=== PATIENT | male | born 1975 | race Two or more races ===

== ENCOUNTER 2016-11-21 15:38 | Emergency (ER) | payer MEDICAID ==
[2016-11-21 18:33] VITALS: BP 142/88
[2016-11-21] MEDS ORDERED: Pregabalin CAP(*) 50 MG PO ONE (20:30)
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
== END 2016-11-21 21:23 | disposition home or self-care (01) ==
LOC: ED 15:38
DX: G62.9 Polyneuropathy, unspecified (principal); Z76.0 Encounter for issue of repeat prescription; Z87.891 Personal history of nicotine dependence
CPT/HCPCS: 99282; A9270-GY

== ENCOUNTER 2016-11-28 09:21 | Emergency (ER) | payer MEDICAID ==
[2016-11-28 09:50] VITALS: BP 149/81
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
== END 2016-11-28 11:04 | disposition home or self-care (01) ==
LOC: UCEAST 09:21
DX: G62.9 Polyneuropathy, unspecified (principal); M54.10 Radiculopathy, site unspecified; Z88.6 Allergy status to analgesic agent
CPT/HCPCS: 99212; G0463

== ENCOUNTER 2016-12-12 10:23 | Emergency (ER) | payer MEDICAID, OTHER ==
[2016-12-12 10:54] VITALS: BP 142/92
--- NOTE | 2016-12-12 11:42 | UC ---
Lower Extremity/Ankle HPI - HPI Summary HPI Summary: Intermittent "variable" foot pain for years. Pt is unable to describe where or how often or character of pain. Also says he has disc problems in L1-L2 so gets pain from this as well. Has been uninsured for a long time, now has insurance and trying to get on track with a PCP and specialists appointment. [place] much better on combination of tramadol and lyrica but needs tramadol rx to "tide him over" before he sees his PCP. Denies bowel or bladder incontinence or saddle anesthesia. - History of Current Complaint Chief Complaint: UCLowerExtremity Stated Complaint: FOOT PAIN-NEUROPATHY Time Seen by Provider: 12/12/16 11:06 Hx Obtained From: Patient Onset/Duration: Gradual Onset Severity Initially: Moderate Severity Currently: Moderate Aggravating Factor(s): Nothing Alleviating Factor(s): Nothing Able to Bear Weight: Yes - Allergies/Home Medications Allergies/Adverse Reactions: Allergies Allergy/AdvReac Type Severity Reaction Status Date / Time Naproxen Allergy Swelling Verified 12/12/16 10:54 Acetaminophen [From Tylenol] AdvReac Intermediate See Comment Verified 12/12/16 10:54 PMH/Surg Hx/FS Hx/Imm Hx - Additional Past Medical History Additional PMH: neuropathy for years, "high inflammation" Endocrine History Of: Denies: Diabetes, Thyroid Disease Cardiovascular History Of: Denies: Cardiac Disorders, Hypertension Respiratory History Of: Denies: COPD, Asthma GI/ History Of: Denies: Ulcer - Surgical History Surgical History: Yes Surgery Procedure, Year, and Place: hernia repair with mesh 3 sites - Family History Known Family History: Positive: None - Social History Occupation: Unemployed Alcohol Use: None Substance Use Type: None Substance Use Comment - Amount & Last Used: OXYCONTIN THIS AM 08/16/14 Smoking Status (MU): Former Smoker Type: Cigarettes Have You Smoked in the Last Year: Yes - Immunization History Most Recent Influenza Vaccination: Never Most Recent Tetanus Shot: 2002 Most Recent Pneumonia Vaccination: Never Review of Systems Constitutional: Negative Skin: Negative Eyes: Negative ENT: Negative Respiratory: Negative Cardiovascular: Negative Gastrointestinal: Negative Genitourinary: Negative Motor: Negative Neurovascular: Decreased Sensation, Other - intermittent pain Musculoskeletal: Negative Neurological: Negative Psychological: Negative All Other Systems Reviewed And Are Negative: Yes Physical Exam Triage Information Reviewed: Yes Appearance: Well-Appearing, No Pain Distress, Obese Vital Signs: Initial Vital Signs Temp 98.3 F 12/12/16 10:48 Pulse 84 12/12/16 10:48 Resp 20 12/12/16 10:48 BP 142/92 12/12/16 10:48 Pulse Ox 97 12/12/16 10:48 Vital Signs Reviewed: Yes Eye Exam: Normal Eyes: Positive: Conjunctiva Clear ENT Exam: Normal ENT: Positive: Normal ENT inspection, Hearing grossly normal, Pharynx normal, TMs normal Dental Exam: Normal Neck exam: Normal Neck: Positive: Supple, Nontender, No Lymphadenopathy Respiratory Exam: Normal Respiratory: Positive: Chest non-tender, Lungs clear, Normal breath sounds, No respiratory distress, No accessory muscle use Cardiovascular Exam: Normal Cardiovascular: Positive: RRR, No Murmur Musculoskeletal: Positive: Strength Intact, ROM Intact Neurological Exam: Other - DTRs 2+ patella Neurological: Positive: Muscle Tone Normal Psychological Exam: Other - pressured speech, unable to move on from describing symptoms to a treatment plan, continually interrupting when I tried to ask questions or propose therapy Skin Exam: Normal Lower Extremity Course/Dx - Differential Dx/Diagnosis Provider Diagnoses: chronic pain. peripheral neuropathy. medication refill Discharge - Discharge Plan Condition: Stable Disposition: HOME Prescriptions: traMADol TAB* [Ultram*] 50 mg PO Q6HR PRN #15 tab MDD 4 PRN Reason: Pain Patient Education Materials: Peripheral Neuropathy (ED), Chronic Pain (ED) Referrals: Feliberto Esquivel MD [Primary Care Provider] - Additional Instructions: Now that you have an upcoming appointment with a primary care provider, you will not be able to come here for any of your regular medications (especially narcotics). Please use the tramadol only for nighttime pain. It is ok to take 1 or 2 tablets by mouth at bedtime. Do not use during the day or you will run out before your primary care appointment.
== END 2016-12-12 11:39 | disposition home or self-care (01) ==
LOC: UCEAST 10:23
DX: M79.673 Pain in unspecified foot (principal); G62.9 Polyneuropathy, unspecified; Z76.0 Encounter for issue of repeat prescription; R03.0 Elevated blood-pressure reading, without diagnosis of hypertension; Z88.6 Allergy status to analgesic agent; Z87.891 Personal history of nicotine dependence
CPT/HCPCS: 99212; G0463

== ENCOUNTER 2017-06-09 14:33 | Emergency (ER) | payer OTHER ==
[2017-06-09] MEDS ORDERED: NS 0.9% 1000 ML* 1,000 ML IV ONE (15:46)
[2017-06-09 16:06] LABS: Hematocrit 38 % (42-52); Hemoglobin 13.2 g/dl (14.0-18.0); Mean Corpuscular HGB Conc 34 g/dl (31-36); Mean Corpuscular Hemoglobin 30 pg (27-31); Mean Corpuscular Volume 87 fL (80-94); Mean Platelet Volume 8 um3 (7.4-10.4); Red Blood Count 4.42 10^6/ul (4.0-5.4); Red Cell Distribution Width 13 % (10.5-15); White Blood Count 5.8 10^3/ul (3.5-10.8)
[2017-06-09 16:20] LABS: ALT 13 U/L (7-52); AST 13 U/L (13-39); Albumin 3.9 g/dL (3.2-5.2); Alkaline Phosphatase 53 U/L (34-104); Anion Gap 6 mmol/L (2-11); Blood Urea Nitrogen 13 mg/dL (6-24); C Reactive Protein 3.25 mg/L (< 5.00); CO2 Carbon Dioxide 24 mmol/L (22-32); Calcium 8.8 mg/dL (8.6-10.3); Chloride 107 mmol/L (101-111); Creatine Kinase 95 U/L (10-223); EGFR African American 195.7 (>60); EGFR Non-African American 152.1 (>60); Globulin 2.9 g/dL (2-4); Glucose 110 mg/dL (70-100); Lipase 14 U/L (11.0-82.0); Magnesium 1.9 mg/dL (1.9-2.7); Potassium 3.8 mmol/L (3.5-5.0); Sodium 137 mmol/L (133-145); Total Protein 6.8 g/dL (6.4-8.9)
--- NOTE | 2017-06-09 16:22 | RAD ---
Indication: Chest pain. Single frontal view of the chest performed at 1600 hours was reviewed. Comparison is made with previous exam dated July 26, 2008. No mediastinal shift is noted. Heart is of normal size and configuration. Lung blake appear clear. IMPRESSION: NO ACTIVE CARDIOPULMONARY DISEASE IS NOTED.
[2017-06-09 16:51] LABS: Acetaminophen < 15 mcg/mL; Alcohol < 10 mg/dL (<10); Salicylate < 2.50 mg/dL (<30)
[2017-06-09 16:53] LABS: TSH (Thyroid Stimulating Horm) 0.52 mcIU/mL (0.34-5.60)
[2017-06-09 17:14] LABS: Benzodiazepine Urine Screen None Detected (None Detect)
[2017-06-09 17:17] LABS: Urine Bilirubin Negative (Negative); Urine Glucose Negative (Negative); Urine Nitrite Negative (Negative)
--- NOTE | 2017-06-09 18:41 | ED ---
Aleah Parks Thomas, scribed for Stan Deshpande MD on 06/09/17 at 1558 . Complex/Multi-Sys Presentation - HPI Summary HPI Summary: The pt is a 41 y/o M who comes in to the ED with multiple complaints of CP, SOB , abd pain, weakness, dizziness, restlessness, PARISI, arm pain, tiredness, confusion, agitation, sleepiness, depression, and anxiety, which he feels are secondary to his chronic polyneuropathy and also the medications that are being used to treat his polyneuropathy, including Nortriptyline and Gabapentin. He stopped the Nortriptyline on his own and he is still on Gabapentin. He was hoping to get a different medication from his PCP and he called his PCP to schedule an appointment. When the patient described his symptoms, he was instructed over the phone to go to the ED for evaluation of his symptoms. The patient denies suicidal ideation. The patient also takes tramadol, which is not working any more. He continues to have chronic peripheral neuropathy and chronic thoracic and lumbar pain. These have been evaluated previously with extensive bloodwork and imaging with appointments at neurology and pain clinics. - History Of Current Complaint Chief Complaint: EDChestPainROMI Time Seen by Provider: 06/09/17 14:54 Hx Obtained From: Patient Onset/Duration: Still Present Timing: Constant Severity Currently: Severe Aggravating Factor(s): None Alleviating Factor(s): None Associated Signs And Symptoms: Positive: Confusion, Agitation, Dizziness, Weakness, Headache, SOB, Chest Pain, Abdominal Pain, Other - POS: restlessness, arm pain, tiredness, sleepiness, depression, anxiety; NEG: SI. Negative: Fever Related History: Other - Hx of chronic peripheral neuropathy, thoracic and lumbar pain - Allergies/Home Medications Allergies/Adverse Reactions: Allergies Allergy/AdvReac Type Severity Reaction Status Date / Time Naproxen Allergy Swelling Verified 03/20/17 08:29 Acetaminophen [From Tylenol] AdvReac Intermediate See Comment Verified 03/20/17 08:29 Home Medications: Home Medications Gabapentin CAP(*) [Neurontin 300 CAP(*)] 300 mg PO TID 06/09/17 [History Confirmed 06/09/17] Nortriptyline CAP* [Pamelor CAP*] 10 - 20 mg PO BEDTIME 06/09/17 [History Confirmed 06/09/17] Venlafaxine EXT RELEASE CAP* [Effexor Xr CAP*] 37.5 mg PO DAILY 06/09/17 [ History Confirmed 06/09/17] traMADol TAB* [Ultram*] 100 mg PO TID PRN 06/09/17 [History Confirmed 06/09/17] PMH/Surg Hx/FS Hx/Imm Hx Previously Healthy: No Endocrine/Hematology History: Denies: Hx Diabetes, Hx Thyroid Disease Cardiovascular History: Denies: Hx Hypertension, Hx Pacemaker/ICD Respiratory History: Denies: Hx Asthma, Hx Chronic Obstructive Pulmonary Disease (COPD) GI History: Reports: Other GI Disorders - INCARCERATED VENTRAL HERNIA Denies: Hx Ulcer Musculoskeletal History: Reports: Other Musculoskeletal History - Hx lumbar pain , thoracic pain Sensory History: Denies: Hx Hearing Aid Neurological History: Reports: Hx Peripheral Neuropathy Psychiatric History: Denies: Hx Eating Disorder, Hx Panic Disorder, Hx of Violent Episodes Against Others - Surgical History Surgery Procedure, Year, and Place: hernia repair with mesh 3 sites, - Immunization History Date of Tetanus Vaccine: w Infectious Disease History: No Infectious Disease History: Reports: Hx of Known/Suspected MRSA - HX Right knee infection Denies: Hx Hepatitis, Hx Human Immunodeficiency Virus (HIV), Traveled Outside the [place] in Last 30 Days - Family History Known Family History: Negative: Blood Disorder - Social History Alcohol Use: None Substance Use Type: Reports: Prescribed Smoking Status (MU): Former Smoker Type: Cigarettes Have You Smoked in the Last Year: Yes Review of Systems Negative: Fever Positive: Chest Pain Positive: Shortness Of Breath Positive: Abdominal Pain Positive: Other - POS: arm pain Neurological: Other - POS: dizziness, tiredness, sleepiness Positive: Headache, Weakness Positive: Anxious, Depressed, Other - POS: restlessness, agitation; NEG: NV All Other Systems Reviewed And Are Negative: Yes Physical Exam Triage Information Reviewed: Yes Vital Signs On Initial Exam: Initial Vitals Temp Pulse Resp BP Pulse Ox 98.4 F 75 20 140/90 99 06/09/17 14:36 06/09/17 14:36 06/09/17 14:36 06/09/17 14:36 06/09/17 14:36 Vital Signs Reviewed: Yes Appearance: Positive: Well-Appearing, Well-Nourished, Pain Distress Skin: Positive: Warm, Skin Color Reflects Adequate Perfusion, Dry Head/Face: Positive: Normal Head/Face Inspection Eyes: Positive: EOMI, ALLY ENT: Positive: Normal ENT inspection Neck: Positive: Supple, Nontender Respiratory/Lung Sounds: Positive: Clear to Auscultation, Breath Sounds Present Cardiovascular: Positive: RRR Abdomen Description: Positive: Nontender, Soft Musculoskeletal: Positive: Normal, Strength/ROM Intact Neurological: Positive: Normal, Sensory/Motor Intact, Alert, Oriented to Person Place, Time Psychiatric: Positive: Affect/Mood Appropriate - [place] Coma Scale Coma Scale Total: 15 Diagnostics - Vital Signs Vital Signs Temp Pulse Resp BP Pulse Ox 06/09/17 15:03 99.2 F 74 14 136/73 96 06/09/17 15:00 72 18 136/73 97 06/09/17 14:56 73 98 06/09/17 14:55 134/90 06/09/17 14:36 98.4 F 75 20 140/90 99 - Laboratory Lab Results: Lab Results 06/09/17 06/09/17 06/09/17 Range/Units 16:00 16:00 16:00 WBC (3.5-10.8) 10^3/ul RBC (4.0-5.4) 10^6/ul Hgb (14.0-18.0) g/dl Hct (42-52) % MCV (80-94) fL MCH (27-31) pg MCHC (31-36) g/dl RDW (10.5-15) % Plt Count (150-450) 10^3/ul MPV (7.4-10.4) um3 Neut % (Auto) (38-83) % Lymph % (Auto) (25-47) % Evans % (Auto) (1-9) % Eos % (Auto) (0-6) % Baso % (Auto) (0-2) % Absolute Neuts (auto) (1.5-7.7) 10^3/ul Absolute Lymphs (auto) (1.0-4.8) 10^3/ul Absolute Monos (auto) (0-0.8) 10^3/ul Absolute Eos (auto) (0-0.6) 10^3/ul Absolute Basos (auto) (0-0.2) 10^3/ul Absolute Nucleated RBC 10^3/ul Nucleated RBC % INR (Anticoag Therapy) 0.81 L (0.89-1.11) APTT 31.4 (26.0-36.3) seconds D-Dimer, Quantitative < 200 (Less Than 230) ng/mL Sodium 137 (133-145) mmol/L Potassium 3.8 (3.5-5.0) mmol/L Chloride 107 (101-111) mmol/L Carbon Dioxide 24 (22-32) mmol/L Anion Gap 6 (2-11) mmol/L BUN 13 (6-24) mg/dL Creatinine 0.59 L (0.67-1.17) mg/dL Est GFR ( Amer) 195.7 (>60) Est GFR (Non-Af Amer) 152.1 (>60) BUN/Creatinine Ratio 22.0 H (8-20) Glucose 110 H (70-100) mg/dL Lactic Acid (0.5-2.0) mmol/L Calcium 8.8 (8.6-10.3) mg/dL Magnesium 1.9 (1.9-2.7) mg/dL Total Bilirubin 0.30 (0.2-1.0) mg/dL AST 13 (13-39) U/L ALT 13 (7-52) U/L Alkaline Phosphatase 53 (34-104) U/L Total Creatine Kinase 95 (10-223) U/L CK-MB (CK-2) 1.7 (0.6-6.3) ng/mL Troponin I 0.00 (<0.04) ng/mL C-Reactive Protein 3.25 (< 5.00) mg/L B-Natriuretic Peptide 48 ( - 100) pg/mL Total Protein 6.8 (6.4-8.9) g/dL Albumin 3.9 (3.2-5.2) g/dL Globulin 2.9 (2-4) g/dL Albumin/Globulin Ratio 1.3 (1-3) Lipase 14 (11.0-82.0) U/L TSH 0.52 (0.34-5.60) mcIU/mL Urine Color Urine Appearance Urine pH (5-9) Ur Specific Brady (1.010-1.030) Urine Protein (Negative) Urine Ketones (Negative) Urine Blood (Negative) Urine Nitrate (Negative) Urine Bilirubin (Negative) Urine Urobilinogen (Negative) Ur Leukocyte Esterase (Negative) Urine Glucose (Negative) Urine Ascorbic Acid (Negative) Salicylates < 2.50 (<30) mg/dL Urine Opiates Screen (None Detect) Acetaminophen < 15 mcg/mL Ur Barbiturates Screen (None Detect) Ur Phencyclidine Scrn (None Detect) Ur Amphetamines Screen (None Detect) U Benzodiazepines Scrn (None Detect) Urine Cocaine Screen (None Detect) U Cannabinoids Screen (None Detect) Serum Alcohol < 10 (<10) mg/dL 06/09/17 06/09/17 06/09/17 Range/Units 16:00 16:00 16:45 WBC 5.8 (3.5-10.8) 10^3/ul RBC 4.42 (4.0-5.4) 10^6/ul Hgb 13.2 L (14.0-18.0) g/dl Hct 38 L (42-52) % MCV 87 (80-94) fL MCH 30 (27-31) pg MCHC 34 (31-36) g/dl RDW 13 (10.5-15) % Plt Count 181 (150-450) 10^3/ul MPV 8 (7.4-10.4) um3 Neut % (Auto) 60.6 (38-83) % Lymph % (Auto) 26.2 (25-47) % Evans % (Auto) 8.6 (1-9) % Eos % (Auto) 3.6 (0-6) % Baso % (Auto) 1.0 (0-2) % Absolute Neuts (auto) 3.5 (1.5-7.7) 10^3/ul Absolute Lymphs (auto) 1.5 (1.0-4.8) 10^3/ul Absolute Monos (auto) 0.5 (0-0.8) 10^3/ul Absolute Eos (auto) 0.2 (0-0.6) 10^3/ul Absolute Basos (auto) 0.1 (0-0.2) 10^3/ul Absolute Nucleated RBC 0 10^3/ul Nucleated RBC % 0 INR (Anticoag Therapy) (0.89-1.11) APTT (26.0-36.3) seconds D-Dimer, Quantitative (Less Than 230) ng/mL Sodium (133-145) mmol/L Potassium (3.5-5.0) mmol/L Chloride (101-111) mmol/L Carbon Dioxide (22-32) mmol/L Anion Gap (2-11) mmol/L BUN (6-24) mg/dL Creatinine (0.67-1.17) mg/dL Est GFR ( Amer) (>60) Est GFR (Non-Af Amer) (>60) BUN/Creatinine Ratio (8-20) Glucose (70-100) mg/dL Lactic Acid 1.2 (0.5-2.0) mmol/L Calcium (8.6-10.3) mg/dL Magnesium (1.9-2.7) mg/dL Total Bilirubin (0.2-1.0) mg/dL AST (13-39) U/L ALT (7-52) U/L Alkaline Phosphatase (34-104) U/L Total Creatine Kinase (10-223) U/L CK-MB (CK-2) (0.6-6.3) ng/mL Troponin I (<0.04) ng/mL C-Reactive Protein (< 5.00) mg/L B-Natriuretic Peptide ( - 100) pg/mL Total Protein (6.4-8.9) g/dL Albumin (3.2-5.2) g/dL Globulin (2-4) g/dL Albumin/Globulin Ratio (1-3) Lipase (11.0-82.0) U/L TSH (0.34-5.60) mcIU/mL Urine Color Urine Appearance Urine pH (5-9) Ur Specific Brady (1.010-1.030) Urine Protein (Negative) Urine Ketones (Negative) Urine Blood (Negative) Urine Nitrate (Negative) Urine Bilirubin (Negative) Urine Urobilinogen (Negative) Ur Leukocyte Esterase (Negative) Urine Glucose (Negative) Urine Ascorbic Acid (Negative) Salicylates (<30) mg/dL Urine Opiates Screen Presumptive positive H (None Detect) Acetaminophen mcg/mL Ur Barbiturates Screen None detected (None Detect) Ur Phencyclidine Scrn None detected (None Detect) Ur Amphetamines Screen None detected (None Detect) U Benzodiazepines Scrn None detected (None Detect) Urine Cocaine Screen None detected (None Detect) U Cannabinoids Screen None detected (None Detect) Serum Alcohol (<10) mg/dL 06/09/17 Range/Units 16:55 WBC (3.5-10.8) 10^3/ul RBC (4.0-5.4) 10^6/ul Hgb (14.0-18.0) g/dl Hct (42-52) % MCV (80-94) fL MCH (27-31) pg MCHC (31-36) g/dl RDW (10.5-15) % Plt Count (150-450) 10^3/ul MPV (7.4-10.4) um3 Neut % (Auto) (38-83) % Lymph % (Auto) (25-47) % Evans % (Auto) (1-9) % Eos % (Auto) (0-6) % Baso % (Auto) (0-2) % Absolute Neuts (auto) (1.5-7.7) 10^3/ul Absolute Lymphs (auto) (1.0-4.8) 10^3/ul Absolute Monos (auto) (0-0.8) 10^3/ul Absolute Eos (auto) (0-0.6) 10^3/ul Absolute Basos (auto) (0-0.2) 10^3/ul Absolute Nucleated RBC 10^3/ul Nucleated RBC % INR (Anticoag Therapy) (0.89-1.11) APTT (26.0-36.3) seconds D-Dimer, Quantitative (Less Than 230) ng/mL Sodium (133-145) mmol/L Potassium (3.5-5.0) mmol/L Chloride (101-111) mmol/L Carbon Dioxide (22-32) mmol/L Anion Gap (2-11) mmol/L BUN (6-24) mg/dL Creatinine (0.67-1.17) mg/dL Est GFR ( Amer) (>60) Est GFR (Non-Af Amer) (>60) BUN/Creatinine Ratio (8-20) Glucose (70-100) mg/dL Lactic Acid (0.5-2.0) mmol/L Calcium (8.6-10.3) mg/dL Magnesium (1.9-2.7) mg/dL Total Bilirubin (0.2-1.0) mg/dL AST (13-39) U/L ALT (7-52) U/L Alkaline Phosphatase (34-104) U/L Total Creatine Kinase (10-223) U/L CK-MB (CK-2) (0.6-6.3) ng/mL Troponin I (<0.04) ng/mL C-Reactive Protein (< 5.00) mg/L B-Natriuretic Peptide ( - 100) pg/mL Total Protein (6.4-8.9) g/dL Albumin (3.2-5.2) g/dL Globulin (2-4) g/dL Albumin/Globulin Ratio (1-3) Lipase (11.0-82.0) U/L TSH (0.34-5.60) mcIU/mL Urine Color Anisha Urine Appearance Cloudy Urine pH 5.0 (5-9) Ur Specific Brady 1.024 (1.010-1.030) Urine Protein Negative (Negative) Urine Ketones Negative (Negative) Urine Blood Negative (Negative) Urine Nitrate Negative (Negative) Urine Bilirubin Negative (Negative) Urine Urobilinogen Negative (Negative) Ur Leukocyte Esterase Negative (Negative) Urine Glucose Negative (Negative) Urine Ascorbic Acid * H (Negative) Salicylates (<30) mg/dL Urine Opiates Screen (None Detect) Acetaminophen mcg/mL Ur Barbiturates Screen (None Detect) Ur Phencyclidine Scrn (None Detect) Ur Amphetamines Screen (None Detect) U Benzodiazepines Scrn (None Detect) Urine Cocaine Screen (None Detect) U Cannabinoids Screen (None Detect) Serum Alcohol (<10) mg/dL Result Diagrams: 06/09/17 16:00 06/09/17 16:00 Lab Statement: Any lab studies that have been ordered have been reviewed, and results considered in the medical decision making process. - Radiology CXR Xray Interpretation: No Acute Changes - no active cardiopulmonary disease is noted Radiology Interpretation Completed By: Radiologist Complex Multi-Symp Course/Dx Assessment/Plan: The pt is a 41 y/o M who comes in to the ED with multiple complaints of CP, SOB, abd pain, weakness, dizziness, restlessness, PARISI, arm pain , tiredness, confusion, agitation, sleepiness, depression, and anxiety, which he feels are secondary to his chronic polyneuropathy and also the medications that are being used to treat his polyneuropathy, including Nortriptyline and Gabapentin. He stopped the Nortriptyline on his own and he is still on Gabapentin. He was hoping to get a different medication from his PCP and he called his PCP to schedule an appointment. When the patient described his symptoms, he was instructed over the phone to go to the ED for evaluation of his symptoms. The patient denies suicidal ideation. The patient also takes tramadol, which is not working any more. He continues to have chronic peripheral neuropathy and chronic thoracic and lumbar pain. These have been evaluated previously with extensive bloodwork and imaging with appointments at neurology and pain clinics. In the ED course the patient was given IV fluids. Bloodwork shows Hgb 13.2, Hct 38, creatinine 0.57, glucose 110. UA negative. Urine Tox positive for opioids (note prior opioid Rx). CXR reveals no active cardiopulmonary disease is noted. ED physician has reviewed this radiology report and agrees. NO CRITICAL CARE TIME. DISCUSSED RESULTS WITH PATIENT. PATIENT DENIES SI. RX NORCO 5/325MG #30. F/U PMD THIS WEEK. - Diagnoses Provider Diagnoses: Chest pain, Dyspnea, Neuropathy, peripheral, Chronic back pain Discharge - Discharge Plan Condition: Stable Disposition: HOME Patient Education Materials: Chest Pain (ED), Dyspnea (ED), Peripheral Neuropathy (ED), Chronic Back Pain (ED) Forms: *Work Release Referrals: Feliberto Esquivel MD [Primary Care Provider] - Additional Instructions: FOLLOW UP WITH YOUR DOCTOR. CALL TOMORROW FOR FOLLOW UP. RETURN TO THE EMERGENCY DEPARTMENT FOR ANY WORSENING OF YOUR CONDITION OR QUESTIONS OR CONCERNS. The documentation as recorded by the Aleah griffin Thomas accurately reflects the service I personally performed and the decisions made by me, Stan Deshpande MD.
[2017-06-09 18:42] VITALS: BP 125/81
[2017-06-09] MEDS ORDERED: oxyCODONE TAB* 5 MG TAB PO ONE (18:44)
== END 2017-06-09 19:05 | disposition home or self-care (01) ==
LOC: ED 14:33
DX: R07.9 Chest pain, unspecified (principal); R06.00 Dyspnea, unspecified; R06.02 Shortness of breath; M54.9 Dorsalgia, unspecified; G62.9 Polyneuropathy, unspecified
CPT/HCPCS: 36415; 71010; 80053; 80307; 80320; 80329; 81003; 82550; 82553; 83605; 83690; 83735; 83880; 84443; 84484; 85025; 85379; 85610; 85730; 86140; 93005; 96360; 99282; A9270-GY; G0480

== ENCOUNTER → 2017-06-14 18:47 | Emergency (ER) | payer OTHER ==
[~2017-06-14 18:47] MED LIST: Cyclobenzaprine TAB* 10 MG ONE; Cyclobenzaprine TAB* 10 MG PO ONE; Ketorolac INJ* 60 MG/2 ML VIAL IM ONE; Ketorolac INJ* 60 MG/2 ML VIAL ONE; oxyCODONE TAB* 5 MG TAB ONE; oxyCODONE TAB* 5 MG TAB PO ONE
[2017-06-14 19:13] VITALS: BP 129/74
[2017-06-14 20:01] LABS: Hematocrit 40 % (42-52); Hemoglobin 13.6 g/dl (14.0-18.0); Mean Corpuscular HGB Conc 34 g/dl (31-36); Mean Corpuscular Hemoglobin 30 pg (27-31); Mean Corpuscular Volume 87 fL (80-94); Mean Platelet Volume 8 um3 (7.4-10.4); Red Blood Count 4.55 10^6/ul (4.0-5.4); Red Cell Distribution Width 13 % (10.5-15); White Blood Count 7.9 10^3/ul (3.5-10.8)
[2017-06-14 20:14] LABS: BUN/Creatinine Ratio 28.8 (8-20); Total Bilirubin 0.4 mg/dL (0.2-1.0)
[2017-06-14 20:23] LABS: TSH (Thyroid Stimulating Horm) 0.99 mcIU/mL (0.34-5.60)
[2017-06-14 20:33] LABS: Potassium 4.2 mmol/L (3.5-5.0)
--- NOTE | 2017-06-14 20:33 | ED ---
Martínez Parks Rebecca, scribed for Fish Martinez MD on 06/14/17 at 1919 . Complex/Multi-Sys Presentation - HPI Summary HPI Summary: Pt is a 41 y/o M who presents to ED c/o diffuse "extreme, severe pain." Pt reports pain is in the bilateral UE, LE, feet and hands that has been ongoing for "a long time." Pain is currently ranked 9/10 and described as so severe, it is affecting his sleep. Sx aggravated and alleviated by nothing. PMHx peripheral neuropathy. Pt was evaluated [place] [facility] [place] for symptoms caused as a side effect of his previous medications (Tramadol, Effexor and Gabapenitn) . On 06/11, his medication was changed, but his insurance did not cover the new medication and he states he cannot get in to see his PCP until Friday (2 days). Allergies to Tylenol and Naproxen. - History Of Current Complaint Chief Complaint: EDGeneral Time Seen by Provider: 06/14/17 19:18 Hx Obtained From: Patient Onset/Duration: Lasting Weeks - "a while", Still Present Severity Currently: Severe - 9/10 Location: Pain At: - Bilateral UE, LE, hands, feet Aggravating Factor(s): Nothing Alleviating Factor(s): Nothing - Allergies/Home Medications Allergies/Adverse Reactions: Allergies Allergy/AdvReac Type Severity Reaction Status Date / Time Naproxen Allergy Swelling Verified 06/14/17 19:13 Acetaminophen [From Tylenol] AdvReac Intermediate See Comment Verified 06/14/17 19:13 PMH/Surg Hx/FS Hx/Imm Hx Endocrine/Hematology History: Denies: Hx Diabetes, Hx Thyroid Disease Cardiovascular History: Reports: Other Cardiovascular Problems/Disorders Denies: Hx Hypertension, Hx Pacemaker/ICD Respiratory History: Denies: Hx Asthma, Hx Chronic Obstructive Pulmonary Disease (COPD) GI History: Reports: Other GI Disorders - INCARCERATED VENTRAL HERNIA Denies: Hx Ulcer Musculoskeletal History: Reports: Other Musculoskeletal History - Hx lumbar pain , thoracic pain Sensory History: Denies: Hx Hearing Aid Neurological History: Reports: Hx Peripheral Neuropathy Psychiatric History: Denies: Hx Eating Disorder, Hx Panic Disorder, Hx of Violent Episodes Against Others - Surgical History Surgery Procedure, Year, and Place: hernia repair with mesh 3 sites, - Immunization History Date of Tetanus Vaccine: ukwn Infectious Disease History: Reports: Hx of Known/Suspected MRSA - HX Right knee infection Denies: Hx Hepatitis, Hx Human Immunodeficiency Virus (HIV), Traveled Outside the [place] in Last 30 Days - Family History Known Family History: Negative: Blood Disorder - Social History Alcohol Use: None Substance Use Type: Reports: Prescribed Substance Use Comment - Amount & Last Used: OXYCONTIN THIS AM 08/16/14 Hx Tobacco Use: Yes Smoking Status (MU): Former Smoker Type: Cigarettes Have You Smoked in the Last Year: Yes Review of Systems Negative: Fever Positive: Other - Bilateral UE, LE, hand and foot pain for "a long time" All Other Systems Reviewed And Are Negative: Yes Physical Exam Triage Information Reviewed: Yes Vital Signs On Initial Exam: Initial Vitals Temp Pulse Resp BP Pulse Ox 98.6 F 106 16 129/74 97 06/14/17 19:05 06/14/17 19:05 06/14/17 19:05 06/14/17 19:05 06/14/17 19:05 Vital Signs Reviewed: Yes Appearance: Positive: Pain Distress - mild discomfort, Obese Skin: Positive: Warm Head/Face: Positive: Normal Head/Face Inspection Eyes: Positive: ALLY ENT: Positive: Hearing grossly normal Neck: Positive: Supple, Nontender Respiratory/Lung Sounds: Positive: Clear to Auscultation, Breath Sounds Present Cardiovascular: Positive: RRR Abdomen Description: Positive: Nontender, Soft Bowel Sounds: Positive: Present Musculoskeletal: Positive: Strength/ROM Intact Neurological: Positive: Alert, Oriented to Person Place, Time, Normal Gait Psychiatric: Positive: Anxious Diagnostics - Vital Signs Vital Signs Temp Pulse Resp BP Pulse Ox 06/14/17 19:05 98.6 F 106 16 129/74 97 - Laboratory Result Diagrams: 06/14/17 19:47 06/14/17 19:47 Lab Statement: Any lab studies that have been ordered have been reviewed, and results considered in the medical decision making process. Re-Evaluation - Re-Evaluation First Eval Comment: old records and istop reviewed, pt has tramadol at home but states doesn't work, received 20 oxycodone oin ed 4 days ago, has meds recently adjusted, offered pt trial of muscle relaxer, reluctant to further rx narcotics , will give pt oxycodone x 2 to go home but advisewd pt to take flexeril with tramadol and contact pcp Complex Multi-Symp Course/Dx Assessment/Plan: Pt is a 41 y/o M who presents to ED c/o diffuse "extreme, severe pain." Pt reports pain is in the bilateral UE, LE, feet and hands that has been ongoing for "a long time." Pain is currently ranked 9/10 and described as so severe, it is affecting his sleep. Sx aggravated and alleviated by nothing. PMHx peripheral neuropathy. Pt was evaluated [place] [facility] [place]09 for symptoms caused as a side effect of his previous medications (Tramadol, Effexor and Gabapenitn). On 06/11, his medication was changed, but his insurance did not cover the new medication and he states he cannot get in to see his PCP until Friday (2 days). Allergies to Tylenol and Naproxen. Blood work was done. In the ED course, pt was administered Toradol IM and Roxycodone and Flexeril PO. Pt will be D/C to home with Dx of chronic pain and nerve pain and Rx for Flexeril and a follow up with his PCP. He understands and agrees. Elevated BP noted and advised to f/u with PCP. - Diagnoses Provider Diagnoses: Chronic pain, Nerve pain Discharge - Discharge Plan Condition: Stable Disposition: HOME Prescriptions: Cyclobenzaprine TAB* [Flexeril 10 MG TAB*] 10 mg PO TID #14 tab Patient Education Materials: Chronic Pain (ED) Referrals: Feliberto Esquivel MD [Primary Care Provider] - 3 Days The documentation as recorded by the Martínez griffin Rebecca accurately reflects the service I personally performed and the decisions made by , Fish Martinez MD.
== END | disposition home or self-care (01) ==
LOC: ED 18:47
DX: G89.29 Other chronic pain (principal); M79.2 Neuralgia and neuritis, unspecified; Z87.891 Personal history of nicotine dependence
CPT/HCPCS: 36415; 80053; 82550; 83605; 83735; 84443; 85025; 96372; 96374; 99283; A9270-GY; J1885

== ENCOUNTER 2017-07-07 10:02 | Emergency (ER) | payer OTHER ==
--- NOTE | 2017-07-07 11:30 | UC ---
Skin Complaint HPI - HPI Summary HPI Summary: Patient presents with a history of MRSA, he compains of 2 week onset pain from the right nare, and now has redness and swelling of the tip of his nose. He states he feel unwell, like in a fog, runny a low grade fever. He states he now has a sore on the inside of his nose. He also reports that he fell a few days ago and is complaining of left hand pain, and would like to have this checked out as well today. He complains of hand swelling and pain. - History of Current Complaint Chief Complaint: UCSkin Time Seen by Provider: 07/07/17 11:10 Stated Complaint: RED AREA ON NOSE Hx Obtained From: Patient Onset/Duration: Gradual Onset, Lasting Weeks Skin Exposure Onset/Duration: Weeks Ago Timing: Constant Onset Severity: Moderate Current Severity: Severe Location: Nose, Other - left hand Aggravating Factor(s): Touch Alleviating Factor(s): Nothing Associated Signs & Symptoms: Positive: Fever Related History: Other: - MRSA Similar Episode/Dx as: MRSA - Allergy/Home Medications Allergies/Adverse Reactions: Allergies Allergy/AdvReac Type Severity Reaction Status Date / Time Naproxen Allergy Swelling Verified 07/07/17 10:10 Acetaminophen [From Tylenol] AdvReac Intermediate See Comment Verified 07/07/17 10:10 Review of Systems Constitutional: Fever Skin: Other - red, swollen painful nose with open wund in right nare. ENT: Other - red, swollen painful nose with sore inside the right nare. Musculoskeletal: Edema - left dorsum hand, Myalgia All Other Systems Reviewed And Are Negative: Yes PMH/Surg Hx/FS Hx/Imm Hx Previously Healthy: Yes - Surgical History Surgical History: Yes Surgery Procedure, Year, and Place: hernia repair with mesh 3 sites, - Family History Known Family History: Positive: None Negative: Blood Disorder - Social History Occupation: Employed Full-time Lives: Alone Alcohol Use: None Substance Use Type: None Substance Use Comment - Amount & Last Used: OXYCONTIN THIS AM 08/16/14 Smoking Status (MU): Former Smoker Type: Cigarettes Have You Smoked in the Last Year: Yes - Immunization History Most Recent Influenza Vaccination: Never Most Recent Tetanus Shot: 2002 Most Recent Pneumonia Vaccination: Never Physical Exam Triage Information Reviewed: Yes Appearance: Well-Appearing Vital Signs: Initial Vital Signs Temp 98 F 07/07/17 10:11 Pulse 73 07/07/17 10:11 Resp 18 07/07/17 10:11 Pulse Ox 100 07/07/17 10:11 Vital Signs Reviewed: Yes Eye Exam: Normal ENT: Positive: Other: - ulcer noted in right distal nare on septal wall, tip of nose red, warm and tender on palpation. Skin Exam: Normal Course/Dx - Course Course Of Treatment: Patient was referred to ER. Told to go directly there. Called report to nurse. Patient will drive self to ER. Discharged in stable condition. - Differential Diagnoses - Skin Complaint Differential Diagnoses: Cellulitis, Other - MRSA - Diagnoses Provider Diagnoses: cellulitis. MRSA Discharge - Discharge Plan Condition: Stable Disposition: HOME Patient Education Materials: Cellulitis (ED) Referrals: Feliberto Esquivel MD [Primary Care Provider] - Additional Instructions: Patient was instructed to go to the ER.
== END 2017-07-07 11:44 | disposition home or self-care (01) ==
LOC: UCEAST 10:02
DX: L03.114 Cellulitis of left upper limb (principal); Z88.6 Allergy status to analgesic agent; Z87.891 Personal history of nicotine dependence
CPT/HCPCS: 99211; G0463

== ENCOUNTER 2017-07-07 12:03 | Emergency (ER) | payer OTHER ==
[2017-07-07] MEDS ORDERED: NS 0.9% 1000 ML* 1,000 ML IV ONE (13:41)
--- NOTE | 2017-07-07 14:19 | RAD ---
INDICATION: 3 2 days ago. Left hand pain COMPARISON: None TECHNIQUE: AP, lateral, and oblique views were obtained. FINDINGS: The bony structures, joint spaces, and soft tissues of the hand are normal for age. The distal radius is obscured by the patient's watch. IMPRESSION: NO ACUTE FRACTURE ABOUT THE HAND
[2017-07-07 14:37] LABS: Hematocrit 39 % (42-52); Hemoglobin 13.3 g/dl (14.0-18.0); Mean Corpuscular HGB Conc 34 g/dl (31-36); Mean Corpuscular Hemoglobin 30 pg (27-31); Mean Corpuscular Volume 87 fL (80-94); Mean Platelet Volume 8 um3 (7.4-10.4); Red Blood Count 4.43 10^6/ul (4.0-5.4); Red Cell Distribution Width 13 % (10.5-15); White Blood Count 5.9 10^3/ul (3.5-10.8)
[2017-07-07 14:51] LABS: BUN/Creatinine Ratio 18.2 (8-20); C Reactive Protein 15.85 mg/L (< 5.00); Calcium 8.6 mg/dL (8.6-10.3); EGFR African American 171.1 (>60); Potassium 4.2 mmol/L (3.5-5.0); Total Bilirubin 0.4 mg/dL (0.2-1.0)
[2017-07-07] MEDS ORDERED: Sulfamethox/Trimethoprim DS 800/160* TAB PO ONE (15:10)
--- NOTE | 2017-07-07 15:17 | ED ---
Complex/Multi-Sys Presentation - HPI Summary HPI Summary: Pt here w/ nasal redness, swelling and pain w/ sores inside Rt nares. Progressively worsening - pain/swelling spreading into upper lip on Rt. H/o MRSA - waited 2 weeks to be treated last time and required hospitalization. He has waited 2 weeks again this time as well. Report sweating this morning and facial pain - no wesley PARISI, visual change, neck stiffness or pain, N/V/D, chest pain, or SOB. He has been trying to keep the area clean by washing and applying triple antibiotic ointment - getting too painful to apply ointment. Has not tried anything for pain. Also reports he had an episode of leg weakness last week - fell and hit Lt hand in the process. 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 Admits swelling has reduced and not as painful but while he's here he's like to get this checked. Denies numbness, tingling, weakness in Lt hand. PMH: *CTS *Major Depressive D/o *POLYNEUROAPTHY *THROACIC AND LUMBOASCRAL NEURITIS MEDS: GABAPENTIN FLUOXETNIN ADVIL PRN - History Of Current Complaint Chief Complaint: EDGeneral Time Seen by Provider: 07/07/17 12:35 Hx Obtained From: Patient - Allergies/Home Medications Allergies/Adverse Reactions: Allergies Allergy/AdvReac Type Severity Reaction Status Date / Time Naproxen Allergy Swelling Verified 07/07/17 10:10 Acetaminophen [From Tylenol] AdvReac Intermediate See Comment Verified 07/07/17 10:10 PMH/Surg Hx/FS Hx/Imm Hx Previously Healthy: Yes Endocrine/Hematology History: Denies: Hx Anticoagulant Therapy, Hx Blood Disorders, Hx Diabetes, Hx Thyroid Disease, Autoimmune Disease Cardiovascular History: Reports: Other Cardiovascular Problems/Disorders Denies: Hx Hypertension, Hx Pacemaker/ICD Respiratory History: Denies: Hx Asthma, Hx Chronic Obstructive Pulmonary Disease (COPD) GI History: Reports: Hx Gastroesophageal Reflux Disease, Hx Hiatal Hernia, Hx Ulcer, Other GI Disorders - INCARCERATED VENTRAL HERNIA Musculoskeletal History: Reports: Hx Back Problems, Other Musculoskeletal History - Hx lumbar pain, thoracic pain Sensory History: Denies: Hx Hearing Aid Neurological History: Reports: Hx Headaches, Hx Peripheral Neuropathy - takes gabapentin Psychiatric History: Reports: Hx Anxiety, Hx Depression Denies: Hx Eating Disorder, Hx Panic Disorder, Hx of Violent Episodes Against Others - Surgical History Surgery Procedure, Year, and Place: hernia repair with mesh 3 sites, - Immunization History Date of Tetanus Vaccine: [email or web address] Infectious Disease History: Yes Infectious Disease History: Reports: Hx of Known/Suspected MRSA Denies: Hx Clostridium Difficile, Hx Hepatitis, Hx Human Immunodeficiency Virus (HIV), Hx Shingles, Hx Tuberculosis, Hx Known/Suspected VRE, Hx Known/ Suspected VRSA, History Other Infectious Disease, Traveled Outside the [place] in Last 30 Days - Family History Known Family History: Positive: None Negative: Blood Disorder - Social History Occupation: Employed Full-time Lives: With Family Alcohol Use: None Hx Substance Use: No Substance Use Type: Reports: None, Prescribed Substance Use Comment - Amount & Last Used: OXYCONTIN THIS AM 08/16/14 Hx Tobacco Use: Yes Smoking Status (MU): Former Smoker Type: Cigarettes Have You Smoked in the Last Year: Yes Review of Systems Constitutional: Other - see HPI Eyes: Negative Negative: Photophobia, Blurred Vision, Diplopia, Drainage, Erythema ENT: Negative Negative: Dental Pain, Sore Throat, Ear Ache, Nasal Discharge Cardiovascular: Negative Negative: Chest Pain Respiratory: Negative Negative: Shortness Of Breath Gastrointestinal: Negative Positive: no symptoms reported Musculoskeletal: Other - see HPI Skin: Other - see HPI Neurological: Negative Psychological: Normal All Other Systems Reviewed And Are Negative: Yes Physical Exam Triage Information Reviewed: Yes Vital Signs On Initial Exam: Initial Vitals Temp Pulse Resp BP Pulse Ox 97.3 F 76 17 144/95 97 07/07/17 12:16 07/07/17 12:16 07/07/17 12:16 07/07/17 12:16 07/07/17 12:16 Vital Signs Reviewed: Yes Appearance: Positive: Well-Nourished, Pain Distress - appears to have discomfort from nasal redness, swelling Skin: Positive: Warm, Dry - no drainage from lesion along Rt nares Head/Face: Positive: Normal Head/Face Inspection Eyes: Positive: Normal, EOMI, ALLY, Conjunctiva Clear. Negative: Conjunctiva Inflammed, Discharge ENT: Positive: Nasal congestion, TMs normal. Negative: Nasal drainage, Tonsillar swelling, Tonsillar exudate Dental: Negative: Abscess @ Neck: Positive: Supple, Nontender, No Lymphadenopathy Respiratory/Lung Sounds: Positive: Clear to Auscultation, Breath Sounds Present. Negative: Rales, Rhonchi, Stridor, Wheezes Cardiovascular: Positive: Normal, RRR, S1, S2. Negative: Murmur, Rub Abdomen Description: Positive: Nontender, Soft Bowel Sounds: Positive: Present Musculoskeletal: Positive: Strength/ROM Intact, Pain @ - mild TTP over Lt MT bones - no wesley edema but appears to have healing ecchymosis - no gross deformity - FROM w/o restriction; carpals NTTP Neurological: Positive: Normal, Sensory/Motor Intact, Alert, Oriented to Person Place, Time, CN Intact II-III Psychiatric: Positive: Normal - concerned but calm - Steen Coma Scale Coma Scale Total: 15 Diagnostics - Vital Signs Vital Signs Temp Pulse Resp BP Pulse Ox 07/07/17 12:47 98.4 F 07/07/17 12:16 97.3 F 76 17 144/95 97 - Laboratory Lab Results: Lab Results 07/07/17 07/07/17 07/07/17 Range/Units 14:06 14:06 14:06 WBC 5.9 (3.5-10.8) 10^3/ul RBC 4.43 (4.0-5.4) 10^6/ul Hgb 13.3 L (14.0-18.0) g/dl Hct 39 L (42-52) % MCV 87 (80-94) fL MCH 30 (27-31) pg MCHC 34 (31-36) g/dl RDW 13 (10.5-15) % Plt Count 206 (150-450) 10^3/ul MPV 8 (7.4-10.4) um3 Neut % (Auto) 57.9 (38-83) % Lymph % (Auto) 29.3 (25-47) % [place] % (Auto) 7.4 (1-9) % Eos % (Auto) 4.6 (0-6) % Baso % (Auto) 0.8 (0-2) % Absolute Neuts (auto) 3.4 (1.5-7.7) 10^3/ul Absolute Lymphs (auto) 1.7 (1.0-4.8) 10^3/ul Absolute Monos (auto) 0.4 (0-0.8) 10^3/ul Absolute Eos (auto) 0.3 (0-0.6) 10^3/ul Absolute Basos (auto) 0 (0-0.2) 10^3/ul Absolute Nucleated RBC 0 10^3/ul Nucleated RBC % 0 INR (Anticoag Therapy) 0.81 L (0.89-1.11) APTT 32.7 (26.0-36.3) seconds Sodium 135 (133-145) mmol/L Potassium 4.2 (3.5-5.0) mmol/L Chloride 103 (101-111) mmol/L Carbon Dioxide 27 (22-32) mmol/L Anion Gap 5 (2-11) mmol/L BUN 12 (6-24) mg/dL Creatinine 0.66 L (0.67-1.17) mg/dL Est GFR ( Amer) 171.1 (>60) Est GFR (Non-Af Amer) 133.0 (>60) BUN/Creatinine Ratio 18.2 (8-20) Glucose 92 (70-100) mg/dL Lactic Acid (0.5-2.0) mmol/L Calcium 8.6 (8.6-10.3) mg/dL Total Bilirubin 0.40 (0.2-1.0) mg/dL AST 15 (13-39) U/L ALT 14 (7-52) U/L Alkaline Phosphatase 58 (34-104) U/L C-Reactive Protein 15.85 H (< 5.00) mg/L Total Protein 7.0 (6.4-8.9) g/dL Albumin 4.0 (3.2-5.2) g/dL Globulin 3.0 (2-4) g/dL Albumin/Globulin Ratio 1.3 (1-3) 07/07/17 Range/Units 14:06 WBC (3.5-10.8) 10^3/ul RBC (4.0-5.4) 10^6/ul Hgb (14.0-18.0) g/dl Hct (42-52) % MCV (80-94) fL MCH (27-31) pg MCHC (31-36) g/dl RDW (10.5-15) % Plt Count (150-450) 10^3/ul MPV (7.4-10.4) um3 Neut % (Auto) (38-83) % Lymph % (Auto) (25-47) % [place] % (Auto) (1-9) % Eos % (Auto) (0-6) % Baso % (Auto) (0-2) % Absolute Neuts (auto) (1.5-7.7) 10^3/ul Absolute Lymphs (auto) (1.0-4.8) 10^3/ul Absolute Monos (auto) (0-0.8) 10^3/ul Absolute Eos (auto) (0-0.6) 10^3/ul Absolute Basos (auto) (0-0.2) 10^3/ul Absolute Nucleated RBC 10^3/ul Nucleated RBC % INR (Anticoag Therapy) (0.89-1.11) APTT (26.0-36.3) seconds Sodium (133-145) mmol/L Potassium (3.5-5.0) mmol/L Chloride (101-111) mmol/L Carbon Dioxide (22-32) mmol/L Anion Gap (2-11) mmol/L BUN (6-24) mg/dL Creatinine (0.67-1.17) mg/dL Est GFR ( Amer) (>60) Est GFR (Non-Af Amer) (>60) BUN/Creatinine Ratio (8-20) Glucose (70-100) mg/dL Lactic Acid 0.7 (0.5-2.0) mmol/L Calcium (8.6-10.3) mg/dL Total Bilirubin (0.2-1.0) mg/dL AST (13-39) U/L ALT (7-52) U/L Alkaline Phosphatase (34-104) U/L C-Reactive Protein (< 5.00) mg/L Total Protein (6.4-8.9) g/dL Albumin (3.2-5.2) g/dL Globulin (2-4) g/dL Albumin/Globulin Ratio (1-3) Result Diagrams: 07/07/17 14:06 07/07/17 14:06 Lab Statement: Any lab studies that have been ordered have been reviewed, and results considered in the medical decision making process. Complex Multi-Symp Course/Dx - Diagnoses Provider Diagnoses: Cellulitis, Nasal lesion, Sprain of hand, left Discharge - Discharge Plan Condition: Stable Disposition: HOME Prescriptions: Ibuprofen TAB* [Motrin TAB* 800 MG] 800 mg PO Q8HR PRN #20 tab PRN Reason: Pain Mupirocin 2% OINT* [Bactroban 2 % Oint*] 1 applic TOPICAL BID #1 tube Sulfamethox/Trimethoprim DS* [Bactrim DS 800/160 TAB*] 1 tab PO BID #19 tab Patient Education Materials: Cellulitis (ED), Hand Sprain (ED) Forms: *Work Release Referrals: Feliberto Esquivel MD [Primary Care Provider] - Additional Instructions: You appear to have an infection of your nose. You may gently wash and apply mupirocin ointment as directed - wash hands well before and after use as this infection is contagious Complete oral antibiotics (bactrim) You may apply warm epsom salt compress to nose for relief of pain Follow-up with your PCP this week for recheck of symptoms *If you develop fever, chills, pain with eye movements, airway swelling, vomiting, neck stiffness, return to ED
[2017-07-07] MEDS ORDERED: Mupirocin 2% OINT* TUBE TOPICAL SCH (16:00)
[2017-07-07] MEDS ORDERED: Ketorolac INJ* 30 MG/ML 1 ML VIAL IV PUSH ONE (16:29)
[2017-07-07 17:23] VITALS: BP 133/92
== END 2017-07-07 17:23 | disposition home or self-care (01) ==
LOC: ED 12:03
DX: S63.92XA Sprain of unspecified part of left wrist and hand, initial encounter (principal); L03.90 Cellulitis, unspecified; Y92.9 Unspecified place or not applicable; Y93.9 Activity, unspecified; W19.XXXA Unspecified fall, initial encounter
CPT/HCPCS: 36415; 80053; 83605; 85025; 85610; 85730; 86140; 87040; 87070; 90471; 96360; 99282; A9270-GY; J1885

== ENCOUNTER 2017-07-15 19:02 | Emergency (ER) | payer OTHER ==
--- NOTE | 2017-07-15 20:04 | RAD ---
INDICATION: Wrist dislocation COMPARISON: None. TECHNIQUE: 3 views left wrist. REPORT: There is a minimally displaced and partially comminuted fracture involving the lateral distal tip of the left radius. Remaining visualized bones are intact and appropriately aligned. IMPRESSION: Slightly displaced and partially comminuted fracture involving the lateral distal tip of the left radius.
[2017-07-15] MEDS ORDERED: oxyCODONE TAB* 5 MG TAB PO ONE ×2 (20:16→21:45)
--- NOTE | 2017-07-15 20:59 | RAD ---
indication: Head trauma after falling off ladder. Patient reports +LOC. COMPARISON: None A CT scan of the brain and c-spine was performed without intravenous contrast enhancement. Contiguous axial sections were obtained from the lung apices through the vertex. BRAIN: The ventricles, cisterns and sulci are within normal limits. No significant focal abnormality or mass effect is seen. The mcgowan-white differentiation is adequately maintained. There is no evidence for intracranial hemorrhage. No significant bony abnormality is present. The mastoid air cells are appropriately aerated. The visualized paranasal sinuses are clear. C-SPINE: Degenerative change of the cervical spine includes loss of intervertebral disc height and marginal osteophyte formation. This is most severe at C4-C6. On the sagittal view image there is straightening of the upper cervical spine. The vertebral bodies and facet joints are otherwise appropriately aligned. The dens is intact. There is no widening of the atlantodental interval. There is no hyperdense material in the cervical canal to indicate hemorrhage. The visualized musculature and soft tissues are normal. There is no gross lymphadenopathy visualized. The visualized portion of the lung apices are clear. IMPRESSION: 1. No calvarial fracture or acute intracranial hemorrhage. 2. There is straightening of the upper cervical spine normal lordosis which could be degenerative or the consequence of posttraumatic muscle spasm. No acute fracture or dislocation is identified.
--- NOTE | 2017-07-15 21:43 | ED ---
Upper Extremity Pain - HPI Summary HPI Summary: 42M presents with left arm injury. He fell off a 5 foot ladder and landed on left arm and head. He admits to LOC. He denies any nausea or vomiting. He denies any previous fracture to area. he states he relocated his wrist fracture prior to arrival. has infection on right arm currently taking antibiotics. he is intense pain states. he denies any numbness or tingling. is in narcotic program. is right handed. works on [employer]. - History of Current Complaint Chief Complaint: EDExtremityUpper Stated Complaint: LT WRIST INJURY Time Seen by Provider: 07/15/17 20:06 - Allergies/Home Medications Allergies/Adverse Reactions: Allergies Allergy/AdvReac Type Severity Reaction Status Date / Time Naproxen Allergy Swelling Verified 07/15/17 19:05 Acetaminophen [From Tylenol] AdvReac Intermediate See Comment Verified 07/15/17 19:05 PMH/Surg Hx/FS Hx/Imm Hx Endocrine/Hematology History: Denies: Hx Anticoagulant Therapy, Hx Blood Disorders, Hx Diabetes, Hx Thyroid Disease Cardiovascular History: Reports: Other Cardiovascular Problems/Disorders Denies: Hx Hypertension, Hx Pacemaker/ICD Respiratory History: Denies: Hx Asthma, Hx Chronic Obstructive Pulmonary Disease (COPD) GI History: Reports: Hx Gastroesophageal Reflux Disease, Hx Hiatal Hernia, Hx Ulcer, Other GI Disorders - INCARCERATED VENTRAL HERNIA Musculoskeletal History: Reports: Hx Back Problems, Other Musculoskeletal History - Hx lumbar pain, thoracic pain Sensory History: Denies: Hx Hearing Aid Neurological History: Reports: Hx Headaches, Hx Peripheral Neuropathy - takes gabapentin Psychiatric History: Reports: Hx Anxiety, Hx Depression Denies: Hx Eating Disorder, Hx Panic Disorder, Hx of Violent Episodes Against Others - Surgical History Surgery Procedure, Year, and Place: hernia repair with mesh 3 sites, - Immunization History Date of Tetanus Vaccine: w Infectious Disease History: No Infectious Disease History: Reports: Hx of Known/Suspected MRSA Denies: Hx Clostridium Difficile, Hx Hepatitis, Hx Human Immunodeficiency Virus (HIV), Hx Shingles, Hx Tuberculosis, Hx Known/Suspected VRE, Hx Known/ Suspected VRSA, History Other Infectious Disease, Traveled Outside the [place] in Last 30 Days - Family History Known Family History: Positive: None Negative: Blood Disorder - Social History Alcohol Use: None Hx Substance Use: No Substance Use Type: Reports: None, Prescribed Substance Use Comment - Amount & Last Used: tramadol at home Hx Tobacco Use: Yes Smoking Status (MU): Former Smoker Type: Cigarettes Have You Smoked in the Last Year: Yes Review of Systems Negative: Fever Negative: Chest Pain Negative: Shortness Of Breath Positive: Myalgia - left wrist pain Positive: Headache All Other Systems Reviewed And Are Negative: Yes Physical Exam Triage Information Reviewed: Yes Vital Signs On Initial Exam: Initial Vitals Temp Pulse Resp BP Pulse Ox 99.1 F 104 20 135/89 96 07/15/17 19:05 07/15/17 19:05 07/15/17 19:05 07/15/17 19:05 07/15/17 19:05 Vital Signs Reviewed: Yes Appearance: Positive: Well-Appearing Skin: Positive: Warm, Dry, Other - lesion on right wrist Head/Face: Positive: Normal Head/Face Inspection Eyes: Positive: Normal, EOMI, ALLY, Conjunctiva Clear ENT: Positive: Normal ENT inspection, Pharynx normal, TMs normal Respiratory/Lung Sounds: Positive: Clear to Auscultation, Breath Sounds Present Cardiovascular: Positive: Normal, RRR Abdomen Description: Positive: Nontender, Soft Bowel Sounds: Positive: Present Musculoskeletal: Positive: Limited @ - left wrist, Edema Left - wrist, Other - good pulses, capillary refill<2 secs, sensation grossly intact Neurological: Positive: Sensory/Motor Intact, Alert, Oriented to Person Place, Time, CN Intact II-III Psychiatric: Positive: Normal - Nadeem Coma Scale Best Eye Response: 4 - Spontaneous Best Motor Response: 6 - Obeys Commands Best Verbal Response: 5 - Oriented Coma Scale Total: 15 Procedures - Splinting Location: wrist Hand-Made Type: orthoglass Splint: sugar-tong Pre-Proc Neuro Vasc Exam: normal Post-Proc Neuro Vasc Exam: normal Diagnostics - Vital Signs Vital Signs Temp Pulse Resp BP Pulse Ox 07/15/17 19:05 99.1 F 104 20 135/89 96 - Laboratory Lab Statement: Any lab studies that have been ordered have been reviewed, and results considered in the medical decision making process. - Radiology wrist Xray Interpretation: Positive (See Comments) - IMPRESSION: Slightly displaced and partially comminuted fracture involving the lateral distal tip of the left radius. Radiology Interpretation Completed By: Radiologist - CT brain and neck CT Interpretation: No Acute Changes CT Interpretation Completed By: Radiologist Course/Dx - Course Course Of Treatment: 42M presents with left arm injury. He fell off a 5 foot ladder and landed on left arm and head. He admits to LOC. He denies any nausea or vomiting. He denies any previous fracture to area. he states he relocated his wrist fracture prior to arrival. has infection on right arm currently taking antibiotics. he is intense pain states. he denies any numbness or tingling. on exam swelling to left wrist. normal neuro exam. xrays shows distal radius fracture. CT brain normal. placed in splint and will have follow up with ortho. patient understands and agrees with plan. - Diagnoses Differential Diagnosis/HQI/PQRI: Positive: Fracture (Closed), Strain, Sprain Provider Diagnoses: Left wrist fracture, Head injury Discharge - Discharge Plan Condition: Good Disposition: HOME Prescriptions: oxyCODONE TAB* [Roxycodone TAB 5 mg*] 5 mg PO Q6H PRN #20 tab MDD 4 PRN Reason: Pain Patient Education Materials: Wrist Fracture in Adults (ED), Head Injury (ED) Forms: *Work Release Referrals: Feliberto Esquivel MD [Primary Care Provider] - Juan Barnett MD [Medical Doctor] - Additional Instructions: Keep elbow in sling Keep splint on area and keep dry Call ortho office tomorrow to set up appointment for follow up use narcotic every 6-8 hours for pain Ice, elevate Return to ED if develop any new or worsening symptoms
[2017-07-15 22:02] VITALS: BP 127/78
== END 2017-07-15 22:02 | disposition home or self-care (01) ==
LOC: ED 19:02
DX: S62.102A Fracture of unspecified carpal bone, left wrist, initial encounter for closed fracture (principal); S09.90XA Unspecified injury of head, initial encounter; W11.XXXA Fall on and from ladder, initial encounter; Y93.9 Activity, unspecified; Y92.9 Unspecified place or not applicable; Y99.9 Unspecified external cause status
CPT/HCPCS: 70450; 72125; 99282; A9270-GY

== ENCOUNTER 2017-11-30 17:26 | Emergency (ER) | payer OTHER ==
--- OUTSIDE RECORDS SUMMARY | 2017-11-30 17:32 | XMS REPORT ---
:1975 External Reference #:[id number] Author Organization [facility] [email or web address] Address [address] [address] Phone [phone] Care Team Providers Name Role Phone Tali Eason MD Care Team Information Receiving Manager Unavailable Feliberto Esquivel MD Primary Care Physician Unavailable Payers Type Date Identification Numbers Payment Provider Subscriber Commercial Policy Number: [id number] Bari Wellingtonhan Ashley E[employer] Name: [id number] [address] PayID: [id number] [place] [address] Problems Date Description Provider Status Onset: 12/20/2016 Thoracic and lumbosacral neuritis Feliberto Esquivel M.D. Active Onset: 12/20/2016 Polyneuropathy Feliberto Esquivel M.D. Active Onset: 12/20/2016 Mild recurrent major depression Feliberto Esquivel M.D. Active Onset: 12/20/2016 Morbid obesity Feliberto Esquivel M.D. Active Onset: 06/17/2017 Disorder of skin AND/OR Feliberto Esquivel M.D. Active subcutaneous tissue Onset: 07/01/2017 Carpal tunnel syndrome Feliberto Esquivel M.D. Active Onset: 07/31/2017 Hemorrhoids without complication Feliberto Esquivel M.D. Active Onset: 08/12/2017 Anemia Feliberto Esquivel M.D. Active Onset: 08/12/2017 Insomnia Feliberto Esquivel M.D. Active Onset: 08/12/2017 Hemorrhage of rectum and anus Feliberto Esquivel M.D. Active Onset: 10/07/2017 Gastroesophageal reflux disease Feliberto Esquivel M.D. Active Onset: 12/20/2016 Abdominal pain Feliberto Esquivel M.D. Inactive Inactive: 09/17/2017 Family History Date Family Member(s) Problem(s) Comments Father due to Diabetes () Father Diabetes Type II Father due to Heart Disease () Mother Alive And Well Siblings 2 First Brother Bipolar Disorder Social History Type Date Description Comments Marital Status Significant Other Lives With Female Partner Occupation Currently Working Occupation [employer] Cigarette Use Former Cigarette Smoker ETOH Use 10/24/2017 Occasionally consumes alcohol Smoking Patient is a former smoker Recreational Drug Use Denies Drug Use Exercise Type/Frequency Exercises sporadically General Hx Text 1 son Allergies, Adverse Reactions, Alerts Date Description Reaction Status Severity Comments 12/20/2016 Naproxen active Moderate edema Medications Medication Date Status Form Strength Qnty SIG Indications Ordering Provider Guaifenesin-Cod 11/24 Active Solution 100-10mg/ 180ml 5-10 R05 Tala eine 5ML milliliters Aburto, q4-6hrs as [employer] needed for cough Amoxicillin/Cla 11/24 Active Tablets 875-125mg 14tab one tab J20.9 Tala vulanate s twice/day Aburto, Potassium [employer] Duloxetine HCL 10/[address] Fan 30mg 60cap 2 to 3 caps Tali Bah s by mouth Stackman, every day M.D. Duloxetine HCL 10/[address] Fan 40mg 1 po qam Ha Sheila Francis M.D.,FACP Duloxetine HCL 10/[address] Fan 20mg 1-3 by G62.9 Ha mouth every Sheila Francis, evening as M.D.,FACP directed Buprenorphine 09/17 Active Tablets Sub 8mg 90tab Take 1 Tab M51.16 Andres Rashid HCL s Sublinguall Sheila Francis, y 3 Times A M.D.,FACP Day as Needed Bupropion HCL 08/12 Active Tablets ER 150mg 30tab take 1 F33.0 Feliberto ER (XL) 24HR s tablet by Sierra mouth every , M.D. morning with food Pantoprazole 08/[address] 20mg 30tab take 1 K29.31 [place] Sodium /2017 s tablet by Sierra mouth every , M.D. morning before breakfast Betamethasone 06/17 Active Cream 0.05% 50gm apply twice L98.9 [place] Dipropionate a day Jasmyn Esquivel Gabapentin 06/17 Active Capsules 300mg 90cap Take 1 M51.16 s Capsule By Pachika Mouth 3 , M.D. Times A Day Vitamin B Active Tablets 1 by mouth Unknown Complex / every day Potassium Active Tablets 99mg otc once a Unknown /0000 day Vitamin D3 Active Tablets once daily Unknown Complete Osteo Bi-Flex Active Tablets 250-200mg daily Unknown Regular / Strength Fish Oil Active Capsules 1000mg 1 by mouth Unknown every day Multi Vitamin Active Tablets 1 by mouth Unknown every day Coconut Oil Active Capsules 1000mg As directed Unknown Duloxetine HCL 10/[address] Fan 30mg 90cap take 1 to 3 G62.9 Tali Bah s capsules in [facility], - evening as M.D. 10/24 Lyrica 10/15 Hx Capsules 50mg 120ca 2-4 Tali Mazin ps tabs/day as Yumi - directed M.D. 10/24 ( taking) Fluoxetine HCL 09/18 Hx Capsules 10mg 30cap take one F33.0 Ha s capsule by Sheila Francis, - mouth once M.D.,FACP 10/24 daily in the morning Duloxetine HCL 09/[address] Fan 20mg 60cap 1-2 tabs by G62.9 Tali Bah s mouth every Yumi, - day as M.D. 10/21 Hydrocortisone 08/01 Hx Cream 2.5% 20gm apply after first bowel Sierra - movement Jasmyn 10/24 Anucort-HC 07/31 Hx Suppository 25mg 12uni apply daily K64.9 ts after first Pachdharmesh - Jasmyn mejia 08/01 Oxycodone HCL 07/24 Hx Tablets 5mg 30tab 1 by mouth S52.591A s every 6 Pachikara - hours as , M.D. 07/30 needed Ibuprofen 07/07 Hx Tablets 800mg 20tab by mouth s three times Ordering - a day as Provider 07/14 Bactroban Nasal 07/07 Hx Ointment 2% 10gm apply to right Ordering - nostril Provider 07/17 twice a day x 10 days Bactrim DS 07/07 Hx Tablets 800-160mg 20tab 1 by mouth s twice a day Ordering - x 10 days Provider 07/17 Oxycodone HCL 06/17 Hx Tablets 5mg 60tab 1 by mouth M51.16 s every 6 Pachikara - hours as , M.D. 07/24 Fluoxetine HCL 06/17 Hx Capsules 20mg 30cap Take One F33.0 s Capsule By Pachikara - Mouth Every , M.D. Lyrica 06/11 Hx Capsules 50mg 60cap twice daily G62.9 s Pachdharmesh - M.DMazin 06/17 Buprenorphine 06/11 Hx Patches 7.5mcg/HR 4unit 1 patch M51.16 Weekly s weekly Sierra - Jasmyn 06/17 Fluoxetine HCL 06/11 Hx Capsules 10mg 30cap 1 cap once F33.0 Feliberto (PMDD) s daily Pachika - M.DMazin 06/17 Nortriptyline 05/20 Hx Capsules 10mg 60cap 1-2 caps by G62.9 Tali Bah HCL s mouth every Stackman, - night as M.D. 06/01 directed Gabapentin 05/15 Hx Capsules 300mg 120ca 1 by mouth ps twice times Pachikara - a day and 2 , M.D. 06/11 cap Acetaminophen-C 05/15 Hx Tablets 300-30mg 15tab 1 tab by Feliberto odeine #3 /2016 s mouth 3 Pachikara - times /day , M.D. 06/10 as needed Doxycycline 05/07 Hx Capsules 100mg 20cap 1 cab twice L03.113 [place] Hyclate s a day Sierra Stevenson M.D. 06/10 Hydrocodone-Shayan 05/07 Hx Tablets 7.5-325mg 45tab 1 tab po up L03.113 [place] taminophen s to tid as Nisa, - needed Jasmyn 06/10 Gabapentin 01/24 Hx Capsules 300mg 90cap Take One G63 s Capsule By Sierra - Mouth 3 , M.DMazin 05/15 Times A Day Venlafaxine HCL 01/15 Hx Caps ER 24HR 37.5mg 30cap once daily Feliberto ER s Sierra Stevenson M.D. 06/11 Tramadol HCL 01/10 Hx Tablets 50mg 90tab 2 tab three M51.16 s times a day Sierra - as needed Jasmyn 09/17 Gabapentin 01/10 Hx Capsules 100mg 90cap 2 cap three G63 s times a day Sierra Stevenson M.D. 01/24 Duloxetine HCL 01/[address] Part 30mg 14cap once a day F33.0 s in full Sierra - stomach , MRobb 01/15 Butrans 12/30 Hx Patches 10mcg/HR 4unit topical Ha Weekly s q7days Elva Pradhan M.D.,FACP 01/24 Tramadol HCL 12/20 Hx Tablets 50mg 14tab three times M51.16 s a day as Sierra - Jasmyn lopez 01/10 Gabapentin 12/20 Hx Capsules 100mg 90cap three times G63 s a day Sierra Stevenson M.D. 01/10 Advil Hx Capsules 200mg as needed Unknown /0000 - 08/12 Oxycodone HCL 00 Hx Capsules 5mg 1-2 tabs by Unknown /0000 mouth every - 4-6 hours 06/11 as needed pain Tramadol HCL Hx Tablets 50mg Take 1 Unknown /0000 Tablet By - Mouth Every 10/24 4 To Hours as Needed For Pain Vital Signs Date Vital Result Comment 11/24/2017 Weight 310.00 lb Heart Rate 78 /min BP Systolic 130 mmHg BP Diastolic 63 mmHg Body Temperature 97.3 F O2 % BldC Oximetry 98 % 10/24/2017 Weight 311.00 lb Heart Rate 87 /min BP Systolic Sitting 120 mmHg BP Diastolic Sitting 70 mmHg Body Temperature 96.9 F O2 % BldC Oximetry 95 % 10/21/2017 Height 69 inches 5'9" Weight 314.00 lb Heart Rate 84 /min BP Systolic 130 mmHg BP Diastolic 88 mmHg Respiratory Rate 16 /min BMI (Body Mass Index) 46.4 kg/m2 10/07/2017 Weight 306.00 lb Heart Rate 112 /min BP Systolic Sitting 126 mmHg BP Diastolic Sitting 80 mmHg Body Temperature 96.6 F O2 % BldC Oximetry 94 % 09/17/2017 Weight 303.00 lb w/clothes/boots Heart Rate 82 /min BP Systolic Sitting 140 mmHg BP Diastolic Sitting 82 mmHg Body Temperature 96.7 F O2 % BldC Oximetry 96 % 09/08/2017 Height 69 inches 5'9" Weight 300.00 lb BP Systolic 134 mmHg BP Diastolic 88 mmHg Body Temperature 96.3 F Pain Level 3 BMI (Body Mass Index) 44.3 kg/m2 09/02/2017 Height 69 inches 5'9" Weight 300.00 lb Heart Rate 80 /min BP Systolic 140 mmHg BP Diastolic 96 mmHg Respiratory Rate 14 /min BMI (Body Mass Index) 44.3 kg/m2 08/26/2017 Weight 298.00 lb Heart Rate 66 /min BP Systolic Sitting 125 mmHg BP Diastolic Sitting 90 mmHg Body Temperature 96.8 F Pain Level 8 back and feet O2 % BldC Oximetry 94 % 08/13/2017 Height 70 inches 5'10" Weight 300.00 lb Heart Rate 91 /min BP Systolic 140 mmHg BP Diastolic 93 mmHg Body Temperature 97.1 F BMI (Body Mass Index) 43.0 kg/m2 08/12/2017 Height 70 inches 5'10" Weight 300.12 lb Heart Rate 73 /min BP Systolic 128 mmHg BP Diastolic 72 mmHg Body Temperature 97.8 F O2 % BldC Oximetry 97 % BMI (Body Mass Index) 43.1 kg/m2 07/31/2017 Height 70 inches 5'10" Weight 297.00 lb Respiratory Rate 20 /min Pain Level 0 BMI (Body Mass Index) 42.6 kg/m2 07/31/2017 Height 70 inches 5'10" Weight 300.38 lb Heart Rate 79 /min BP Systolic 136 mmHg BP Diastolic 84 mmHg Body Temperature 98.1 F O2 % BldC Oximetry 96 % BMI (Body Mass Index) 43.1 kg/m2 07/24/2017 Height 70 inches 5'10" Weight 297.31 lb Heart Rate 85 /min BP Systolic 130 mmHg BP Diastolic 72 mmHg Body Temperature 98.7 F O2 % BldC Oximetry 99 % BMI (Body Mass Index) 42.7 kg/m2 07/17/2017 Height 70 inches 5'10" Weight 295.00 lb BP Systolic 130 mmHg BP Diastolic 82 mmHg Respiratory Rate 20 /min Body Temperature 97.3 F Pain Level 8 BMI (Body Mass Index) 42.3 kg/m2 07/01/2017 Height 70 inches 5'10" Weight 295.38 lb Heart Rate 87 /min BP Systolic 138 mmHg BP Diastolic 76 mmHg Body Temperature 97.1 F O2 % BldC Oximetry 95 % BMI (Body Mass Index) 42.4 kg/m2 06/17/2017 Height 70 inches 5'10" Weight 300.00 lb Heart Rate 102 /min BP Systolic 118 mmHg BP Diastolic 66 mmHg Body Temperature 97.9 F O2 % BldC Oximetry 92 % BMI (Body Mass Index) 43.0 kg/m2 Glucose Meter 5 06/11/2017 Height 70 inches 5'10" Weight 281.50 lb Heart Rate 68 /min BP Systolic 130 mmHg BP Diastolic 70 mmHg Body Temperature 96.8 F O2 % BldC Oximetry 98 % BMI (Body Mass Index) 40.4 kg/m2 05/20/2017 Weight 265.00 lb Heart Rate 88 /min BP Systolic Sitting 140 mmHg BP Diastolic Sitting 90 mmHg Respiratory Rate 14 /min 05/15/2017 Weight 285.38 lb Heart Rate 68 /min BP Systolic Sitting 124 mmHg BP Diastolic Sitting 72 mmHg Body Temperature 96.5 F O2 % BldC Oximetry 97 % 05/09/2017 Height 69 inches 5'9" Weight 286.00 lb Heart Rate 86 /min BP Systolic 122 mmHg BP Diastolic 70 mmHg Body Temperature 96.7 F O2 % BldC Oximetry 95 % BMI (Body Mass Index) 42.2 kg/m2 05/07/2017 Heart Rate 87 /min BP Systolic 126 mmHg BP Diastolic 74 mmHg Body Temperature 97.4 F O2 % BldC Oximetry 97 % 04/25/2017 Height 70 inches 5'10" Weight 286.00 lb Heart Rate 77 /min BP Systolic Sitting 130 mmHg BP Diastolic Sitting 70 mmHg Body Temperature 97.2 F O2 % BldC Oximetry 97 % BMI (Body Mass Index) 41.0 kg/m2 04/01/2017 Height 70 inches 5'10" Weight 295.00 lb Heart Rate 68 /min BP Systolic Sitting 128 mmHg BP Diastolic Sitting 84 mmHg Respiratory Rate 14 /min BMI (Body Mass Index) 42.3 kg/m2 03/13/2017 Weight 295.12 lb Heart Rate 78 /min BP Systolic 120 mmHg BP Diastolic 72 mmHg Body Temperature 96.9 F O2 % BldC Oximetry 97 % 01/24/2017 Weight 291.00 lb Heart Rate 76 /min BP Systolic Sitting 144 mmHg BP Diastolic Sitting 86 mmHg Body Temperature 97.5 F O2 % BldC Oximetry 97 % 01/10/2017 Weight 296.00 lb Heart Rate 82 /min BP Systolic Sitting 146 mmHg BP Diastolic Sitting 82 mmHg Body Temperature 97.4 F O2 % BldC Oximetry 96 % 12/30/2016 Height 71 inches 5'11" Weight 299.00 lb Heart Rate 62 /min BP Systolic Sitting 133 mmHg BP Diastolic Sitting 74 mmHg Body Temperature 97.2 F O2 % BldC Oximetry 97 % BMI (Body Mass Index) 41.7 kg/m2 12/20/2016 Height 71 inches 5'11" Weight 292.38 lb Heart Rate 86 /min BP Systolic Sitting 142 mmHg BP Diastolic Sitting 82 mmHg Body Temperature 97.6 F O2 % BldC Oximetry 98 % BMI (Body Mass Index) 40.8 kg/m2 Results Test Date Test Result H/L Range Note Drug Abuse 20 Urine 09/17/2017 Urine Amphetamine Negative ng/mL 1 Urine Barbiturates Negative ng/mL 2 Urine Benzodiazepines Negative ng/mL 3 Urine Cocaine Negative ng/mL 4 Urine Phencyclidine Negative ng/mL Cutoff: 25 Urine Tetrahydrocannabinol Negative ng/mL Cutoff: 50 5 Creatinine, Urine 82.8 mg/dL Specific Todd 1.013 pH 5.9 Oxidants Negative 6 Adulterants Comment Normal Codeine, Ur Not Detected ng/mL Cutoff: 25 7 Erulmik-4-rbfk-glucuronide, Ur Not Detected ng/mL 8 Morphine, Ur Not Detected ng/mL Cutoff: 25 9 Pkmlwfub-7-ezhe-glucuronide, U Not Detected ng/mL 10 6-monoacetylmorphine, Ur Not Detected ng/mL Cutoff: 25 11 Hydrocodone, Ur Not Detected ng/mL Cutoff: 25 12 Norhydrocodone, Ur Not Detected ng/mL Cutoff: 25 13 Dihydrocodeine, Ur Not Detected ng/mL Cutoff: 25 14 Hydromorphone, Ur Not Detected ng/mL Cutoff: 25 15 Rhvcggkhphkgu2oouhbishiiuxljy Not Detected ng/mL 16 Oxycodone, Ur Not Detected ng/mL Cutoff: 25 17 Noroxycodone, Ur Not Detected ng/mL Cutoff: 25 18 Oxymorphone, Ur Not Detected ng/mL Cutoff: 25 19 Cuyfhaerahf-2-hamh-glucuronide Not Detected ng/mL 20 Noroxymorphone, Ur Not Detected ng/mL Cutoff: 25 21 Fentanyl, Ur Not Detected ng/mL Cutoff: 2 22 Norfentanyl, Ur Not Detected ng/mL Cutoff: 2 23 Meperidine, Ur Not Detected ng/mL Cutoff: 25 24 Normeperidine, Ur Not Detected ng/mL Cutoff: 25 25 Naloxone, Ur Not Detected ng/mL Cutoff: 25 26 Ezwdzkuc-1-unyl-glucuronide, U Not Detected ng/mL 27 Methadone, Ur Not Detected ng/mL Cutoff: 25 28 Eddp, Ur Not Detected ng/mL Cutoff: 25 29 Propoxyphene, Ur Not Detected ng/mL Cutoff: 25 30 Norpropoxyphene, Ur Not Detected ng/mL Cutoff: 25 31 Tramadol, Ur Present ng/mL Cutoff: 25 32 O-desmethyltramadol, Ur Present ng/mL Cutoff: 25 33 Tapentadol, Ur Not Detected ng/mL Cutoff: 25 34 N-desmethyltapentadol, Ur Not Detected ng/mL Cutoff: 50 35 Vnwjzockzk-vykh-qmsbfxdkxju, U Not Detected ng/mL 36 Buprenorphine, Ur Not Detected ng/mL Cutoff: 5 37 Norbuprenorphine, Ur Not Detected ng/mL Cutoff: 5 38 Norbuprenorphine glucuronide Not Detected ng/mL Cutoff: 20 39 Opioid Interpretation See Comment 40 Iron & Iron Binding Capacity 08/11/2017 Iron 165 g/dL 50-212 Unsaturated Iron Binding 279 g/dL Total Iron Binding Capacity 444 g/dL 250-450 % Iron Saturation 37 % 15-55 Vitamin B12 And Folate Serum 08/11/2017 Vitamin B12 382 pg/mL 180-914 41 Folic Acid (Folate) > 20.00 ng/mL >3.99 CBC No Diff 07/29/2017 White Blood Count 5.3 10^3/uL 3.5-10.8 Red Blood Count 4.19 10^6/uL 4.0-5.4 Hemoglobin 12.5 g/dL Low 14.0-18.0 Hematocrit 36 % Low 42-52 Mean Corpuscular Volume 86 fL 80-94 Mean Corpuscular Hemoglobin 30 pg 27-31 Mean Corpuscular HGB Conc 35 g/dL 31-36 Red Cell Distribution Width 13 % 10.5-15 Platelet Count 200 10^3/uL 150-450 Mean Platelet Volume 7 um3 Low 7.4-10.4 CBC Auto Diff 07/29/2017 White Blood Count 5.4 10^3/uL 3.5-10.8 Red Blood Count 4.47 10^6/uL 4.0-5.4 Hemoglobin 13.3 g/dL Low 14.0-18.0 Hematocrit 39 % Low 42-52 Mean Corpuscular Volume 87 fL 80-94 Mean Corpuscular Hemoglobin 30 pg 27-31 Mean Corpuscular HGB Conc 34 g/dL 31-36 Red Cell Distribution Width 13 % 10.5-15 Platelet Count 221 10^3/uL 150-450 Mean Platelet Volume 8 um3 7.4-10.4 Abs Neutrophils 3.1 10^3/uL 1.5-7.7 Abs Lymphocytes 1.6 10^3/uL 1.0-4.8 Abs Monocytes 0.4 10^3/uL 0-0.8 Abs Eosinophils 0.2 10^3/uL 0-0.6 Abs Basophils 0 10^3/uL 0-0.2 Abs Nucleated RBC 0 10^3/uL Granulocyte % 57.9 % 38-83 Lymphocyte % 29.6 % 25-47 Monocyte % 7.7 % 1-9 Eosinophil % 4.0 % 0-6 Basophil % 0.8 % 0-2 Nucleated Red Blood Cells % 0.1 Laboratory test finding 07/29/2017 Lactic Acid 1.8 mmol/L 0.5-2.0 42 Inr/Protime 07/29/2017 Inr 0.86 Low 0.89-1.11 Laboratory test finding 07/29/2017 Partial Thrombo Time 33.4 seconds 26.0 -36.3 PTT Comp Metabolic Panel 07/29/2017 Sodium 138 mmol/L 133-145 Potassium 4.0 mmol/L 3.5-5.0 Chloride 104 mmol/L 101-111 Co2 Carbon Dioxide 25 mmol/L 22-32 Anion Gap 9 mmol/L 2-11 Glucose 118 mg/dL High 70-100 Blood Urea Nitrogen 19 mg/dL 6-24 Creatinine 0.76 mg/dL 0.67-1.17 BUN/Creatinine Ratio 25.0 High 8-20 Calcium 9.1 mg/dL 8.6-10.3 Total Protein 7.2 g/dL 6.4-8.9 Albumin 4.2 g/dL 3.2-5.2 Globulin 3.0 g/dL 2-4 Albumin/Globulin Ratio 1.4 1-3 Total Bilirubin 0.50 mg/dL 0.2-1.0 Alkaline Phosphatase 64 U/L 34-104 Alt 21 U/L 7-52 Ast 17 U/L 13-39 Egfr Non- 113.0 >60 Egfr 145.4 >60 43 Laboratory test finding 07/29/2017 Lipase 11 U/L 11.0-82.0 C Reactive Protein 9.22 mg/L High < 5.00 44 Troponin-I (TnI) 0.00 ng/mL <0.04 Laboratory test 07/07/2017 Blood Culture SEE RESULT BELOW 45 finding Wound Culture/Sensi 07/07/2017 Wound/Misc SEE RESULT BELOW 46 Culture-Gram Stain Laboratory test 07/07/2017 C Reactive Protein 15.85 mg/L High < 5.00 47 finding Lactic Acid 0.7 mmol/L 0.5-2.0 48 Comp Metabolic Panel 07/07/2017 Sodium 135 mmol/L 133-145 Potassium 4.2 mmol/L 3.5-5.0 Chloride 103 mmol/L 101-111 Co2 Carbon Dioxide 27 mmol/L 22-32 Anion Gap 5 mmol/L 2-11 Glucose 92 mg/dL 70-100 Blood Urea Nitrogen 12 mg/dL 6-24 Creatinine 0.66 mg/dL Low 0.67-1.17 BUN/Creatinine Ratio 18.2 8-20 Calcium 8.6 mg/dL 8.6-10.3 Total Protein 7.0 g/dL 6.4-8.9 Albumin 4.0 g/dL 3.2-5.2 Globulin 3.0 g/dL 2-4 Albumin/Globulin Ratio 1.3 1-3 Total Bilirubin 0.40 mg/dL 0.2-1.0 Alkaline Phosphatase 58 U/L 34-104 Alt 14 U/L 7-52 Ast 15 U/L 13-39 Egfr Non- 133.0 >60 Egfr 171.1 >60 49 Laboratory test finding 07/07/2017 Partial Thrombo Time 32.7 seconds 26.0 -36.3 PTT Inr/Protime 07/07/2017 Inr 0.81 Low 0.89-1.11 CBC Auto Diff 07/07/2017 White Blood Count 5.9 10^3/uL 3.5-10.8 Red Blood Count 4.43 10^6/uL 4.0-5.4 Hemoglobin 13.3 g/dL Low 14.0-18.0 Hematocrit 39 % Low 42-52 Mean Corpuscular Volume 87 fL 80-94 Mean Corpuscular Hemoglobin 30 pg 27-31 Mean Corpuscular HGB Conc 34 g/dL 31-36 Red Cell Distribution Width 13 % 10.5-15 Platelet Count 206 10^3/uL 150-450 Mean Platelet Volume 8 um3 7.4-10.4 Abs Neutrophils 3.4 10^3/uL 1.5-7.7 Abs Lymphocytes 1.7 10^3/uL 1.0-4.8 Abs Monocytes 0.4 10^3/uL 0-0.8 Abs Eosinophils 0.3 10^3/uL 0-0.6 Abs Basophils 0 10^3/uL 0-0.2 Abs Nucleated RBC 0 10^3/uL Granulocyte % 57.9 % 38-83 Lymphocyte % 29.3 % 25-47 Monocyte % 7.4 % 1-9 Eosinophil % 4.6 % 0-6 Basophil % 0.8 % 0-2 Nucleated Red Blood Cells % 0 Laboratory test finding 07/07/2017 Blood Culture SEE RESULT BELOW 50 CBC Auto Diff 06/14/2017 White Blood Count 7.9 10^3/uL 3.5-10.8 Red Blood Count 4.55 10^6/uL 4.0-5.4 Hemoglobin 13.6 g/dL Low 14.0-18.0 Hematocrit 40 % Low 42-52 Mean Corpuscular Volume 87 fL 80-94 Mean Corpuscular Hemoglobin 30 pg 27-31 Mean Corpuscular HGB Conc 34 g/dL 31-36 Red Cell Distribution Width 13 % 10.5-15 Platelet Count 214 10^3/uL 150-450 Mean Platelet Volume 8 um3 7.4-10.4 Abs Neutrophils 4.8 10^3/uL 1.5-7.7 Abs Lymphocytes 2.1 10^3/uL 1.0-4.8 Abs Monocytes 0.6 10^3/uL 0-0.8 Abs Eosinophils 0.3 10^3/uL 0-0.6 Abs Basophils 0.1 10^3/uL 0-0.2 Abs Nucleated RBC 0.01 10^3/uL Granulocyte % 61.5 % 38-83 Lymphocyte % 26.7 % 25-47 Monocyte % 7.4 % 1-9 Eosinophil % 3.4 % 0-6 Basophil % 1.0 % 0-2 Nucleated Red Blood Cells % 0.1 Laboratory test finding 06/14/2017 Lactic Acid 1.6 mmol/L 0.5-2.0 51 Comp Metabolic Panel 06/14/2017 Sodium 138 mmol/L 133-145 Chloride 108 mmol/L 101-111 Co2 Carbon Dioxide 23 mmol/L 22-32 Glucose 105 mg/dL High 70-100 Blood Urea Nitrogen 21 mg/dL 6-24 Creatinine 0.73 mg/dL 0.67-1.17 BUN/Creatinine Ratio 28.8 High 8-20 Calcium 9.0 mg/dL 8.6-10.3 Total Protein 7.0 g/dL 6.4-8.9 Albumin 4.0 g/dL 3.2-5.2 Globulin 3.0 g/dL 2-4 Albumin/Globulin Ratio 1.3 1-3 Total Bilirubin 0.40 mg/dL 0.2-1.0 Alkaline Phosphatase 51 U/L 34-104 Alt 18 U/L 7-52 Egfr Non- 119.0 >60 Egfr 153.0 >60 52 Potassium 4.2 mmol/L 3.5-5.0 Anion Gap 7 mmol/L 2-11 Ast 14 U/L 13-39 Laboratory test finding 06/14/2017 Magnesium 2.0 mg/dL 1.9-2.7 Creatine Kinase(CK) 62 U/L 10-223 TSH (Thyroid Stim Horm) 0.99 mcIU/mL 0.34-5.60 Laboratory test finding 06/09/2017 Acetaminophen < 15 g/mL 53 Alcohol < 10 mg/dL <10 Salicylate < 2.50 mg/dL <30 TSH (Thyroid Stim Horm) 0.52 mcIU/mL 0.34-5.60 CKMB 06/09/2017 CKMB ng/mL 1.7 ng/mL 0.6-6.3 Laboratory test finding 06/09/2017 Magnesium 1.9 mg/dL 1.9-2.7 Lipase 14 U/L 11.0-82.0 Creatine Kinase(CK) 95 U/L 10-223 C Reactive Protein 3.25 mg/L < 5.00 54 Troponin-I (TnI) 0.00 ng/mL <0.04 Comp Metabolic Panel 06/09/2017 Sodium 137 mmol/L 133-145 Potassium 3.8 mmol/L 3.5-5.0 Chloride 107 mmol/L 101-111 Co2 Carbon Dioxide 24 mmol/L 22-32 Anion Gap 6 mmol/L 2-11 Glucose 110 mg/dL High 70-100 Blood Urea Nitrogen 13 mg/dL 6-24 Creatinine 0.59 mg/dL Low 0.67-1.17 BUN/Creatinine Ratio 22.0 High 8-20 Calcium 8.8 mg/dL 8.6-10.3 Total Protein 6.8 g/dL 6.4-8.9 Albumin 3.9 g/dL 3.2-5.2 Globulin 2.9 g/dL 2-4 Albumin/Globulin Ratio 1.3 1-3 Total Bilirubin 0.30 mg/dL 0.2-1.0 Alkaline Phosphatase 53 U/L 34-104 Alt 13 U/L 7-52 Ast 13 U/L 13-39 Egfr Non- 152.1 >60 Egfr 195.7 >60 55 Laboratory test finding 06/09/2017 Partial Thrombo Time 31.4 seconds 26.0 -36.3 PTT D Dimer Quantitative < 200 ng/mL Less Than 230 56 B-Type Natriuretic Peptide BNP 48 pg/mL 57 Lactic Acid 1.2 mmol/L 0.5-2.0 58 Inr/Protime 06/09/2017 Inr 0.81 Low 0.89-1.11 Urinalysis Profile 06/09/2017 Urine Color Anisha Urine Appearance Cloudy Urine Specific Todd 1.024 1.010-1.030 Urine pH 5.0 5-9 Urine Urobilinogen Negative Negative Urine Ketones Negative Negative Urine Protein Negative Negative Urine Leukocytes Negative Negative Urine Blood Negative Negative * * Negative 59 Urine Nitrite Negative Negative Urine Bilirubin Negative Negative Urine Glucose Negative Negative Urine Drug SCR ED 06/09/2017 Amphetamine Ur Screen None Detected None Detect & [facility] Barbiturates Urine Screen None Detected None Detect Benzodiazepine Urine Screen None Detected None Detect Urine Cannabinoids Screen None Detected None Detect Urine Cocaine Screen None Detected None Detect Urine Opiates Screen Presumptive Posi <SEE NOTE> None Detect 60 Urine Phencyclidine Screen None Detected None Detect 61 CBC Auto Diff 06/09/2017 White Blood Count 5.8 10^3/uL 3.5-10.8 Red Blood Count 4.42 10^6/uL 4.0-5.4 Hemoglobin 13.2 g/dL Low 14.0-18.0 Hematocrit 38 % Low 42-52 Mean Corpuscular Volume 87 fL 80-94 Mean Corpuscular Hemoglobin 30 pg 27-31 Mean Corpuscular HGB Conc 34 g/dL 31-36 Red Cell Distribution Width 13 % 10.5-15 Platelet Count 181 10^3/uL 150-450 Mean Platelet Volume 8 um3 7.4-10.4 Abs Neutrophils 3.5 10^3/uL 1.5-7.7 Abs Lymphocytes 1.5 10^3/uL 1.0-4.8 Abs Monocytes 0.5 10^3/uL 0-0.8 Abs Eosinophils 0.2 10^3/uL 0-0.6 Abs Basophils 0.1 10^3/uL 0-0.2 Abs Nucleated RBC 0 10^3/uL Granulocyte % 60.6 % 38-83 Lymphocyte % 26.2 % 25-47 Monocyte % 8.6 % 1-9 Eosinophil % 3.6 % 0-6 Basophil % 1.0 % 0-2 Nucleated Red Blood Cells % 0 Wound Culture/Sensi 05/07/2017 Wound/Misc Culture-Gram SEE RESULT BELOW 62 Stain Connective Tissue Panel 04/02/2017 Anti-Nuclear Antibody 0.1 U 63 Cyclic Citrullinated Peptide <15.6 U 64 Interpretation See Comment 65 Laboratory test finding 04/02/2017 C Reactive Protein 5.47 mg/L High < 5.00 66 Lyme Disease Serology Negative Negative 67 Protein Electrophoresis 04/02/2017 Total Protein(Pep) 7.3 g/dL 6.3 - 7.9 Albumin 3.7 g/dL 3.4-4.7 Alpha-1 Globulin 0.3 g/dL 0.1-0.3 Alpha-2 Globulin 1.0 g/dL 0.6-1.0 Beta Globulin 1.4 g/dL 0.7-1.2 Gamma Globulin 0.9 g/dL 0.6-1.6 Albumin/Globulin Ratio 1.03 Impression See Comment 68 Laboratory test finding 04/02/2017 TSH (Thyroid Stim Horm) 1.44 mcIU/mL 0.34-5.60 Free T4 (Free Thyroxine) 1.03 ng/dL 0.61-1.12 Vitamin B12 359 pg/mL 180-914 69 Folic Acid (Folate) > 20.00 ng/mL >3.99 Comp Metabolic Panel 04/02/2017 Sodium 136 mmol/L 133-145 Potassium 4.8 mmol/L 3.5-5.0 Chloride 103 mmol/L 101-111 Co2 Carbon Dioxide 27 mmol/L 22-32 Anion Gap 6 mmol/L 2-11 Glucose 102 mg/dL High 70-100 Blood Urea Nitrogen 15 mg/dL 6-24 Creatinine 0.70 mg/dL 0.67-1.17 BUN/Creatinine Ratio 21.4 High 8-20 Total Protein 6.9 g/dL 6.4-8.9 Albumin 4.3 g/dL 3.2-5.2 Globulin 2.6 g/dL 2-4 Albumin/Globulin Ratio 1.7 1-3 Total Bilirubin 0.50 mg/dL 0.2-1.0 Alkaline Phosphatase 58 U/L 34-104 Alt 19 U/L 7-52 Ast 22 U/L 13-39 Egfr Non- 124.9 >60 Egfr 160.6 >60 70 Calcium 9.1 mg/dL 8.6-10.3 CBC Auto Diff 04/02/2017 White Blood Count 4.8 10^3/uL 3.5-10.8 Red Blood Count 4.64 10^6/uL 4.0-5.4 Hemoglobin 13.3 g/dL Low 14.0-18.0 Hematocrit 40 % Low 42-52 Mean Corpuscular Volume 87 fL 80-94 Mean Corpuscular Hemoglobin 29 pg 27-31 Mean Corpuscular HGB Conc 33 g/dL 31-36 Red Cell Distribution Width 13 % 10.5-15 Platelet Count 205 10^3/uL 150-450 Mean Platelet Volume 9 um3 7.4-10.4 Abs Neutrophils 2.5 10^3/uL 1.5-7.7 Abs Lymphocytes 1.7 10^3/uL 1.0-4.8 Abs Monocytes 0.4 10^3/uL 0-0.8 Abs Eosinophils 0.2 10^3/uL 0-0.6 Abs Basophils 0.1 10^3/uL 0-0.2 Abs Nucleated RBC 0 10^3/uL Granulocyte % 50.8 % 38-83 Lymphocyte % 35.4 % 25-47 Monocyte % 8.0 % 1-9 Eosinophil % 4.7 % 0-6 Basophil % 1.1 % 0-2 Nucleated Red Blood Cells % 0.1 Laboratory test finding 01/03/2017 Vitamin B12 324 pg/mL 180-914 71 1 REFERENCE VALUE Cutoff: 500 2 REFERENCE VALUE Cutoff: 200 3 REFERENCE VALUE Cutoff: 100 4 REFERENCE VALUE Cutoff: 150 5 ADDITIONAL INFORMATION This report is intended for use in clinical monitoring or management of patients. It is not intended for use in employment-related testing. 6 REFERENCE VALUE Cutoff: 200 mg/L 7 Tylenol 3 8 Metabolite of codeine REFERENCE VALUE Cutoff: 100 9 Aisha Alanis, MS Contin; Also a minor metabolite (10%) of codeine and can be seen in low concentrations (<2,000 ng/mL) with poppy seed ingestion. 10 Metabolite of morphine REFERENCE VALUE Cutoff: 100 11 Metabolite of heroin 12 Lortab, [place], Vicodin; Also a very minor metabolite of codeine and impurity (<1%) of oxycodone. 13 Metabolite of hydrocodone 14 Metabolite of hydrocodone 15 Dilaudid, Exalgo; Also a metabolite of hydrocodone and a minor (<5%) metabolite of morphine. 16 Metabolite of hydromorphone REFERENCE VALUE Cutoff: 100 17 Endocet, Percocet, Oxycontin 18 Metabolite of oxycodone 19 Numorphan, Opana; Also a metabolite of oxycodone. 20 Metabolite of oxymorphone REFERENCE VALUE Cutoff: 100 21 Metabolite of oxymorphone 22 Actiq, Duragesic, Fentora 23 Metabolite of fentanyl 24 Demerol 25 Metabolite of meperidine 26 Narcan 27 Metabolite of naloxone REFERENCE VALUE Cutoff: 100 28 Dolophine 29 Metabolite of methadone 30 Darvon, Darvocet 31 Metabolite of propoxyphene 32 Tradol, Ultram, Ultracet 33 Metabolite of tramadol 34 Nucynta 35 Metabolite of tapentadol 36 Metabolite of tapentadol REFERENCE VALUE Cutoff: 100 37 Buprenex, Suboxone 38 Metabolite of buprenorphine 39 Metabolite of buprenorphine 40 Test detected the presence of tramadol and its metabolite (O-desmethyltramadol). Suspect use of tramadol within the past three days. ADDITIONAL INFORMATION This test was developed and its performance characteristics determined by [facility] in a manner consistent with CLIA requirements. This test has not been cleared or approved by the U.S. Food and Drug Administration. Test Performed by: [facility] [address] [place] [address] 41 Normal Range 180 to 914 Indeterminate Range 145 to 180 Deficient Range <[address] [facility] Severe Sepsis and Septic Shock Management Bundle Measure requires all lactic acids initially measuring >2.0 mmol/L be repeated. 43 Because ethnic data is not always readily available, this report includes an eGFR for both -Americans and non- Americans. The National Kidney Disease Education Program (NKDEP) does not endorse the use of the MDRD equation for patients that are not between the ages of 18 and 70, are , have extremes of body size, muscle mass, or nutritional status, or are non- or non-. According to the National Kidney Foundation, irrespective of diagnosis, the stage of the disease is based on the level of kidney function: Stage Description GFR(mL/min/1.73 m(2)) 1 Kidney damage with normal or decreased GFR 90 2 Kidney damage with mild decrease in GFR 60-89 3 Moderate decrease in GFR 30-59 4 Severe decrease in GFR 15-29 5 Kidney failure <15 (or dialysis) 44 Acute inflammation: >10.00 45 SEE RESULT BELOW Name: TYSHAWN DANIELSON : [address]: Chad Wilkinson MD Acct: [id number] Unit: [id number] AGE: 42 Location: ED Re07/07/17 SEX: M Status: DEP ER SPEC: [id number] SANA: 07/07/17-[address] [facility] [address]: Graciela CONTRERAS REQ: [id number] RECD: 07/07/17 STATUS: RES LUIS DR: Feliberto Wilkinson MD _ SOURCE: BLOOD,VENO SPDESC: ORDERED: Blood Cult Procedure Result Reported Site Aerobic Culture Bottle Preliminary 07/08/17- 1424 ML No Growth Day 1 Anaerobic Culture Bottle Preliminary 07/08/17- 1424 ML No Growth Day 1 * ML - [facility] ([facility]) . END OF REPORT * ML=Testing performed at Main Lab DEPARTMENT OF PATHOLOGY, [address] [place] [address] Rocco Alonzo M.D. Director [facility] # [id number] 46 SEE RESULT BELOW Name: TYSHAWN DANIELSON : [address]: Chad Wilkinson MD Acct: [id number] Unit: [id number] AGE: 42 Location: ED Re07/07/17 SEX: M Status: DEP ER SPEC: [id number] SANA: 07/07/17-[address] [facility] [address]: Graciela CONTRERAS REQ: [id number] RECD: 07/07/17 STATUS: SERGEI SMITH DR: Feliberto Wilkinson MD _ SOURCE: RIGHT [facility]: ORDERED: Culture Stain Procedure Result Reported Site Wound/Misc Gram Stain Final 07/07/17- 1503 ML Test not performed Wound/Misc Culture Final 07/09/17- 1118 ML No Growth Day 2 * ML - MAIN LAB ([facility]) . END OF REPORT * ML=Testing performed at Main Lab DEPARTMENT OF PATHOLOGY, [address] [place] [address] Rocco Alonzo M.D. Director [facility] # [id number] 47 Acute inflammation: >10.[address] [facility] Severe Sepsis and Septic Shock Management Bundle Measure requires all lactic acids initially measuring >2.0 mmol/L be repeated. 49 Because ethnic data is not always readily available, this report includes an eGFR for both -Americans and non- Americans. The National Kidney Disease Education Program (NKDEP) does not endorse the use of the MDRD equation for patients that are not between the ages of 18 and 70, are , have extremes of body size, muscle mass, or nutritional status, or are non- or non-. According to the National Kidney Foundation, irrespective of diagnosis, the stage of the disease is based on the level of kidney function: Stage Description GFR(mL/min/1.73 m(2)) 1 Kidney damage with normal or decreased GFR 90 2 Kidney damage with mild decrease in GFR 60-89 3 Moderate decrease in GFR 30-59 4 Severe decrease in GFR 15-29 5 Kidney failure <15 (or dialysis) 50 SEE RESULT BELOW Name: TYSHAWN DANIELSON : [address]: Chad Wilkinson MD Acct: [id number] Unit: [id number] AGE: 42 Location: ED Re07/07/17 SEX: M Status: DEP ER SPEC: [id number] SANA: 07/07/17-[address] [facility] [address]: Graciela CONTRERAS REQ: [id number] RECD: 07/07/17-5734 STATUS: SERGEI [facility] DR: Feliberto Wilkinson MD _ SOURCE: BLOOD,VENO [facility]: ORDERED: Blood Cult Procedure Result Reported Site Aerobic Culture Bottle Final 07/12/17- 1501 ML No Growth Day 5 Anaerobic Culture Bottle Final 07/12/17- 1501 ML No Growth Day 5 * ML - MAIN LAB ([facility]) . END OF REPORT * ML=Testing performed at Main Lab DEPARTMENT OF PATHOLOGY, [address] [place] [address] Rocco Alonzo M.D. Director [facility] # [id number] [address] [facility] Severe Sepsis and Septic Shock Management Bundle Measure requires all lactic acids initially measuring >2.0 mmol/L be repeated. 52 Because ethnic data is not always readily available, this report includes an eGFR for both -Americans and non- Americans. The National Kidney Disease Education Program (NKDEP) does not endorse the use of the MDRD equation for patients that are not between the ages of 18 and 70, are , have extremes of body size, muscle mass, or nutritional status, or are non- or non-. According to the National Kidney Foundation, irrespective of diagnosis, the stage of the disease is based on the level of kidney function: Stage Description GFR(mL/min/1.73 m(2)) 1 Kidney damage with normal or decreased GFR 90 2 Kidney damage with mild decrease in GFR 60-89 3 Moderate decrease in GFR 30-59 4 Severe decrease in GFR 15-29 5 Kidney failure <15 (or dialysis) 53 Therapeutic concentration: <50 ug/mL Toxic concentration: >120 ug/mL 54 Acute inflammation: >10.00 55 Because ethnic data is not always readily available, this report includes an eGFR for both -Americans and non- Americans. The National Kidney Disease Education Program (NKDEP) does not endorse the use of the MDRD equation for patients that are not between the ages of 18 and 70, are , have extremes of body size, muscle mass, or nutritional status, or are non- or non-. According to the National Kidney Foundation, irrespective of diagnosis, the stage of the disease is based on the level of kidney function: Stage Description GFR(mL/min/1.73 m(2)) 1 Kidney damage with normal or decreased GFR 90 2 Kidney damage with mild decrease in GFR 60-89 3 Moderate decrease in GFR 30-59 4 Severe decrease in GFR 15-29 5 Kidney failure <15 (or dialysis) 56 Please note: The following may produce a false positive D Dimer test: - Rheumatoid factor greater than 60 IU/ml - Plasma hemoglobin greater than 0.05 gm/dl - Bilirubin greater than 50 mg/dl - Lipids greater than 1000 mg/dl - FDP greater than 20 ug/ml 57 >100 to <200 pg/mL: likely compensated congestive heart failure (CHF) 200 to 400 pg/mL: likely moderate CHF >400 pg/mL: likely moderate to severe CHF 58 [facility] Severe Sepsis and Septic Shock Management Bundle Measure requires all lactic acids initially measuring >2.0 mmol/L be repeated. 59 *Ascorbic acid is present which may interfere with detection of blood. 60 Presumptive Positive Presumptive positive results are unconfirmed. 61 The urine specimen was tested at the listed cutoffs: Drug class test level (ng/mL) Amphetamines 500 Barbiturates 200 Benzodiazepine metabolites 200 Cocaine metabolites 150 Cannabinoids 50 Opiates 300 Pcp 25 Specimen was received without chain of custody. Results should be used for medical purposes only. 62 SEE RESULT BELOW Name: TYSHAWN DANIELSON : [address]: Feliberto Esquivel MD Acct: [id number] Unit: [id number] AGE: 41 Location: [facility] Re05/07/17 SEX: M Status: REG REF SPEC: [id number] SANA: 05/07/17679 [facility] DR: Feliberto Esquivel MD REQ: [id number] RECD: 05/07/17 STATUS: RES _ SOURCE: ARM RIGHT SPDESC: ORDERED: Culture Stain COMMENTS: [id number] Specimen Description INDURATED INFECTION R FOREARM Procedure Result Reported Site Wound/Misc Gram Stain Final 05/08/17- 0737 ML 1+ Nucleated Cells No Neutrophils Observed 2+ Gram Positive Cocci Wound/Misc Culture Preliminary 05/08/17- 1316 ML Organism 1 STAPHYLOCOCCUS AUREUS Quantity 2+ * ML - [facility] ([facility]) . END OF REPORT * ML=Testing performed at [facility] DEPARTMENT OF PATHOLOGY, [address] [place] [address] Rocco Alonzo M.D. Director [facility] # [id number] 63 REFERENCE VALUE <=1.0 (Negative) 64 REFERENCE VALUE <20.0 (Negative) 65 Tests for antibodies to dsDNA and FAHEEM antigens are not performed automatically unless the LO result is > or= 3.0 U. Studies performed at [facility] indicate that positive LO results <3.0 U are rarely accompanied by positive second order tests. Test Performed by: [facility] - [address] [address] 66 Acute inflammation: >10.00 67 Serologic response to B. burgdorferi infection is not detected, but cannot rule out early infection during which low or undetectable antibody levels to B. burgdorferi may be present. If clinically indicated, a new serum specimen should be submitted in 7-14 days. Test Performed by: [facility] - [facility] [address] [place] [address] 68 RESULT: No apparent monoclonal protein on serum electrophoresis. Test Performed by: [facility] - [facility] [address] [place] [address] 69 Normal Range 180 to 914 Indeterminate Range 145 to 180 Deficient Range <145 70 Because ethnic data is not always readily available, this report includes an eGFR for both -Americans and non- Americans. The National Kidney Disease Education Program (NKDEP) does not endorse the use of the MDRD equation for patients that are not between the ages of 18 and 70, are , have extremes of body size, muscle mass, or nutritional status, or are non- or non-. According to the National Kidney Foundation, irrespective of diagnosis, the stage of the disease is based on the level of kidney function: Stage Description GFR(mL/min/1.73 m(2)) 1 Kidney damage with normal or decreased GFR 90 2 Kidney damage with mild decrease in GFR 60-89 3 Moderate decrease in GFR 30-59 4 Severe decrease in GFR 15-29 5 Kidney failure <15 (or dialysis) 71 Normal Range 180 to 914 Indeterminate Range 145 to 180 Deficient Range <145 Procedures Date CPT Code Description Status 07/31/2017 84791 Short Arm Cast Application Completed 07/17/2017 06241 CLST TRMT Distal Radial FX Completed 05/20/2017 64007 Nerve Conduction 13+ Studies Completed 01/12/2008 70517 Color Flow Doppler/Interp & Reprt Completed 01/12/2008 02529 Color Flow Doppler/Interp & Reprt Completed 01/12/2008 83619 Pulse Wave/Continuous-Interp.RPT Completed 01/12/2008 83652 Echocardiogram Completed 01/12/2008 53334 Echocardiogram Completed Encounters Type Date Location Provider CPT E/M Dx Office Visit 10/24/2017 [facility] Medicine Ha Francis, 36181 M51.16 8:30a - [place],FACP Office Visit 10/21/2017 [facility] Tali Eason, 73117 G62.9 10:45a [facility] [place] G56.03 Office Visit 10/07/2017 4:00p [facility] Internal Feliberto Esquivel M.D. 92719 F33.0 Medicine - [address] K21.9 Office Visit 09/17/2017 2:20p [facility] Medicine Ha Francis, 15391 G89.4 - [address] Jasmyn,FACP M51.16 Office Visit 09/02/2017 8:45a [facility] Tali Eason, 84277 G62.9 Services Of [place] i[facility]nes G56.03 Office Visit 08/26/2017 8:40a [facility] Internal Feliberto Esquivel M.D. 64944 F33.0 Medicine - [address] K62.5 Office Visit 08/12/2017 8:20a [facility] Domi Esquivel M.D. 32265 D64.9 Medicine - [address] F33.0 G47.00 K62.5 K29.31 Office Visit 07/31/2017 9:00a [facility] Internal Feliberto Esquivel, 67659 K57.30 Medicine - [address] M.Sheila M51.16 K64.9 D64.9 G62.9 Office Visit 07/24/2017 2:40p [facility] Feliberto Esquivel, 66031 S52.591A Medicine - [address] M.D. Office Visit 07/01/2017 8:00a [facility] Feliberto Esquivel, 21361 M51.16 Medicine - [address] M.D. Office Visit 06/17/2017 9:00a [facility] Internal Feliberto Esquivel, 49130 M51.16 Medicine - [address] MRobb L98.9 F33.0 Office Visit 06/11/2017 8:40a [facility] Medicine Feliberto Esquivel, 68666 G62.9 - [place] Jasmyn M51.16 F33.0 Office Visit 05/15/2017 9:00a [facility] Feliberto Esquivel, 04616 L03.113 Medicine - [address] M.D. Office Visit 05/09/2017 1:30p [facility] Internal Feliberto Esquivel, 06656 L03.113 Medicine - [address] M.Sheila Office Visit 05/07/2017 4:40p [facility] Internal Feliberto Esquivel, 81281 L03.113 Medicine - [place] MMazinDMazin Office Visit 04/25/2017 10:20a [facility] Internal Feliberto Esquivel, 11457 M51.16 Medicine - [address] M.Sheila Office Visit 04/01/2017 11:00a [facility] Tali Eason, 79581 R20.9 Services Of [facility] Jasmyn G62.9 Office Visit 03/13/2017 10:00a [facility] Medicine Feliberto Esquivel M.D. 17317 G63 - [address] F33.0 M51.16 Office Visit 01/24/2017 11:20a [facility] Medicine Feliberto Esquivel M.D. 88456 G63 - [address] F33.0 M51.16 Office Visit 01/10/2017 11:00a [facility] Internal Feliberto Esquivel, 44984 M51.16 Medicine - [address] MRobb G63 F33.0 Office Visit 12/30/2016 10:30a [facility] Internal Ha Francis, 86408 G63 Medicine - [address] Jasmyn,[facility] Office Visit 12/20/2016 1:40p [facility] Feliberto Esquivel, 44674 M51.16 Medicine - [address] Jasmyn G63 R10.9 F33.0 E66.01 Z00.00 Office Visit 03/30/2016 12:53p [facility], Cristiana Dubose, 85150 L02.91 Hospitalists Jasmyn Z22.322 Office Visit 03/29/2016 12:52p [facility],javi Balderas, N.Daniel 19200 L02.91 Hospitalists Z22.322 Plan of Care Future Appointment(s):02/26/2018 3:00 pm - Tali Eason M.D. at [facility]12/23/2017 4:00 pm - Feliberto Esquivel M.D. at [facility] Internal Medicine - [address]12/12/2017 8:30 am - Ha Francis M.D.,FACP at [facility] Medicine - [address]12/03/2017 1:00 pm - Kavya Angela DNP, RN, [employer] at [facility]11/24/2017 - Tala Aburto , NPR05 CoughNew Medication:Guaifenesin-Codeine 100-10 mg/5MLComments:I have ordered cough syrup with Codeine to use mostly at night, it will cause [id number] Acute bronchitis, unspecifiedNew Medication:Amoxicillin/ Clavulanate Potassium 875-125 mgComments:I have sent a prescription to the pharmacy for Augmentin twice a day for 7 days
--- NOTE | 2017-11-30 19:01 | RAD ---
INDICATION: Cough, green sputum. COMPARISON: Comparison is made with a prior chest x-ray study from January 14, 2008 and a study from June 09, 2017. TECHNIQUE: Dual-energy PA and lateral views of the chest were obtained. FINDINGS: The heart is within normal limits in size. Mediastinal and hilar contours appear within normal limits. The lungs are clear. There is flattening of the diaphragms suggestive of chronic obstructive pulmonary disease. No pleural effusion is seen. There is exaggerated dorsal kyphosis the lower dorsal spine which is unchanged. There appear to be old healed fractures of several left lateral mid ribs. IMPRESSION: FINDINGS SUGGESTIVE OF COPD, NO EVIDENCE FOR ACUTE FINDING.
[2017-11-30] MEDS ORDERED: Albuterol HFA INHALER* 8 gm MDI INH PRN (19:13)
[2017-11-30] MEDS ORDERED: Albuterol HFA INHALER* 8 gm MDI INH ONE (19:23)
[2017-11-30 19:48] VITALS: BP 126/80
--- NOTE | 2017-11-30 20:44 | UC ---
Ibrahima Parks Stephanie, scribed for Stan Deshpande MD on 11/30/17 at 1840 . Respiratory Complaint HPI - HPI Summary HPI Summary: The pt is a 42 y/o M presenting to with c/o productive cough (with green phlegm) that began 2 weeks ago. The pt states he was prescribed abx and cough medication for this current illness however, his PCP advised him to come to to get a CXR. The pt states he was sick prior to his colonoscopy on 11/28 and had symptoms of fever, chills, sinus discomfort, diaphoresis and cough. The pt denies rhinorrhea. - History of Current Complaint Chief Complaint: UCRespiratory Stated Complaint: CHEST CONGESTION Time Seen by Provider: 11/30/17 18:20 Hx Obtained From: Patient Onset/Duration: Gradual Onset, Lasting Weeks - 2, Still Present Timing: Constant Severity Currently: Moderate Pain Intensity: 6 Pain Scale Used: 0-10 Numeric Character: Cough: Productive - green phlegm Associated Signs And Symptoms: Positive: Fever, Chills, Nasal Congestion, Sinus Discomfort - Allergies/Home Medications Allergies/Adverse Reactions: Allergies Allergy/AdvReac Type Severity Reaction Status Date / Time acetaminophen [From Tylenol] Allergy Unknown Verified 11/30/17 17:45 Reaction Details naproxen Allergy Swelling Verified 11/30/17 17:45 PMH/Surg Hx/FS Hx/Imm Hx Previously Healthy: Yes - The pt denies and past medical hx. Other History Of: Negative For: Anticoagulant Therapy - Surgical History Surgical History: Yes Surgery Procedure, Year, and Place: hernia repair with mesh 3 sites, - Family History Known Family History: Positive: Unknown - The pt denies fhx Negative: Blood Disorder - Social History Occupation: Works From/At Home Lives: Dormitory/Roommates Alcohol Use: None Substance Use Type: None Substance Use Comment - Amount & Last Used: tramadol at home Smoking Status (MU): Former Smoker Type: Smokeless Tobacco Have You Smoked in the Last Year: Yes - Immunization History Most Recent Influenza Vaccination: Never Most Recent Tetanus Shot: 2002 Most Recent Pneumonia Vaccination: Never Review of Systems Constitutional: Chills Skin: Other - diaphoresis Eyes: Negative ENT: Nasal Discharge, Sinus Congestion, Sinus Pain/Tenderness Respiratory: Cough Cardiovascular: Negative Gastrointestinal: Negative Genitourinary: Negative Motor: Negative Neurovascular: Negative Musculoskeletal: Negative Neurological: Negative Psychological: Negative All Other Systems Reviewed And Are Negative: Yes Physical Exam Triage Information Reviewed: Yes Vital Signs: Initial Vital Signs Temp 98.8 F 11/30/17 17:40 Pulse 102 11/30/17 17:40 Resp 18 11/30/17 17:40 BP 122/79 11/30/17 17:40 Pulse Ox 97 11/30/17 17:40 Vital Signs Reviewed: Yes - Additional Comments General: well-appearing, no pain distress Skin: warm, color reflects adequate perfusion, dry Head: normal Eyes: EOMI, ALLY ENT: posterior pharynx erythematous Neck: supple, nontender Respiratory: scattered rhonchi on left side, breath sounds present Cardiovascular: RRR Abdomen: soft, nontender Bowel: present Musculoskeletal: normal, strength/ROM intact Neurological: normal, sensory/motor intact, A&O x3 Psychological: affect/mood appropriate UC Diagnostic Evaluation - Laboratory O2 Sat by Pulse Oximetry: 97 - Radiology Xray Interpretation: No Acute Changes Radiology Interpretation Completed By: Radiologist - FINDINGS SUGGESTIVE OF COPD. NO EVIDENCE FOR ACUTE DISEASE. Respiratory Course/Dx - Course Course Of Treatment: Medications reviewed. BP noted and advised to follow up with PCP. DISCUSSED CXR RESULTS WITH PATIENT. HE HAS F/U SCHEDULED WITH PMD TOMORROW, 12/01/17 - Differential Dx/Diagnosis Provider Diagnoses: BRONCHITIS WITH BRONCHOSPASM. elevated BP without dx of HTN Discharge - Discharge Plan Condition: Stable Disposition: HOME Patient Education Materials: Acute Bronchitis (ED), Bronchospasm (ED) Referrals: Feliberto Esquivel MD [Primary Care Provider] - Additional Instructions: FOLLOW UP WITH YOUR DOCTOR. GET RECHECKED FOR ANY WORSENING OF YOUR CONDITION OR QUESTIONS OR CONCERNS. YOUR BLOOD PRESSURE WAS ELEVATED DURING TODAY'S VISIT; FOLLOW UP WITH YOUR PCP WITHIN ONE WEEK FOR FURTHER EVALUATION. The documentation as recorded by the Ibrahima griffin Stephanie accurately reflects the service I personally performed and the decisions made by me, Stan Deshpande MD.
== END 2017-11-30 19:45 | disposition home or self-care (01) ==
LOC: UCEAST 17:26
DX: J20.9 Acute bronchitis, unspecified (principal); R03.0 Elevated blood-pressure reading, without diagnosis of hypertension; Z87.891 Personal history of nicotine dependence
CPT/HCPCS: 71046; 99212; A9270-GY; G0463

== ENCOUNTER 2018-02-05 18:41 | Observation (INO) | payer OTHER ==
--- OUTSIDE RECORDS SUMMARY | 2018-02-05 20:09 | XMS REPORT ---
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 Active Onset: 12/20/2016 Polyneuropathy Feliberto Esquivel M.D. Active Onset: 12/20/2016 Mild recurrent major depression Feliberto Esquivel M.D. Active Onset: 12/20/2016 Morbid obesity Feliberto Esquivel M.D. Active Onset: 07/01/2017 Carpal tunnel syndrome Feliberto Esquivel M.D. Active Onset: 07/31/2017 Hemorrhoids without complication Feliberto Esquivel M.D. Active Onset: 08/12/2017 Anemia Feliberto Esquivel M.D. Active Onset: 08/12/2017 Insomnia Feliberto Esquivel M.D. Active Onset: 10/07/2017 Gastroesophageal reflux disease Feliberto Esquivel M.D. 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 Active Onset: 01/20/2018 Benign prostatic hypertrophy with Feliberto Esquivel M.D. Active outflow obstruction Onset: 01/20/2018 Chronic nonalcoholic liver Feliberto Esquivel M.D. Active disease Onset: 01/20/2018 Adult health examination Feliberto Esquivel M.D. Active Onset: 01/28/2018 Chronic obstructive lung disease Feliberto Esquivel M.D. Active Onset: 01/28/2018 Lymphedema Feliberto Esquivel M.D. Active Onset: 01/28/2018 Abnormal weight gain Feliberto Esquivel M.D. Active Onset: 01/28/2018 Cramp and spasm Feliberto Esquivel M.D. Active Onset: 12/20/2016 Abdominal pain Feliberto Esquivel M.D. Inactive Inactive: 09/17/2017 Onset: 08/12/2017 Hemorrhage of rectum and anus Feliberto Esquivel M.D. Inactive Inactive: 12/12/2017 Onset: 06/17/2017 Disorder of skin AND/OR Feliberto Esquivel M.D. Inactive subcutaneous tissue Inactive: 12/12/2017 Family History Date Family Member(s) Problem(s) Comments Father due to Diabetes () Father Diabetes Type II Father due to Heart Disease () Mother Alive And Well Siblings 2 First Brother Bipolar Disorder Social History Type Date Description Comments Marital Status Significant Other Lives With Female Partner Occupation Currently Working Occupation [employer] Cigarette Use Former Cigarette Smoker ETOH Use 12/12/2017 Rarely consumes alcohol Smoking Patient is a former smoker Recreational Drug Use Denies Drug Use Daily Caffeine Consumes on average 3 cups of regular 3-4 coffee per day Daily Caffeine Rare soda Exercise Type/Frequency Exercises sporadically Exercise Type/Frequency Active job 6x per week General Hx Text 1 son Allergies, Adverse Reactions, Alerts Date Description Reaction Status Severity Comments 12/20/2016 Naproxen active Moderate edema Medications Medication Date Status Form Strength Qnty SIG Indications Ordering Provider Metolazone 04/25 Active Tablets 5mg 14tab take 1 tab by I89.0 s mouth every Pachikara other day , M.D. Doxycycline 02/04 Active Capsules 100mg 20cap 1 cab twice a L03.115 Feliberto Hyclate s day PachJasmyn barroso Baclofen 01/29 Active Tablets 10mg 30tab take 1 s tablets by Pachikara mouth twice a , M.D. day Nebulizer 01/28 Active Kit 1unit 1 unit J44.9 Knox Kit/Tubing/Mout s nebulization Pachikara hpiece every 4- 6 , M.D. hours as needed J44.9 Icd code Albuterol 01/28 Active Nebulizer (2.5mg/3M 180ml 1 vial via J44.9 Knox L) 0.083% nebulizer 4 Pachikara times daily , M.D. as needed Lasix 01/28 Active Tablets 40mg 30tab 1 by mouth Feliberto s every day Jasmyn Esquivel Prednisone 01/20 Active Tablets 20mg 10tab 2 tab by M79.671 s mouth 5 days PachikaOlvin gabrielDMazin Tamsulosin HCL 01/20 Active Capsules 0.4mg 30cap 1 by mouth N40.1 s every day Jasmyn Esquivel Buprenorphine 01/13 Active Tablets 8mg 90tab take 1 tab Feliberto HCL Sub s subligually 3 Pachikara times a day , M.D. as needed for pain Duloxetine HCL 12/[address] 60mg 30cap take 1 G62.9 Ha Part s capsule by Sheila Francis, mouth every M.D.,FACP morning G89.4 Duloxetine HCL 10/28/[address] Part 30mg 30caps 1 cap by Ha mouth every Sheila Francis, day (with 60 M.D.,FACP mg cap) Pantoprazole 08/12/[address] 20mg 30tabs take 1 K Andres- Ciro Sodium tablet by 2 Sheila Francis, mouth every 9 M.D.,FACP morning . before 3 breakfast 1 Betamethasone 06/17/2017 Active Cream 0.05% 50gm apply twice L Knox Dipropionate a day 9 Pachika, 8 M.D. . 9 Vitamin B Active Tablets 1 by mouth Unknown Complex every day Potassium Active Tablets 99mg otc once a Unknown day Vitamin D3 Active Tablets once daily Unknown Complete Osteo Bi-Flex Active Tablets 250-20 daily Unknown Regular Strength 0mg Fish Oil Active Capsules 1000mg 1 by mouth Unknown every day Multi Vitamin Active Tablets 1 by mouth Unknown every day Coconut Oil Active Capsules 1000mg As directed Unknown Organic Aspirin Adult Active Tablets DR 81mg 1 by mouth Unknown Low Dose every day Prednisone 01/12/2018 - Hx Tablets 20mg 10tabs 2 tab by Knox 01/23/2018 mouth 5 days Jasmyn Esquivel Lasix 01/02/2018 - Hx Tablets 20mg 10tabs take one Mark 01/28/2018 daily as Sally, needed for M.D. edema Guaifenesin-Code 11/24/2017 - Hx Solution 100-10 180ml 5-10 R Ha ine 12/12/2017 mg/5ML milliliters 0 D. 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 9 Duloxetine HCL 10/24/2017 - Hx Caps DR Fan 40mg 1 po qam Ha 11/25/2017 Sheila Francis M.D.,FACP Duloxetine HCL 10/24/2017 - Hx Caps DR Meng 20mg 1-3 by mouth G Shavonne Tanner 11/25/2017 every 6 D. Penny, evening as 2 M.D.,FACP directed . 9 Duloxetine HCL 10/21/2017 - Hx Caps DR Meng 30mg 90caps take 1 to 3 G Tali Mazin 10/24/2017 capsules in 6 Stackman, evening as 2 M.D. directed . 9 Lyrica 10/15/2017 - Hx Capsules 50mg 120caps 2-4 tabs/day Tali M. 10/24/2017 as directed Stackman, (not taking) Jasmyn Fluoxetine HCL 09/18/2017 - Hx Capsules 10mg 30caps take one Dutch Shavonne Tanner 10/24/2017 capsule by 3 Sheila Francis, mouth once 3 M.D.,FACP daily in the . morning 0 Duloxetine HCL 09/02/2017 - Hx Caps DR Meng 20mg 60caps 1-2 tabs by Issa Bah 10/21/2017 mouth every 6 Stackman, day as 2 M.D. directed . 9 Bupropion HCL ER 08/12/2017 - Hx Tablets ER 150mg 30tabs take 1 F Shavonne Tanner (XL) 01/20/2018 24HR tablet by 3 Sheila Francis, mouth every 3 M.D.,FACP morning with . food 0 Hydrocortisone 08/01/2017 - Hx Cream 2.5% 20gm apply after Knox 10/24/2017 first bowel Pachikara, movement M.D. Anucort-HC 07/31/2017 - Hx Suppository 25mg 12units apply daily K Feliberto 08/01/2017 after first 6 Pachikara, bm 4 M.D. . 9 Oxycodone HCL 07/24/2017 - Hx Tablets 5mg 30tabs 1 by mouth S Feliberto 07/30/2017 every 6 5 Pachikara, hours as 2 M.D. needed . 5 9 1 A Ibuprofen 07/07/2017 - Hx Tablets 800mg 20tabs by mouth Other 07/14/2017 three times Ordering a day as Provider needed Bactroban Nasal 07/07/2017 - Hx Ointment 2% 10gm apply to Other 07/17/2017 right Ordering nostril Provider twice a day x 10 days Bactrim DS 07/07/2017 - Hx Tablets 800-16 20tabs 1 by mouth Other 07/17/2017 0mg twice a day Ordering x 10 days Provider Oxycodone HCL 06/17/2017 - Hx Tablets 5mg 60tabs 1 by mouth Mallorie Dao 07/24/2017 every 6 5 Pachikara, hours as 1 M.D. needed . 1 6 Gabapentin 06/17/2017 - Hx Capsules 300mg 90caps take 1 Mallorie Ha 01/02/2018 capsule by 5 Sheila Francis, mouth 3 1 M.D.,FACP times a day . 1 6 Fluoxetine HCL 06/17/2017 - Hx Capsules 20mg 30caps Take One F Knox 09/18/2017 Capsule By 3 Pachikara, Mouth Every 3 M.D. Day . 0 Lyrica 06/11/2017 - Hx Capsules 50mg 60caps twice daily G Feliberto 06/17/2017 6 Pachikara, 2 M.D. . 9 Buprenorphine 06/11/2017 - Hx Patches 7.5mcg 4units 1 patch M Feliberto 06/17/2017 Weekly /HR weekly 5 Pachikara, 1 M.D. . 1 6 Fluoxetine HCL 06/11/2017 - Hx Capsules 10mg 30caps 1 cap once F Feliberto (PMDD) 06/17/2017 daily 3 Pachikara, 3 M.D. . 0 Nortriptyline 05/20/2017 - Hx Capsules 10mg 60caps 1-2 caps by Issa Bah HCL 06/01/2017 mouth every 6 Stackman, night as 2 M.D. directed . 9 Gabapentin 05/15/2017 - Hx Capsules 300mg 120caps 1 by mouth Feliberto 06/11/2017 twice times Pachikara, a day and 2 M.D. cap hs Acetaminophen-Co 05/15/2017 - Hx Tablets 300-30 15tabs 1 tab by Feliberto milana #3 06/10/2017 mg mouth 3 Pachikara, times /day M.D. as needed Doxycycline 05/07/2017 - Hx Capsules 100mg 20caps 1 cab twice L Feliberto Hyclate 06/10/2017 a day 0 Pachikara, 3 M.D. . 1 1 3 Hydrocodone-Acet 05/07/2017 - Hx Tablets 7.5-32 45tabs 1 tab po up L Chad Nation aminophen 06/10/2017 5mg to tid as 0 Nisa, needed 3 M.D. . 1 1 3 Gabapentin 01/24/2017 - Hx Capsules 300mg 90caps Take One G Knox 05/15/2017 Capsule By 6 Pachikara, Mouth 3 3 M.D. Times A Day Venlafaxine HCL 01/15/2017 - Hx Caps ER 24HR 37.5mg 30caps once daily Knox ER 06/11/2017 Sierra, M.D. Tramadol HCL 01/10/2017 - Hx Tablets 50mg 90tabs 2 tab three M Knox 09/17/2017 times a day 5 Pachikara, as needed 1 M.D. . 1 6 Gabapentin 01/10/2017 - Hx Capsules 100mg 90caps 2 cap three G Knox 01/24/2017 times a day 6 Pachikara, 3 M.D. Duloxetine HCL 01/10/2017 - Hx Caps DR Part 30mg 14caps once a day F Knox 01/15/2017 in full 3 Pachikara, stomach 3 M.D. . 0 Butrans 12/30/2016 - Hx Patches 10mcg/ 4units topical Ha 01/24/2017 Weekly HR q7days Sheila Francis M.D.,FACP Tramadol HCL 12/20/2016 - Hx Tablets 50mg 14tabs three times M Knox 01/10/2017 a day as 5 Pachikara, needed 1 M.D. . 1 6 Gabapentin 12/20/2016 - Hx Capsules 100mg 90caps three times G Knox 01/10/2017 a day 6 Pachikara, 3 M.D. Advil - Hx Capsules 200mg as needed Unknown 08/12/2017 Oxycodone HCL - Hx Capsules 5mg 1-2 tabs by Unknown 06/11/2017 mouth every 4-6 hours as needed pain Tramadol HCL - Hx Tablets 50mg Take 1 Unknown 10/24/2017 Tablet By Mouth Every 4 To 6 Hours as Needed For Pain Vital Signs Date Vital Result Comment 02/04/2018 Height 70 inches 5'10" Weight 365.00 lb Heart Rate 99 /min BP Systolic 135 mmHg BP Diastolic 80 mmHg Body Temperature 97.8 F O2 % BldC Oximetry 95 % BMI (Body Mass Index) 52.4 kg/m2 01/28/2018 Weight 359.00 lb Heart Rate 98 /min BP Systolic 130 mmHg BP Diastolic 80 mmHg O2 % BldC Oximetry 95 % 01/20/2018 Height 70 inches 5'10" Weight 345.00 lb Heart Rate 101 /min BP Systolic 125 mmHg BP Diastolic 70 mmHg Body Temperature 97.0 F O2 % BldC Oximetry 95 % BMI (Body Mass Index) 49.5 kg/m2 01/12/2018 Height 70 inches 5'10" Weight 324.12 lb boots and tools Heart Rate 103 /min BP Systolic 140 mmHg BP Diastolic 90 mmHg Body Temperature 101.1 F O2 % BldC Oximetry 93 % BMI (Body Mass Index) 46.5 kg/m2 01/02/2018 Height 70 inches 5'10" Weight 332.00 lb Heart Rate 85 /min BP Systolic Sitting 120 mmHg BP Diastolic Sitting 80 mmHg Body Temperature 96.7 F O2 % BldC Oximetry 95 % BMI (Body Mass Index) 47.6 kg/m2 12/23/2017 Weight 326.00 lb Heart Rate 95 /min BP Systolic 118 mmHg BP Diastolic 61 mmHg Body Temperature 97.0 F O2 % BldC Oximetry 95 % 12/12/2017 Heart Rate 84 /min BP Systolic Sitting 140 mmHg BP Diastolic Sitting 80 mmHg Body Temperature 96.0 F O2 % BldC Oximetry 94 % 12/03/2017 Height 70 inches 5'10" Weight 300.00 lb per pt Heart Rate 82 /min BP Systolic Sitting 118 mmHg Rue large cuff BP Diastolic Sitting 80 mmHg Rue large cuff Respiratory Rate 16 /min O2 % BldC Oximetry 94 % On Ra BMI (Body Mass Index) 43.0 kg/m2 Neck Circumference in inches 19 11/24/2017 Weight 310.00 lb Heart Rate 78 [...] Test Date Test Result H/L Range Note Laboratory test finding 01/29/2018 B-Type Natriuretic 8 pg/mL 1 Peptide BNP Comp Metabolic Panel 01/28/2018 Sodium 137 mmol/L Low 139-145 Potassium 4.3 mmol/L 3.5-5.0 Chloride 100 mmol/L Low 101-111 Co2 Carbon Dioxide 29 mmol/L 22-32 Anion Gap 8 mmol/L 2-11 Glucose 104 mg/dL High 70-100 Blood Urea Nitrogen 22 mg/dL 6-24 Creatinine 0.72 mg/dL 0.67-1.17 BUN/Creatinine Ratio 30.6 High 8-20 Calcium 9.2 mg/dL 8.6-10.3 Total Protein 6.7 g/dL 6.4-8.9 Albumin 4.0 g/dL 3.2-5.2 Globulin 2.7 g/dL 2-4 Albumin/Globulin Ratio 1.5 1-3 Total Bilirubin 0.60 mg/dL 0.2-1.0 Alkaline Phosphatase 70 U/L 34-104 Alt 24 U/L 7-52 Ast 17 U/L 13-39 Egfr Non- 120.3 >60 Egfr 154.7 >60 2 Laboratory test finding 01/28/2018 Magnesium 1.9 mg/dL 1.9-2.7 Laboratory test finding 01/12/2018 Erythrocyte Sed Rate 24 mm/Hr High 0- 14 Uric Acid 6.0 mg/dL 4.4-7.6 Lipid Profile (Trig/Chol/HDL) 01/02/2018 Triglycerides 124 mg/dL 3 Cholesterol 147 mg/dL 4 HDL Cholesterol 53.8 mg/dL 5 LDL Cholesterol 68 mg/dL 6 HIV 1/2 AB Evaluation 01/02/2018 HIV 1 2 Antibody Nonreactive Nonreactive 7 Comp Metabolic Panel 01/02/2018 Sodium 138 mmol/L 133-145 Potassium 4.3 mmol/L 3.5-5.0 Chloride 104 mmol/L 101-111 Co2 Carbon Dioxide 28 mmol/L 22-32 Anion Gap 6 mmol/L 2-11 Glucose 99 mg/dL 70-100 Blood Urea Nitrogen 14 mg/dL 6-24 Creatinine 0.66 mg/dL Low 0.67-1.17 BUN/Creatinine Ratio 21.2 High 8-20 Calcium 9.0 mg/dL 8.6-10.3 Total Protein 6.4 g/dL 6.4-8.9 Albumin 4.0 g/dL 3.2-5.2 Globulin 2.4 g/dL 2-4 Albumin/Globulin Ratio 1.7 1-3 Total Bilirubin 0.40 mg/dL 0.2-1.0 Alkaline Phosphatase 55 U/L 34-104 Alt 26 U/L 7-52 Ast 20 U/L 13-39 Egfr Non- 133.0 >60 Egfr 171.1 >60 8 CBC Auto Diff 01/02/2018 White Blood Count 4.1 10^3/uL 3.5-10.8 Red Blood Count 3.99 10^6/uL Low 4.0-5.4 Hemoglobin 11.8 g/dL Low 14.0-18.0 Hematocrit 35 % Low 42-52 Mean Corpuscular Volume 87 fL 80-94 Mean Corpuscular Hemoglobin 30 pg 27-31 Mean Corpuscular HGB Conc 34 g/dL 31-36 Red Cell Distribution Width 14 % 10.5-15 Platelet Count 206 10^3/uL 150-450 Mean Platelet Volume 8.2 um3 7.4-10.4 Abs Neutrophils 2.0 10^3/uL 1.5-7.7 Abs Lymphocytes 1.4 10^3/uL 1.0-4.8 Abs Monocytes 0.4 10^3/uL 0-0.8 Abs Eosinophils 0.2 10^3/uL 0-0.6 Abs Basophils 0 10^3/uL 0-0.2 Abs Nucleated RBC 0 10^3/uL Granulocyte % 48.9 % 38-83 Lymphocyte % 34.2 % 25-47 Monocyte % 10.3 % High 0-7 Eosinophil % 6.0 % 0-6 Basophil % 0.6 % 0-2 Nucleated Red Blood Cells % 0 Laboratory test finding 01/02/2018 TSH (Thyroid Stim Horm) 1.51 mcIU/mL 0.34-5.60 Cortisol 4.52 g/dL 9 Drug Abuse 20 Urine 09/17/2017 Urine Amphetamine Negative ng/mL 10 Urine Barbiturates Negative ng/mL 11 Urine Benzodiazepines Negative ng/mL 12 Urine Cocaine Negative ng/mL 13 Urine Phencyclidine Negative ng/mL Cutoff: 25 Urine Tetrahydrocannabinol Negative ng/mL Cutoff: 50 14 Creatinine, Urine 82.8 mg/dL Specific [place] 1.013 pH 5.9 Oxidants Negative 15 Adulterants Comment Normal Codeine, Ur Not Detected ng/mL Cutoff: 25 16 Goxlohp-6-slrf-glucuronide, Ur Not Detected ng/mL 17 Morphine, Ur Not Detected ng/mL Cutoff: 25 18 Amwnochf-4-exbp-glucuronide, U Not Detected ng/mL 19 6-monoacetylmorphine, Ur Not Detected ng/mL Cutoff: 25 20 Hydrocodone, Ur Not Detected ng/mL Cutoff: 25 21 Norhydrocodone, Ur Not Detected ng/mL Cutoff: 25 22 Dihydrocodeine, Ur Not Detected ng/mL Cutoff: 25 23 Hydromorphone, Ur Not Detected ng/mL Cutoff: 25 24 Zsonpkscxumcl2zlqozgoqvzkuwot Not Detected ng/mL 25 Oxycodone, Ur Not Detected ng/mL Cutoff: 25 26 Noroxycodone, Ur Not Detected ng/mL Cutoff: 25 27 Oxymorphone, Ur Not Detected ng/mL Cutoff: 25 28 Wpevrxrndrs-5-edrh-glucuronide Not Detected ng/mL 29 Noroxymorphone, Ur Not Detected ng/mL Cutoff: 25 30 Fentanyl, Ur Not Detected ng/mL Cutoff: 2 31 Norfentanyl, Ur Not Detected ng/mL Cutoff: 2 32 Meperidine, Ur Not Detected ng/mL Cutoff: 25 33 Normeperidine, Ur Not Detected ng/mL Cutoff: 25 34 Naloxone, Ur Not Detected ng/mL Cutoff: 25 35 Pzkbdiaw-8-ujey-glucuronide, U Not Detected ng/mL 36 Methadone, Ur Not Detected ng/mL Cutoff: 25 37 Eddp, Ur Not Detected ng/mL Cutoff: 25 38 Propoxyphene, Ur Not Detected ng/mL Cutoff: 25 39 Norpropoxyphene, Ur Not Detected ng/mL Cutoff: 25 40 Tramadol, Ur Present ng/mL Cutoff: 25 41 O-desmethyltramadol, Ur Present ng/mL Cutoff: 25 42 Tapentadol, Ur Not Detected ng/mL Cutoff: 25 43 N-desmethyltapentadol, Ur Not Detected ng/mL Cutoff: 50 44 Axfffoiets-wnwc-zckmfyimffg, U Not Detected ng/mL 45 Buprenorphine, Ur Not Detected ng/mL Cutoff: 5 46 Norbuprenorphine, Ur Not Detected ng/mL Cutoff: 5 47 Norbuprenorphine glucuronide Not Detected ng/mL Cutoff: 20 48 Opioid Interpretation See Comment 49 Iron & Iron Binding Capacity 08/11/2017 Iron 165 g/dL 50-212 Unsaturated Iron Binding 279 g/dL Total Iron Binding Capacity 444 g/dL 250-450 % Iron Saturation 37 % 15-55 Vitamin B12 And Folate Serum 08/11/2017 Vitamin B12 382 pg/mL 180-914 50 Folic Acid (Folate) > 20.00 ng/mL >3.99 [...] finding 07/29/2017 Lactic Acid 1.8 mmol/L 0.5-2.0 51 Inr/Protime 07/29/2017 Inr 0.86 Low 0.89-1.11 Laboratory [...] Egfr Non- 113.0 >60 Egfr 145.4 >60 52 Laboratory test finding 07/29/2017 Lipase 11 U/L 11.0-82.0 C Reactive Protein 9.22 mg/L High < 5.00 53 Troponin-I (TnI) 0.00 ng/mL <0.04 Laboratory test finding 07/07/2017 Blood Culture SEE RESULT BELOW 54 CBC Auto Diff 07/07/2017 White Blood Count [...] 0-2 Nucleated Red Blood Cells % 0 Inr/Protime 07/07/2017 Inr 0.81 Low 0.89-1.11 Laboratory test finding 07/07/2017 Partial Thrombo Time 32.7 seconds 26.0 -36.3 PTT Comp Metabolic Panel 07/07/2017 Sodium 135 mmol/L [...] Egfr Non- 133.0 >60 Egfr 171.1 >60 55 Laboratory test finding 07/07/2017 C Reactive Protein 15.85 mg/L High &lt ; 5.00 56 Lactic Acid 0.7 mmol/L 0.5-2.0 57 Wound Culture/Sensi 07/07/2017 Wound/Misc SEE RESULT 58 Culture-Gram Stain BELOW Laboratory test finding 07/07/2017 Blood Culture SEE RESULT 59 BELOW CBC Auto Diff 06/14/2017 White Blood Count [...] finding 06/14/2017 Lactic Acid 1.6 mmol/L 0.5-2.0 60 Comp Metabolic Panel 06/14/2017 Sodium 138 mmol/L [...] Egfr Non- 119.0 >60 Egfr 153.0 >60 61 Potassium 4.2 mmol/L 3.5-5.0 Anion Gap 7 mmol/L 2-11 Ast 14 U/L 13-39 Laboratory test finding 06/14/2017 Magnesium 2.0 mg/dL 1.9-2.7 Creatine Kinase(CK) 62 U/L 10-223 TSH (Thyroid Stim Horm) 0.99 mcIU/mL 0.34-5.60 Urinalysis Profile 06/09/2017 Urine Color Anisha Urine Appearance Cloudy Urine Specific [place] 1.024 1.010-1.030 Urine pH 5.0 5-9 Urine Urobilinogen Negative Negative Urine Ketones Negative Negative Urine Protein Negative Negative Urine Leukocytes Negative Negative Urine Blood Negative Negative * * Negative 62 Urine Nitrite Negative Negative Urine Bilirubin Negative [...] Screen Presumptive Posi <SEE NOTE> None Detect 63 Urine Phencyclidine Screen None Detected None Detect 64 CBC Auto Diff 06/09/2017 White Blood Count [...] 0-2 Nucleated Red Blood Cells % 0 Inr/Protime 06/09/2017 Inr 0.81 Low 0.89-1.11 Laboratory test finding 06/09/2017 Partial Thrombo Time 31.4 seconds 26.0 -36.3 PTT D Dimer Quantitative < 200 ng/mL Less Than 230 65 B-Type Natriuretic Peptide BNP 48 pg/mL 66 Lactic Acid 1.2 mmol/L 0.5-2.0 67 Comp Metabolic Panel 06/09/2017 Sodium 137 mmol/L [...] Egfr Non- 152.1 >60 Egfr 195.7 >60 68 Laboratory test finding 06/09/2017 Magnesium 1.9 mg/dL 1.9-2.7 Lipase 14 U/L 11.0-82.0 Creatine Kinase(CK) 95 U/L 10-223 C Reactive Protein 3.25 mg/L < 5.00 69 Troponin-I (TnI) 0.00 ng/mL <0.04 CKMB 06/09/2017 CKMB ng/mL 1.7 ng/mL 0.6-6.3 Laboratory test finding 06/09/2017 Acetaminophen < 15 g/mL 70 Alcohol < 10 mg/dL <10 Salicylate < 2.50 mg/dL <30 TSH (Thyroid Stim Horm) 0.52 mcIU/mL 0.34-5.60 Wound Culture/Sensi 05/07/2017 Wound/Misc Culture-Gram SEE RESULT BELOW 71 Stain CBC Auto Diff 04/02/2017 White Blood Count [...] 0-2 Nucleated Red Blood Cells % 0.1 Protein Electrophoresis 04/02/2017 Total Protein(Pep) 7.3 g/dL 6.3 - 7.9 Albumin 3.7 g/dL 3.4-4.7 Alpha-1 Globulin 0.3 g/dL 0.1-0.3 Alpha-2 Globulin 1.0 g/dL 0.6-1.0 Beta Globulin 1.4 g/dL 0.7-1.2 Gamma Globulin 0.9 g/dL 0.6-1.6 Albumin/Globulin Ratio 1.03 Impression See Comment 72 Laboratory test finding 04/02/2017 C Reactive Protein 5.47 mg/L High < 5.00 73 Lyme Disease Serology Negative Negative 74 Connective Tissue Panel 04/02/2017 Anti-Nuclear Antibody 0.1 U 75 Cyclic Citrullinated Peptide <15.6 U 76 Interpretation See Comment 77 Laboratory test finding 04/02/2017 TSH (Thyroid Stim Horm) 1.44 mcIU/mL 0.34-5.60 Free T4 (Free Thyroxine) 1.03 ng/dL 0.61-1.12 Vitamin B12 359 pg/mL 180-914 78 Folic Acid (Folate) > 20.00 ng/mL >3.99 [...] Egfr Non- 124.9 >60 Egfr 160.6 >60 79 Calcium 9.1 mg/dL 8.6-10.3 Laboratory test finding 01/03/2017 Vitamin B12 324 pg/mL 180-914 80 1 >100 to <200 pg/mL: likely compensated congestive heart failure (CHF) 200 to 400 pg/mL: likely moderate CHF >400 pg/mL: likely moderate to severe CHF 2 Because ethnic data is not always readily [...] 15-29 5 Kidney failure <15 (or dialysis) 3 Desirable: <150 Borderline High: 150-199 High: 200-499 Very High: >500 4 Desirable: <200 Borderline High: 200-239 High: >239 5 Low: <40 Desirable: 40-60 High: >60 6 Desirable: <100 Near Optimal: 100-129 Borderline High: 130-159 High: 160-189 Very High: >189 7 It is recognized that currently available assays for the detection of antibodies to HIV-1 and/or HIV-2 may not detect all infected individuals. HIV antibodies may be undetectable in some stages of the infection and in some clinical conditions. The performance of this assay has not been established for populations of infants or children. Assayed by Chemiluminescence Microparticle Immunoassay on the Siemens Advia Centaur CP. Values obtained with different methods or kits cannot be used interchangeably.The diagnostic specificity of the ADVIA Centaur 1/O/2 Enhanced assay in the low risk population was 99.90% (6052/6058) with a 95% confidence interval of 99.78 to 99.96%. 8 Because ethnic data is not always readily [...] 15-29 5 Kidney failure <15 (or dialysis) 9 AM 8.7-22.4 PM <10 10 REFERENCE VALUE Cutoff: 500 11 REFERENCE VALUE Cutoff: 200 12 REFERENCE VALUE Cutoff: 100 13 REFERENCE VALUE Cutoff: 150 14 ADDITIONAL INFORMATION This report is intended for use in clinical monitoring or management of patients. It is not intended for use in employment-related testing. 15 REFERENCE VALUE Cutoff: 200 mg/L 16 Tylenol 3 17 Metabolite of codeine REFERENCE VALUE Cutoff: 100 18 Aisha Alanis, MS Contin; Also a minor metabolite (10%) of codeine and can be seen in low concentrations (<2,000 ng/mL) with poppy seed ingestion. 19 Metabolite of morphine REFERENCE VALUE Cutoff: 100 20 Metabolite of heroin 21 Lortab, Ford, Vicodin; Also a very minor metabolite of codeine and impurity (<1%) of oxycodone. 22 Metabolite of hydrocodone 23 Metabolite of hydrocodone 24 Dilaudid, Exalgo; Also a metabolite of hydrocodone and a minor (<5%) metabolite of morphine. 25 Metabolite of hydromorphone REFERENCE VALUE Cutoff: 100 26 Endocet, Percocet, Oxycontin 27 Metabolite of oxycodone 28 Numorphan, Opana; Also a metabolite of oxycodone. 29 Metabolite of oxymorphone REFERENCE VALUE Cutoff: 100 30 Metabolite of oxymorphone 31 Actiq, Duragesic, Fent[place] 32 Metabolite of fentanyl 33 Demerol 34 Metabolite of meperidine 35 Narcan 36 Metabolite of naloxone REFERENCE VALUE Cutoff: 100 37 Dolophine 38 Metabolite of methadone 39 Darvon, Darvocet 40 Metabolite of propoxyphene 41 Tradol, Ultram, Ultracet 42 Metabolite of tramadol 43 Nucynta 44 Metabolite of tapentadol 45 Metabolite of tapentadol REFERENCE VALUE Cutoff: 100 46 Buprenex, Suboxone 47 Metabolite of buprenorphine 48 Metabolite of buprenorphine 49 Test detected the presence of tramadol and its metabolite (O-desmethyltramadol). Suspect use of tramadol within the past three days. ADDITIONAL INFORMATION This test was developed and its performance characteristics determined by [facility] in a manner consistent with CLIA requirements. This test has not been cleared or approved by the U.S. Food and Drug Administration. Test Performed by: [facility] [address] [place] [address] 50 Normal Range 180 to 914 Indeterminate Range 145 to 180 Deficient Range <[address] [facility] Severe Sepsis and Septic Shock Management Bundle [...] 5 Kidney failure <15 (or dialysis) 53 Acute inflammation: >10.00 54 SEE RESULT BELOW Name: TYSHAWN DANIELSON : [address]: Chad Wilkinson MD Acct: [id number] Unit: [id number] AGE: 42 Location: ED Re07/07/17 SEX: M Status: DEP ER SPEC: [id number] SANA: 07/07/[address]: Graciela CONTRERAS REQ: [id number] RECD: 07/07/17 STATUS: SERGEI SMITH DR: Feliberto Wilkinson MD _ SOURCE: BLOOD,VENO SPDES: ORDERED: Blood Cult Procedure Result Reported Site Aerobic Culture Bottle Final 07/12/17- 1501 ML No Growth Day 5 Anaerobic Culture Bottle Final 07/12/17- 1501 ML No Growth Day 5 * ML - MAIN LAB ([facility]) . END OF REPORT * ML=Testing performed at Main Lab DEPARTMENT OF PATHOLOGY, [address] [place] [address] Rocco Alonzo M.D. Director [facility] # [id number] 55 Because ethnic data is not always [...] 5 Kidney failure <15 (or dialysis) 56 Acute inflammation: >10.[address] [facility] Severe Sepsis and Septic Shock Management Bundle Measure requires all lactic acids initially measuring >2.0 mmol/L be repeated. 58 SEE RESULT BELOW Name: TYSHAWN DANIELSON : [address]: Chad Wilkinson MD Acct: [id number] Unit: [id number] AGE: 42 Location: ED Re07/07/17 SEX: M Status: DEP ER SPEC: [id number] SANA: 07/07/17-1406 [facility] DR: Graciela CONTRERAS REQ: [id number] RECD: 07/07/17 STATUS: SERGEI SMITH DR: Feliberto Wilkinson MD _ SOURCE: RIGHT [facility]: ORDERED: Culture Stain Procedure Result Reported Site Wound/Misc Gram Stain Final 07/07/17- 1503 ML Test not performed Wound/Misc Culture Final 07/09/17- 1118 ML No Growth Day 2 * ML - MAIN LAB ([facility]) . END OF REPORT * ML=Testing performed at Main Lab DEPARTMENT OF PATHOLOGY, [address] [place] [address] Rocco Alonzo M.D. Director [facility] # [id number] 59 SEE RESULT BELOW Name: ERUMTYSHAWN : [address]: Chad Wilkinson MD Acct: [id number] Unit: [id number] AGE: 42 Location: ED Re07/07/17 SEX: M Status: DEP ER SPEC: [id number] SANA: 07/07/17-1406 [facility] DR: Graciela CONTRERAS REQ: [id number] RECD: 07/07/17 STATUS: RES LUIS DR: Feliberto Wilkinson MD _ SOURCE: BLOOD,VENO SPDESC: ORDERED: Blood Cult Procedure Result Reported Site Aerobic Culture Bottle Preliminary 07/08/17- 1424 ML No Growth Day 1 Anaerobic Culture Bottle Preliminary 07/08/17- 1424 ML No Growth Day 1 * ML - MAIN LAB ([facility]) . END OF REPORT * ML=Testing performed at Main Lab DEPARTMENT OF PATHOLOGY, [address] [place] [address] Rocco Alonzo M.D. Director [facility] # [id number] [facility] Severe Sepsis and Septic Shock Management Bundle Measure requires all lactic acids initially measuring >2.0 mmol/L be repeated. 61 Because ethnic data is not always readily [...] 15-29 5 Kidney failure <15 (or dialysis) 62 *Ascorbic acid is present which may interfere with detection of blood. 63 Presumptive Positive Presumptive positive results are unconfirmed. 64 The urine specimen was tested at the listed cutoffs: Drug class test level (ng/mL) Amphetamines 500 Barbiturates 200 Benzodiazepine metabolites 200 Cocaine metabolites 150 Cannabinoids 50 Opiates 300 Pcp 25 Specimen was received without chain of custody. Results should be used for medical purposes only. 65 Please note: The following may produce a false positive D Dimer test: - Rheumatoid factor greater than 60 IU/ml - Plasma hemoglobin greater than 0.05 gm/dl - Bilirubin greater than 50 mg/dl - Lipids greater than 1000 mg/dl - FDP greater than 20 ug/ml 66 >100 to <200 pg/mL: likely compensated congestive heart failure (CHF) 200 to 400 pg/mL: likely moderate CHF >400 pg/mL: likely moderate to severe CHF 67 [facility] Severe Sepsis and Septic Shock Management Bundle Measure requires all lactic acids initially measuring >2.0 mmol/L be repeated. 68 Because ethnic data is not always readily [...] 15-29 5 Kidney failure <15 (or dialysis) 69 Acute inflammation: >10.00 70 Therapeutic concentration: <50 ug/mL Toxic concentration: >120 ug/mL 71 SEE RESULT BELOW Name: TYSHAWN DANIELSON : [address]: Feliberto Esquivel MD Acct: [id number] Unit: [id number] AGE: 41 Location: [facility] Re05/07/17 SEX: M Status: REG REF SPEC: [id number] SANA: 05/07/[address]: Feliberto Esquivel MD REQ: [id number] RECD: 05/07/17 STATUS: RES _ SOURCE: ARM RIGHT SPDESC: ORDERED: Culture Stain COMMENTS: [id number] Specimen Description INDURATED INFECTION R FOREARM Procedure Result Reported Site Wound/Misc Gram Stain Final 05/08/17- 736 ML 1+ Nucleated Cells No Neutrophils Observed 2+ Gram Positive Cocci Wound/Misc Culture Preliminary 05/08/17- 1316 ML Organism 1 STAPHYLOCOCCUS AUREUS Quantity 2+ * ML - [facility] ([facility]) . END OF REPORT * ML=Testing performed at [facility] Lab DEPARTMENT OF PATHOLOGY, [address] [place] [address] Rocco Alonzo M.D. Director [facility] # [id number] 72 RESULT: No apparent monoclonal protein on serum electrophoresis. Test Performed by: [facility] [place] [address] 73 Acute inflammation: >10.00 74 Serologic response to B. burgdorferi infection is not detected, but cannot rule out early infection during which low or undetectable antibody levels to B. burgdorferi may be present. If clinically indicated, a new serum specimen should be submitted in 7-14 days. Test Performed by: [facility] [place] [id number] 75 REFERENCE VALUE <=1.0 (Negative) 76 REFERENCE VALUE <20.0 (Negative) 77 Tests for antibodies to dsDNA and FAHEEM antigens are not performed automatically unless the LO result is > or= 3.0 U. Studies performed at [facility] indicate that positive LO results <3.0 U are rarely accompanied by positive second order tests. Test Performed by: [address] [address] 78 Normal Range 180 to 914 Indeterminate Range 145 to 180 Deficient Range <145 79 Because ethnic data is not always readily [...] 15-29 5 Kidney failure <15 (or dialysis) 80 Normal Range 180 to 914 Indeterminate Range 145 to 180 Deficient Range <145 Procedures Date CPT Code Description Status 11/21/2017 Colonoscopy Completed 07/31/2017 42363 Short Arm Cast Application Completed 07/17/2017 55133 CLST TRMT Distal Radial FX Completed 05/20/2017 07592 Nerve Conduction 13+ Studies Completed 01/12/2008 64803 Color Flow Doppler/Interp & Reprt Completed 01/12/2008 05603 Color Flow Doppler/Interp & Reprt Completed 01/12/2008 92300 Pulse Wave/Continuous-Interp.RPT Completed 01/12/2008 13598 Echocardiogram Completed 01/12/2008 72123 Echocardiogram Completed Encounters Type Date Location Provider CPT E/M Dx Office Visit 01/28/2018 11:20a [facility] Feliberto Esquivel, 64470 J44.9 Elva Camacho M.D. I89.0 R63.5 R25.2 Office Visit 01/12/2018 8:40a [facility] Feliberto Esquivel, 59359 M79.671 Medicine - [place] Aden Nobles.Sheila Office Visit 01/02/2018 8:20a [facility] Feliberto Esquivel, 62311 M79.604 Medicine - [place] Aden Vines Office Visit 12/23/2017 4:00p [facility] Feliberto Esquivel, 49561 R10.11 Medicine - [place] Aden Vines M79.673 E66.01 G47.30 K21.9 Office Visit 12/12/2017 8:30a [facility] Ha Francis, 69052 G62.9 - [place] Vines,FACP F33.0 G47.30 Office Visit 12/03/2017 1:00p [facility] Kavya Angela, 03513 G47.30 Services [facility] LEÓN RN, ROAD ENGINEER- E66.01 Z68.41 Office Visit 11/24/2017 2:40p [facility] - Tala Criselda, LINKING MACHINE OPERATOR [address] [place] [address] J20.9 Office Visit 10/24/2017 8:30a [facility] Ha Francis, 99693 M51.16 - [place] [address] Jasmyn,FACP Office Visit 10/21/2017 10:45a [facility] Tali Eason, 56680 G62.9 Services Of [place] G56.03 Office Visit 10/07/2017 4:00p [facility] Domi Esquivel M.D. 57492 F33.0 Medicine - [place] [address] K21.9 Office Visit 09/17/2017 2:20p [facility] Ha Francis, 69679 G89.4 - [place] Aden Vines,FACP M51.16 Office Visit 09/02/2017 8:45a [facility] Tali Eason, 28488 G62.9 Services Of [place] G56.03 Office Visit 08/26/2017 8:40a [facility] Domi Esquivel M.D. 76289 F33.0 Medicine - [place] [address] K62.5 Office Visit 08/12/2017 8:20a [facility] Domi Esquivel M.D. 07528 D64.9 Medicine - [place] [address] F33.0 G47.00 K62.5 K29.31 Office Visit 07/31/2017 9:00a [facility] Feliberto Esquivel 73870 K57.30 Medicine - [place] [address] Jasmyn M51.16 K64.9 D64.9 G62.9 Office Visit 07/24/2017 2:40p [facility] Domi Esquivel 98588 S52.591A Medicine - [place] [address] Jasmyn Office Visit 07/01/2017 8:00a [facility] Domi Esquivel 13297 M51.16 Medicine - [place] [address] M.D. Office Visit 06/17/2017 9:00a [facility] Feliberto Esquivel, 26934 M51.16 Medicine - [place] [address] M.DMazin L98.9 F33.0 Office Visit 06/11/2017 8:40a [facility] Feliberto Esquivel, 21813 G62.9 - [place] Jasmyn M51.16 F33.0 Office Visit 05/15/2017 9:00a [facility] Feliberto Esquivel, 66106 L03.113 Medicine - [place] [address] M.D. Office Visit 05/09/2017 1:30p [facility] Feliberto Esquivel, 40193 L03.113 Medicine - [place] [address] M.D. Office Visit 05/07/2017 4:40p [facility] Feliberto Esquivel, 83094 L03.113 Medicine - [place] MRobb Office Visit 04/25/2017 10:20a [facility] Feliberto Esquivel, 67927 M51.16 Medicine - [place] [address] M.Sheila Office Visit 04/01/2017 11:00a [facility] Tali Eason, 60804 R20.9 Services Of [place] G62.9 Office Visit 03/13/2017 10:00a [facility] Feliberto Esquivel M.D. 55200 G63 - [place] [address] F33.0 M51.16 Office Visit 01/24/2017 11:20a [facility] Connor Esquivel M.D. 38971 G63 - [place] [address] F33.0 M51.16 Office Visit 01/10/2017 11:00a [facility] Feliberto Esquivel, 68423 M51.16 Medicine - [place] [address] MRobb G63 F33.0 Office Visit 12/30/2016 10:30a [facility] Ha Francis, 99206 G63 Medicine - [place] [address] MRobb,[facility] Office Visit 12/20/2016 1:40p [facility] Feliberto Esquivel, 42448 M51.16 Medicine - [place] [address] MRobb G63 R10.9 F33.0 E66.01 Z00.00 Office Visit 03/30/2016 12:53p [facility],javi Dubose 91412 L02.91 Hospitalafua [facility] Z22.322 Office Visit 03/29/2016 12:52p [facility],javi Balderas N.P. 84137 L02.91 Hospitalists Z22.322 Plan of Care Future Appointment(s):02/12/2018 9:40 am - Feliberto Esquivel M.D. at [facility] - [place] 05/06/2018 10:00 am - Marquise Zhou M.D. at [facility]02/04/2018 - Feliberto Esquivel M.D.M79.661 Pain in right lower legFollow up:teujhmJ48.0 Lymphedema, not elsewhere classifiedNew Medication:Metolazone 5 mgL03.115 Cellulitis of right lower limbNew Medication:Doxycycline Hyclate 100 mg
--- OUTSIDE RECORDS SUMMARY | 2018-02-05 20:10 | XMS REPORT ---
:1975 External Reference #:[id number] Author Organization [facility] [employer] Address [address] [address] Phone [phone] Care Team Providers Name Role Phone Tali Eason MD Care Team Information Chief Security And Safety Officer Unavailable Feliberto Esquivel MD Primary Care Physician Unavailable Payers Type Date Identification Numbers Payment Provider Subscriber Commercial Policy Number: [id number] Bari Tyshawn P E[employer] Number: [id number] [address] PayID: [id number] [place] [address] Problems Date Description Provider Status Onset: 12/20/2016 [...] Sleep apnea Kavya Angela DNP, RN, Active DIRECTOR OF PRODUCT DESIGN-BC Onset: 12/03/2017 Body mass index 40+ - severely Kavya Angela DNP, RN, Active obese DIRECTOR OF PRODUCT DESIGN-BC Onset: 01/12/2018 Pain in limb Feliberto Esquivel [...] Onset: 06/17/2017 Disorder of skin AND/OR Feliberto Esuqivel M.D. Inactive subcutaneous tissue Inactive: 12/12/2017 Family History Date Family Member(s) Problem(s) Comments Father due to Diabetes () Father Diabetes Type II Father due to Heart Disease () Mother Alive And Well Siblings 2 First Brother Bipolar Disorder Social History Type Date Description Comments Marital Status Significant Other Lives With Female Partner Occupation Currently Working Occupation [employer] Occupation [employer] Cigarette Use Former Cigarette Smoker ETOH Use [...] Form Strength Qnty SIG Indications Ordering Provider Nebulizer 01/28 Active Kit 1unit 1 unit J44.9 [place] Kit/Tubing/Mout s nebulization Pachikara hpiece every 4- 6 , M.D. hours as needed Albuterol 01/28 Active Nebulizer (2.5mg/3M 180ml 1 vial via J44.9 Feliberto Sulfate /2017 L) 0.083% nebulizer 4 Pachikara times daily , M.D. as needed Lasix 01/28 Active Tablets 40mg 30tab 1 by mouth s every day Pachikara , M.D. Prednisone 01/20 Active Tablets 20mg 10tab 2 tab by M79.671 s mouth 5 days Pachikara , M.D. Tamsulosin HCL 01/20 Active Capsules 0.4mg 30cap 1 by mouth N40.1 s every day Pachikara M.D. Buprenorphine 01/13 Active Tablets 8mg 90tab take 1 tab Feliberto HCL Sub s subligually 3 Pachikara times a day , M.D. as needed for pain Duloxetine HCL 12/[address] 60mg 30cap take 1 G62.9 Ha Part s capsule by Sheila Francis, mouth every M.D.,FACP morning G89.4 Duloxetine HCL 10/28/[address] Part 30mg 30caps 1 cap by Ha mouth every Harry. Penny, day (with 60 M.D.,FACP mg cap) Pantoprazole 08/12/[address] 20mg 30tabs take 1 K Shavonne Tanner Sodium tablet by 2 Sheila Francis, mouth every 9 M.D.,FACP morning . before 3 breakfast 1 Betamethasone 06/17/2017 Active Cream 0.05% 50gm apply twice L [place] Dipropionate a day 9 Pachikara, 8 M.D. . 9 Vitamin B Active [...] Hx Tablets 20mg 10tabs 2 tab by Feliberto 01/23/2018 mouth 5 days Jasmyn Esquivel Lasix 01/02/2018 - Hx Tablets 20mg 10tabs take one Mark 01/28/2018 daily as Sally, needed for M.D. edema Guaifenesin-Code 11/24/2017 - Hx Solution 100-10 180ml 5-10 R Ha ine 12/12/2017 mg/5ML milliliters 0 Sheila Francis, q4-6hrs as 5 M.D.,FACP needed for cough Amoxicillin/Clav 11/24/2017 - Hx Tablets 875-12 14tabs one tab J Tala ulanate 12/01/2017 5mg twice/day 2 Aburto, Potassium 0 [employer] . 9 Duloxetine HCL 10/24/2017 - Hx Caps DR Fan 40mg 1 po qam Ha 11/25/2017 Sheila Francis M.D.,FACP Duloxetine HCL 10/24/2017 - Hx Caps DR Fan 20mg 1-3 by mouth Issa Tanner 11/25/2017 every 6 D. Penny, evening as 2 M.D.,FACP directed . 9 Duloxetine HCL 10/21/2017 - Hx Caps DR Fan 30mg 90caps take 1 to 3 G Tali Bah 10/24/2017 capsules in 6 [place], evening as 2 M.D. directed . 9 Lyrica 10/15/2017 - Hx Capsules 50mg 120caps 2-4 tabs/day Tali Bah 10/24/2017 as directed [place], (not taking) M.D. Fluoxetine HCL 09/18/2017 - Hx Capsules 10mg 30caps take one F Shavonne Tanner 10/24/2017 capsule by 3 Sheila Francis, mouth once 3 M.D.,FACP daily in the . morning 0 Duloxetine HCL 09/02/2017 - Hx Caps DR Fan 20mg 60caps 1-2 tabs by Issa Bah 10/21/2017 mouth every 6 Stack[place], day as 2 M.D. directed . 9 Bupropion HCL ER 08/12/2017 - Hx Tablets ER 150mg 30tabs take 1 F AndresElva Ciro (XL) 01/20/2018 24HR tablet by 3 Sheila Francis, mouth every 3 M.D.,FACP morning with . food 0 Hydrocortisone 08/01/2017 - Hx Cream 2.5% 20gm apply after [place] 10/24/2017 first bowel Pachikara, movement M.D. Anucort-HC 07/31/2017 - Hx Suppository 25mg 12units apply daily K [place] 08/01/2017 after first 6 Pachikara, bm 4 M.D. . 9 Oxycodone HCL 07/24/2017 - Hx Tablets 5mg 30tabs 1 by mouth S [place] 07/30/2017 every 6 5 Pachikara, hours as [...] Hx Tablets 5mg 60tabs 1 by mouth M [place] 07/24/2017 every 6 5 Pachikara, hours as 1 M.D. needed . 1 6 Gabapentin 06/17/2017 - Hx Capsules 300mg 90caps take 1 M Ha 01/02/2018 capsule by 5 Sheila Francis, mouth 3 1 M.D.,FACP times a day . 1 6 Fluoxetine HCL 06/17/2017 - Hx Capsules 20mg 30caps Take One F [place] 09/18/2017 Capsule By 3 Pachikara, Mouth Every 3 M.D. Day . 0 Lyrica 06/11/2017 - Hx Capsules 50mg 60caps twice daily G [place] 06/17/2017 6 Pachikara, 2 M.D. . 9 Buprenorphine 06/11/2017 - Hx Patches 7.5mcg 4units 1 patch M [place] 06/17/2017 Weekly /HR weekly 5 Pachikara, 1 [...] Hx Tablets 300-30 15tabs 1 tab by [place] cortés #3 06/10/2017 mg mouth 3 Pachikara, times /day M.D. as needed Doxycycline 05/07/2017 - Hx Capsules 100mg 20caps 1 cab twice L [place] Hyclate 06/10/2017 a day 0 Pachikara, 3 M.D. . 1 1 3 Hydrocodone-Acet 05/07/2017 - Hx Tablets 7.5-32 45tabs 1 tab po up L Chad yN. aminophen 06/10/2017 5mg to tid as 0 Nisa, needed 3 M.D. . 1 1 3 Gabapentin 01/24/2017 - Hx Capsules 300mg 90caps Take One G [place] 05/15/2017 Capsule By 6 Pachikara, Mouth 3 3 M.D. Times A Day Venlafaxine HCL 01/15/2017 - Hx Caps ER 24HR 37.5mg 30caps once daily [place] ER 06/11/2017 Pachikara, M.D. Tramadol HCL 01/10/2017 - Hx Tablets 50mg 90tabs 2 tab three M Feliberto 09/17/2017 times a day 5 Pachikara, as needed 1 M.D. . 1 6 Gabapentin 01/10/2017 - Hx Capsules 100mg 90caps 2 cap three G [place] 01/24/2017 times a day 6 Pachikara, 3 M.D. Duloxetine HCL 01/10/2017 - Hx Caps DR Part 30mg 14caps once a day F [place] 01/15/2017 in full 3 Pachikara, stomach 3 M.D. . 0 Butrans 12/30/2016 - Hx Patches 10mcg/ 4units topical Ha 01/24/2017 Weekly HR q7days Sheila Francis M.D.,FACP Tramadol HCL 12/20/2016 - Hx Tablets 50mg 14tabs three times M [place] 01/10/2017 a day as 5 Pachikara, needed 1 M.D. . 1 6 Gabapentin 12/20/2016 - Hx Capsules 100mg 90caps three times G [place] 01/10/2017 a day 6 Pachikara, 3 M.D. Advil - Hx Capsules 200mg as needed Unknown 08/12/2017 Oxycodone HCL - Hx Capsules 5mg 1-2 tabs by Unknown 06/11/2017 mouth every 4-6 hours as needed pain Tramadol HCL - Hx Tablets 50mg Take 1 Unknown 10/24/2017 Tablet By Mouth Every 4 To 6 Hours as Needed For Pain Vital Signs Date Vital Result Comment 01/28/2018 Weight 359.00 lb Heart Rate 98 [...] Result H/L Range Note Laboratory test finding 01/12/2018 Erythrocyte Sed Rate 24 mm/Hr High 0- 14 Uric Acid 6.0 mg/dL 4.4-7.6 Lipid Profile (Trig/Chol/HDL) 01/02/2018 Triglycerides 124 mg/dL 1 Cholesterol 147 mg/dL 2 HDL Cholesterol 53.8 mg/dL 3 LDL Cholesterol 68 mg/dL 4 HIV 1/2 AB Evaluation 01/02/2018 HIV 1 2 Antibody Nonreactive Nonreactive 5 Comp Metabolic Panel 01/02/2018 Sodium 138 mmol/L [...] Egfr Non- 133.0 >60 Egfr 171.1 >60 6 CBC Auto Diff 01/02/2018 White Blood Count [...] Horm) 1.51 mcIU/mL 0.34-5.60 Cortisol 4.52 g/dL 7 Drug Abuse 20 Urine 09/17/2017 Urine Amphetamine Negative ng/mL 8 Urine Barbiturates Negative ng/mL 9 Urine Benzodiazepines Negative ng/mL 10 Urine Cocaine Negative ng/mL 11 Urine Phencyclidine Negative ng/mL Cutoff: 25 Urine Tetrahydrocannabinol Negative ng/mL Cutoff: 50 12 Creatinine, Urine 82.8 mg/dL Specific Sandwich 1.013 pH 5.9 Oxidants Negative 13 Adulterants Comment Normal Codeine, Ur Not Detected ng/mL Cutoff: 25 14 Xltexjp-3-szom-glucuronide, Ur Not Detected ng/mL 15 Morphine, Ur Not Detected ng/mL Cutoff: 25 16 Gixapdvz-3-alqy-glucuronide, U Not Detected ng/mL 17 6-monoacetylmorphine, Ur Not Detected ng/mL Cutoff: 25 18 Hydrocodone, Ur Not Detected ng/mL Cutoff: 25 19 Norhydrocodone, Ur Not Detected ng/mL Cutoff: 25 20 Dihydrocodeine, Ur Not Detected ng/mL Cutoff: 25 21 Hydromorphone, Ur Not Detected ng/mL Cutoff: 25 22 Amczvcxlvixaz0rwvnghuiazankmw Not Detected ng/mL 23 Oxycodone, Ur Not Detected ng/mL Cutoff: 25 24 Noroxycodone, Ur Not Detected ng/mL Cutoff: 25 25 Oxymorphone, Ur Not Detected ng/mL Cutoff: 25 26 Kwsvhunctmg-4-ewro-glucuronide Not Detected ng/mL 27 Noroxymorphone, Ur Not Detected ng/mL Cutoff: 25 28 Fentanyl, Ur Not Detected ng/mL Cutoff: 2 29 Norfentanyl, Ur Not Detected ng/mL Cutoff: 2 30 Meperidine, Ur Not Detected ng/mL Cutoff: 25 31 Normeperidine, Ur Not Detected ng/mL Cutoff: 25 32 Naloxone, Ur Not Detected ng/mL Cutoff: 25 33 Ttcyydvb-2-wulz-glucuronide, U Not Detected ng/mL 34 Methadone, Ur Not Detected ng/mL Cutoff: 25 35 Eddp, Ur Not Detected ng/mL Cutoff: 25 36 Propoxyphene, Ur Not Detected ng/mL Cutoff: 25 37 Norpropoxyphene, Ur Not Detected ng/mL Cutoff: 25 38 Tramadol, Ur Present ng/mL Cutoff: 25 39 O-desmethyltramadol, Ur Present ng/mL Cutoff: 25 40 Tapentadol, Ur Not Detected ng/mL Cutoff: 25 41 N-desmethyltapentadol, Ur Not Detected ng/mL Cutoff: 50 42 Ewaqaicorr-rntk-rnnzyrcyega, U Not Detected ng/mL 43 Buprenorphine, Ur Not Detected ng/mL Cutoff: 5 44 Norbuprenorphine, Ur Not Detected ng/mL Cutoff: 5 45 Norbuprenorphine glucuronide Not Detected ng/mL Cutoff: 20 46 Opioid Interpretation See Comment 47 Iron & Iron Binding Capacity 08/11/2017 Iron 165 g/dL 50-212 Unsaturated Iron Binding 279 g/dL Total Iron Binding Capacity 444 g/dL 250-450 % Iron Saturation 37 % 15-55 Vitamin B12 And Folate Serum 08/11/2017 Vitamin B12 382 pg/mL 180-914 48 Folic Acid (Folate) > 20.00 ng/mL >3.99 [...] finding 07/29/2017 Lactic Acid 1.8 mmol/L 0.5-2.0 49 Inr/Protime 07/29/2017 Inr 0.86 Low 0.89-1.11 Laboratory [...] Egfr Non- 113.0 >60 Egfr 145.4 >60 50 Laboratory test finding 07/29/2017 Lipase 11 U/L 11.0-82.0 C Reactive Protein 9.22 mg/L High < 5.00 51 Troponin-I (TnI) 0.00 ng/mL <0.04 Laboratory test finding 07/07/2017 Blood Culture SEE RESULT BELOW 52 CBC Auto Diff 07/07/2017 White Blood Count [...] Egfr Non- 133.0 >60 Egfr 171.1 >60 53 Laboratory test finding 07/07/2017 C Reactive Protein 15.85 mg/L High &lt ; 5.00 54 Lactic Acid 0.7 mmol/L 0.5-2.0 55 Wound Culture/Sensi 07/07/2017 Wound/Misc SEE RESULT 56 Culture-Gram Stain BELOW Laboratory test finding 07/07/2017 Blood Culture SEE RESULT 57 BELOW CBC Auto Diff 06/14/2017 White Blood [...] finding 06/14/2017 Lactic Acid 1.6 mmol/L 0.5-2.0 58 Comp Metabolic Panel 06/14/2017 Sodium 138 mmol/L [...] Egfr Non- 119.0 >60 Egfr 153.0 >60 59 Potassium 4.2 mmol/L 3.5-5.0 Anion Gap 7 mmol/L 2-11 Ast 14 U/L 13-39 Laboratory test finding 06/14/2017 Magnesium 2.0 mg/dL 1.9-2.7 Creatine Kinase(CK) 62 U/L 10-223 TSH (Thyroid Stim Horm) 0.99 mcIU/mL 0.34-5.60 Urinalysis Profile 06/09/2017 Urine Color Anisha Urine Appearance Cloudy Urine Specific Sandwich 1.024 1.010-1.030 Urine pH 5.0 5-9 Urine Urobilinogen Negative Negative Urine Ketones Negative Negative Urine Protein Negative Negative Urine Leukocytes Negative Negative Urine Blood Negative Negative * * Negative 60 Urine Nitrite Negative Negative Urine Bilirubin Negative [...] Screen Presumptive Posi <SEE NOTE> None Detect 61 Urine Phencyclidine Screen None Detected None Detect 62 CBC Auto Diff 06/09/2017 White Blood Count [...] Quantitative < 200 ng/mL Less Than 230 63 B-Type Natriuretic Peptide BNP 48 pg/mL 64 Lactic Acid 1.2 mmol/L 0.5-2.0 65 Comp Metabolic Panel 06/09/2017 Sodium 137 mmol/L [...] Egfr Non- 152.1 >60 Egfr 195.7 >60 66 Laboratory test finding 06/09/2017 Magnesium 1.9 mg/dL 1.9-2.7 Lipase 14 U/L 11.0-82.0 Creatine Kinase(CK) 95 U/L 10-223 C Reactive Protein 3.25 mg/L < 5.00 67 Troponin-I (TnI) 0.00 ng/mL <0.04 CKMB 06/09/2017 CKMB ng/mL 1.7 ng/mL 0.6-6.3 Laboratory test finding 06/09/2017 Acetaminophen < 15 g/mL 68 Alcohol < 10 mg/dL <10 Salicylate < 2.50 mg/dL <30 TSH (Thyroid Stim Horm) 0.52 mcIU/mL 0.34-5.60 Wound Culture/Sensi 05/07/2017 Wound/Misc Culture-Gram SEE RESULT BELOW 69 Stain CBC Auto Diff 04/02/2017 White Blood [...] 0-2 Nucleated Red Blood Cells % 0.1 Comp Metabolic Panel 04/02/2017 Sodium 136 mmol/L [...] 160.6 >60 70 Calcium 9.1 mg/dL 8.6-10.3 Laboratory test finding 04/02/2017 TSH (Thyroid Stim Horm) 1.44 mcIU/mL 0.34-5.60 Free T4 (Free Thyroxine) 1.03 ng/dL 0.61-1.12 Vitamin B12 359 pg/mL 180-514 71 Folic Acid (Folate) > 20.00 ng/mL >3.99 Connective Tissue Panel 04/02/2017 Anti-Nuclear Antibody 0.1 U 72 Cyclic Citrullinated Peptide <15.6 U 73 Interpretation See Comment 74 Laboratory test finding 04/02/2017 C Reactive Protein 5.47 mg/L High < 5.00 75 Lyme Disease Serology Negative Negative 76 Protein Electrophoresis 04/02/2017 Total Protein(Pep) 7.3 g/dL 6.3 - 7.9 Albumin 3.7 g/dL 3.4-4.7 Alpha-1 Globulin 0.3 g/dL 0.1-0.3 Alpha-2 Globulin 1.0 g/dL 0.6-1.0 Beta Globulin 1.4 g/dL 0.7-1.2 Gamma Globulin 0.9 g/dL 0.6-1.6 Albumin/Globulin Ratio 1.03 Impression See Comment 77 Laboratory test finding 01/03/2017 Vitamin B12 324 pg/mL 180-674 78 1 Desirable: <150 Borderline High: 150-199 High: 200-499 Very High: >500 2 Desirable: <200 Borderline High: 200-239 High: >239 3 Low: <40 Desirable: 40-60 High: >60 4 Desirable: <100 Near Optimal: 100-129 Borderline High: 130-159 High: 160-189 Very High: >189 5 It is recognized that currently available assays [...] 95% confidence interval of 99.78 to 99.96%. 6 Because ethnic data is not always readily [...] 15-29 5 Kidney failure <15 (or dialysis) 7 AM 8.7-22.4 PM <10 8 REFERENCE VALUE Cutoff: 500 9 REFERENCE VALUE Cutoff: 200 10 REFERENCE VALUE Cutoff: 100 11 REFERENCE VALUE Cutoff: 150 12 ADDITIONAL INFORMATION This report is intended for use in clinical monitoring or management of patients. It is not intended for use in employment-related testing. 13 REFERENCE VALUE Cutoff: 200 mg/L 14 Tylenol 3 15 Metabolite of codeine REFERENCE VALUE Cutoff: 100 16 Aisha Alanis, MS Contin; Also a minor metabolite (10%) of codeine and can be seen in low concentrations (<2,000 ng/mL) with poppy seed ingestion. 17 Metabolite of morphine REFERENCE VALUE Cutoff: 100 18 Metabolite of heroin 19 Lortab, [place], Vicodin; Also a very minor metabolite of codeine and impurity (<1%) of oxycodone. 20 Metabolite of hydrocodone 21 Metabolite of hydrocodone 22 Dilaudid, Exalgo; Also a metabolite of hydrocodone and a minor (<5%) metabolite of morphine. 23 Metabolite of hydromorphone REFERENCE VALUE Cutoff: 100 24 Endocet, Percocet, Oxycontin 25 Metabolite of oxycodone 26 Numorphan, Opana; Also a metabolite of oxycodone. 27 Metabolite of oxymorphone REFERENCE VALUE Cutoff: 100 28 Metabolite of oxymorphone 29 Actiq, Duragesic, Fentora 30 Metabolite of fentanyl 31 Demerol 32 Metabolite of meperidine 33 Narcan 34 Metabolite of naloxone REFERENCE VALUE Cutoff: 100 35 Dolophine 36 Metabolite of methadone 37 Darvon, Darvocet 38 Metabolite of propoxyphene 39 Tradol, Ultram, Ultracet 40 Metabolite of tramadol 41 Nucynta 42 Metabolite of tapentadol 43 Metabolite of tapentadol REFERENCE VALUE Cutoff: 100 44 Buprenex, Suboxone 45 Metabolite of buprenorphine 46 Metabolite of buprenorphine 47 Test detected the presence of tramadol and its metabolite (O-desmethyltramadol). Suspect use of tramadol within the past three days. ADDITIONAL INFORMATION This test was developed and its performance characteristics determined by [facility] in a manner consistent with CLIA requirements. This test has not been cleared or approved by the U.S. Food and Drug Administration. Test Performed by: [facility] [address] [place] [address] 48 Normal Range 180 to 914 Indeterminate Range 145 to 180 Deficient Range <145 49 [facility] Severe Sepsis and Septic Shock Management Bundle Measure requires all lactic acids initially measuring >2.0 mmol/L be repeated. 50 Because ethnic data is not always readily [...] 15-29 5 Kidney failure <15 (or dialysis) 51 Acute inflammation: >10.00 52 SEE RESULT BELOW Name: ERUMSUMMERTYSHAWN : [address]: Chad Wilkinson MD Acct: [id number] Unit: [id number] AGE: 42 Location: ED Re07/07/17 SEX: M Status: DEP ER SPEC: [id number] SANA: 07/07/17-2914 [facility] DR: Graciela CONTRERAS REQ: [id number] RECD: 07/07/17-1501 STATUS: COMP [facility] DR: Feliberto Wilkinson MD _ SOURCE: BLOOD,VENO SPDESC: ORDERED: Blood Cult Procedure Result Reported Site Aerobic Culture Bottle Final 07/12/17- 1501 ML No Growth Day 5 Anaerobic Culture Bottle Final 07/12/17- 1501 ML No Growth Day 5 * ML - MAIN LAB ([facility]) . END OF REPORT * ML=Testing performed at Main Lab DEPARTMENT OF PATHOLOGY, [address] [place] [address] Rocco Alonzo M.D. Director [facility] # [id number] 53 Because ethnic data is not always readily [...] 15-29 5 Kidney failure <15 (or dialysis) 54 Acute inflammation: >10.00 55 [facility] Severe Sepsis and Septic Shock Management Bundle Measure requires all lactic acids initially measuring >2.0 mmol/L be repeated. 56 SEE RESULT BELOW Name: TYSHAWN DANIELSON : [address]: Chad Wilkinson MD Acct: [id number] Unit: [id number] AGE: 42 Location: ED Re07/07/17 SEX: M Status: DEP ER SPEC: [id number] SANA: 07/07/171406 [facility] DR: Graciela CONTRERAS REQ: [id number] RECD: 07/07/174681 STATUS: SERGEI SMITH DR: Feliberto Wilkinson MD _ SOURCE: RIGHT [facility]: ORDERED: Culture Stain Procedure Result Reported Site Wound/Misc Gram Stain Final 07/07/17- 1503 ML Test not performed Wound/Misc Culture Final 07/09/17- 1118 ML No Growth Day 2 * ML - MAIN LAB ([facility]) . END OF REPORT * ML=Testing performed at Main Lab DEPARTMENT OF PATHOLOGY, [address] [place] [address] Rocco Alonzo M.D. Director [facility] # [id number] 57 SEE RESULT BELOW Name: TYSHAWN DANIELSON : [address]: Chad Wilkinson MD Acct: [id number] Unit: [id number] AGE: 42 Location: ED Re07/07/17 SEX: M Status: DEP ER SPEC: [id number] SANA: 07/07/17 [facility] [address]: Graciela CONTRERAS REQ: [id number] RECD: 07/07/17 STATUS: RES [facility] DR: Feliberto Wilkinson MD _ SOURCE: BLOOD,VENO SPDES: ORDERED: Blood Cult Procedure Result Reported Site Aerobic Culture Bottle Preliminary 07/08/171423 ML No Growth Day 1 Anaerobic Culture Bottle Preliminary 07/08/171423 ML No Growth Day 1 * ML - MAIN LAB ([facility]) . END OF REPORT * ML=Testing performed at Main Lab DEPARTMENT OF PATHOLOGY, [address] [place] [address] Rocco Alonzo M.D. Director [facility] # [id number] 58 [facility] Severe Sepsis and Septic Shock Management Bundle Measure requires all lactic acids initially measuring >2.0 mmol/L be repeated. 59 Because ethnic data is not always readily [...] 15-29 5 Kidney failure <15 (or dialysis) 60 *Ascorbic acid is present which may interfere with detection of blood. 61 Presumptive Positive Presumptive positive results are unconfirmed. 62 The urine specimen was tested at the listed cutoffs: Drug class test level (ng/mL) Amphetamines 500 Barbiturates 200 Benzodiazepine metabolites 200 Cocaine metabolites 150 Cannabinoids 50 Opiates 300 Pcp 25 Specimen was received without chain of custody. Results should be used for medical purposes only. 63 Please note: The following may produce a false positive D Dimer test: - Rheumatoid factor greater than 60 IU/ml - Plasma hemoglobin greater than 0.05 gm/dl - Bilirubin greater than 50 mg/dl - Lipids greater than 1000 mg/dl - FDP greater than 20 ug/ml 64 >100 to <200 pg/mL: likely compensated congestive heart failure (CHF) 200 to 400 pg/mL: likely moderate CHF >400 pg/mL: likely moderate to severe CHF 65 [facility] Severe Sepsis and Septic Shock Management Bundle Measure requires all lactic acids initially measuring >2.0 mmol/L be repeated. 66 Because ethnic data is not always readily [...] 15-29 5 Kidney failure <15 (or dialysis) 67 Acute inflammation: >10.00 68 Therapeutic concentration: <50 ug/mL Toxic concentration: >120 ug/mL 69 SEE RESULT BELOW Name: TYSHAWN DANIELSON : [address]: Feliberto Esquivel MD Acct: [id number] Unit: [id number] AGE: 41 Location: [facility] Re05/07/17 SEX: M Status: REG REF SPEC: [id number] SANA: 05/07/17-[address]: Feliberto Esquivel MD REQ: [id number] RECD: 05/07/17 STATUS: RES _ SOURCE: ARM [facility]: ORDERED: Culture Stain COMMENTS: [id number] Specimen Description INDURATED INFECTION R FOREARM Procedure Result Reported Site Wound/Misc Gram Stain Final 05/08/17- 0737 ML 1+ Nucleated Cells No Neutrophils Observed 2+ Gram Positive Cocci Wound/Misc Culture Preliminary 05/08/17- 1316 ML Organism 1 STAPHYLOCOCCUS AUREUS Quantity 2+ * ML - MAIN LAB ([facility]) . END OF REPORT * ML=Testing performed at Main Lab DEPARTMENT OF PATHOLOGY, [address] [place] [address] Rocco Alonzo M.D. Director [facility] # [id number] 70 Because ethnic data is not always [...] Range 145 to 180 Deficient Range <145 72 REFERENCE VALUE <=1.0 (Negative) 73 REFERENCE VALUE <20.0 (Negative) 74 Tests for antibodies to dsDNA and FAHEEM antigens are not performed automatically unless the LO result is > or= 3.0 U. Studies performed at [facility] indicate that positive LO results <3.0 U are rarely accompanied by positive second order tests. Test Performed by: [address] [id number] 75 Acute inflammation: >10.00 76 Serologic response to B. burgdorferi infection is not detected, but cannot rule out early infection during which low or undetectable antibody levels to B. burgdorferi may be present. If clinically indicated, a new serum specimen should be submitted in 7-14 days. Test Performed by: [address] [id number] 77 RESULT: No apparent monoclonal protein on serum electrophoresis. Test Performed by: [address] [address] 78 Normal Range 180 to 914 Indeterminate Range 145 to 180 Deficient Range <145 Procedures Date CPT Code Description Status 11/21/2017 Colonoscopy Completed 07/31/2017 66713 Short Arm Cast Application Completed 07/17/2017 47157 CLST TRMT Distal Radial FX Completed 05/20/2017 48855 Nerve Conduction 13+ Studies Completed 01/12/2008 91968 Color Flow Doppler/Interp & Reprt Completed 01/12/2008 68116 Color Flow Doppler/Interp & Reprt Completed 01/12/2008 96403 Pulse Wave/Continuous-Interp.RPT Completed 01/12/2008 55925 Echocardiogram Completed 01/12/2008 25074 Echocardiogram Completed Encounters Type Date Location Provider CPT E/M Dx Office Visit 01/12/2018 [facility] Internal Feliberto Esquivel, 63493 M79.671 8:40a Medicine - [place] Office Visit 01/02/2018 [facility] Internal Feliberto Esquivel, 14052 M79.604 8:20a Medicine [address], M.D. Office Visit 12/23/2017 [facility] Internal Feliberto Esquivel, 37431 R10.11 4:00p Medicine - Paul Samaniego M.D. M79.673 E66.01 G47.30 K21.9 Office Visit 12/12/2017 8:30a [facility] Internal Medicine Ha Francis, 93145 G62.9 - [place],FACP F33.0 G47.30 Office Visit 12/03/2017 1:00p Pulmonology And Sleep Kavya Angela, 04411 G47.30 Services Of [facility] LEÓN RN, DIRECTOR OF PRODUCT DESIGN- E66.01 Z68.41 Office Visit 11/24/2017 2:40p [facility] Internal Medicine - Tala Aburto, [place] [address] J20.9 Office Visit 10/24/2017 8:30a [facility] Internal Medicine Ha Francis, 75250 M51.16 - [place],FACP Office Visit 10/21/2017 10:45a [facility] Tali Eason, [address]3371 G62.9 Services Of [place] G56.03 Office Visit 10/07/2017 4:00p [facility] Domi Esquivel M.D. 02197 F33.0 Medicine - [place] K21.9 Office Visit 09/17/2017 2:20p [facility] Internal Medicine Ha Francis, [address] M.D.,FACP M51.16 Office Visit 09/02/2017 8:45a [facility] Taliandrade Eason, 12550 G62.9 Services Of [place] G56.03 Office Visit 08/26/2017 8:40a [facility] Internal Feliberto Esquivel M.D. 74962 F33.0 Medicine - [address] K62.5 Office Visit 08/12/2017 8:20a [facility] Internal Feliberto Esquivel M.D. 88320 D64.9 Medicine - [address] F33.0 G47.00 K62.5 K29.31 Office Visit 07/31/2017 9:00a [facility] Internal Feliberto Esquivel, 55955 K57.30 Medicine - [address] M.D. M51.16 K64.9 D64.9 G62.9 Office Visit 07/24/2017 2:40p [facility] Internal Feliberto Esquivel, 94638 S52.591A Medicine - [address] M.D. Office Visit 07/01/2017 8:00a [facility] Internal Feliberto Esquivel, 14244 M51.16 Medicine - [address] M.D. Office Visit 06/17/2017 9:00a [facility] Internal Feliberto Esquivel, 95093 M51.16 Medicine - [address] M.D. L98.9 F33.0 Office Visit 06/11/2017 8:40a [facility] Internal Medicine Feliberto Esquivel, 70169 G62.9 - [place] M51.16 F33.0 Office Visit 05/15/2017 9:00a [facility] Internal Feliberto Esquivel, 14350 L03.113 Medicine - [address] M.D. Office Visit 05/09/2017 1:30p [facility] Internal Feliberto Esquivel 17785 L03.113 Medicine - [address] M.D. Office Visit 05/07/2017 4:40p [facility] Internal Feliberto Esquivel, 63885 L03.113 Medicine - [place] Jasmyn Office Visit 04/25/2017 10:20a [facility] Internal Feliberto Esquivel, 44354 M51.16 Medicine - [place] Office Visit 04/01/2017 11:00a [facility] Tali Eason, 61114 R20.9 Services Of [facility] Jasmyn G62.9 Office Visit 03/13/2017 10:00a [facility] Internal Medicine Feliberto Esquivel M.D. 82813 G63 - [address] F33.0 M51.16 Office Visit 01/24/2017 11:20a [facility] Internal Medicine Feliberto Esquivel M.D. 00228 G63 - [address] F33.0 M51.16 Office Visit 01/10/2017 11:00a [facility] Internal Feliberto Esquivel, 33524 M51.16 Medicine - [place] G63 F33.0 Office Visit 12/30/2016 10:30a [facility] Internal Ha Francis, 45738 G63 Medicine - [place],FACP Office Visit 12/20/2016 1:40p [facility] Internal Feliberto Esquivel, 04744 M51.16 Medicine - [place] G63 R10.9 F33.0 E66.01 Z00.00 Office Visit 03/30/2016 12:53p [facility], Cristiana Dubose, 16519 L02.91 Hospitalists Jasmyn Z22.322 Office Visit 03/29/2016 12:52p [facility] Neelima Balderas N.P. 93908 L02.91 Hospitalists Z22.322 Plan of Care Future Appointment(s):02/04/2018 1:40 pm - Feliberto Esquivel M.D. at [facility] Internal Medicine - Wqmzcfgch90/04/2018 1:40 pm - Festus Burr M.D. at [place] Jeaeythffh91/03/2018 9:40 am - Feliberto Esquivel M.D. at [facility] Internal Medicine - [address]05/06/2018 10:00 am - Marquise Zhou M.D. at [facility]01/28/2018 - Feliberto Esquivel M.D.J44.9 Chronic obstructive pulmonary disease, unspecifiedNew Medication:Nebulizer Kit/ Tubing/MouthpieceAlbuterol Sulfate (2.5 mg/3ML) 0.083%Follow up:1 week / Schedule patient before 10 amI89.0 Lymphedema, not elsewhere classifiedNew Labs: Comp Metabolic HwgixIgymkahgmV27.5 Abnormal weight gainR25.2 Cramp and spasm
--- OUTSIDE RECORDS SUMMARY | 2018-02-05 20:11 | XMS REPORT ---
:1975 External Reference #:[id number] Author Organization [facility] [employer] Address [address] [address] Phone [phone] Care Team Providers Name Role Phone Tali Eason MD Care Team Information Scalper Operator Unavailable Feliberto Esquivel MD Primary Care Physician Unavailable Payers Type Date Identification Numbers Payment Provider Subscriber Commercial Policy Number: [id number] Bari Tyshawn Ashley Danielson Group Number: [id number] [address] PayID: [id number] [place] [address] Problems Date Description Provider Status Onset: 12/20/2016 [...] Sleep apnea Kavya Angela DNP, RN, Active 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 edema Duloxetine Active Caps DR 60mg 30caps take 1 G62.9 Ha HCL 018 Part capsule by Shelia Francis mouth M.D.,FACP every morning G89.4 Duloxetine HCL 10/28/[address] Part 30mg 30caps 1 cap by Ha dash every Sheila Francis, day (with 60 M.D.,FACP mg cap) Buprenorphine 09/17/2017 Active Tablets Sub 8mg 90tabs take 1 tab M [place] HCL sublingually 5 Pachikara, 3 times a day 1 M.D. as needed . 1 6 Bupropion HCL ER 08/12/2017 Active Tablets ER 150mg 30tabs take 1 tablet F Ha (XL) 24HR by mouth 3 D. Penny, every morning 3 M.D.,FACP with food . 0 Pantoprazole 08/12/[address] 20mg 30tabs take 1 tablet K Ha Sodium by mouth 2 D. Penny, every morning 9 M.D.,FACP before . breakfast 3 1 Betamethasone 06/17/2017 Active Cream 0.05% 50gm apply twice a L [place] Dipropionate day 9 Pachikara, 8 M.D. . 9 [...] by mouth Unknown Low Dose every day Guaifenesin-Code 11/24/2017 - Hx Solution 100-10 180ml 5-10 R Ha ine 12/12/2017 mg/5ML milliliters 0 D. Penny, q4-6hrs as 5 M.D.,FACP needed for cough Amoxicillin/Clav 11/24/2017 - Hx Tablets 875-12 14tabs one tab J Tala ulanate 12/01/2017 5mg twice/day 2 Aburto, Potassium 0 VACUUM REPAIRER . 9 Duloxetine HCL 10/24/2017 - Hx Caps DR Part 40mg 1 po qam Ha 11/25/2017 Sheila Francis M.D.,FACP Duloxetine HCL 10/24/2017 - Hx Caps DR Part 20mg 1-3 by mouth G Shavonne Tanner 11/25/2017 every evening 6 D. Penny, as directed 2 M.D.,FACP . 9 Duloxetine HCL 10/21/2017 - Hx Caps DR Part 30mg 90caps take 1 to 3 G [...] Duloxetine HCL 09/02/2017 - Hx Caps DR Part 20mg 60caps 1-2 tabs by Issa Bah 10/21/2017 mouth every 6 Stackman, day as 2 M.D. directed . 9 Hydrocortisone 08/01/2017 - Hx Cream 2.5% 20gm apply after Feliberto 10/24/2017 first bowel Pachikara, movement M.D. Anucort-HC 07/31/2017 - Hx Suppository 25mg 12units apply daily K [place] 08/01/2017 after first 6 Pachikara, bm 4 M.D. . 9 Oxycodone HCL 07/24/2017 - Hx Tablets 5mg 30tabs 1 by mouth S [place] 07/30/2017 every 6 hours 5 Pachikara, as needed 2 M.D. . 5 9 1 A Ibuprofen 07/07/2017 - Hx Tablets 800mg 20tabs by mouth Other 07/14/2017 three times a Ordering day as needed Provider Bactroban Nasal 07/07/2017 - Hx Ointment 2% 10gm apply to Other 07/17/2017 right nostril Ordering twice a day x Provider 10 days Bactrim DS 07/07/2017 - Hx Tablets 800-16 20tabs 1 by mouth Other 07/17/2017 0mg twice a day x Ordering 10 days Provider Oxycodone HCL 06/17/2017 - [facility] 6 hours 5 Pachikara, as needed 1 M.D. . 1 6 Gabapentin 06/17/2017 - Hx Capsules 300mg 90caps take 1 M Ha 01/02/2018 capsule by 5 Sheila Francis, mouth 3 times 1 M.D.,FACP a day . 1 6 Fluoxetine HCL 06/17/2017 - Hx Capsules 20mg 30caps Take One F Feliberto 09/18/2017 Capsule By 3 Pachikara, Mouth Every 3 M.D. Day . 0 Lyrica 06/11/2017 - Hx Capsules 50mg 60caps twice daily G [place] 06/17/2017 6 Pachikara, 2 M.D. . 9 [...] 1 by mouth Feliberto 06/11/2017 twice times a [place]ikara, day and 2 cap M.D. hs Acetaminophen-Co 05/15/2017 - Hx Tablets 300-30 15tabs 1 tab by Feliberto cortés #3 06/10/2017 mg mouth 3 times Pachikara, /day as M.D. needed Doxycycline 05/07/2017 - Hx Capsules 100mg 20caps 1 cab twice a L Feliberto Hyclate 06/10/2017 day 0 Pachikara, 3 M.D. . 1 1 3 Hydrocodone-Acet 05/07/2017 - Hx Tablets 7.5-32 45tabs 1 tab po up L [place] aminophen 06/10/2017 5mg to tid as 0 Nisa, needed 3 M.D. . 1 1 3 Gabapentin 01/24/2017 - Hx Capsules 300mg 90caps Take One G [place] 05/15/2017 Capsule By 6 Pachikara, Mouth 3 Times 3 M.D. A Day Venlafaxine HCL 01/15/2017 - Hx Caps ER 24HR 37.5mg 30caps once daily Feliberto ER 06/11/2017 Sierra, M.D. Tramadol HCL 01/10/2017 - Hx Tablets 50mg 90tabs 2 tab three M [place] 09/17/2017 times a day 5 Pachikara, as needed 1 M.D. . 1 6 Gabapentin 01/10/2017 - Hx Capsules 100mg 90caps 2 cap three G [place] 01/24/2017 times a day 6 Sierra, 3 M.D. Duloxetine HCL 01/10/2017 - Hx Caps DR Part 30mg 14caps once a day in F [place] 01/15/2017 full stomach 3 Sierra, 3 M.D. . 0 Butrans 12/30/2016 - Hx Patches 10mcg/ 4units topical Ha 01/24/2017 Weekly HR q7days Sheila Francis M.D.,FACP Tramadol HCL 12/20/2016 - Hx Tablets 50mg 14tabs three times a M [place] 01/10/2017 day as needed 5 Pachika, 1 M.D. . 1 6 Gabapentin 12/20/2016 - Hx Capsules 100mg 90caps three times a G [place] 01/10/2017 day 6 Sierra 3 M.D. Advil - Hx Capsules 200mg as needed Unknown 08/12/2017 Oxycodone HCL - Hx Capsules 5mg 1-2 tabs by Unknown 06/11/2017 mouth every 4-6 hours as needed pain Tramadol HCL - Hx Tablets 50mg Take 1 Tablet Unknown 10/24/2017 By Mouth Every 4 To 6 Hours as Needed For Pain Vital Signs Date Vital Result Comment 01/12/2018 Height 70 inches 5'10" Weight 324.12 [...] Test Date Test Result H/L Range Note Lipid Profile (Trig/Chol/HDL) 01/02/2018 Triglycerides 124 mg/dL [...] 50 12 Creatinine, Urine 82.8 mg/dL Specific [place] 1.013 pH 5.9 Oxidants Negative 13 Adulterants Comment Normal Codeine, Ur Not Detected ng/mL Cutoff: 25 14 Wfqnkgs-1-rcmx-glucuronide, Ur Not Detected ng/mL 15 Morphine, Ur Not Detected ng/mL Cutoff: 25 16 Poqhdjep-4-dbhc-glucuronide, U Not Detected ng/mL 17 6-monoacetylmorphine, Ur Not Detected ng/mL Cutoff: 25 18 Hydrocodone, Ur Not Detected ng/mL Cutoff: 25 19 Norhydrocodone, Ur Not Detected ng/mL Cutoff: 25 20 Dihydrocodeine, Ur Not Detected ng/mL Cutoff: 25 21 Hydromorphone, Ur Not Detected ng/mL Cutoff: 25 22 Dareyneoactvz4drwskzcwusjbknt Not Detected ng/mL 23 Oxycodone, Ur Not Detected ng/mL Cutoff: 25 24 Noroxycodone, Ur Not Detected ng/mL Cutoff: 25 25 Oxymorphone, Ur Not Detected ng/mL Cutoff: 25 26 Pxptmqmlxxd-0-fqsg-glucuronide Not Detected ng/mL 27 Noroxymorphone, Ur Not Detected ng/mL Cutoff: 25 28 Fentanyl, Ur Not Detected ng/mL Cutoff: 2 29 Norfentanyl, Ur Not Detected ng/mL Cutoff: 2 30 Meperidine, Ur Not Detected ng/mL Cutoff: 25 31 Normeperidine, Ur Not Detected ng/mL Cutoff: 25 32 Naloxone, Ur Not Detected ng/mL Cutoff: 25 33 Vvdnwpxv-1-zuqw-glucuronide, U Not Detected ng/mL 34 Methadone, Ur [...] Ur Not Detected ng/mL Cutoff: 50 42 Kvmigrrxdv-saul-balsnylhjcs, U Not Detected ng/mL 43 Buprenorphine, Ur [...] Color Anisha Urine Appearance Cloudy Urine Specific [place] 1.024 1.010-1.030 Urine pH 5.0 5-9 Urine [...] 1.03 ng/dL 0.61-1.12 Vitamin B12 359 pg/mL 180-654 71 Folic Acid (Folate) > 20.00 ng/mL >3.99 Protein Electrophoresis 04/02/2017 Total Protein(Pep) 7.3 g/dL [...] Interpretation See Comment 77 Laboratory test finding 01/03/2017 Vitamin B12 324 pg/mL 180-404 78 1 Desirable: <150 Borderline High: 150-199 [...] 100 18 Metabolite of heroin 19 Lortab, [place], Vicodin; Also a very minor metabolite of [...] developed and its performance characteristics determined by [facility] in a manner consistent with CLIA requirements. This test has not been cleared or approved by the U.S. Food and Drug Administration. Test Performed by: [facility] [address] [place] [address] 48 Normal Range 180 to 914 Indeterminate Range 145 to 180 Deficient Range <145 49 [facility] Severe Sepsis and Septic Shock Management [...] inflammation: >10.00 52 SEE RESULT BELOW Name: SUMMER DANIELSONHAN : [address]: Chad Wilkinson MD Acct: [id number] Unit: [id number] AGE: 42 Location: ED Re07/07/17 SEX: M Status: DEP ER SPEC: [id number] SANA: 07/07/17-[address] [facility] [address]: Graciela CONTRERAS REQ: [id number] RECD: 07/07/17-150 STATUS: SERGEI SMITH DR: Feliberto Wilkinson MD _ SOURCE: BLOOD,VENO SPDESC: ORDERED: Blood Cult Procedure Result Reported Site Aerobic Culture Bottle Final 07/12/17- 1501 ML No Growth Day 5 Anaerobic Culture Bottle Final 07/12/17- 1501 ML No Growth Day 5 * ML - MAIN LAB (PSC1) . END OF REPORT * ML=Testing performed at Main Lab DEPARTMENT OF PATHOLOGY, [address] [place] [address] Rocco Alonzo M.D. Director [facility] # [id number] 53 Because ethnic data is not always [...] (or dialysis) 54 Acute inflammation: >10.00 55 [facility] Severe Sepsis and Septic Shock Management Bundle Measure requires all lactic acids initially measuring >2.0 mmol/L be repeated. 56 SEE RESULT BELOW Name: SUMMER DANIELSONHAN : [address]: Chad Wilkinson MD Acct: [id number] Unit: [id number] AGE: 42 Location: ED Re07/07/17 SEX: M Status: DEP ER SPEC: [id number] SANA: 07/07/17-[address] [facility] [address]: Graciela CONTRERAS REQ: [id number] RECD: 07/07/17108 STATUS: SERGEI SMITH DR: Feliberto Wilkinson MD _ SOURCE: RIGHT [facility]: ORDERED: Culture Stain Procedure Result Reported Site Wound/Misc Gram Stain Final 07/07/17- 1503 ML Test not performed Wound/Misc Culture Final 07/09/17- 1118 ML No Growth Day 2 * ML - MAIN LAB (PSC1) . END OF REPORT * ML=Testing performed at Main Lab DEPARTMENT OF PATHOLOGY, [address] [place] [address] Rocco Alonzo M.D. Director [facility] # [id number] 57 SEE RESULT BELOW Name: TYSHAWN DANIELSON : [address]: Chad Wilkinson MD Acct: [id number] Unit: [id number] AGE: 42 Location: ED Re07/07/17 SEX: M Status: DEP ER SPEC: [id number] SANA: 07/07/17-[address] [facility] [address]: Graciela CONTRERAS REQ: [id number] RECD: 07/07/17 STATUS: RES OTHR DR: Feliberto Wilkinson MD _ SOURCE: BLOOD,VENO SPDES: ORDERED: Blood Cult Procedure Result Reported Site Aerobic Culture Bottle Preliminary 07/08/17- 1423 ML No Growth Day 1 Anaerobic Culture Bottle Preliminary 07/08/17- 1423 ML No Growth Day 1 * ML - MAIN LAB ([facility]) . END OF REPORT * ML=Testing performed at Main Lab DEPARTMENT OF PATHOLOGY, [address] [place] [address] Rocco Alonzo M.D. Director [facility] # [id number] 58 [facility] Severe Sepsis and Septic Shock Management [...] pg/mL: likely moderate to severe CHF 65 [facility] Severe Sepsis and Septic Shock Management [...] [address]: Feliberto Esquivel MD Acct: [id number] Unit: [id number] AGE: 41 Location: [facility] Re05/07/17 SEX: M Status: REG REF SPEC: [id number] SANA: 05/07/17-[address]: Feliberto Esquivel MD REQ: [id number] RECD: 05/07/17385 STATUS: RES _ SOURCE: ARM RIGHT SPDESC: ORDERED: Culture Stain COMMENTS: [id number] Specimen Description INDURATED INFECTION R FOREARM Procedure Result Reported Site Wound/Misc Gram Stain Final 05/08/17- 0737 ML 1+ Nucleated Cells No Neutrophils Observed 2+ Gram Positive Cocci Wound/Misc Culture Preliminary 05/08/17- 1316 ML Organism 1 STAPHYLOCOCCUS AUREUS Quantity 2+ * ML - MAIN LAB ([facility]) . END OF REPORT * ML=Testing performed at Main Lab DEPARTMENT OF PATHOLOGY, [address] [place] [address] Rocco Alonzo M.D. Director [facility] # [id number] 70 Because ethnic data is not always [...] 145 to 180 Deficient Range <145 72 RESULT: No apparent monoclonal protein on serum electrophoresis. Test Performed by: [address] [address] 73 Acute inflammation: >10.00 74 Serologic response to B. burgdorferi infection is not detected, but cannot rule out early infection during which low or undetectable antibody levels to B. burgdorferi may be present. If clinically indicated, a new serum specimen should be submitted in 7-14 days. Test Performed by: [facility] - [address] [address] 75 REFERENCE VALUE <=1.0 (Negative) 76 REFERENCE VALUE <20.0 (Negative) 77 Tests for antibodies to dsDNA and FAHEEM antigens are not performed automatically unless the LO result is > or= 3.0 U. Studies performed at [facility] indicate that positive LO results <3.0 U are rarely accompanied by positive second order tests. Test Performed by: [address] [address] 78 Normal Range 180 to 914 Indeterminate Range 145 to 180 Deficient Range <145 Procedures Date CPT Code Description Status 11/21/2017 Colonoscopy Completed 07/31/2017 99619 Short Arm Cast Application Completed 07/17/2017 06916 CLST TRMT Distal Radial FX Completed 05/20/2017 21145 Nerve Conduction 13+ Studies Completed 01/12/2008 65341 Color Flow Doppler/Interp & Reprt Completed 01/12/2008 29964 Color Flow Doppler/Interp & Reprt Completed 01/12/2008 51465 Pulse Wave/Continuous-Interp.RPT Completed 01/12/2008 46826 Echocardiogram Completed 01/12/2008 51853 Echocardiogram Completed Encounters Type Date Location Provider CPT E/M Dx Office Visit 01/02/2018 [facility] Internal Feliberto Esquivel, 21148 M79.604 8:20a Medicine - Paul Samaniego M.D. Office Visit 12/23/2017 [facility] Internal Feliberto Esquivel, 38690 R10.11 4:00p Medicine [address], M.D. M79.673 E66.01 G47.30 K21.9 Office Visit 12/12/2017 8:30a [facility] Internal Medicine Ha Francis, 28603 G62.9 - [place],FACP F33.0 G47.30 Office Visit 12/03/2017 1:00p Pul[facility]ology [facility] Sleep Kavya Angela, 27337 G47.30 Services Of [facility] LEÓN, RN, COMPUTER SYSTEMS AUDITOR- E66.01 Z68.41 Office Visit 11/24/2017 2:40p [facility] Internal Medicine - Tala Aburto, VACUUM REPAIRER [address] J20.9 Office Visit 10/24/2017 8:30a [facility] Internal Medicine Ha Francis, 39791 M51.16 - [place],FACP Office Visit 10/21/2017 10:45a [facility] Tali Eason, 94671 G62.9 Services Of [place] G56.03 Office Visit 10/07/2017 4:00p [facility] Domi Esquivel M.D. 34847 F33.0 Medicine - Tbnat Samaniego K21.9 Office Visit 09/17/2017 2:20p [facility] Internal Medicine Ha Francis, 88325 G89.4 - Tbnat Samaniego M.D.,FACP M51.16 Office Visit 09/02/2017 8:45a [facility] Tali Eason, 51995 G62.9 Services Of [place] G56.03 Office Visit 08/26/2017 8:40a [facility] Internal Feliberto Esquivel M.D. 79595 F33.0 Medicine - [address] K62.5 Office Visit 08/12/2017 8:20a [facility] Internal Feliberto Esquivel M.D. 82361 D64.9 Medicine - [address] F33.0 G47.00 K62.5 K29.31 Office Visit 07/31/2017 9:00a [facility] Internal Feliberto Esquivel, 70410 K57.30 Medicine - [address] M.D. M51.16 K64.9 D64.9 G62.9 Office Visit 07/24/2017 2:40p [facility] Internal Feliberto Esquivel, 28439 S52.591A Medicine - [address] M.D. Office Visit 07/01/2017 8:00a [facility] Internal Feliberto Esquivel, 08355 M51.16 Medicine - [address] M.D. Office Visit 06/17/2017 9:00a [facility] Internal Feliberto Esquivel, 77488 M51.16 Medicine - [address] M.D. L98.9 F33.0 Office Visit 06/11/2017 8:40a [facility] Internal Medicine Feliberto Esquivel, 23405 G62.9 - [place] MRobb M51.16 F33.0 Office Visit 05/15/2017 9:00a [facility] Internal Feliberto Esquivel, 33933 L03.113 Medicine - [address] M.D. Office Visit 05/09/2017 1:30p [facility] Internal Feliberto Esquivel, 34117 L03.113 Medicine - [address] M.D. Office Visit 05/07/2017 4:40p [facility] Internal Feliberto Esquivel, 03450 L03.113 Medicine - [place] M.D. Office Visit 04/25/2017 10:20a [facility] Internal Feliberto Esquivel, 15401 M51.16 Medicine - [address] M.D. Office Visit 04/01/2017 11:00a [facility] Tali Eason, 77682 R20.9 Services Of [place] G62.9 Office Visit 03/13/2017 10:00a [facility] Internal Medicine Feliberto Esquivel M.D. 43684 G63 - [address] F33.0 M51.16 Office Visit 01/24/2017 11:20a [facility] Internal Medicine Feliberto Esquivel M.D. 16833 G63 - [address] F33.0 M51.16 Office Visit 01/10/2017 11:00a [facility] Internal Feliberto Esquivel, 94497 M51.16 Medicine - [place] G63 F33.0 Office Visit 12/30/2016 10:30a [facility] Internal Ha Francis, 64349 G63 Medicine - [address] [facility]asmyn[facility] Office Visit 12/20/2016 1:40p [facility] Internal Feliberto Esquivel, 53262 M51.16 Medicine - [place] G63 R10.9 F33.0 E66.01 Z00.00 Office Visit 03/30/2016 12:53p [facility],pc Cristiana Dubose 77720 L02.91 Hospitalists Jasmyn Z22.322 Office Visit 03/29/2016 12:52p [facility]pc Aleida Ivory.Daniel 07017 L02.91 Hospitalists Z22.322 Plan of Care Future Appointment(s):02/12/2018 9:40 am - Feliberto Esquivel M.D. at [facility] Internal Medicine - [address]05/06/2018 10:00 am - Marquise Zhou M.D. at [facility]01/20/2018 9:00 am - Feliberto Esquivel M.D. at [facility] Internal Medicine - [address]01/12/2018 - Feliberto Esquivel M.D.M79.671 Pain in right footNew Xrays:Foot Right 3+ VWSFollow up:as scheduled
[2018-02-05 23:03] LABS: ABS Basophils 0 10^3/ul (0-0.2); ABS Eosinophils 0.3 10^3/ul (0-0.6); ABS Monocytes 0.4 10^3/ul (0-0.8); ABS Neutrophils 2.6 10^3/ul (1.5-7.7); ABS Nucleated RBC 0 10^3/ul; Eosinophil % 6.2 % (0-6); Hematocrit 34 % (42-52); Hemoglobin 11.6 g/dl (14.0-18.0); Lymphocyte % 24.4 % (25-47); Mean Corpuscular HGB Conc 34 g/dl (31-36); Mean Corpuscular Hemoglobin 29 pg (27-31); Mean Corpuscular Volume 86 fL (80-94); Mean Platelet Volume 7.2 um3 (7.4-10.4); Nucleated Red Blood Cells % 0.1; Platelet Count 194 10^3/ul (150-450); Red Blood Count 3.97 10^6/ul (4.0-5.4); Red Cell Distribution Width 14 % (10.5-15); White Blood Count 4.3 10^3/ul (3.5-10.8)
[2018-02-05 23:13] LABS: INR 0.88 (0.77-1.02)
[2018-02-05] MEDS ORDERED: Iohexol 350* (CONTRAST) 500 ML MDV IV ONE (23:42)
[2018-02-06 00:15] LABS: Urine Appearance Clear; Urine Blood Negative (Negative); Urine Color Yellow; Urine Ketones Negative (Negative); Urine Protein Negative (Negative); Urine Specific Gravity 1.013 (1.010-1.030); Urine Urobilinogen Negative (Negative)
[2018-02-06] MEDS ORDERED: fentaNYL* 50 MCG/ML 2 ML VIAL (100 MCG VIAL) IV SLOW PU ONE (01:00)
[2018-02-06] MEDS ORDERED: Albuterol 2.5 MG/3 ML NEB.SOL* (0.083%) INH PRN (01:00)
[2018-02-06] MEDS ORDERED: CMCS: Melatonin (NF) 3 MG TAB PO PRN (01:00)
[2018-02-06] MEDS ORDERED: Ondansetron INJ* 2 MG/ML VIAL IV PRN (01:01)
[2018-02-06] MEDS ORDERED: Buprenorphine TAB* 8 MG SL PRN (01:08)
--- NOTE | 2018-02-06 01:53 | ED ---
Martínez Parks Rebecca, scribed for Sumit Fisher MD on 02/05/18 at 2240 . Lower Extremity - HPI Summary HPI Summary: Pt is a 42 y/o M who presents to ED c/o bilateral LE edema. Sx began about 1 month ago and is gradually worsening. Additionally c/o abdominal pain, RLE erythema, SOB and subjective fever. Denies CP. Reports gaining 39 pounds of fluid in 3 weeks - is taking Lasix. PCP has done blood work done recently. - History of Current Complaint Chief Complaint: EDGeneral Stated Complaint: SWOLLEN RT LEG Time Seen by Provider: 02/05/18 22:22 Hx Obtained From: Patient Onset/Duration: Weeks - 1 month Severity Currently: Mild Pain Intensity: 2 Pain Scale Used: 0-10 Numeric Location: Is Diffuse - Bilateral LE edema Associated Signs And Symptoms: Positive: Swelling - Bilateral LE edema, Redness - RLE erythema - Allergies/Home Medications Allergies/Adverse Reactions: Allergies Allergy/AdvReac Type Severity Reaction Status Date / Time acetaminophen [From Tylenol] Allergy Unknown Verified 02/05/18 18:53 Reaction Details naproxen Allergy Swelling Verified 02/05/18 18:53 Home Medications: Home Medications Albuterol 2.5MG/3ML (0.083%)* [Ventolin 2.5 MG/3 ML NEB.MITCHEL*] 2.5 mg INH Q4H PRN 02/06/18 [History Confirmed 02/06/18] Albuterol Sulfate [Ventolin Hfa] 18 gm IH DAILY 02/06/18 [History Confirmed ] Buprenorphine HCl 8 mg SL TID PRN 02/06/18 [History Confirmed 02/06/18] DOXYcycline CAP(*) [DOXYcycline 100MG CAP(*)] 100 mg PO DAILY 02/06/18 [History Confirmed 02/06/18] DULoxetine DR CAP* [Cymbalta CAP*] 90 mg PO DAILY 02/06/18 [History Confirmed ] Furosemide [Lasix] 40 mg PO DAILY 02/06/18 [History Confirmed 02/06/18] Pantoprazole Sodium 20 mg PO DAILY 02/06/18 [History Confirmed 02/06/18] Tamsulosin HCl [Flomax] 0.4 mg PO DAILY 02/06/18 [History Confirmed 02/06/18] buPROPion HCl [Bupropion HCl Xl] 150 mg PO DAILY 02/06/18 [History Confirmed ] PMH/Surg Hx/FS Hx/Imm Hx Endocrine/Hematology History: Denies: Hx Anticoagulant Therapy, Hx Blood Disorders, Hx Diabetes, Hx Thyroid Disease Cardiovascular History: Reports: Other Cardiovascular Problems/Disorders Denies: Hx Hypertension, Hx Pacemaker/ICD Respiratory History: Denies: Hx Asthma, Hx Chronic Obstructive Pulmonary Disease (COPD) GI History: Reports: Hx Gastroesophageal Reflux Disease, Hx Hiatal Hernia, Hx Ulcer, Other GI Disorders - INCARCERATED VENTRAL HERNIA History: Denies: Hx Renal Disease Musculoskeletal History: Reports: Hx Back Problems, Other Musculoskeletal History - Hx lumbar pain, thoracic pain Sensory History: Denies: Hx Hearing Aid Neurological History: Reports: Hx Headaches, Hx Peripheral Neuropathy - takes gabapentin Psychiatric History: Reports: Hx Anxiety, Hx Depression Denies: Hx Eating Disorder, Hx Panic Disorder, Hx of Violent Episodes Against Others - Surgical History Surgery Procedure, Year, and Place: hernia repair with mesh 3 sites, - Immunization History Date of Tetanus Vaccine: Infectious Disease History: Yes Infectious Disease History: Reports: Hx of Known/Suspected MRSA Denies: Hx Clostridium Difficile, Hx Hepatitis, Hx Human Immunodeficiency Virus (HIV), Hx Shingles, Hx Tuberculosis, Hx Known/Suspected VRE, Hx Known/ Suspected VRSA, History Other Infectious Disease, Traveled Outside the [place] in Last 30 Days - Family History Known Family History: Negative: Blood Disorder - Social History Alcohol Use: None Hx Substance Use: No Substance Use Type: Reports: None Substance Use Comment - Amount & Last Used: tramadol at home Hx Tobacco Use: Yes Smoking Status (MU): Former Smoker Type: Smokeless Tobacco Have You Smoked in the Last Year: Yes Review of Systems Positive: Fever Negative: Chest Pain Positive: Shortness Of Breath Positive: Abdominal Pain Positive: Edema - Bilateral LE, Other - RLE erythema All Other Systems Reviewed And Are Negative: Yes Physical Exam - Summary Physical Exam Summary: Appearance: No pain distress, morbidly obese Skin: warm, dry Head/face: normal Eyes: EOMI, ALLY ENT: mucous membranes dry Neck: supple, non-tender Respiratory: CTA, breath sounds present Cardiovascular: RRR, pulses symmetrical Abdomen: non-tender, soft, edema and erythema that extends up to the umbilicus bilaterally, periumbilical surgical scar Bowel Sounds: present Musculoskeletal: strength/ROM intact, 4+ lower extremity edema that extends to the umbilicus, bilaterally; erythema and warmth on the right lower leg and medial leg up to the level of the groin; the left leg is red and [employer] 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 medial thigh Neuro: normal, sensory motor intact, A&Ox3 Groin: Testicular edema Triage Information Reviewed: Yes Vital Signs On Initial Exam: Initial Vitals Temp Pulse Resp BP Pulse Ox 98.5 F 97 26 145/81 96 02/05/18 18:49 02/05/18 18:49 02/05/18 18:49 02/05/18 18:49 02/05/18 18:49 Vital Signs Reviewed: Yes Diagnostics - Vital Signs Vital Signs Temp Pulse Resp BP Pulse Ox 02/05/18 20:49 97.8 F 95 134/66 100 02/05/18 18:49 98.5 F 97 26 145/81 96 - Laboratory Lab Results: Lab Results 02/05/18 02/05/18 02/05/18 Range/Units 22:50 22:50 22:50 WBC 4.3 (3.5-10.8) 10^3/ul RBC 3.97 L (4.0-5.4) 10^6/ul Hgb 11.6 L (14.0-18.0) g/dl Hct 34 L (42-52) % MCV 86 (80-94) fL MCH 29 (27-31) pg MCHC 34 (31-36) g/dl RDW 14 (10.5-15) % Plt Count 194 (150-450) 10^3/ul MPV 7.2 L (7.4-10.4) um3 Neut % (Auto) 59.8 (38-83) % Lymph % (Auto) 24.4 L (25-47) % [place] % (Auto) 8.9 H (0-7) % Eos % (Auto) 6.2 H (0-6) % Baso % (Auto) 0.7 (0-2) % Absolute Neuts (auto) 2.6 (1.5-7.7) 10^3/ul Absolute Lymphs (auto) 1.0 (1.0-4.8) 10^3/ul Absolute Monos (auto) 0.4 (0-0.8) 10^3/ul Absolute Eos (auto) 0.3 (0-0.6) 10^3/ul Absolute Basos (auto) 0 (0-0.2) 10^3/ul Absolute Nucleated RBC 0 10^3/ul Nucleated RBC % 0.1 INR (Anticoag Therapy) 0.88 (0.77-1.02) APTT 33.0 (26.0-36.3) seconds Sodium 138 L (139-145) mmol/L Potassium 3.7 (3.5-5.0) mmol/L Chloride 98 L (101-111) mmol/L Carbon Dioxide 32 (22-32) mmol/L Anion Gap 8 (2-11) mmol/L BUN 16 (6-24) mg/dL Creatinine 0.76 (0.67-1.17) mg/dL Est GFR ( Amer) 145.4 (>60) Est GFR (Non-Af Amer) 113.0 (>60) BUN/Creatinine Ratio 21.1 H (8-20) Glucose 103 H (70-100) mg/dL Calcium 9.3 (8.6-10.3) mg/dL Phosphorus 4.1 (2.5-5.0) mg/dL Magnesium 1.9 (1.9-2.7) mg/dL Total Bilirubin 0.60 (0.2-1.0) mg/dL AST 27 (13-39) U/L ALT 30 (7-52) U/L Alkaline Phosphatase 69 (34-104) U/L Troponin I 0.00 (<0.04) ng/mL C-Reactive Protein 30.93 H (< 5.00) mg/L B-Natriuretic Peptide ( - 100) pg/mL Total Protein 7.2 (6.4-8.9) g/dL Albumin 4.0 (3.2-5.2) g/dL Globulin 3.2 (2-4) g/dL Albumin/Globulin Ratio 1.3 (1-3) Urine Color Urine Appearance Urine pH (5-9) Ur Specific [place] (1.010-1.030) Urine Protein (Negative) Urine Ketones (Negative) Urine Blood (Negative) Urine Nitrate (Negative) Urine Bilirubin (Negative) Urine Urobilinogen (Negative) Ur Leukocyte Esterase (Negative) Urine WBC (Auto) (Absent) Urine RBC (Auto) (Absent) Urine Bacteria (Absent) Urine Glucose (Negative) Urine Ascorbic Acid (Negative) 02/05/18 02/05/18 Range/Units 22:50 23:52 WBC (3.5-10.8) 10^3/ul RBC (4.0-5.4) 10^6/ul Hgb (14.0-18.0) g/dl Hct (42-52) % MCV (80-94) fL MCH (27-31) pg MCHC (31-36) g/dl RDW (10.5-15) % Plt Count (150-450) 10^3/ul MPV (7.4-10.4) um3 Neut % (Auto) (38-83) % Lymph % (Auto) (25-47) % [place] % (Auto) (0-7) % Eos % (Auto) (0-6) % Baso % (Auto) (0-2) % Absolute Neuts (auto) (1.5-7.7) 10^3/ul Absolute Lymphs (auto) (1.0-4.8) 10^3/ul Absolute Monos (auto) (0-0.8) 10^3/ul Absolute Eos (auto) (0-0.6) 10^3/ul Absolute Basos (auto) (0-0.2) 10^3/ul Absolute Nucleated RBC 10^3/ul Nucleated RBC % INR (Anticoag Therapy) (0.77-1.02) APTT (26.0-36.3) seconds Sodium (139-145) mmol/L Potassium (3.5-5.0) mmol/L Chloride (101-111) mmol/L Carbon Dioxide (22-32) mmol/L Anion Gap (2-11) mmol/L BUN (6-24) mg/dL Creatinine (0.67-1.17) mg/dL Est GFR ( Amer) (>60) Est GFR (Non-Af Amer) (>60) BUN/Creatinine Ratio (8-20) Glucose (70-100) mg/dL Calcium (8.6-10.3) mg/dL Phosphorus (2.5-5.0) mg/dL Magnesium (1.9-2.7) mg/dL Total Bilirubin (0.2-1.0) mg/dL AST (13-39) U/L ALT (7-52) U/L Alkaline Phosphatase (34-104) U/L Troponin I (<0.04) ng/mL C-Reactive Protein (< 5.00) mg/L B-Natriuretic Peptide 10 ( - 100) pg/mL Total Protein (6.4-8.9) g/dL Albumin (3.2-5.2) g/dL Globulin (2-4) g/dL Albumin/Globulin Ratio (1-3) Urine Color Yellow Urine Appearance Clear Urine pH 6.0 (5-9) Ur Specific [place] 1.013 (1.010-1.030) Urine Protein Negative (Negative) Urine Ketones Negative (Negative) Urine Blood Negative (Negative) Urine Nitrate Negative (Negative) Urine Bilirubin Negative (Negative) Urine Urobilinogen Negative (Negative) Ur Leukocyte Esterase Trace A (Negative) Urine WBC (Auto) Trace(0-5/hpf) (Absent) Urine RBC (Auto) Trace(0-2/hpf) (Absent) Urine Bacteria Absent (Absent) Urine Glucose Negative (Negative) Urine Ascorbic Acid * A (Negative) Result Diagrams: 02/05/18 22:50 02/05/18 22:50 Lab Statement: Any lab studies that have been ordered have been reviewed, and results considered in the medical decision making process. - CT CTA Chest/Abdomen CT Interpretation Completed By: Radiologist - No obvious PE, but evaluation limited by suboptimal contrast opacification and motion artifact. If there is continued concern for PE, consider. No aortic dissection or aneurysm. No pneumonia or pleural effusions. Chronic left rib fractures. Chronic compression T11. Disastasis recti with small superimposed umbilical and suprapumbilical hernias containing fat. Periumbilical subcutaneous fat stranging, possibly cellulitis. Hepatomegaly and steatosis. Surgical changes upper abdomen. ED physician reviewed this radiology report. - Ultrasound No standard instances Ultrasound Interpretation Completed By: Radiologist - No evidence for DVT left lower extremity and visualized portions right lower extremity. Only one of the paired right posterior tibial veins was visualized. Exam limited by body habitus. Right popliteal cyst reportedly seen on 01/02/2018 ultrasound (per technologist's notes) is not appreciated on the current exam. - EKG 0043 Cardiac Rate: NL - 95 bpm EKG Rhythm: Sinus Rhythm ST Segment: Normal EKG Interpretation: Normal axis. Normal interval. Lower Extremity Course/Dx - Course Course Of Treatment: Patient with heavy lower extremity edema now extending into the scrotum and lower abdomen. There is significant redness especially on the right lower extremity. It is not significantly tender however. Urine shows no protein and hence no evidence of nephrotic syndrome. There is no DVT on vascular study. CT scan was obtained to rule out compression of the IVC, etc. the abdomen. This was negative. There is no tumors or evidence of malignancy. Discussed with the hospitalist who agrees that admission. Most likely is obesity-related lymphedema and subsequent cellulitis. Hospitalist ordered IV antibiotics, will admit. - Diagnoses Differential Diagnosis/HQI/PQRI: Positive: Cellulitis, DVT, Infection Provider Diagnoses: Lymphedema, Cellulitis - Physician Notifications Discussed Care Of Patient With: Edgar Reyes Time Discussed With Above Provider: 00:16 Instructed by Provider To: Other - Accepts pt for admission Discharge - Sign-Out/Discharge Documenting (check all that apply): Discharge/Admit/Transfer - Admit - Discharge Plan Condition: Fair Disposition: ADMITTED TO [facility] Referrals: Feliberto Esquivel MD [Primary Care Provider] - - Billing Disposition and Condition Condition: FAIR Disposition: HOSP-[facility] [place] The documentation as recorded by the Martínez griffin Rebecca accurately reflects the service I personally performed and the decisions made by , Sumit Fisher MD.
[2018-02-06] MEDS ORDERED: Levofloxacin TAB* 500 MG PO SCH (02:00)
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
[2018-02-06] MEDS: traMADol TAB* 50 MG PO PRN ×3 (03:26→20:20)
[2018-02-06 05:47] LABS: Hematocrit 32 % (42-52); Hemoglobin 10.9 g/dl (14.0-18.0); Mean Corpuscular HGB Conc 35 g/dl (31-36); Mean Corpuscular Hemoglobin 30 pg (27-31); Mean Corpuscular Volume 86 fL (80-94); Mean Platelet Volume 7.5 um3 (7.4-10.4); Platelet Count 186 10^3/ul (150-450); Red Blood Count 3.65 10^6/ul (4.0-5.4); Red Cell Distribution Width 14 % (10.5-15); White Blood Count 4.4 10^3/ul (3.5-10.8)
[2018-02-06] MEDS ORDERED: Omeprazole CAP* 20 MG PO SCH (06:00)
[2018-02-06] MEDS ORDERED: Perflutren Lipid Microsphere* 3 ML VIAL ONE (07:21)
--- NOTE | 2018-02-06 07:32 | RAD ---
HISTORY: Bilateral lower extremity edema TECHNIQUE: Multiple transverse and longitudinal ultrasound images were obtained of the veins of the bilateral lower extremities using grayscale, color Doppler, and spectral Doppler imaging with and without compression and with augmentation. FINDINGS: VEINS: The common femoral vein, deep femoral vein, femoral vein and popliteal vein are compressible throughout their course, with normal flow on color Doppler imaging and normal response to augmentation on spectral Doppler imaging. SOFT TISSUES: Grossly normal. No large popliteal fossa cyst was identified. IMPRESSION: No sonographic evidence of deep vein thrombosis.
--- NOTE | 2018-02-06 07:53 | RAD ---
HISTORY: Anasarca COMPARISONS: CT of the chest dated January 08, 2008, CT of the abdomen dated July 29, 2017 TECHNIQUE: Multiple contiguous axial CT scans were obtained of the chest and abdomen after the administration of intravenous contrast. Coronal and sagittal multiplanar reformations are submitted for review.. FINDINGS: CHEST NECK AND THYROID: The lower neck and thyroid are unremarkable. CHEST WALL: There is no lower cervical, axillary, or supraclavicular lymphadenopathy by size criteria. HEART AND PERICARDIUM: The heart is unremarkable. AORTA AND PULMONARY VASCULATURE: The aorta and pulmonary vasculature are normal. MEDIASTINUM: There is no mediastinal lymphadenopathy by size criteria. JOSEE: There is no hilar lymphadenopathy by size criteria. AIRWAY AND ESOPHAGUS: The airway is unremarkable, without endobronchial filling defect. The esophagus is grossly normal. LUNG PARENCHYMA: The lungs are clear. PLEURA: No pleural abnormalities are noted. BONES AND SOFT TISSUES: No bone or soft tissue abnormalities are noted. ABDOMEN/PELVIS: LIVER: The liver is diffusely low in attenuation compared to the spleen. There are no focal hepatic parenchymal masses. The liver measures 25 cm in long axis. BILE DUCTS: There is no intrahepatic or extrahepatic biliary dilatation. GALLBLADDER: The gallbladder is normal, without pericholecystic inflammatory change. PANCREAS: There is fatty atrophy of the pancreas. SPLEEN: Normal in size and appearance. UPPER GI TRACT: Evaluation of the gastrointestinal tract is limited by incomplete gastric distention. The upper GI tract is unremarkable. SMALL BOWEL & MESENTERY: The small bowel is normal in contour, course, and caliber. There is no obstruction or dilatation. COLON: The colon is normal in contour, course, caliber. There is no pericolonic inflammatory change. ADRENALS: Normal bilaterally. KIDNEYS: The kidneys are normal in shape, size, contour, and axis. There is no hydronephrosis or nephrolithiasis. AORTA: The aorta is normal. IVC: Unremarkable LYMPH NODES: There is no lymphadenopathy by size criteria. ABDOMINAL WALL: There is extensive subcutaneous edema. There is diastasis recti with a fat-containing umbilical hernia. BONES AND SOFT TISSUES: There are mild diffuse degenerative changes. There is mild anterior wedging of T11. There is chronic remote posttraumatic change to the left hemithorax. OTHER: None IMPRESSION: 1. NO AORTIC ANEURYSM OR DISSECTION. 2. HEPATOMEGALY WITH FATTY INFILTRATION OF THE LIVER. 3. EXTENSIVE SUBCUTANEOUS EDEMA. THE DIFFERENTIAL INCLUDES CELLULITIS. 4. DIASTASIS RECTI WITH A FAT-CONTAINING UMBILICAL HERNIA.
[2018-02-06] MEDS ORDERED: DULoxetine DR CAP* 30 MG CAP.DR PO SCH (09:00)
[2018-02-06] MEDS ORDERED: BuPROPion XL* 150 MG TAB.XL PO SCH (09:00)
[2018-02-06] MEDS ORDERED: Docusate CAP* 100 MG PO SCH (09:00)
[2018-02-06] MEDS ORDERED: Tamsulosin CAP* 0.4 MG PO SCH (09:00)
[2018-02-06] MEDS ORDERED: Pneumococcal *Vac Polyvalent 0.5 ML VIAL IM ONE (09:00)
[2018-02-06] MEDS ORDERED: Pantoprazole TAB (NF) 20 MG TAB PO SCH (09:00)
--- NOTE | 2018-02-06 10:17 | ECHO ---
Patient: TYSHAWN TERAN [facility] Rec#: [id number] : 1975 Date: 02/06/2018 Age: 42y Height: 180.34 cm / 71.0 in Weight: 166.47 kg / 366.9 lbs Sex: M BSA: 2.73 Room#: 342 Admit Date#: 02/06/2018 Type: Inpatient Referring: Edgar Reyes MD Reading: Festus Burr MD Film Coater: Carla Parisi EDY CC: Sierra CODY,Samason Transthoracic Echocardiogram Indication: Edema //SOB BP: 139/82 HR: 101 Rhythm: Tachycardia Findings History: Morbid obesity, BLE,COPD,GERD,depression,cellulitis. Technical Comments: The study is technically difficult. Definity used to enhance iamges. The study is technically limited due to patient body habitus. Left Ventricle: The left ventricular chamber size is normal. Mild to moderate concentric left ventricular hypertrophy is observed. Global left ventricular wall motion and contractility are within normal limits. There is normal left ventricular systolic function. The estimated ejection fraction is 55-60%. closer to 55%. There is no consistent Doppler evidence of clinically significant diastolic dysfunction. Left Atrium: The left atrium is mild to moderately dilated. Right Ventricle: The right ventricular cavity size is normal. The right ventricular global systolic function is normal. Right Atrium: The right atrium is mildly dilated. Aortic Valve: The aortic valve is trileaflet. There is no evidence of aortic valve thickening. There is no evidence of aortic regurgitation. There is no evidence of aortic stenosis. Mitral Valve: The mitral valve leaflets are mildly thickened. There is a trace of mitral regurgitation. There is no evidence of mitral stenosis. Tricuspid Valve: The tricuspid valve leaflets are normal. There is mild tricuspid regurgitation. There is no tricuspid stenosis. Pulmonic Valve: The pulmonic valve appears normal. There is no evidence of pulmonic regurgitation. There is no pulmonic stenosis. Pericardium: A pericardial fat pad is visualized. Aorta: There is moderate dilatation of the ascending aorta. The aortic arch is not well visualized. There is moderate dilatation of the aortic root. Pulmonary Artery: The main pulmonary artery appears normal. Venous: The venous system is not well visualized. Contrast: Definity was used to optimize study. A total of 4.5 ml used. Intravenous contrast was used to enhance endocardial border definition. Summary: There are changes noted when compared to the previous study done on 01/12/2008, LV EF is now 55% instead of 40% then. Dilated aortic root and thoracic aorta are new. Conclusions The left ventricular chamber size is normal. Mild to moderate concentric left ventricular hypertrophy is observed. The estimated ejection fraction is 55-60%. closer to 55%. The left atrium is mild to moderately dilated. The right atrium is mildly dilated. There is a trace of mitral regurgitation. There is mild tricuspid regurgitation. There is moderate dilatation of the aortic root. There is moderate dilatation of the ascending aorta. There are changes noted when compared to the previous study done on 01/12/2008, LV EF is now 55% instead of 40% then. Dilated aortic root and thoracic aorta are new. Measurements Name Value Normal Range RVIDd (AP) 2D 3.8 cm (0.9 - 2.6) RVDdMajor (2D) 3.7 cm (2.2 - 4.4) RAd ISD 4CH 5.3 cm (3.4 - 4.9) RA (A4C)W 4.2 cm (2.9 - 4.6) IVSd (2D) 1.4 cm (0.6 - 1) LVPWd (2D) 1.1 cm (0.6 - 1) LVIDd (2D) 4.6 cm (3.6 - 5.4) LVIDs (2D) 3.3 cm - LV FS (2D) 28 % (25 - 45) Aortic Annulus 2.6 cm (1.4 - 2.6) Ao root diameter (2D) 4.3 cm (2.1 - 3.5) Ascending Ao 3.9 cm (2.1 - 3.4) LA dimension (AP) 2D 4.4 cm (2.3 - 3.8) LAd ISD 4CH 5.1 cm (2.9 - 5.3) LA ISD 4CH W 3.4 cm (2.5 - 4.5) Name Value Normal Range LA ESV SP 4CH (A/L) 44 ml - LA ESV SP 2CH (A/L) 65 ml - LA ESV BP (A/L) 55 ml - LA ESV BP (A/L) index 19.97 ml/m2 - LA ESV SP 4CH (MOD) 38 ml - LA ESV SP 2CH (MOD) 63 ml - Name Value Normal Range MV E-wave Vmax 1.1 m/sec - MV deceleration time 152 msec - MV A-wave Vmax 0.9 m/sec - MV E:A ratio 1.2 ratio - LV septal e' Vmax 0.11 m/sec - LV lateral e' Vmax 0.14 m/sec - LV E:e' septal ratio 10 ratio - LV E:e' lateral ratio 7.85 ratio - Name Value Normal Range AV Vmax 1.5 m/sec - AV VTI 25.8 cm - AV peak gradient 8.7 mmHg - AV mean gradient 4.39 mmHg - LVOT Vmax 1.2 m/sec - LVOT VTI 26.1 cm - LVOT peak gradient 6.09 mmHg - LVOT mean gradient 2.53 mmHg - Name Value Normal Range TR Vmax 3.1 m/sec - TR peak gradient 38 mmHg - Name Value Normal Range PV Vmax 0.9 m/sec - PV peak gradient 3.5 mmHg -
[2018-02-06] MEDS ORDERED: Furosemide IV* 10 MG/ML 2 ML VIAL (20 MG) IV ONE (14:04)
[2018-02-06 18:27] VITALS: BP 116/92
[2018-02-07] MEDS ORDERED: Heparin VIAL(*) 5000 UNITS/ML VIAL (FIVE THOUSAND) SUBCUT SCH (06:00)
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
== END 2018-02-06 20:40 | disposition home or self-care (01) ==
LOC: ED 18:41 → SSU 02-06 00:57
PROVIDERS: ADMIT Hospitalist; ATTEND Internal Medicine
DX: R60.1 Generalized edema (principal); L03.115 Cellulitis of right lower limb; I89.1 Lymphangitis; M79.3 Panniculitis, unspecified; J44.9 Chronic obstructive pulmonary disease, unspecified; M54.5 Low back pain; G89.29 Other chronic pain; K21.9 Gastro-esophageal reflux disease without esophagitis; N40.0 Benign prostatic hyperplasia without lower urinary tract symptoms; F41.9 Anxiety disorder, unspecified; F32.9 Major depressive disorder, single episode, unspecified; E66.01 Morbid (severe) obesity due to excess calories; Z88.8 Allergy status to other drugs, medicaments and biological substances; F17.200 Nicotine dependence, unspecified, uncomplicated; R06.02 Shortness of breath; M79.604 Pain in right leg; I51.7 Cardiomegaly; Z23 Encounter for immunization
CPT/HCPCS: 36415; 71275; 74175; 80048; 80053; 81003; 81015; 83735; 83880; 84100; 84484; 85025; 85027; 85610; 85730; 86140; 87040; 87086; 87641; 90471; 90732; 93005; 93306; 93970; 96374; 96375; 99284; A9270-GY; C8929; G0378; J1940; J3010; Q9967

== ENCOUNTER 2018-02-10 20:01 | Inpatient (IN) | payer OTHER ==
[2018-02-10 23:40] LABS: ABS Basophils 0 10^3/ul (0-0.2); ABS Eosinophils 0.3 10^3/ul (0-0.6); ABS Monocytes 0.4 10^3/ul (0-0.8); ABS Nucleated RBC 0 10^3/ul; Eosinophil % 8.3 % (0-6); Hematocrit 33 % (42-52); Hemoglobin 11.2 g/dl (14.0-18.0); Mean Corpuscular HGB Conc 34 g/dl (31-36); Mean Corpuscular Hemoglobin 30 pg (27-31); Mean Corpuscular Volume 87 fL (80-94); Nucleated Red Blood Cells % 0.1; Platelet Count 224 10^3/ul (150-450); Red Cell Distribution Width 14 % (10.5-15); White Blood Count 3.7 10^3/ul (3.5-10.8)
[2018-02-10 23:58] LABS: EGFR Non-African American 108.1 (>60)
--- NOTE | 2018-02-11 01:35 | ED ---
Skin Complaint - HPI Summary HPI Summary: Complains of bilateral lower extremity swelling, with pain and erythema, and redness to skin of abdomen x 2 weeks. Admitted 02/07/18 to [facility] for evaluation of same. Placed on lasix and doxycycline by mouth and sent to vascular surgeon. Vascular surgeon told patient to come to the ED tonight. Symptoms are worse despite compliance with Doxy and lasix.. Denies trauma , fever, cough , sore throat, CP, inc in chronic SOB, N/V/D, change in urinary BM. Medical history is peripheral neuropathy, COPD, GERD, anemia, BPH. 02/07/18 imaging: [facility]ALE negative for heart failure. Ultrasound negative for DVT. - History of Current Complaint Chief Complaint: EDGeneral Time Seen by Provider: 02/10/18 23:19 Stated Complaint: POSS INFECTION RT LEG Hx Obtained From: Patient, Family/Wood Pattern Maker Onset/Duration: Started Weeks Ago Skin Exposure Onset/Duration: Weeks Ago Timing: Constant Onset Severity: Mild Current Severity: Moderate Pain Intensity: 7 Pain Scale Used: 0-10 Numeric Skin Location: Abdomen, Leg Character: Swelling, Pruritus, Pain, Redness, Painful Aggravating Symptom(s): Nothing Alleviating Symptom(s): Nothing - Additional Pertinent History Primary Care Physician: [id number] - Allergy/Home Medications Allergies/Adverse Reactions: Allergies Allergy/AdvReac Type Severity Reaction Status Date / Time acetaminophen [From Tylenol] Allergy Unknown Verified 02/05/18 18:53 Reaction Details naproxen Allergy Swelling Verified 02/05/18 18:53 PMH/Surg Hx/FS Hx/Imm Hx Endocrine/Hematology History: Reports: Hx Anemia, Hx Unexplained Bleeding - rectal bleeding, possible hemherroids Denies: Hx Anticoagulant Therapy, Hx Blood Disorders, Hx Diabetes, Hx Thyroid Disease Cardiovascular History: Reports: Other Cardiovascular Problems/Disorders Denies: Hx Hypertension, Hx Pacemaker/ICD Respiratory History: Reports: Hx Chronic Obstructive Pulmonary Disease (COPD), Hx Sleep Apnea - sleep study scheduled for friday Denies: Hx Asthma GI History: Reports: Hx Gastroesophageal Reflux Disease, Hx Hiatal Hernia, Hx Ulcer, Other GI Disorders - INCARCERATED VENTRAL HERNIA History: Denies: Hx Renal Disease Musculoskeletal History: Reports: Hx Back Problems, Other Musculoskeletal History - Hx lumbar pain, thoracic pain Sensory History: Denies: Hx Contacts or Glasses, Hx Hearing Aid Opthamlomology History: Denies: Hx Contacts or Glasses Neurological History: Reports: Hx Headaches, Hx Peripheral Neuropathy - takes gabapentin Psychiatric History: Reports: Hx Anxiety, Hx Depression Denies: Hx Eating Disorder, Hx Panic Disorder, Hx of Violent Episodes Against Others - Surgical History Surgery Procedure, Year, and Place: hernia repair with mesh 3 sites, - Immunization History Date of Tetanus Vaccine: [facility] Infectious Disease History: Yes Infectious Disease History: Reports: Hx of Known/Suspected MRSA Denies: Hx Clostridium Difficile, Hx Hepatitis, Hx Human Immunodeficiency Virus (HIV), Hx Shingles, Hx Tuberculosis, Hx Known/Suspected VRE, Hx Known/ Suspected VRSA, History Other Infectious Disease, Traveled Outside the [place] in Last 30 Days - Family History Known Family History: Positive: None, Unknown - The pt denies fhx Negative: Blood Disorder - Social History Alcohol Use: None Hx Substance Use: No Substance Use Type: Reports: None Substance Use Comment - Amount & Last Used: tramadol at home Hx Tobacco Use: Yes Smoking Status (MU): Former Smoker Type: Smokeless Tobacco Have You Smoked in the Last Year: No Review of Systems Constitutional: Negative Eyes: Negative ENT: Negative Cardiovascular: Negative Positive: Shortness Of Breath Gastrointestinal: Negative Genitourinary: Negative Musculoskeletal: Negative Skin: Negative Neurological: Negative Psychological: Normal All Other Systems Reviewed And Are Negative: Yes Physical Exam - Summary Physical Exam Summary: Bilateral lower extremity swelling and erythema from feet to thighs, R>L. Full range of motion of bilateral toes, ankles, knees with pain. No evidence of trauma, deformity. Erythema to skin of the lower abdomen, with skin thickening. Erythema to testicles bilaterally. Testicles TTP bilaterally Triage Information Reviewed: Yes Vital Signs On Initial Exam: Initial Vitals Temp Pulse Resp BP Pulse Ox 98.3 F 101 20 113/74 95 02/10/18 20:04 02/10/18 20:04 02/10/18 20:04 02/10/18 20:04 02/10/18 20:04 Vital Signs Reviewed: Yes Appearance: Positive: Well-Appearing Skin: Positive: Warm, Erythema @ Head/Face: Positive: Normal Head/Face Inspection Eyes: Positive: Normal Neck: Positive: Supple Respiratory/Lung Sounds: Positive: Clear to Auscultation Cardiovascular: Positive: Normal Abdomen Description: Positive: Other: Musculoskeletal: Positive: Normal Neurological: Positive: Normal Psychiatric: Positive: Normal AVPU Assessment: Alert - Nadeem Coma Scale Best Eye Response: 4 - Spontaneous Best Motor Response: 6 - Obeys Commands Best Verbal Response: 5 - Oriented Coma Scale Total: 15 Diagnostics - Vital Signs Vital Signs Temp Pulse Resp BP Pulse Ox 02/10/18 22:30 98.4 F 97 24 127/86 96 02/10/18 20:04 98.3 F 101 20 113/74 95 - Laboratory Lab Results: Lab Results 02/10/18 02/10/18 02/10/18 Range/Units 23:19 23:19 23:19 WBC 3.7 (3.5-10.8) 10^3/ul RBC 3.80 L (4.0-5.4) 10^6/ul Hgb 11.2 L (14.0-18.0) g/dl Hct 33 L (42-52) % MCV 87 (80-94) fL MCH 30 (27-31) pg MCHC 34 (31-36) g/dl RDW 14 (10.5-15) % Plt Count 224 (150-450) 10^3/ul MPV 7.0 L (7.4-10.4) um3 Neut % (Auto) 53.2 (38-83) % Lymph % (Auto) 28.0 (25-47) % Coffey % (Auto) 9.6 H (0-7) % Eos % (Auto) 8.3 H (0-6) % Baso % (Auto) 0.9 (0-2) % Absolute Neuts (auto) 2.0 (1.5-7.7) 10^3/ul Absolute Lymphs (auto) 1.0 (1.0-4.8) 10^3/ul Absolute Monos (auto) 0.4 (0-0.8) 10^3/ul Absolute Eos (auto) 0.3 (0-0.6) 10^3/ul Absolute Basos (auto) 0 (0-0.2) 10^3/ul Absolute Nucleated RBC 0 10^3/ul Nucleated RBC % 0.1 Sodium 140 (139-145) mmol/L Potassium 4.0 (3.5-5.0) mmol/L Chloride 104 (101-111) mmol/L Carbon Dioxide 29 (22-32) mmol/L Anion Gap 7 (2-11) mmol/L BUN 19 (6-24) mg/dL Creatinine 0.79 (0.67-1.17) mg/dL Est GFR ( Amer) 139.0 (>60) Est GFR (Non-Af Amer) 108.1 (>60) BUN/Creatinine Ratio 24.1 H (8-20) Glucose 91 (70-100) mg/dL Lactic Acid 1.7 (0.5-2.0) mmol/L Calcium 9.0 (8.6-10.3) mg/dL Total Bilirubin 0.40 (0.2-1.0) mg/dL AST 20 (13-39) U/L ALT 26 (7-52) U/L Alkaline Phosphatase 88 (34-104) U/L C-Reactive Protein 15.97 H (< 5.00) mg/L Total Protein 6.9 (6.4-8.9) g/dL Albumin 3.9 (3.2-5.2) g/dL Globulin 3.0 (2-4) g/dL Albumin/Globulin Ratio 1.3 (1-3) Lipase 13 (11.0-82.0) U/L Result Diagrams: 02/10/18 23:19 02/10/18 23:19 Lab Statement: Any lab studies that have been ordered have been reviewed, and results considered in the medical decision making process. - Radiology cxr Xray Interpretation: No Acute Changes Radiology Interpretation Completed By: ED Physician Course/Dx - Diagnoses Provider Diagnoses: Failure of outpatient treatment, Cellulitis - Physician Notifications Discussed Care Of Patient With: Cristiana Dubose Instructed by Provider To: Admit As Inpatient Discharge - Sign-Out/Discharge Documenting (check all that apply): Discharge/Admit/Transfer - Discharge Plan Condition: Stable Disposition: ADMITTED TO [facility] Referrals: Feliberto Esquivel MD [Primary Care Provider] - - Billing Disposition and Condition Condition: STABLE Disposition: HOSP-[facility]
[2018-02-11] MEDS ORDERED: oxyCODONE TAB* 5 MG TAB PO ONE (01:43)
[2018-02-11] MEDS ORDERED: Levofloxacin 750 MG IVPREMIX(* 750 MG/150 ML BAG IVPB ONE (01:44)
[2018-02-11] MEDS ORDERED: Levofloxacin TAB* 250 MG PO ONE (01:44)
[2018-02-11 01:46] LABS: Urine Appearance Clear; Urine Blood Negative (Negative); Urine Color Yellow; Urine Ketones Negative (Negative); Urine Protein Negative (Negative); Urine Specific Gravity 1.017 (1.010-1.030); Urine Urobilinogen Negative (Negative)
[2018-02-11] MEDS ORDERED: Albuterol 2.5 MG/3 ML NEB.SOL* (0.083%) INH PRN (03:31)
[2018-02-11] MEDS ORDERED: Furosemide IV* 10 MG/ML VIAL (40 MG) IV SLOW PU ONE (03:44)
[2018-02-11] MEDS ORDERED: Vancomycin per Pharmacy* NOTE FOLLOW UP PRN (04:16)
[2018-02-11] MEDS ORDERED: Vancomycin(*) 1,500 MG in NS 0.9% 250 ML* 250 ML IVPB ONE (04:30)
[2018-02-11] MEDS: Heparin VIAL(*) 5000 UNITS/ML VIAL (FIVE THOUSAND) SUBCUT SCH ×3 (04:51→23:20)
[2018-02-11] MEDS: Buprenorphine TAB* 8 MG SL PRN ×3 (04:51→22:08)
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
--- NOTE | 2018-02-11 07:43 | RAD ---
INDICATION: Altered mental status COMPARISON: November 30, 2017 TECHNIQUE: PA and lateral dual-energy views were obtained. FINDINGS: Bones/Soft Tissues: There are no acute bony findings. There is focal kyphosis at thoracolumbar junction, unchanged. Cardiomediastinal: The cardiomediastinal silhouette is normal. Lungs: There are no infiltrates. Pleura: There are no pleural effusions. Other: None IMPRESSION: NORMAL CHEST.
[2018-02-11] MEDS: DULoxetine DR CAP* 30 MG CAP.DR PO SCH (09:10)
[2018-02-11] MEDS: Tamsulosin CAP* 0.4 MG PO SCH (09:11)
[2018-02-11] MEDS: BuPROPion XL* 150 MG TAB.XL PO SCH (09:11)
[2018-02-11] MEDS: Omeprazole CAP* 20 MG PO SCH (09:11)
[2018-02-11] MEDS: oxyCODONE TAB* 5 MG TAB PO PRN ×2 (10:04→19:34)
[2018-02-11] MEDS ORDERED: Vancomycin(*) 1,250 MG in NS 0.9% 250 ML* 250 ML IVPB SCH (13:00)
[2018-02-11] MEDS ORDERED: Nicotine GUM* 2 MG PO PRN (13:10)
[2018-02-11] MEDS: Clindamycin 600 MG IVPREMIX(* 600 MG/50 ML SDV IV SCH ×2 (14:08→22:08)
--- NOTE | 2018-02-11 14:47 | PN ---
Subjective Date of Service: 02/11/18 Interval History: Patient complains of continued excruciating pain in legs. Patient states this is worse than it has ever been, worse with pressure and walking. Patient states that he has had edema for a long time but that the redness and swelling is relatively recent and spread up from his toe after a trauma. Patient states that he has been gaining a large amount of weight recently and particularly noticed it when he was placed on steroid for his toe inflammation. Patient states that he has never used a CPAP before but that he recently had a sleep study "here" but is unaware of the results. Patient denies F/C, N/V. Patient complains of abdominal distention and urinary frequency and occasional incontinence. Family History: Unchanged from Admission Social History: Unchanged from Admission Past Medical History: Unchanged from Admission Objective Active Medications: Albuterol (Ventolin 2.5 Mg/3 Ml Neb.Paige*) 2.5 mg INH Q4H PRN PRN Reason: SHORTNESS OF BREATH Buprenorphine HCl (Subutex Tab*) 8 mg SL TID PRN PRN Reason: PAIN Last Admin: 02/11/18 12:59 Dose: 8 mg Bupropion HCl (Wellbutrin Xl *) 150 mg PO DAILY [facility] PRN Reason: Protocol Last Admin: 02/11/18 09:11 Dose: 150 mg Duloxetine HCl (Cymbalta Cap*) 90 mg PO DAILY [facility] Last Admin: 02/11/18 09:10 Dose: 90 mg Furosemide (Lasix Iv*) 40 mg IV SLOW PU 0800,1700 [facility] Heparin Sodium (Porcine) (Heparin Vial(*)) 5,000 units SUBCUT Q8HR [facility] Last Admin: 02/11/18 13:00 Dose: 5,000 units Clindamycin HCl/Dextrose (Cleocin 600 Mg Ivpremix(*) Sdv) 600 mg in 50 mls @ 100 mls/hr IV Q8H [facility] Last Admin: 02/11/18 14:08 Dose: 100 mls/hr Nicotine Polacrilex (Nicotine Gum*) 2 mg PO Q2H PRN PRN Reason: CRAVING Omeprazole (Prilosec Cap*) 20 mg PO DAILY@0730 [facility] Last Admin: 02/11/18 09:11 Dose: 20 mg Oxycodone HCl (Roxycodone Tab*) 5 mg PO Q8H PRN PRN Reason: PAIN Last Admin: 02/11/18 10:04 Dose: 5 mg Tamsulosin HCl (Flomax Cap*) 0.4 mg PO DAILY [facility] Last Admin: 02/11/18 09:11 Dose: 0.4 mg Vital Signs - 8 hr 02/11/18 02/11/18 02/11/18 07:20 08:00 10:04 Temperature 98.0 F Pulse Rate 102 Respiratory 18 18 20 Rate Blood Pressure 131/74 (mmHg) O2 Sat by Pulse 94 Oximetry 02/11/18 12:59 Temperature Pulse Rate Respiratory 20 Rate Blood Pressure (mmHg) O2 Sat by Pulse Oximetry Oxygen Devices in Use Now: None Appearance: Patient is a 42yo male who appears stated age and is sitting in the bed in [facility]. Eyes: No Scleral Icterus, PERRLA Ears/Nose/Mouth/Throat: NL Teeth, Lips, Gums, Clear Oropharnyx, Mucous Membranes Moist Neck: NL Appearance and Movements; NL JVP, Trachea Midline Respiratory: Symmetrical Chest Expansion and Respiratory Effort, Clear to Auscultation Cardiovascular: NL Sounds; No Murmurs; No JVD, RRR, - - 2+ edema in B/L LE to the hip. Abdominal: No Hepatosplenomegaly, - - Obese, limits exam, negative fluid wave. Normoactive BS. Lymphatic: No Cervical Adenopathy Extremities: No Clubbing, Cyanosis, - - Redness and edema in B/L LE worse in right than left. Skin: No Nodules or Sclerosis Neurological: Alert and Oriented x 3, NL Sensation, NL Muscle Strength and Tone , - - CN II-XII intact. Result Diagrams: 02/10/18 23:19 02/10/18 23:19 Additional Lab and Data: Lab Results Assess/Plan/Problems-Billing Assessment: Patient is a 42yo male with a PMH for Obesity, BPH, chronic lower back pain, COPD and leg swelling of unknown cause who was recently admitted with leg swelling and was sent back by his vascular surgeon for concern of cellulitis in leg. - Patient Problems (1) Cellulitis Current Visit: No Status: Acute Code(s): L03.90 - CELLULITIS, UNSPECIFIED SNOMED Code(s): 354279360 Comment: Probable cellulitis of RLE. Continue Clindamycin. Elevate legs, wrap with YUSUF wraps as tolerated. Lasix 20mg IV BID. (2) Chronic pain Current Visit: No Status: Acute Code(s): G89.29 - OTHER CHRONIC PAIN SNOMED Code(s): 93799068 Comment: Continue opiates, Duloxetine. Intolerant of Gabapentin. (3) Morbid obesity with BMI of 50.0-59.9, adult Current Visit: No Status: Acute Code(s): E66.01 - MORBID (SEVERE) OBESITY DUE TO EXCESS CALORIES; Z68.43 - BODY MASS INDEX (BMI) 50-59.9 , ADULT SNOMED Code(s): 134375954 Comment: Daily Weight. Would recommend excercise for weight loss. (4) Vascular insufficiency of limb Current Visit: No Status: Acute Code(s): I99.8 - OTHER DISORDER OF CIRCULATORY SYSTEM SNOMED Code(s): 835073758 Comment: Likely venous insufficiency in B/L LE. Keep legs elevated, Lasix 40mg IV BID. Follow up with Vascular Surgeon outpatient. (5) BPH (benign prostatic hyperplasia) Current Visit: Yes Status: Acute Code(s): N40.0 - BENIGN PROSTATIC HYPERPLASIA WITHOUT LOWER URINRY TRACT SYMP SNOMED Code(s): 811292925 Comment: Continue Tamsulosin. (6) Depression Current Visit: Yes Status: Acute Code(s): F32.9 - MAJOR DEPRESSIVE DISORDER , SINGLE EPISODE, UNSPECIFIED SNOMED Code(s): 79115247 Comment: Continue Duloxetine and Wellbutrin. (7) Full code status Current Visit: No Status: Acute Code(s): Z78.9 - OTHER SPECIFIED HEALTH STATUS SNOMED Code(s): 870993118 (8) DVT prophylaxis Current Visit: No Status: Acute Code(s): HVY7617 - SNOMED Code(s): 997786873 Comment: heparin Status and Disposition: Admitted inpatient.
[2018-02-11] MEDS: Furosemide IV* 10 MG/ML VIAL (40 MG) IV SLOW PU SCH (17:30)
[2018-02-12] MEDS: Heparin VIAL(*) 5000 UNITS/ML VIAL (FIVE THOUSAND) SUBCUT SCH ×3 (05:54→21:28)
[2018-02-12] MEDS: Clindamycin 600 MG IVPREMIX(* 600 MG/50 ML SDV IV SCH ×3 (05:55→21:22)
[2018-02-12] MEDS: oxyCODONE TAB* 5 MG TAB PO PRN ×2 (06:08→13:08)
[2018-02-12 06:11] LABS: ABS Basophils 0 10^3/ul (0-0.2); ABS Eosinophils 0.3 10^3/ul (0-0.6); ABS Lymphocytes 1.1 10^3/ul (1.0-4.8); ABS Monocytes 0.4 10^3/ul (0-0.8); ABS Neutrophils 1.4 10^3/ul (1.5-7.7); ABS Nucleated RBC 0 10^3/ul; Eosinophil % 9.6 % (0-6); Hematocrit 32 % (42-52); Lymphocyte % 33.9 % (25-47); Mean Corpuscular HGB Conc 34 g/dl (31-36); Mean Corpuscular Hemoglobin 30 pg (27-31); Mean Corpuscular Volume 87 fL (80-94); Nucleated Red Blood Cells % 0.1; Platelet Count 211 10^3/ul (150-450); Red Blood Count 3.72 10^6/ul (4.0-5.4); Red Cell Distribution Width 14 % (10.5-15); White Blood Count 3.2 10^3/ul (3.5-10.8)
[2018-02-12 06:32] LABS: EGFR Non-African American 102.1 (>60)
[2018-02-12] MEDS: Tamsulosin CAP* 0.4 MG PO SCH (07:27)
[2018-02-12] MEDS: Furosemide IV* 10 MG/ML VIAL (40 MG) IV SLOW PU SCH ×2 (07:27→18:07)
[2018-02-12] MEDS: Omeprazole CAP* 20 MG PO SCH (07:27)
[2018-02-12] MEDS: BuPROPion XL* 150 MG TAB.XL PO SCH (07:27)
[2018-02-12] MEDS: DULoxetine DR CAP* 30 MG CAP.DR PO SCH (07:27)
[2018-02-12] MEDS: Buprenorphine TAB* 8 MG SL PRN ×2 (07:31→22:48)
[2018-02-12] MEDS ORDERED: Vancomycin Trough Check NOTE FOLLOW UP ONE (12:30)
--- NOTE | 2018-02-12 13:42 | PN ---
Subjective Date of Service: 02/12/18 Interval History: Patient is more mobile today, states the pain and swelling in his legs is decreased. Patient has been urinating frequently but when asked how much water he drinks he states he tries to drink "4 gallons" or water a day. States his urine is the color of daffodils. Patient complains of persistent low back pain at his baseline level. Patient denies F/C, N/V, abdominal pain, diarrhea, CP, SOB, or other pain. Family History: Unchanged from Admission Social History: Unchanged from Admission Past Medical History: Unchanged from Admission Objective Active Medications: Albuterol (Ventolin 2.5 Mg/3 Ml Neb.Paige*) 2.5 mg INH Q4H PRN PRN Reason: SHORTNESS OF BREATH Buprenorphine HCl (Subutex Tab*) 8 mg SL TID PRN PRN Reason: PAIN Last Admin: 02/12/18 07:31 Dose: 8 mg Bupropion HCl (Wellbutrin Xl *) 150 mg PO DAILY [facility] PRN Reason: Protocol Last Admin: 02/12/18 07:27 Dose: 150 mg Duloxetine HCl (Cymbalta Cap*) 90 mg PO DAILY [facility] Last Admin: 02/12/18 07:27 Dose: 90 mg Furosemide (Lasix Iv*) 40 mg IV SLOW PU 0800,1700 [facility] Last Admin: 02/12/18 07:27 Dose: 40 mg Heparin Sodium (Porcine) (Heparin Vial(*)) 5,000 units SUBCUT Q8HR [facility] Last Admin: 02/12/18 05:54 Dose: 5,000 units Clindamycin HCl/Dextrose (Cleocin 600 Mg Ivpremix(*) Sdv) 600 mg in 50 mls @ 100 mls/hr IV Q8H [facility] Last Admin: 02/12/18 12:54 Dose: 100 mls/hr Nicotine Polacrilex (Nicotine Gum*) 2 mg PO Q2H PRN PRN Reason: CRAVING Omeprazole (Prilosec Cap*) 20 mg PO DAILY@0730 [facility] Last Admin: 02/12/18 07:27 Dose: 20 mg Oxycodone HCl (Roxycodone Tab*) 5 mg PO Q8H PRN PRN Reason: PAIN Last Admin: 02/12/18 13:08 Dose: 5 mg Tamsulosin HCl (Flomax Cap*) 0.4 mg PO DAILY [facility] Last Admin: 02/12/18 07:27 Dose: 0.4 mg Vital Signs - 8 hr 02/12/18 02/12/18 02/12/18 06:08 07:21 07:31 Temperature 97.6 F Pulse Rate 84 Respiratory 18 18 14 Rate Blood Pressure 125/70 (mmHg) O2 Sat by Pulse 97 Oximetry 02/12/18 02/12/18 02/12/18 08:00 10:37 13:08 Temperature Pulse Rate Respiratory 16 14 14 Rate Blood Pressure (mmHg) O2 Sat by Pulse Oximetry Oxygen Devices in Use Now: None Appearance: Patient is a 42yo male who appears older than stated age and is sitting in the bed in [facility]. Eyes: No Scleral Icterus, PERRLA Ears/Nose/Mouth/Throat: NL Teeth, Lips, Gums, Clear Oropharnyx, Mucous Membranes Moist Neck: NL Appearance and Movements; NL JVP, Trachea Midline Respiratory: Symmetrical Chest Expansion and Respiratory Effort, Clear to Auscultation Cardiovascular: NL Sounds; No Murmurs; No JVD, RRR, - - 3+ edema in B/L LE, worse in right leg. Pulses 2+. Abdominal: NL Sounds; No Tenderness; No Distention, No Hepatosplenomegaly, - - Obese, receding redness in lower abdomen. Lymphatic: No Cervical Adenopathy Extremities: No Clubbing, Cyanosis Skin: No Nodules or Sclerosis, - - Red rash on B/L LE improved from previous exam. Worse on right leg. Neurological: Alert and Oriented x 3, NL Sensation, NL Muscle Strength and Tone , - - CN II-XII intact. Result Diagrams: 02/12/18 06:00 02/12/18 06:00 Additional Lab and Data: Lab Results Assess/Plan/Problems-Billing Assessment: Patient is a 42yo male with a PMH for Obesity, BPH, chronic lower back pain, COPD and leg swelling of unknown cause who was recently admitted with leg swelling and was sent back by his vascular surgeon for concern of cellulitis in leg. - Patient Problems (1) Cellulitis Current Visit: No Status: Acute Code(s): L03.90 - CELLULITIS, UNSPECIFIED SNOMED Code(s): 192177966 Comment: Probable cellulitis of RLE. Continue Clindamycin. Elevate legs, wrap with YUSUF wraps as tolerated. Lasix 40mg IV BID. Previous MRSA infection of the legs may be contributing to lymphedema and impeding wound healing. (2) Chronic pain Current Visit: No Status: Acute Code(s): G89.29 - OTHER CHRONIC PAIN SNOMED Code(s): 88966440 Comment: Continue opiates, Duloxetine. Intolerant of Gabapentin. (3) Morbid obesity with BMI of 50.0-59.9, adult Current Visit: No Status: Acute Code(s): E66.01 - MORBID (SEVERE) OBESITY DUE TO EXCESS CALORIES; Z68.43 - BODY MASS INDEX (BMI) 50-59.9 , ADULT SNOMED Code(s): 070634252 Comment: Daily Weight. Would recommend excercise for weight loss. Gained 5 pounds overnight, likely due to excessive fluid intake. Fluid restriction instituted. Strict I/O. (4) Vascular insufficiency of limb Current Visit: No Status: Acute Code(s): I99.8 - OTHER DISORDER OF CIRCULATORY SYSTEM SNOMED Code(s): 277833413 Comment: Likely venous insufficiency in B/L LE. Keep legs elevated, Lasix 40mg IV BID. Follow up with Vascular Surgeon outpatient. (5) BPH (benign prostatic hyperplasia) Current Visit: Yes Status: Acute Code(s): N40.0 - BENIGN PROSTATIC HYPERPLASIA WITHOUT LOWER URINRY TRACT SYMP SNOMED Code(s): 377306062 Comment: Continue Tamsulosin. (6) Depression Current Visit: Yes Status: Acute Code(s): F32.9 - MAJOR DEPRESSIVE DISORDER , SINGLE EPISODE, UNSPECIFIED SNOMED Code(s): 07126521 Comment: Continue Duloxetine and Wellbutrin. (7) Full code status Current Visit: No Status: Acute Code(s): Z78.9 - OTHER SPECIFIED HEALTH STATUS SNOMED Code(s): 531613272 (8) DVT prophylaxis Current Visit: No Status: Acute Code(s): AZL8714 - SNOMED Code(s): 879097724 Comment: heparin Status and Disposition: Admitted inpatient.
[2018-02-13] MEDS: Clindamycin 600 MG IVPREMIX(* 600 MG/50 ML SDV IV SCH (05:50)
[2018-02-13] MEDS: oxyCODONE TAB* 5 MG TAB PO PRN (05:55)
[2018-02-13] MEDS: Omeprazole CAP* 20 MG PO SCH (05:55)
[2018-02-13] MEDS: Heparin VIAL(*) 5000 UNITS/ML VIAL (FIVE THOUSAND) SUBCUT SCH ×2 (05:56→13:38)
[2018-02-13 06:57] LABS: ABS Basophils 0 10^3/ul (0-0.2); ABS Eosinophils 0.3 10^3/ul (0-0.6); ABS Lymphocytes 1.5 10^3/ul (1.0-4.8); ABS Monocytes 0.4 10^3/ul (0-0.8); ABS Neutrophils 1.5 10^3/ul (1.5-7.7); ABS Nucleated RBC 0 10^3/ul; Eosinophil % 8.2 % (0-6); Hematocrit 35 % (42-52); Lymphocyte % 38.6 % (25-47); Mean Corpuscular HGB Conc 35 g/dl (31-36); Mean Corpuscular Hemoglobin 30 pg (27-31); Mean Corpuscular Volume 86 fL (80-94); Mean Platelet Volume 7.2 um3 (7.4-10.4); Nucleated Red Blood Cells % 0.1; Platelet Count 240 10^3/ul (150-450); Red Blood Count 3.99 10^6/ul (4.0-5.4); Red Cell Distribution Width 14 % (10.5-15); White Blood Count 3.8 10^3/ul (3.5-10.8)
[2018-02-13] MEDS: DULoxetine DR CAP* 30 MG CAP.DR PO SCH (08:06)
[2018-02-13] MEDS: BuPROPion XL* 150 MG TAB.XL PO SCH (08:06)
[2018-02-13] MEDS: Tamsulosin CAP* 0.4 MG PO SCH (08:06)
[2018-02-13] MEDS: Furosemide IV* 10 MG/ML VIAL (40 MG) IV SLOW PU SCH (08:06)
[2018-02-13] MEDS: Buprenorphine TAB* 8 MG SL PRN (12:51)
[2018-02-13] MEDS ORDERED: Clindamycin CAP* 150 MG PO SCH (13:00)
[2018-02-13 15:33] VITALS: BP 110/57
[2018-02-13] MEDS ORDERED: ARIPiprazole TAB* 5 MG PO SCH (21:00)
[2018-02-13] MEDS ORDERED: Torsemide TAB* 20 MG PO SCH (21:00)
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
--- NOTE | 2018-02-14 01:55 | DS ---
CC: Dr. Feliberto Esquivel; Dr. Ma, Vascular Surgeon * DISCHARGE SUMMARY: DATE OF ADMISSION: 02/10/18 DATE OF DISCHARGE: 02/13/18 PRIMARY CARE PROVIDER: Dr. Feliberto Esquivel. MY ATTENDING WHILE IN THE HOSPITAL: Hazel Nguyễn MD *(DICTATED BY DIANE BAR) PRIMARY DISCHARGE DIAGNOSES: 1. Lower leg swelling, unknown cause. 2. Probable bipolar 2 disorder. SECONDARY DISCHARGE DIAGNOSES: 1. Chronic lower back pain. 2. Morbid obesity. 3. Chronic obstructive pulmonary disease. 4. Gastroesophageal reflux disease. 5. Benign prostatic hyperplasia. 6. Depression. STUDIES DONE WHILE IN THE HOSPITAL: Chest x-ray from 02/10/18 read as normal chest, pulse oximetry from 02/12/18 showed 102 desaturation events overnight with 8 minutes less than 90% and the longest continuous desaturation less than 88% for 24 seconds. Please see the full report for more details. MEDICATIONS AT DISCHARGE: 1. Ventolin inhaler 2 puffs inhalation q.4 hours as needed. 2. Albuterol nebulizer 2.5 mg q.4 hours as needed. 3. Flomax 0.4 mg p.o. daily. 4. Pantoprazole 20 mg p.o. daily. 5. Duloxetine 90 mg p.o. daily. 6. Buprenorphine 5 mg sublingual t.i.d. as needed. 7. Bupropion 150 mg p.o. daily. 8. Abilify 5 mg p.o. at bedtime. 9. Clindamycin 300 mg p.o. 4 times a day. 10. Lactobacillus acidophilus 1 cap p.o. daily. 11. Oxycodone 5 mg p.o. q.8 hours as needed for pain. 12. Torsemide 20 mg p.o. b.i.d. New medications at discharge: 1. Abilify. 2. Clindamycin. 3. Lactobacillus acidophilus. 4. Oxycodone. 5. Torsemide. Medications discontinued at discharge: 1. Furosemide 20 mg p.o. daily. 2. Doxycycline 100 mg p.o. daily. HOSPITAL COURSE: This is a brief summary of patient's presentation. For more details, please see the history and physical from [facility]ose on 02/11/18. In brief, the patient is a 42-year-old male with past medical history significant for the above, who presented with worsening swelling, pain and redness in his bilateral lower extremities. The patient was recently admitted to this institution from 02/06/18 to 02/07/18 with anasarca. He had a negative transthoracic echocardiogram and negative Dopplers of his legs. His laboratory data was unrevealing and there is no clear cause for his lower extremity edema. The patient has possible cellulitis and was treated with doxycycline. The patient was referred to Vascular Surgery and saw Dr. Ma and Dr. Ma told the patient to come back to the hospital for evaluation for an infection in his lower legs. The patient states that his edema has been getting worse and is severe. He has severe pain with any light touch. The patient has baseline neuropathic pain in his lower extremities. This has been going on for a month. The patient during this time was prescribed prednisone. The patient has been gaining a significant amount of weight possibly related to gabapentin. The patient has had swelling in his legs before, which resolved. The patient was started on IV antibiotics and Lasix 40 mg IV b.i.d. The patient was found to be drinking 8 to 9-1/2 L bottles a day of water. The patient's legs were wrapped and they were elevated. There was concern for sleep apnea. The patient had overnight pulse oximetry as above. The patient had a formalized sleep study, which is not available at this time. As outpatient, patient was initially started on vancomycin for possible lower extremity cellulitis. The patient's leg was red, swollen, warm to the touch, extremely painful and was impacting severely his daily life. The patient initially on arrival to the hospital weighed 359 pounds, was increased to 365 pounds to 370 pounds and 375 pounds and then on day of his day of discharge was decreased to 359 pounds. The patient was put on a fluid restriction of 3 L daily while he was in the hospital. This is significant decrease from what he had been having before. The patient had good diuresis and negative fluid balance of 1 L on the last 2 days of his admission. The patient did not have all of his output documented while in the hospital and the patient was reported voiding very frequently. The patient's pain was initially unbearable and uncontrollable on his buprenorphine, the patient was started on low dose of oxycodone 3 times a day, which helped dramatically with his pain in conjunction with elevation and diuresis. The patient's creatinine stayed stable at his baseline during this hospitalization despite aggressive diuresis. The patient had CRP of 15.97 on admission and the patient's hemoglobin was 11.2 and increased to 12.0. On admission, his white blood cell count was 3.7. 3.2, and 3.8 on 3 days while he was admitted. The patient on the day of admission was having pressured speech, yarsani preoccupation, specifically surrounding the [employer] scam he had watched the night before and relating this to his social security number, the date and speaking in random tandems. The patient was seen in consultation by Psychiatry who believed him to be hypomanic and recommended Abilify as the mood stabilizer least likely to affect his weight that may also help him sleep if taken at nighttime. The patient was in agreement with this. The patient was amenable to drinking less water while in the hospital and was compliant with his fluid restriction. The patient was amenable to discharge on 02/13/18 with close followup with Dr. Ma for evaluation of chronic venous insufficiency as well as close followup with his primary care provider Dr. Esquivel to evaluate his pain control and kidney function on continued aggressive diuresis as above. There was concern that patient was taking 20 mg of Lasix daily, on discharge it was a concern that he was not absorbing this due to his large size and significant edema, so he was switched to torsemide as above. PHYSICAL EXAM ON DATE OF DISCHARGE: General: The patient is a 42-year-old male who appears stated age and sitting comfortably in bed. No acute distress. Vital signs at discharge: Temperature 98.8, pulse rate 97, respiratory rate 24, oxygen saturation 94% on room air, blood pressure 110/57. HEENT: Head: Normocephalic, atraumatic, sclerae anicteric. No conjunctival injection. Nasal mucosa moist. Oral mucosa moist. No pharyngeal erythema, discharge or exudate. Neck: Supple, nontender. No lymphadenopathy. No carotid bruit auscultated. Cardiac: Regular rate and rhythm. No clicks, murmurs, gallops or rubs. Pulses are 2+ in the bilateral dorsalis pedis, posterior tibialis and radial areas. 3+ bilateral edema in the lower extremities, slightly improved from previous exam. Tenderness to light touch over the bilateral calves. Respiratory: Clear to auscultation bilaterally. No wheezes, rales or rhonchi. Good air exchange bilaterally. Abdomen: Soft, obese, distended, redness, lower abdomen with peau d'orange receding from previous line drawn around redness. Bowel sounds present and normoactive in all 4 quadrants. No hepatosplenomegaly. Exam limited by body habitus. Genitourinary: No suprapubic or CVA tenderness. Skin: Redness along the entirety of the right lower extremity extending to the abdomen with lesser redness on the left lower extremity improved from previous exam. No other rashes visible. Neuro: Cranial nerves II through XII intact. No focal deficits. Alert and oriented x3. Psychiatric: Elated, flights of ideas preoccupation frequently interrupting and having long trains of speech consistent with hypomania. LABORATORY DATA ON DAY OF DISCHARGE: White blood cell count 3.8, hemoglobin 12.0, platelet count 240. Sodium 140, potassium 3.9, chloride 102, carbon dioxide 32, anion gap 6, BUN 16, creatinine 0.76, BUN to creatinine ratio is 21.1, glucose 94, calcium 9.0. Other laboratory values of note from admission : CRP 15.97 on admission. Hemoglobin 11.2 on admission. Creatinine 0.79 on admission. DISCHARGE PLAN: The patient will be discharged to home. The patient says he will be compliant with keeping his legs elevated as much as possible and wrapping his legs as he was shown in the hospital. The patient will restrict his fluid intake to 3 L as above. The patient will have diuresis with torsemide as above. The patient will have a BMP drawn in 4 days to evaluate his kidney function and assess for intervascular fluid depletion as well as hypokalemia. The patient did not exhibit these while in the hospital despite more aggressive diuresis. The patient will follow up with his primary care provider within 1 week and follow up again with Dr. Ma to assess for venous insufficiency. The patient's lower extremity edema could be consistent with lymphedema. The patient does have a history of cellulitis in his legs, which would have damaged his vessels. The patient is also morbidly obese. If patient 's edema does not improve on diuresis, I would recommend it be stopped and conservative measures for lymphedema instituted as well as possible referral to a lymphedema clinic. The patient will be on clindamycin for additional 7 days for cellulitis, the patient's cellulitis did not improve on doxycycline. DIANE BAR [id number]/CPS #: [id number] MTDHarry
== END 2018-02-13 17:00 | disposition home or self-care (01) | DRG 383 ==
LOC: ED 20:01 → MED 02-11 03:28
PROVIDERS: ADMIT Hospitalist; ATTEND Internal Medicine
DX: L03.115 Cellulitis of right lower limb (principal); F31.81 Bipolar II disorder; Z68.43 Body mass index [BMI] 50.0-59.9, adult; K21.9 Gastro-esophageal reflux disease without esophagitis; J44.9 Chronic obstructive pulmonary disease, unspecified; N40.0 Benign prostatic hyperplasia without lower urinary tract symptoms; G62.9 Polyneuropathy, unspecified; G47.30 Sleep apnea, unspecified; F41.9 Anxiety disorder, unspecified; I73.9 Peripheral vascular disease, unspecified; R40.2412 Glasgow coma scale score 13-15, at arrival to emergency department; G89.29 Other chronic pain; I89.0 Lymphedema, not elsewhere classified; M54.5 Low back pain; E66.01 Morbid (severe) obesity due to excess calories; Z82.49 Family history of ischemic heart disease and other diseases of the circulatory system; Z88.8 Allergy status to other drugs, medicaments and biological substances; Z87.11 Personal history of peptic ulcer disease; Z86.14 Personal history of Methicillin resistant Staphylococcus aureus infection; Z83.3 Family history of diabetes mellitus; Z72.0 Tobacco use
CPT/HCPCS: 36415; 71046; 80048; 80053; 80202; 81003; 83036; 83605; 83690; 83735; 85025; 86140; 87040; 87641; 94762; 99285; A9270-GY; J1644; J1940; J3370

== ENCOUNTER 2019-01-13 12:25 | Emergency (ER) | payer SELFPAY ==
--- OUTSIDE RECORDS SUMMARY | 2019-01-13 12:42 | XMS REPORT | Continuity of Care Document ---
:1975 External Reference #:[id number] Author Name Georgia Ren Care Team Providers Name Role Phone Aissatou Gurrola M.D. Primary Care Physician Unavailable Payers Date Identification Numbers Payment Provider Subscriber Effective: 2016 Policy Number: [id number] Bari Tyshawn Danielson Group Name: [id number] [address] PayID: [id number] [place] [address] Advance Directives Description No Information Available Problems Date Description Provider Status Onset: 08/05/2018 Chronic pain syndrome Ha Francis M.D.,FACP Active Note: on suboxone (not opiate use d/o) Onset: 12/20/2016 Thoracic and lumbosacral Feliberto Esquivel M.D. Active neuritis Onset: 05/28/2018 Complex regional pain syndrome Ha Francis, Active type I of right lower limb Jasmyn,FACP Onset: 12/20/2016 Polyneuropathy Feliberto Esquivel M.D. Active [...] Sleep apnea Kavya Angela DNP, RN, Active [employer] Onset: 12/03/2017 Body mass index 40+ - severely Kavya Angela DNP, RN, Active obese [employer]CH[employer] Onset: 01/20/2018 Benign prostatic hypertrophy Feliberto Esquivel M.D. Active with outflow obstruction Onset: 01/20/2018 Chronic nonalcoholic liver Feliberto Esquivel M.D. Active disease Onset: 01/28/2018 Chronic obstructive lung disease Feliberto Esquivel M.D. Active Onset: 01/28/2018 Lymphedema Feliberto Esquivel M.D. Active Onset: 08/05/2018 Ex-smoker Ha Francis, Active Jasmyn,FACP Onset: 10/26/2018 Tibialis tendinitis Jett Garcias MD Active Onset: 10/26/2018 Sprain of knee and leg Jett Garcias MD Active Onset: 10/26/2018 Peroneal tendinitis, left leg Jett Garcias MD Active Onset: 12/20/2016 Abdominal pain Feliberto Esquivel M.D. Inactive Inactive: 09/17/2017 Onset: 08/12/2017 Hemorrhage of rectum and anus Feliberto Esquivel M.D. Inactive Inactive: 12/12/2017 Onset: 06/17/2017 Disorder of skin and/or Feliberto Esquivel M.D. Inactive subcutaneous tissue Inactive: 12/12/2017 Onset: 01/12/2018 Pain in limb Feliberto Esquivel M.D. Inactive Inactive: 05/28/2018 Onset: 01/20/2018 Adult health examination Feliberto Esquivel M.D. Resolved Resolved: 05/14/2018 Onset: 01/28/2018 Cramp and spasm Feliberto Esquivel M.D. Resolved Resolved: 05/14/2018 Onset: 01/28/2018 Abnormal weight gain Feliberto Esquivel M.D. 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 ETOH Use Denies alcohol use Tobacco Use Start: Unknown End: Patient is a former Unknown smoker Recreational Drug Use Denies Drug Use Recreational Drug Use Former Drug User Crack, LSD, opiates Exercise Type/Frequency Exercises sporadically Exercise Type/Frequency Active job 6x per week Allergies, Adverse Reactions, Alerts Date Description Reaction Status Severity Comments 12/20/2016 Naproxen Active Moderate edema 10/21/2018 Prednisone Active 12/30/2018 Suboxone Active Edema 12/30/2018 Buprenorphine / Naloxone Edema Active Severe Medications Medication Date Status Form Strength Qnty SIG Indications Ordering Provider Methadone HCL 12/30 Active Tablets 10mg 90tab one po three G89.4 s times a day Gurrola, as needed for MD pain Mupirocin 12/08 Active Ointment 2% 44gm apply to L03.116 affected area Gurrola, four times a MD day Amlactin 12/08 Active Lotion 12% 150gm apply to I89.0 clean skin Gurrola, every day Bupropion 11/30 Active Tablets ER 300mg 30tab take one F33.0 24HR s tablet by Galileo ER (XL) mouth every MD morning Tramadol HCL 11/27 Active Tablets 50mg 60tab 1 tablet s twice a day MD Galileo Voltaren 10/21 Active Gel 1% 200gm apply 4 gr to M25.562 affected Gurrola, joint 4 times MD a day Duloxetine HCL [address] 60mg 30cap Take 1 Part s Capsule By Gurrola, Mouth Every MD Morning Duloxetine HCL [address] 30mg 30cap Take Part s Capsule By Gurrola, Mouth Every MD Day AT Bedtime Triple 06/30 Active Ointment 1% 30gm apply twice L08.9 Feliberto Antibiotic Plus daily to Sierra infected skin , Marly. areas Pantoprazole 06/[address] 20mg 30tab Take 1 Tablet K21.9 Aissatou Sodium s By Mouth Galileo, Every Day Before Breakfast Torsemide 06/30 Active Tablets 20mg 60tab Take 1 Tablet s By Mouth Jasmyn Esquivel Symbicort 04/27 Active Aerosol 160-4.5mc 10.2u 2 puff twice J44.9 g/Act nits a day Jasmyn Esquivel Ventolin HFA 02/04 Active Aerosol 108(90Bas 8gm 2 puffs by Feliberto e) mouth four Pachikara mcg/Act times a day , M.D. as needed Nebulizer 01/28 Active Kit 1unit 1 unit J44.9 [place] Kit/Tubing/Mout s nebulization Sierra hpiece every 4- 6 , M.D. hours as needed J44.9 Icd code Albuterol 01/28 Active Nebulizer (2.5mg/3M 180ml 1 vial via J44.9 [place] Sulfate L) 0.083% nebulizer 4 Pachikara times daily , M.DMazin as needed Vitamin B Active Tablets 1 by mouth Unknown Complex /0000 every day Potassium Active Tablets 99mg otc once a Unknown /0000 day Vitamin D3 Active Tablets once daily Unknown Complete /0000 Aspirin Adult Active Tablets DR 81mg 1 by mouth Unknown Low Dose /0000 every day Iron Active Tablets 325(65Fe) 1 by mouth Unknown /0000 mg twice a day Cephalexin 12/08 Hx Capsules 500mg 21cap by mouth L03.116 s three times a Galileo, - day 12/30 Doxycycline 11/27 Hx Tablets 100mg 20tab One po bid x L08.9 Merari Hyclate s 10 days Edgardo, - N.P. 12/07 Suboxone 11/16 Hx Film 8-2mg 30uni 1 strip sl 4x G89.4 ts a day. Galileo, - additional 12/08 increased dosage. pain management Suboxone 05/14 Hx Film 8-2mg 120un 1 strip sl 4x G89.4 its a day Elav Gurrola MD 12/08 Bupropion HCL 03/19 Hx Tablets ER 300mg 30tab take one F33.0 Ha ER (XL) 24HR s tablet by Sheila Francis, - mouth every M.D.,FACP 11/30 Florastor 02/25 Hx Capsules 250mg 60cap 1 by mouth L03.119 s twice a day Leonardn, - N.P. 05/14 Oxycodone HCL 02/20 Hx Tablets 10mg 42tab 1 tab 8h as G62.9 s needed Sierra Stevenson M.D. 03/19 Clotrimazole 02/20 Hx Cream 1% 90gm apply twice B37.9 daily Sierra Stevenson M.D. 05/14 Bupropion HCL 02/20 Hx Tablets ER 150mg 30tab once daily in F33.0 [place] ER (XL) 24HR s the morning Sierra - with food Jasmyn 03/19 Oxycodone HCL 02/13 Hx Tablets 5mg 1 tab Q 8 hrs prn pain - 02/20 Lasix 02/09 Hx Tablets 20mg 1 by mouth every day Sierra Stevenson M.D. 02/16 Metolazone 02/04 Hx Tablets 5mg 14tab take 1 tab by I89.0 s mouth every Pachika - other day , M.DMazin 02/20 Doxycycline 02/04 Hx Capsules 100mg 20cap 1 cab twice a L03.115 Feliberto Hycl day Sierra Stevenson M.D. 02/16 Baclofen 01/29 Hx Tablets 10mg 30tab take 1 s tablets by Sierra - mouth twice a , M.DMazin Lasix 01/28 Hx Tablets 40mg 30tab 1 by mouth s every day Sierra Stevenson M.D. 02/09 Prednisone 01/20 Hx Tablets 20mg 10tab 2 tab by M79.671 s mouth 5 days Pachikara - , M.D. 02/20 Tamsulosin HCL 01/20 Hx Capsules 0.4mg 30cap Take 1 N40.1 Chad E. s Capsule By Nisa, - Mouth Every M.D. Buprenorphine 01/13 Hx Tablets 8mg 90tab take 1 tab Feliberto Sub s subligually 3 Pachikara - times a day , M.D. 05/14 as needed for pain Prednisone 01/12 Hx Tablets 20mg 10tab 2 tab by s mouth 5 days Pachikara - , M.D. 01/23 Lasix 01/02 Hx Tablets 20mg 10tab take one s daily as Sally, - needed for M.D. 01/28 edema Duloxetine HCL 12/[address] 60mg 30cap take 1 G62.9 Part s capsule by Sierra - mouth every , M.D. 03/19 G89.4 Guaifenesin-Codeine 11/24/2017 Hx Solution 100-10mg/5ML 180ml 5-10 R05 Ha - gabrielleiters Sheila Francis, 12/12/2017 q4-6hrs as M.DMazin,FACP needed for cough Amoxicillin/Clavulan 11/24/2017 Hx Tablets 875-125mg 14tabs one tab J20. Tala ate Potassium - twice/day 9 Aburto, 12/01/2017 [employer]ASH CONTRO[employer]ER Duloxetine HCL 10/28/[address] 30mg 90caps 2 caps in Feliberto - Part the am and 1 Pachikara, 09/25/2018 cap in the M.D. evening Duloxetine HCL 10/24/[address] 40mg 1 po qam Ha Francis, 11/25/2017 M.DMazin,FACP Duloxetine HCL 10/24/[address] 20mg 1-3 by mouth G62. Ha Fan every 9 D. Penny, 11/25/2017 evening as MRobb,FACP directed Duloxetine HCL 10/21/[address] 30mg 90caps take 1 to 3 G62. Tali Bah - Part capsules in 9 [facility], 10/24/2017 evening as M.DMazin directed Lyrica 10/15/2017 Hx Capsules 50mg 120cap 2-4 tabs/day Tali Stevenson s as directed [facility], 10/24/2017 (not taking) M.D. Fluoxetine HCL 09/18/2017 Hx Capsules 10mg 30caps take one F33. Shavonne Tanner - capsule by 0 Sheila Frnacis, 10/24/2017 mouth once M.D.,FACP daily in the morning Duloxetine HCL 09/02/2017 Hx Caps 20mg 60caps 1-2 tabs by G62. Tali Bah - Part mouth every 9 pella, 10/21/2017 day as M.DMazin directed Bupropion HCL ER 08/12/2017 Hx Tablets 150mg 30tabs take 1 F33. Shavonne Tanner (XL) - ER 24HR tablet by 0 Sheila Francis, 01/20/2018 mouth every M.D.,FACP morning with food Pantoprazole Sodium 08/12/2017 Hx Tablets 20mg 30tabs take [address] tablet by 31 [facility], 04/05/2018 mouth every M.D. morning before breakfast Hydrocortisone 08/01/2017 Hx Cream 2.5% 20gm apply after Feliberto - first bowel [facility], 10/24/2017 movement M.D. Anucort-HC 07/31/2017 Hx Supposito 25mg 12unit apply daily K64. Feliberto - ry s after first 9 Pachika, 08/01/2017 bm M.D. Oxycodone HCL 07/24/2017 Hx Tablets 5mg 30tabs 1 by mouth S52. Feliberto - every 6 591A Pachikara, 07/30/2017 hours as M.D. needed Ibuprofen 07/07/2017 Hx Tablets 800mg 20tabs by mouth Other - three times Ordering 07/14/2017 a day as Provider needed Bactroban Nasal 07/07/2017 Hx Ointment 2% 10gm apply to Other - right Ordering 07/17/2017 nostril Provider twice a day x 10 days Bactrim DS 07/07/2017 Hx Tablets 800-160mg 20tabs 1 by mouth Other - twice a day Ordering 07/17/2017 x 10 days Provider Oxycodone HCL 06/17/2017 Hx Tablets 5mg 60tabs 1 by mouth M51. Feliberto - every 6 16 Pachdharmesh, 07/24/2017 hours as M.D. needed Betamethasone 06/17/2017 Hx Cream 0.05% 50gm apply twice L98. Feliberto Dipropionate - a day 9 P[place]ikara, 02/20/2018 M.D. Gabapentin 06/17/2017 Hx Capsules 300mg 90caps take 1 M51. Ha - capsule by 16 Sheila Francis, 01/02/2018 mouth 3 M.D.,FACP times a day Fluoxetine HCL 06/17/2017 Hx Capsules 20mg 30caps Take One F33. Feliberto - Capsule By 0 Sierra, 09/18/2017 Mouth Every M.D. Day Lyrica 06/11/2017 Hx Capsules 50mg 60caps twice daily G62. Feliberto - 9 Pachikara, 06/17/2017 M.D. Buprenorphine 06/11/2017 Hx Patches 7.5mcg/HR 4units 1 patch M51. Feliberto - Weekly weekly 16 P[place]ikara, 06/17/2017 M.D. Fluoxetine HCL 06/11/2017 Hx Capsules 10mg 30caps 1 cap once F33. Feliberto (PMDD) - daily 0 Pachikara, 06/17/2017 M.D. Nortriptyline HCL 05/20/2017 Hx Capsules 10mg 60caps 1-2 caps by G62. Tali Bah - mouth every 9 [place], 06/01/2017 night as M.D. directed Gabapentin 05/15/2017 Hx Capsules 300mg 120cap 1 by mouth Feliberto - s twice times Pachikara, 06/11/2017 a day and 2 M.D. cap hs Acetaminophen-Codein 05/15/2017 Hx Tablets 300-30mg 15tabs 1 tab by Feliberto brooks #3 - mouth 3 Pachikara, 06/10/2017 times /day M.D. as needed Doxycycline Hyclate 05/07/2017 Hx Capsules 100mg 20caps 1 cab twice L03. Feliberto - a day 113 Pachikara, 06/10/2017 M.D. Hydrocodone-Acetamin 05/07/2017 Hx Tablets 7.5-325mg 45tabs 1 tab po up L03. ChadAc - to tid as 113 Nisa, 06/10/2017 needed M.D. Gabapentin 01/24/2017 Hx Capsules 300mg 90caps Take One G63 [facility]erto [facility] 05/15[facility]2017 Mouth 3 M.D. Times A Day Venlafaxine HCL ER 01/15/2017 Hx Caps ER 37.5mg 30caps once daily Feliberto - 24HR Pachikara, 06/11/2017 M.D. Tramadol HCL 01/10/2017 Hx Tablets 50mg 90tabs 2 tab three M51. [place] - times a day 16 Pachika, 09/17/2017 as needed M.D. Gabapentin 01/10/2017 Hx Capsules 100mg 90caps 2 cap three G63 Feliberto - times a day Pachikara, 01/24/2017 M.D. Duloxetine HCL 01/10/[address] 30mg 14caps once a day F33. [place] - Part in full 0 [place], 01/15/2017 stomach M.D. Butrans 12/30/2016 Hx Patches 10mcg/HR 4units topical Ha - Weekly q7days DMazin Farncis, 01/24/2017 M.D.,FACP Tramadol HCL 12/20/2016 Hx Tablets 50mg 14tabs three times M51. Feliberto - a day as 16 Pachikara, 01/10/2017 needed M.D. Gabapentin 12/20/2016 Hx Capsules 100mg 90caps three times G63 [facility] 01/10/2017 M.D. Advil Hx Capsules 200mg as needed Unknown - 08/12/2017 Osteo Bi-Flex Hx Tablets 250-200mg daily Unknown Regular Strength - 06/30/2018 Fish Oil Hx Capsules 1000mg 1 by mouth Unknown - every day 04/05/2018 Multi Vitamin Hx Tablets 1 by mouth Unknown - every day 06/30/2018 Oxycodone HCL Hx Capsules 5mg 1-2 tabs by Unknown - mouth every 06/11/2017 4-6 hours as needed pain Tramadol HCL Hx Tablets 50mg Take 1 Unknown - Tablet By 10/24/2017 Mouth Every 4 To 6 Hours as Needed For Pain Coconut Oil Organic Hx Capsules 1000mg As directed Unknown - 04/05/2018 Bupropion HCL ER Hx Tablets 150mg 1 by mouth Unknown (SR) - ER 12HR every day 02/20/2018 Abilify Hx Tablets 5mg 1 tab PO at Unknown - hs 02/20/2018 Clindamycin HCL Hx Capsules 300mg 28caps 1 cap every Merari - 6 hours Varn, N.P. 03/14/2018 Lactobacillus Hx Tablets 1 by mouth Unknown - every day 06/30/2018 Torsemide Hx Tablets 20mg 60tabs take 1 Ha - tablet by Sheila Francis, 06/30/2018 mouth twice M.D.,FACP a day Suboxone Hx Film 8-2mg 1 strip sl G89. Aissatou - three times 4 MD Galileo 12/30/2018 a day Immunizations CPT Code Status Date Vaccine Lot # 11534 Given 08/05/2018 Influenza Virus Vaccine, Quadrivalent, Split, [id number] Preservative Free Vital Signs Date Vital Result Comment 12/30/2018 10:43am Height 72 inches 6'0" Weight 335.25 lb Heart Rate 83 /min BP Systolic 125 mmHg BP Diastolic 82 mmHg Body Temperature 96.8 F O2 % BldC Oximetry 95 % BMI (Body Mass Index) 45.5 kg/m2 12/15/2018 3:22pm Height 72 inches 6'0" Weight 340.38 lb Heart Rate 100 /min BP Systolic 135 mmHg BP Diastolic 89 mmHg Body Temperature 96.6 F O2 % BldC Oximetry 95 % BMI (Body Mass Index) 46.2 kg/m2 12/08/2018 1:20pm Height 72 inches 6'0" Weight 351.38 lb Heart Rate 84 /min BP Systolic 127 mmHg BP Diastolic 75 mmHg Body Temperature 96.2 F O2 % BldC Oximetry 99 % BMI (Body Mass Index) 47.6 kg/m2 11/27/2018 4:29pm Height 72 inches 6'0" Weight 314.00 lb Heart Rate 98 /min BP Systolic 130 mmHg BP Diastolic 80 mmHg Body Temperature 96.9 F O2 % BldC Oximetry 97 % BMI (Body Mass Index) 42.6 kg/m2 11/16/2018 3:33pm Height 72 inches 6'0" Weight 341.00 lb Heart Rate 87 /min BP Systolic Sitting 132 mmHg large adult cuff left arm BP Diastolic Sitting 80 mmHg large adult cuff left arm Respiratory Rate 24 /min O2 % BldC Oximetry 95 % at rest on room air BMI (Body Mass Index) 46.2 kg/m2 10/26/2018 1:20pm Height 72 inches 6'0" Weight 331.00 lb Heart Rate 86 /min Respiratory Rate 18 /min Body Temperature 95.5 F Pain Level 8 BMI (Body Mass Index) 44.9 kg/m2 10/21/2018 3:14pm Height 72 inches 6'0" Weight 331.50 lb Heart Rate 88 /min BP Systolic 124 mmHg BP Diastolic 82 mmHg Body Temperature 96.6 F O2 % BldC Oximetry 91 % BMI (Body Mass Index) 45.0 kg/m2 08/05/2018 1:51pm Height 72 inches 6'0" Weight 320.00 lb Heart Rate 105 /min BP Systolic Sitting 104 mmHg BP Diastolic Sitting 80 mmHg Body Temperature 96.8 F O2 % BldC Oximetry 94 % BMI (Body Mass Index) 43.4 kg/m2 06/30/2018 9:48am Height 72 inches 6'0" Weight 331.25 lb down 16 pounds Heart Rate 78 /min BP Systolic Sitting 112 mmHg large adult cuff left arm BP Diastolic Sitting 90 mmHg large adult cuff left arm Respiratory Rate 20 /min O2 % BldC Oximetry 94 % at rest on room air BMI (Body Mass Index) 44.9 kg/m2 05/28/2018 11:09am Height 72 inches 6'0" Weight 347.00 lb Heart Rate 91 /min BP Systolic Sitting 130 mmHg BP Diastolic Sitting 88 mmHg Body Temperature 96.0 F O2 % BldC Oximetry 94 % BMI (Body Mass Index) 47.1 kg/m2 05/14/2018 4:28pm Height 72 inches 6'0" Weight 350.00 lb Heart Rate 95 /min BP Systolic Sitting 120 mmHg BP Diastolic Sitting 82 mmHg Body Temperature 96.9 F O2 % BldC Oximetry 96 % BMI (Body Mass Index) 47.5 kg/m2 04/28/2018 10:52am Height 72 inches 6'0" Weight 353.00 lb Heart Rate 104 /min BP Systolic Sitting 122 mmHg BP Diastolic Sitting 94 mmHg Respiratory Rate 24 /min Body Temperature 97.2 F Pain Level 9 BMI (Body Mass Index) 47.9 kg/m2 04/27/2018 11:14am Height 70 inches 5'10" Weight 353.50 lb Heart Rate 102 /min BP Systolic Sitting 130 mmHg BP Diastolic Sitting 82 mmHg Body Temperature 96.5 F O2 % BldC Oximetry 94 % BMI (Body Mass Index) 50.7 kg/m2 04/06/2018 2:55pm Height 70 inches 5'10" Weight 350.50 lb Heart Rate 100 /min BP Systolic 112 mmHg rue lg cuff BP Diastolic 88 mmHg rue lg cuff BP Systolic Sitting 112 mmHg lue lg cuff BP Diastolic Sitting 78 mmHg lue lg cuff BP Systolic Standing 110 mmHg BP Diastolic Standing 80 mmHg Respiratory Rate 18 /min BMI (Body Mass Index) 50.3 kg/m2 Ejection Fraction 40% 01/12/2008echo 04/06/2018 1:18pm Height 70 inches 5'10" Weight 351.00 lb Heart Rate 101 /min BP Systolic 118 mmHg BP Diastolic 80 mmHg O2 % BldC Oximetry 98 % BMI (Body Mass Index) 50.4 kg/m2 03/19/2018 2:58pm Height 70 inches 5'10" Weight 360.00 lb Heart Rate 102 /min BP Systolic 129 mmHg BP Diastolic 82 mmHg O2 % BldC Oximetry 95 % BMI (Body Mass Index) 51.6 kg/m2 03/13/2018 2:32pm Height 70 inches 5'10" Weight 359.00 lb Heart Rate 88 /min BP Systolic 150 mmHg BP Diastolic 90 mmHg Body Temperature 97.6 F O2 % BldC Oximetry 97 % BMI (Body Mass Index) 51.5 kg/m2 03/10/2018 10:52am Height 70 inches 5'10" Weight 353.00 lb Heart Rate 88 /min BP Systolic Sitting 120 mmHg BP Diastolic Sitting 70 mmHg Respiratory Rate 14 /min Body Temperature 97.5 F BMI (Body Mass Index) 50.6 kg/m2 03/10/2018 8:42am Height 70 inches 5'10" Weight 349.00 lb Heart Rate 84 /min BP Systolic 142 mmHg BP Diastolic 86 mmHg Respiratory Rate 20 /min Body Temperature 97.6 F BMI (Body Mass Index) 50.1 kg/m2 03/06/2018 2:23pm Weight 349.00 lb Heart Rate 88 /min BP Systolic 130 mmHg BP Diastolic 68 mmHg Body Temperature 97.6 F O2 % BldC Oximetry 94 % 02/25/2018 4:12pm Height 70 inches 5'10" Weight 342.00 lb Heart Rate 114 /min BP Systolic Sitting 129 mmHg BP Diastolic Sitting 90 mmHg Body Temperature 97.4 F Pain Level 6 inner thigh/feet/belly O2 % BldC Oximetry 96 % BMI (Body Mass Index) 49.1 kg/m2 02/20/2018 9:52am Height 70 inches 5'10" Weight 355.00 lb Heart Rate 102 /min BP Systolic 128 mmHg BP Diastolic 80 mmHg O2 % BldC Oximetry 96 % BMI (Body Mass Index) 50.9 kg/m2 02/04/2018 2:20pm Height 70 inches 5'10" Weight 365.00 lb Heart Rate 99 /min BP Systolic 135 mmHg BP Diastolic 80 mmHg Body Temperature 97.8 F O2 % BldC Oximetry 95 % BMI (Body Mass Index) 52.4 kg/m2 01/28/2018 11:24am Weight 359.00 lb Heart Rate 98 /min BP Systolic 130 mmHg BP Diastolic 80 mmHg O2 % BldC Oximetry 95 % 01/20/2018 9:04am Height 70 inches 5'10" Weight 345.00 lb Heart Rate 101 /min BP Systolic 125 mmHg BP Diastolic 70 mmHg Body Temperature 97.0 F O2 % BldC Oximetry 95 % BMI (Body Mass Index) 49.5 kg/m2 01/12/2018 8:43am Height 70 inches 5'10" Weight 324.12 lb boots and tools Heart Rate 103 /min BP Systolic 140 mmHg BP Diastolic 90 mmHg Body Temperature 101.1 F O2 % BldC Oximetry 93 % BMI (Body Mass Index) 46.5 kg/m2 01/02/2018 8:31am Height 70 inches 5'10" Weight 332.00 lb Heart Rate 85 /min BP Systolic Sitting 120 mmHg BP Diastolic Sitting 80 mmHg Body Temperature 96.7 F O2 % BldC Oximetry 95 % BMI (Body Mass Index) 47.6 kg/m2 12/23/2017 4:05pm Weight 326.00 lb Heart Rate 95 /min BP Systolic 118 mmHg BP Diastolic 61 mmHg Body Temperature 97.0 F O2 % BldC Oximetry 95 % 12/12/2017 8:47am Heart Rate 84 /min BP Systolic Sitting 140 mmHg BP Diastolic Sitting 80 mmHg Body Temperature 96.0 F O2 % BldC Oximetry 94 % 12/03/2017 12:57pm Height 70 inches 5'10" Weight 300.00 lb per pt Heart Rate 82 /min BP Systolic Sitting 118 mmHg Rue large cuff BP Diastolic Sitting 80 mmHg Rue large cuff Respiratory Rate 16 /min O2 % BldC Oximetry 94 % On Ra BMI (Body Mass Index) 43.0 kg/m2 Neck Circumference in inches 19 11/24/2017 2:46pm Weight 310.00 lb Heart Rate 78 /min BP Systolic 130 mmHg BP Diastolic 63 mmHg Body Temperature 97.3 F O2 % BldC Oximetry 98 % 10/24/2017 8:52am Weight 311.00 lb Heart Rate 87 /min BP Systolic Sitting 120 mmHg BP Diastolic Sitting 70 mmHg Body Temperature 96.9 F O2 % BldC Oximetry 95 % 10/21/2017 10:59am Height 69 inches 5'9" Weight 314.00 lb Heart Rate 84 /min BP Systolic 130 mmHg BP Diastolic 88 mmHg Respiratory Rate 16 /min BMI (Body Mass Index) 46.4 kg/m2 10/07/2017 4:04pm Weight 306.00 lb Heart Rate 112 /min BP Systolic Sitting 126 mmHg BP Diastolic Sitting 80 mmHg Body Temperature 96.6 F O2 % BldC Oximetry 94 % 09/17/2017 2:40pm Weight 303.00 lb w/clothes/boots Heart Rate 82 /min BP Systolic Sitting 140 mmHg BP Diastolic Sitting 82 mmHg Body Temperature 96.7 F O2 % BldC Oximetry 96 % 09/08/2017 8:57am Height 69 inches 5'9" Weight 300.00 lb BP Systolic 134 mmHg BP Diastolic 88 mmHg Body Temperature 96.3 F Pain Level 3 BMI (Body Mass Index) 44.3 kg/m2 09/02/2017 8:50am Height 69 inches 5'9" Weight 300.00 lb Heart Rate 80 /min BP Systolic 140 mmHg BP Diastolic 96 mmHg Respiratory Rate 14 /min BMI (Body Mass Index) 44.3 kg/m2 08/26/2017 8:56am Weight 298.00 lb Heart Rate 66 /min BP Systolic Sitting 125 mmHg BP Diastolic Sitting 90 mmHg Body Temperature 96.8 F Pain Level 8 back and feet O2 % BldC Oximetry 94 % 08/13/2017 3:33pm Height 70 inches 5'10" Weight 300.00 lb Heart Rate 91 /min BP Systolic 140 mmHg BP Diastolic 93 mmHg Body Temperature 97.1 F BMI (Body Mass Index) 43.0 kg/m2 08/12/2017 8:04am Height 70 inches 5'10" Weight 300.12 lb Heart Rate 73 /min BP Systolic 128 mmHg BP Diastolic 72 mmHg Body Temperature 97.8 F O2 % BldC Oximetry 97 % BMI (Body Mass Index) 43.1 kg/m2 07/31/2017 1:46pm Height 70 inches 5'10" Weight 297.00 lb Respiratory Rate 20 /min Pain Level 0 BMI (Body Mass Index) 42.6 kg/m2 07/31/2017 9:13am Height 70 inches 5'10" Weight 300.38 lb Heart Rate 79 /min BP Systolic 136 mmHg BP Diastolic 84 mmHg Body Temperature 98.1 F O2 % BldC Oximetry 96 % BMI (Body Mass Index) 43.1 kg/m2 07/24/2017 2:31pm Height 70 inches 5'10" Weight 297.31 lb Heart Rate 85 /min BP Systolic 130 mmHg BP Diastolic 72 mmHg Body Temperature 98.7 F O2 % BldC Oximetry 99 % BMI (Body Mass Index) 42.7 kg/m2 07/17/2017 1:22pm Height 70 inches 5'10" Weight 295.00 lb BP Systolic 130 mmHg BP Diastolic 82 mmHg Respiratory Rate 20 /min Body Temperature 97.3 F Pain Level 8 BMI (Body Mass Index) 42.3 kg/m2 07/01/2017 8:18am Height 70 inches 5'10" Weight 295.38 lb Heart Rate 87 /min BP Systolic 138 mmHg BP Diastolic 76 mmHg Body Temperature 97.1 F O2 % BldC Oximetry 95 % BMI (Body Mass Index) 42.4 kg/m2 06/17/2017 8:38am Height 70 inches 5'10" Weight 300.00 lb Heart Rate 102 /min BP Systolic 118 mmHg BP Diastolic 66 mmHg Body Temperature 97.9 F O2 % BldC Oximetry 92 % BMI (Body Mass Index) 43.0 kg/m2 Glucose Meter 5 06/11/2017 9:03am Height 70 inches 5'10" Weight 281.50 lb Heart Rate 68 /min BP Systolic 130 mmHg BP Diastolic 70 mmHg Body Temperature 96.8 F O2 % BldC Oximetry 98 % BMI (Body Mass Index) 40.4 kg/m2 05/20/2017 1:14pm Weight 265.00 lb Heart Rate 88 /min BP Systolic Sitting 140 mmHg BP Diastolic Sitting 90 mmHg Respiratory Rate 14 /min 05/15/2017 9:17am Weight 285.38 lb Heart Rate 68 /min BP Systolic Sitting 124 mmHg BP Diastolic Sitting 72 mmHg Body Temperature 96.5 F O2 % BldC Oximetry 97 % 05/09/2017 1:46pm Height 69 inches 5'9" Weight 286.00 lb Heart Rate 86 /min BP Systolic 122 mmHg BP Diastolic 70 mmHg Body Temperature 96.7 F O2 % BldC Oximetry 95 % BMI (Body Mass Index) 42.2 kg/m2 05/07/2017 5:05pm Heart Rate 87 /min BP Systolic 126 mmHg BP Diastolic 74 mmHg Body Temperature 97.4 F O2 % BldC Oximetry 97 % 04/25/2017 10:42am Height 70 inches 5'10" Weight 286.00 lb Heart Rate 77 /min BP Systolic Sitting 130 mmHg BP Diastolic Sitting 70 mmHg Body Temperature 97.2 F O2 % BldC Oximetry 97 % BMI (Body Mass Index) 41.0 kg/m2 04/01/2017 11:10am Height 70 inches 5'10" Weight 295.00 lb Heart Rate 68 /min BP Systolic Sitting 128 mmHg BP Diastolic Sitting 84 mmHg Respiratory Rate 14 /min BMI (Body Mass Index) 42.3 kg/m2 03/13/2017 9:44am Weight 295.12 lb Heart Rate 78 /min BP Systolic 120 mmHg BP Diastolic 72 mmHg Body Temperature 96.9 F O2 % BldC Oximetry 97 % 01/24/2017 11:26am Weight 291.00 lb Heart Rate 76 /min BP Systolic Sitting 144 mmHg BP Diastolic Sitting 86 mmHg Body Temperature 97.5 F O2 % BldC Oximetry 97 % 01/10/2017 11:06am Weight 296.00 lb Heart Rate 82 /min BP Systolic Sitting 146 mmHg BP Diastolic Sitting 82 mmHg Body Temperature 97.4 F O2 % BldC Oximetry 96 % 12/30/2016 10:56am Height 71 inches 5'11" Weight 299.00 lb Heart Rate 62 /min BP Systolic Sitting 133 mmHg BP Diastolic Sitting 74 mmHg Body Temperature 97.2 F O2 % BldC Oximetry 97 % BMI (Body Mass Index) 41.7 kg/m2 12/20/2016 1:27pm Height 71 inches 5'11" Weight 292.38 lb Heart Rate 86 /min BP Systolic Sitting 142 mmHg BP Diastolic Sitting 82 mmHg Body Temperature 97.6 F O2 % BldC Oximetry 98 % BMI (Body Mass Index) 40.8 kg/m2 Results Test Date Facility Test Result H/L Range Note Drug Abuse 12/08/2018 [facility] Urine Amphetamine Negative ng/ mL 1, 2 [address] [place] [address] [phone] Urine Barbiturates Negative ng/mL 3 Urine Benzodiazepines Negative ng/mL 4 Urine Cocaine Negative ng/mL 5 Urine Phencyclidine Negative ng/mL Cutoff: 25 Urine Tetrahydrocannabinol Negative ng/mL Cutoff: 50 6 Creatinine, Urine 90.7 mg/dL Specific [place] 1.016 pH 6.1 Oxidants Negative 7 Adulterants Comment Normal Codeine, Ur Not Detected ng/mL Cutoff: 25 8 Jqznttt-5-sxzr-glucuronide, Ur Not Detected ng/mL 9 Morphine, Ur Not Detected ng/mL Cutoff: 25 10 Tiaktvlp-7-gaup-glucuronide, U Not Detected ng/mL 11 6-monoacetylmorphine, Ur Not Detected ng/mL Cutoff: 25 12 Hydrocodone, Ur Not Detected ng/mL Cutoff: 25 13 Norhydrocodone, Ur Not Detected ng/mL Cutoff: 25 14 Dihydrocodeine, Ur Not Detected ng/mL Cutoff: 25 15 Hydromorphone, Ur Not Detected ng/mL Cutoff: 25 16 Qwtsavghcaoiu6ulfppxaefmbffbs Not Detected ng/mL 17 Oxycodone, Ur Not Detected ng/mL Cutoff: 25 18 Noroxycodone, Ur Not Detected ng/mL Cutoff: 25 19 Oxymorphone, Ur Not Detected ng/mL Cutoff: 25 20 Emanpouzofl-7-udrf-glucuronide Not Detected ng/mL 21 Noroxymorphone, Ur Not Detected ng/mL Cutoff: 25 22 Fentanyl, Ur Not Detected ng/mL Cutoff: 2 23 Norfentanyl, Ur Not Detected ng/mL Cutoff: 2 24 Meperidine, Ur Not Detected ng/mL Cutoff: 25 25 Normeperidine, Ur Not Detected ng/mL Cutoff: 25 26 Naloxone, Ur Not Detected ng/mL Cutoff: 25 27 Ozupmjkg-9-oqya-glucuronide, U Present ng/mL Abnormal 28 Methadone, Ur Not Detected ng/mL Cutoff: 25 29 Eddp, Ur Not Detected ng/mL Cutoff: 25 30 Propoxyphene, Ur Not Detected ng/mL Cutoff: 25 31 Norpropoxyphene, Ur Not Detected ng/mL Cutoff: 25 32 Tramadol, Ur Present ng/mL Abnormal Cutoff: 25 33 O-desmethyltramadol, Ur Present ng/mL Abnormal Cutoff: 25 34 Tapentadol, Ur Not Detected ng/mL Cutoff: 25 35 N-desmethyltapentadol, Ur Not Detected ng/mL Cutoff: 50 36 Cakkieecvd-ehok-honqatslwci, U Not Detected ng/mL 37 Buprenorphine, Ur Present ng/mL Abnormal Cutoff: 5 38 Norbuprenorphine, Ur Present ng/mL Abnormal Cutoff: 5 39 Norbuprenorphine glucuronide Present ng/mL Abnormal Cutoff: 20 40 Opioid Interpretation See Comment 41 CBC Auto Diff 11/16/2018 [facility] White Blood 4.5 10^3/uL N 3.5-10.[address] [place] [address] [phone] Red Blood Count 3.81 10^6/uL Low 4.00-5.40 Hemoglobin 11.3 g/dL Low 14.0-18.0 Hematocrit 33 % Low 42-52 Mean Corpuscular Volume 87 fL N 80-94 Mean Corpuscular Hemoglobin 30 pg N 27-31 Mean Corpuscular HGB Conc 34 g/dL N 31-36 Red Cell Distribution Width 14 % N 10.5-15 Platelet Count 224 10^3/uL N 150-450 Mean Platelet Volume 7.9 fL N 7.4-10.4 Abs Neutrophils 2.5 10^3/uL N 1.5-7.7 Abs Lymphocytes 1.3 10^3/uL N 1.0-4.8 Abs Monocytes 0.4 10^3/uL N 0-0.8 Abs Eosinophils 0.3 10^3/uL N 0-0.6 Abs Basophils 0.1 10^3/uL N 0-0.2 Abs Nucleated RBC 0 10^3/uL Granulocyte % 56.0 % Lymphocyte % 27.6 % Monocyte % 8.6 % Eosinophil % 6.6 % Basophil % 1.2 % Nucleated Red Blood Cells % 0 Drug Abuse 08/05/2018 [facility] Urine Amphetamine Negative ng/ mL 42, 43 [address] [place] [address] [phone] Urine Barbiturates Negative ng/mL 44 Urine Benzodiazepines Negative ng/mL 45 Urine Cocaine Negative ng/mL 46 Urine Phencyclidine Negative ng/mL Cutoff: 25 Urine Tetrahydrocannabinol Negative ng/mL Cutoff: 50 47 Creatinine, Urine 55.3 mg/dL Specific [place] 1.010 pH 5.1 Oxidants Negative 48 Adulterants Comment Normal Codeine, Ur Not Detected ng/mL Cutoff: 25 49 Ymxunck-2-wken-glucuronide, Ur Not Detected ng/mL 50 Morphine, Ur Not Detected ng/mL Cutoff: 25 51 Cgmxikcw-7-voua-glucuronide, U Not Detected ng/mL 52 6-monoacetylmorphine, Ur Not Detected ng/mL Cutoff: 25 53 Hydrocodone, Ur Not Detected ng/mL Cutoff: 25 54 Norhydrocodone, Ur Not Detected ng/mL Cutoff: 25 55 Dihydrocodeine, Ur Not Detected ng/mL Cutoff: 25 56 Hydromorphone, Ur Not Detected ng/mL Cutoff: 25 57 Ksypupzipuzwx5vaaxsywdgfvpjoa Not Detected ng/mL 58 Oxycodone, Ur Not Detected ng/mL Cutoff: 25 59 Noroxycodone, Ur Not Detected ng/mL Cutoff: 25 60 Oxymorphone, Ur Not Detected ng/mL Cutoff: 25 61 Lhxqjsgfodg-2-vxbg-glucuronide Not Detected ng/mL 62 Noroxymorphone, Ur Not Detected ng/mL Cutoff: 25 63 Fentanyl, Ur Not Detected ng/mL Cutoff: 2 64 Norfentanyl, Ur Not Detected ng/mL Cutoff: 2 65 Meperidine, Ur Not Detected ng/mL Cutoff: 25 66 Normeperidine, Ur Not Detected ng/mL Cutoff: 25 67 Naloxone, Ur Not Detected ng/mL Cutoff: 25 68 Dfjxblfz-3-zseh-glucuronide, U Present ng/mL Abnormal 69 Methadone, Ur Not Detected ng/mL Cutoff: 25 70 Eddp, Ur Not Detected ng/mL Cutoff: 25 71 Propoxyphene, Ur Not Detected ng/mL Cutoff: 25 72 Norpropoxyphene, Ur Not Detected ng/mL Cutoff: 25 73 Tramadol, Ur Not Detected ng/mL Cutoff: 25 74 O-desmethyltramadol, Ur Not Detected ng/mL Cutoff: 25 75 Tapentadol, Ur Not Detected ng/mL Cutoff: 25 76 N-desmethyltapentadol, Ur Not Detected ng/mL Cutoff: 50 77 Pzblflpgay-sqbn-nwtetbbqcxv, U Not Detected ng/mL 78 Buprenorphine, Ur Present ng/mL Abnormal Cutoff: 5 79 Norbuprenorphine, Ur See Comment ng/mL Cutoff: 5 80 Norbuprenorphine glucuronide Present ng/mL Abnormal Cutoff: 20 81 Opioid Interpretation See Comment 82 Drug Abuse 05/14/2018 [facility] Urine Amphetamine Negative ng/ mL 83, 84 [address] [place] [address] [phone] Urine Barbiturates Negative ng/mL 85 Urine Benzodiazepines Negative ng/mL 86 Urine Cocaine Negative ng/mL 87 Urine Phencyclidine Negative ng/mL Cutoff: 25 Urine Tetrahydrocannabinol Negative ng/mL Cutoff: 50 88 Creatinine, Urine 133.0 mg/dL Specific [place] 1.014 pH 6.1 Oxidants Negative 89 Adulterants Comment Normal Codeine, Ur Not Detected ng/mL Cutoff: 25 90 Mkzdkze-9-exum-glucuronide, Ur Not Detected ng/mL 91 Morphine, Ur Not Detected ng/mL Cutoff: 25 92 Kkxlghdt-3-hoav-glucuronide, U Not Detected ng/mL 93 6-monoacetylmorphine, Ur Not Detected ng/mL Cutoff: 25 94 Hydrocodone, Ur Not Detected ng/mL Cutoff: 25 95 Norhydrocodone, Ur Not Detected ng/mL Cutoff: 25 96 Dihydrocodeine, Ur Not Detected ng/mL Cutoff: 25 97 Hydromorphone, Ur Not Detected ng/mL Cutoff: 25 98 Aelqirshqajna7osrlgnfuqyzvzfx Not Detected ng/mL 99 Oxycodone, Ur Not Detected ng/mL Cutoff: 25 100 Noroxycodone, Ur Not Detected ng/mL Cutoff: 25 101 Oxymorphone, Ur Not Detected ng/mL Cutoff: 25 102 Pswzyiohwyn-0-uzwd-glucuronide Not Detected ng/mL 103 Noroxymorphone, Ur Not Detected ng/mL Cutoff: 25 104 Fentanyl, Ur Not Detected ng/mL Cutoff: 2 105 Norfentanyl, Ur Not Detected ng/mL Cutoff: 2 106 Meperidine, Ur Not Detected ng/mL Cutoff: 25 107 Normeperidine, Ur Not Detected ng/mL Cutoff: 25 108 Naloxone, Ur Not Detected ng/mL Cutoff: 25 109 Qmwvyimx-5-zwae-glucuronide, U Not Detected ng/mL 110 Methadone, Ur Not Detected ng/mL Cutoff: 25 111 Eddp, Ur Not Detected ng/mL Cutoff: 25 112 Propoxyphene, Ur Not Detected ng/mL Cutoff: 25 113 Norpropoxyphene, Ur Not Detected ng/mL Cutoff: 25 114 Tramadol, Ur Not Detected ng/mL Cutoff: 25 115 O-desmethyltramadol, Ur Not Detected ng/mL Cutoff: 25 116 Tapentadol, Ur Not Detected ng/mL Cutoff: 25 117 N-desmethyltapentadol, Ur Not Detected ng/mL Cutoff: 50 118 Tsurfirzll-term-cyjtzdijnar, U Not Detected ng/mL 119 Buprenorphine, Ur Not Detected ng/mL Cutoff: 5 120 Norbuprenorphine, Ur Present ng/mL Abnormal Cutoff: 5 121 Norbuprenorphine glucuronide Present ng/mL Abnormal Cutoff: 20 122 Opioid Interpretation See Comment 123 Stool Occult BLD 05/14/2018 [facility] Occult Blood - pos x3 1-3 SPCS Diag Stool CBC Auto Diff 04/07/2018 [facility] White Blood 4.7 10^3/uL N 3.5-10.[address] [place] [address] [phone] Red Blood Count 3.94 10^6/uL Low 4.00-5.40 Hemoglobin 11.4 g/dL Low 14.0-18.0 Hematocrit 34 % Low 42-52 Mean Corpuscular Volume 86 fL N 80-94 Mean Corpuscular Hemoglobin 29 pg N 27-31 Mean Corpuscular HGB Conc 34 g/dL N 31-36 Red Cell Distribution Width 14 % N 10.5-15 Platelet Count 242 10^3/uL N 150-450 Mean Platelet Volume 8.1 um3 N 7.4-10.4 Abs Neutrophils 2.3 10^3/uL N 1.5-7.7 Abs Lymphocytes 1.6 10^3/uL N 1.0-4.8 Abs Monocytes 0.5 10^3/uL N 0-0.8 Abs Eosinophils 0.3 10^3/uL N 0-0.6 Abs Basophils 0 10^3/uL N 0-0.2 Abs Nucleated RBC 0 10^3/uL Granulocyte % 49.6 % N 38-83 Lymphocyte % 34.0 % N 25-47 Monocyte % 9.9 % High 0-7 Eosinophil % 5.8 % N 0-6 Basophil % 0.7 % N 0-2 Nucleated Red Blood Cells % 0.1 Comp Metabolic Panel 04/07/2018 [facility] Sodium 140 mmol/L N 135-145 [address] [place] [address] [phone] Potassium 3.9 mmol/L N 3.5-5.0 Chloride 98 mmol/L Low 101-111 Co2 Carbon Dioxide 34 mmol/L High 22-32 Anion Gap 8 mmol/L N 2-11 Glucose 100 mg/dL N 70-100 Blood Urea Nitrogen 19 mg/dL N 6-24 Creatinine 0.91 mg/dL N 0.67-1.17 BUN/Creatinine Ratio 20.9 High 8-20 Calcium 8.9 mg/dL N 8.6-10.3 Total Protein 6.6 g/dL N 6.4-8.9 Albumin 4.0 g/dL N 3.2-5.2 Globulin 2.6 g/dL N 2-4 Albumin/Globulin Ratio 1.5 N 1-3 Total Bilirubin 0.40 mg/dL N 0.2-1.0 Alkaline Phosphatase 72 U/L N 34-104 Alt 22 U/L N 7-52 Ast 20 U/L N 13-39 Egfr Non- 91.8 >60 Egfr 111.1 >60 124 Iron & Iron Binding 04/07/2018 [facility] Iron 149 g/dL N 50 -212 Capacity [address] [place] [address] [phone] Unsaturated Iron Binding 249 g/dL Total Iron Binding Capacity 398 g/dL N 250-450 Transferrin 284 mg/dL N 203-362 % Iron Saturation 37 % N 15-55 Laboratory test finding 04/07/2018 [facility] Cortisol 6.49 g/ dL 125 [address] [place] [address] [phone] Ferritin 20.4 ng/mL Low 24-336 Folic Acid (Folate) > 20.00 ng/mL >3.99 Vitamin D Total 25(Oh) 34.7 ng/mL N 20-50 TSH (Thyroid Stim Horm) 2.93 mcIU/mL N 0.34-5.60 Vitamin B12 378 pg/mL N 180-914 126 Vitamin B1 (Whole Blood) 218 nmol/L Abnormal 70-180 127 Vitamin E Level 7.9 mg/L 5.5 - 17.0 128 Laboratory test 03/10/2018 [facility] TSH (Thyroid 3.25 mcIU/mL N 0.34-5.[address] Stim [place]orm) [place] [address] [phone] Urinalysis 02/11/2018 [facility] Urine Color Yellow Profile [address] [place] [address] [phone] Urine Appearance Clear Urine Specific [place] 1.017 N 1.010-1.030 Urine pH 6.0 N 5-9 Urine Urobilinogen Negative Negative Urine Ketones Negative Negative Urine Protein Negative Negative Urine Leukocytes Negative Negative Urine Blood Negative Negative * * Abnormal Negative 129 Urine Nitrite Negative Negative Urine Bilirubin Negative Negative Urine Glucose Negative Negative CBC Auto Diff 02/10/2018 [facility] White Blood 3.7 10^3/uL N 3.5-10.[address] [place] [address] [phone] Red Blood Count 3.80 10^6/uL Low 4.0-5.4 Hemoglobin 11.2 g/dL Low 14.0-18.0 Hematocrit 33 % Low 42-52 Mean Corpuscular Volume 87 fL N 80-94 Mean Corpuscular Hemoglobin 30 pg N 27-31 Mean Corpuscular HGB Conc 34 g/dL N 31-36 Red Cell Distribution Width 14 % N 10.5-15 Platelet Count 224 10^3/uL N 150-450 Mean Platelet Volume 7.0 um3 Low 7.4-10.4 Abs Neutrophils 2.0 10^3/uL N 1.5-7.7 Abs Lymphocytes 1.0 10^3/uL N 1.0-4.8 Abs Monocytes 0.4 10^3/uL N 0-0.8 Abs Eosinophils 0.3 10^3/uL N 0-0.6 Abs Basophils 0 10^3/uL N 0-0.2 Abs Nucleated RBC 0 10^3/uL Granulocyte % 53.2 % N 38-83 Lymphocyte % 28.0 % N 25-47 Monocyte % 9.6 % High 0-7 Eosinophil % 8.3 % High 0-6 Basophil % 0.9 % N 0-2 Nucleated Red Blood Cells % 0.1 Laboratory test 02/10/2018 [facility] Lactic Acid 1.7 mmol/L N 0.5-2.0 130 finding [address] [place] [address] [phone] Comp Metabolic 02/10/2018 [facility] Sodium 140 mmol/L N 139- 145 Panel [address] [place] [address] [phone] Potassium 4.0 mmol/L N 3.5-5.0 Chloride 104 mmol/L N 101-111 Co2 Carbon Dioxide 29 mmol/L N 22-32 Anion Gap 7 mmol/L N 2-11 Glucose 91 mg/dL N 70-100 Blood Urea Nitrogen 19 mg/dL N 6-24 Creatinine 0.79 mg/dL N 0.67-1.17 BUN/Creatinine Ratio 24.1 High 8-20 Calcium 9.0 mg/dL N 8.6-10.3 Total Protein 6.9 g/dL N 6.4-8.9 Albumin 3.9 g/dL N 3.2-5.2 Globulin 3.0 g/dL N 2-4 Albumin/Globulin Ratio 1.3 N 1-3 Total Bilirubin 0.40 mg/dL N 0.2-1.0 Alkaline Phosphatase 88 U/L N 34-104 Alt 26 U/L N 7-52 Ast 20 U/L N 13-39 Egfr Non- 108.1 >60 Egfr 139.0 >60 131 Laboratory test 02/10/2018 [facility] C Reactive 15.97 mg/L High < 5.00 132 finding 101 [facility] [place] [address] [phone] Lipase 13 U/L N 11.0-82.0 Hemoglobin A1c (Glyco HGB) 5.4 % N 4.0-5.6 133 Blood Culture SEE RESULT BELOW 134 Urinalysis Profile 02/05/2018 [facility] Urine Color Yellow [address] [place] [address] [phone] Urine Appearance Clear Urine Specific [place] 1.013 N 1.010-1.030 Urine pH 6.0 N 5-9 Urine Urobilinogen Negative Negative Urine Ketones Negative Negative Urine Protein Negative Negative Urine Leukocytes Trace Abnormal Negative Urine Blood Negative Negative * * Abnormal Negative 135 Urine Nitrite Negative Negative Urine Bilirubin Negative Negative Urine Glucose Negative Negative Urine White Blood Cell Trace(0-5/hpf) Absent Urine Red Blood Cell Trace(0-2/hpf) Absent Urine Bacteria Absent Absent Urine Culture And 02/05/2018 [facility] Urine Culture SEE RESULT [address] [place] [address] [phone] CBC Auto Diff 02/05/2018 [facility] White Blood 4.3 10^3/uL N 3.5-[address] Count 0.8 [place] [address] [phone] Red Blood Count 3.97 10^6/uL Low 4.0-5.4 Hemoglobin 11.6 g/dL Low 14.0-18.0 Hematocrit 34 % Low 42-52 Mean Corpuscular Volume 86 fL N 80-94 Mean Corpuscular Hemoglobin 29 pg N 27-31 Mean Corpuscular HGB Conc 34 g/dL N 31-36 Red Cell Distribution Width 14 % N 10.5-15 Platelet Count 194 10^3/uL N 150-450 Mean Platelet Volume 7.2 um3 Low 7.4-10.4 Abs Neutrophils 2.6 10^3/uL N 1.5-7.7 Abs Lymphocytes 1.0 10^3/uL N 1.0-4.8 Abs Monocytes 0.4 10^3/uL N 0-0.8 Abs Eosinophils 0.3 10^3/uL N 0-0.6 Abs Basophils 0 10^3/uL N 0-0.2 Abs Nucleated RBC 0 10^3/uL Granulocyte % 59.8 % N 38-83 Lymphocyte % 24.4 % Low 25-47 Monocyte % 8.9 % High 0-7 Eosinophil % 6.2 % High 0-6 Basophil % 0.7 % N 0-2 Nucleated Red Blood Cells % 0.1 Inr/Protime 02/05/2018 [facility] Inr 0.88 N 0.77-1.[address] [place] [address] [phone] Laboratory test 02/05/2018 [facility] Partial 33.0 seconds N 26.0-36.[address] [place] [address] PTT [phone] CBC Auto Diff 02/04/2018 [facility] White Blood 7.3 10^3/uL N 3.5-10.[address] [place] [address] [phone] Red Blood Count 3.90 10^6/uL Low 4.0-5.4 Hemoglobin 11.5 g/dL Low 14.0-18.0 Hematocrit 33 % Low 42-52 Mean Corpuscular Volume 86 fL N 80-94 Mean Corpuscular Hemoglobin 29 pg N 27-31 Mean Corpuscular HGB Conc 34 g/dL N 31-36 Red Cell Distribution Width 14 % N 10.5-15 Platelet Count 200 10^3/uL N 150-450 Mean Platelet Volume 7.2 um3 Low 7.4-10.4 Abs Neutrophils 5.1 10^3/uL N 1.5-7.7 Abs Lymphocytes 1.2 10^3/uL N 1.0-4.8 Abs Monocytes 0.5 10^3/uL N 0-0.8 Abs Eosinophils 0.3 10^3/uL N 0-0.6 Abs Basophils 0 10^3/uL N 0-0.2 Abs Nucleated RBC 0 10^3/uL Granulocyte % 71.1 % N 38-83 Lymphocyte % 16.2 % Low 25-47 Monocyte % 7.5 % High 0-7 Eosinophil % 4.6 % N 0-6 Basophil % 0.6 % N 0-2 Nucleated Red Blood Cells % 0 Laboratory 02/04/2018 [facility] Erythrocyte Sed 31 mm/Hr High 0-14 test finding [address] [place] [address] [phone] Wound 02/04/2018 [facility] Wound/Misc SEE 137, Culture/Sensi [address] Culture-Gram RESULT 138 [place] [address] Stain BELOW [phone] Laboratory 01/29/2018 [facility] B-Type 8 pg/mL 139 test finding [address] [place] [address] Peptide BNP [phone] Comp Metabolic 01/28/2018 [facility] Sodium 137 Low 139-[address] mmol/[place] [address] [phone] Potassium 4.3 mmol/L N 3.5-5.0 Chloride 100 mmol/L Low 101-111 Co2 Carbon Dioxide 29 mmol/L N 22-32 Anion Gap 8 mmol/L N 2-11 Glucose 104 mg/dL High 70-100 Blood Urea Nitrogen 22 mg/dL N 6-24 Creatinine 0.72 mg/dL N 0.67-1.17 BUN/Creatinine Ratio 30.6 High 8-20 Calcium 9.2 mg/dL N 8.6-10.3 Total Protein 6.7 g/dL N 6.4-8.9 Albumin 4.0 g/dL N 3.2-5.2 Globulin 2.7 g/dL N 2-4 Albumin/Globulin Ratio 1.5 N 1-3 Total Bilirubin 0.60 mg/dL N 0.2-1.0 Alkaline Phosphatase 70 U/L N 34-104 Alt 24 U/L N 7-52 Ast 17 U/L N 13-39 Egfr Non- 120.3 >60 Egfr 154.7 >60 140 Laboratory test 01/28/2018 [facility] Magnesium 1.9 mg/dL N 1.9-2.[address] [place] [address] [phone] Laboratory test 01/12/2018 [facility] Erythrocyte Sed 24 mm/Hr High 0-[address] [place] [address] [phone] Uric Acid 6.0 mg/dL N 4.4-7.6 Laboratory test 01/02/2018 [facility] TSH (Thyroid 1.51 mcIU/mL N 0.34-5.[address] Stim Horm) [place] [address] [phone] Cortisol 4.52 g/dL 141 CBC Auto Diff 01/02/2018 [facility] White Blood 4.1 10^3/uL N 3.5-10.[address] [place] [address] [phone] Red Blood Count 3.99 10^6/uL Low 4.0-5.4 Hemoglobin 11.8 g/dL Low 14.0-18.0 Hematocrit 35 % Low 42-52 Mean Corpuscular Volume 87 fL N 80-94 Mean Corpuscular Hemoglobin 30 pg N 27-31 Mean Corpuscular HGB Conc 34 g/dL N 31-36 Red Cell Distribution Width 14 % N 10.5-15 Platelet Count 206 10^3/uL N 150-450 Mean Platelet Volume 8.2 um3 N 7.4-10.4 Abs Neutrophils 2.0 10^3/uL N 1.5-7.7 Abs Lymphocytes 1.4 10^3/uL N 1.0-4.8 Abs Monocytes 0.4 10^3/uL N 0-0.8 Abs Eosinophils 0.2 10^3/uL N 0-0.6 Abs Basophils 0 10^3/uL N 0-0.2 Abs Nucleated RBC 0 10^3/uL Granulocyte % 48.9 % N 38-83 Lymphocyte % 34.2 % N 25-47 Monocyte % 10.3 % High 0-7 Eosinophil % 6.0 % N 0-6 Basophil % 0.6 % N 0-2 Nucleated Red Blood Cells % 0 Comp Metabolic Panel 01/02/2018 [facility] Sodium 138 mmol/L N 133-[address] [place] [address] [phone] Potassium 4.3 mmol/L N 3.5-5.0 Chloride 104 mmol/L N 101-111 Co2 Carbon Dioxide 28 mmol/L N 22-32 Anion Gap 6 mmol/L N 2-11 Glucose 99 mg/dL N 70-100 Blood Urea Nitrogen 14 mg/dL N 6-24 Creatinine 0.66 mg/dL Low 0.67-1.17 BUN/Creatinine Ratio 21.2 High 8-20 Calcium 9.0 mg/dL N 8.6-10.3 Total Protein 6.4 g/dL N 6.4-8.9 Albumin 4.0 g/dL N 3.2-5.2 Globulin 2.4 g/dL N 2-4 Albumin/Globulin Ratio 1.7 N 1-3 Total Bilirubin 0.40 mg/dL N 0.2-1.0 Alkaline Phosphatase 55 U/L N 34-104 Alt 26 U/L N 7-52 Ast 20 U/L N 13-39 Egfr Non- 133.0 >60 Egfr 171.1 >60 142 HIV 1/2 AB 01/02/2018 [facility] HIV 1 2 Nonreactive Nonreactive [address] [place] [address] [phone] Lipid 01/02/2018 [facility] Triglycerides 124 mg/dL [address] (Trig/[place] [address] DL) [phone] Cholesterol 147 mg/dL 145 HDL Cholesterol 53.8 mg/dL 146 LDL Cholesterol 68 mg/dL 147 Drug Abuse 09/17/2017 [facility] Urine Amphetamine Negative ng/ mL 148 [address] [place] [address] [phone] Urine Barbiturates Negative ng/mL 149 Urine Benzodiazepines Negative ng/mL 150 Urine Cocaine Negative ng/mL 151 Urine Phencyclidine Negative ng/mL Cutoff: 25 Urine Tetrahydrocannabinol Negative ng/mL Cutoff: 50 152 Creatinine, Urine 82.8 mg/dL Specific [place] 1.013 pH 5.9 Oxidants Negative 153 Adulterants Comment Normal Codeine, Ur Not Detected ng/mL Cutoff: 25 154 Macmewj-0-kfjv-glucuronide, Ur Not Detected ng/mL 155 Morphine, Ur Not Detected ng/mL Cutoff: 25 156 Ukfavdpy-9-cxty-glucuronide, U Not Detected ng/mL 157 6-monoacetylmorphine, Ur Not Detected ng/mL Cutoff: 25 158 Hydrocodone, Ur Not Detected ng/mL Cutoff: 25 159 Norhydrocodone, Ur Not Detected ng/mL Cutoff: 25 160 Dihydrocodeine, Ur Not Detected ng/mL Cutoff: 25 161 Hydromorphone, Ur Not Detected ng/mL Cutoff: 25 162 Xejqvteffsiny6veumybsmmwnmpyf Not Detected ng/mL 163 Oxycodone, Ur Not Detected ng/mL Cutoff: 25 164 Noroxycodone, Ur Not Detected ng/mL Cutoff: 25 165 Oxymorphone, Ur Not Detected ng/mL Cutoff: 25 166 Iowjzwiowrh-6-wlkx-glucuronide Not Detected ng/mL 167 Noroxymorphone, Ur Not Detected ng/mL Cutoff: 25 168 Fentanyl, Ur Not Detected ng/mL Cutoff: 2 169 Norfentanyl, Ur Not Detected ng/mL Cutoff: 2 170 Meperidine, Ur Not Detected ng/mL Cutoff: 25 171 Normeperidine, Ur Not Detected ng/mL Cutoff: 25 172 Naloxone, Ur Not Detected ng/mL Cutoff: 25 173 Blixyjcw-7-bxpr-glucuronide, U Not Detected ng/mL 174 Methadone, Ur Not Detected ng/mL Cutoff: 25 175 Eddp, Ur Not Detected ng/mL Cutoff: 25 176 Propoxyphene, Ur Not Detected ng/mL Cutoff: 25 177 Norpropoxyphene, Ur Not Detected ng/mL Cutoff: 25 178 Tramadol, Ur Present ng/mL Cutoff: 25 179 O-desmethyltramadol, Ur Present ng/mL Cutoff: 25 180 Tapentadol, Ur Not Detected ng/mL Cutoff: 25 181 N-desmethyltapentadol, Ur Not Detected ng/mL Cutoff: 50 182 Khphtmxiuy-eroy-oysutuzsotj, U Not Detected ng/mL 183 Buprenorphine, Ur Not Detected ng/mL Cutoff: 5 184 Norbuprenorphine, Ur Not Detected ng/mL Cutoff: 5 185 Norbuprenorphine glucuronide Not Detected ng/mL Cutoff: 20 186 Opioid Interpretation See Comment 187 Iron & Iron Binding 08/11/2017 [facility] Iron 165 g/dL N 50 -212 [address]acity [address] [address] [phone] Unsaturated Iron Binding 279 g/dL N Total Iron Binding Capacity 444 g/dL N 250-450 % Iron Saturation 37 % N 15-55 Vitamin B12 And 08/11/2017 [facility] Vitamin B12 382 pg/mL N 180-914 188 Folate Serum [address] [place] [address] [phone] Folic Acid (Folate) > 20.00 ng/mL N >3.99 CBC No Diff 07/29/2017 [facility] White Blood 5.3 10^3/uL N 3.5-10.[address] [place] [address] [phone] Red Blood Count 4.19 10^6/uL N 4.0-5.4 Hemoglobin 12.5 g/dL Low 14.0-18.0 Hematocrit 36 % Low 42-52 Mean Corpuscular Volume 86 fL N 80-94 Mean Corpuscular Hemoglobin 30 pg N 27-31 Mean Corpuscular HGB Conc 35 g/dL N 31-36 Red Cell Distribution Width 13 % N 10.5-15 Platelet Count 200 10^3/uL N 150-450 Mean Platelet Volume 7 um3 Low 7.4-10.4 CBC Auto Diff 07/29/2017 [facility] White Blood 5.4 10^3/uL N 3.5-10.[address] [place] [address] [phone] Red Blood Count 4.47 10^6/uL N 4.0-5.4 Hemoglobin 13.3 g/dL Low 14.0-18.0 Hematocrit 39 % Low 42-52 Mean Corpuscular Volume 87 fL N 80-94 Mean Corpuscular Hemoglobin 30 pg N 27-31 Mean Corpuscular HGB Conc 34 g/dL N 31-36 Red Cell Distribution Width 13 % N 10.5-15 Platelet Count 221 10^3/uL N 150-450 Mean Platelet Volume 8 um3 N 7.4-10.4 Abs Neutrophils 3.1 10^3/uL N 1.5-7.7 Abs Lymphocytes 1.6 10^3/uL N 1.0-4.8 Abs Monocytes 0.4 10^3/uL N 0-0.8 Abs Eosinophils 0.2 10^3/uL N 0-0.6 Abs Basophils 0 10^3/uL N 0-0.2 Abs Nucleated RBC 0 10^3/uL N Granulocyte % 57.9 % N 38-83 Lymphocyte % 29.6 % N 25-47 Monocyte % 7.7 % N 1-9 Eosinophil % 4.0 % N 0-6 Basophil % 0.8 % N 0-2 Nucleated Red Blood Cells % 0.1 N Laboratory test 07/29/2017 [facility] Lactic Acid 1.8 mmol/L N 0.5-2.0 189 finding 101 [place] [address] [phone] Inr/Protime 07/29/2017 [facility] Inr 0.86 Low 0.89-1.11 [address] [place] [address] [phone] Laboratory test 07/29/2017 [facility] Partial 33.4 N 26.0- 36.3 finding 101 [facility] [address] Time PTT [phone] Comp Metabolic 07/29/2017 [facility] Sodium 138 mmol/L N 133- 145 Panel [address] [place] [address] [phone] Potassium 4.0 mmol/L N 3.5-5.0 Chloride 104 mmol/L N 101-111 Co2 Carbon Dioxide 25 mmol/L N 22-32 Anion Gap 9 mmol/L N 2-11 Glucose 118 mg/dL High 70-100 Blood Urea Nitrogen 19 mg/dL N 6-24 Creatinine 0.76 mg/dL N 0.67-1.17 BUN/Creatinine Ratio 25.0 High 8-20 Calcium 9.1 mg/dL N 8.6-10.3 Total Protein 7.2 g/dL N 6.4-8.9 Albumin 4.2 g/dL N 3.2-5.2 Globulin 3.0 g/dL N 2-4 Albumin/Globulin Ratio 1.4 N 1-3 Total Bilirubin 0.50 mg/dL N 0.2-1.0 Alkaline Phosphatase 64 U/L N 34-104 Alt 21 U/L N 7-52 Ast 17 U/L N 13-39 Egfr Non- 113.0 N >60 Egfr 145.4 N >60 190 Laboratory test finding 07/29/2017 [facility] Lipase 11 U/L N 11.0-82.[address] [place] [address] [phone] C Reactive Protein 9.22 mg/L High < 5.00 191 Troponin-I (TnI) 0.00 ng/mL N <0.04 Laboratory test 07/07/2017 [facility] Blood Culture SEE RESULT [address] [place] [address] [phone] Wound 07/07/2017 [facility] Wound/Misc SEE RESULT 193 Culture/Sensi [address] [place] [address] Stain [phone] Laboratory test 07/07/2017 [facility] C Reactive 15.85 mg/L High < [address] Protein 5.00 [place] [address] [phone] Lactic Acid 0.7 mmol/L N 0.5-2.0 195 Comp Metabolic Panel 07/07/2017 [facility] Sodium 135 mmol/L N 133-[address] [place] [address] [phone] Potassium 4.2 mmol/L N 3.5-5.0 Chloride 103 mmol/L N 101-111 Co2 Carbon Dioxide 27 mmol/L N 22-32 Anion Gap 5 mmol/L N 2-11 Glucose 92 mg/dL N 70-100 Blood Urea Nitrogen 12 mg/dL N 6-24 Creatinine 0.66 mg/dL Low 0.67-1.17 BUN/Creatinine Ratio 18.2 N 8-20 Calcium 8.6 mg/dL N 8.6-10.3 Total Protein 7.0 g/dL N 6.4-8.9 Albumin 4.0 g/dL N 3.2-5.2 Globulin 3.0 g/dL N 2-4 Albumin/Globulin Ratio 1.3 N 1-3 Total Bilirubin 0.40 mg/dL N 0.2-1.0 Alkaline Phosphatase 58 U/L N 34-104 Alt 14 U/L N 7-52 Ast 15 U/L N 13-39 Egfr Non- 133.0 N >60 Egfr 171.1 N >60 196 Laboratory test 07/07/2017 [facility] Partial 32.7 seconds N 26.0-36.[address] [place] [address] PTT [phone] Inr/Protime 07/07/2017 [facility] Inr 0.81 Low 0.89-1.[address] [place] [address] [phone] CBC Auto Diff 07/07/2017 [facility] White Blood 5.9 10^3/uL N 3.5-10.[address] [place] [address] [phone] Red Blood Count 4.43 10^6/uL N 4.0-5.4 Hemoglobin 13.3 g/dL Low 14.0-18.0 Hematocrit 39 % Low 42-52 Mean Corpuscular Volume 87 fL N 80-94 Mean Corpuscular Hemoglobin 30 pg N 27-31 Mean Corpuscular HGB Conc 34 g/dL N 31-36 Red Cell Distribution Width 13 % N 10.5-15 Platelet Count 206 10^3/uL N 150-450 Mean Platelet Volume 8 um3 N 7.4-10.4 Abs Neutrophils 3.4 10^3/uL N 1.5-7.7 Abs Lymphocytes 1.7 10^3/uL N 1.0-4.8 Abs Monocytes 0.4 10^3/uL N 0-0.8 Abs Eosinophils 0.3 10^3/uL N 0-0.6 Abs Basophils 0 10^3/uL N 0-0.2 Abs Nucleated RBC 0 10^3/uL N Granulocyte % 57.9 % N 38-83 Lymphocyte % 29.3 % N 25-47 Monocyte % 7.4 % N 1-9 Eosinophil % 4.6 % N 0-6 Basophil % 0.8 % N 0-2 Nucleated Red Blood Cells % 0 N Laboratory test 07/07/2017 [facility] Blood Culture SEE RESULT [address] [place] [address] [phone] CBC Auto Diff 06/14/2017 [facility] White Blood 7.9 10^3/uL N 3.5-[address] Count .8 [place] [address] [phone] Red Blood Count 4.55 10^6/uL N 4.0-5.4 Hemoglobin 13.6 g/dL Low 14.0-18.0 Hematocrit 40 % Low 42-52 Mean Corpuscular Volume 87 fL N 80-94 Mean Corpuscular Hemoglobin 30 pg N 27-31 Mean Corpuscular HGB Conc 34 g/dL N 31-36 Red Cell Distribution Width 13 % N 10.5-15 Platelet Count 214 10^3/uL N 150-450 Mean Platelet Volume 8 um3 N 7.4-10.4 Abs Neutrophils 4.8 10^3/uL N 1.5-7.7 Abs Lymphocytes 2.1 10^3/uL N 1.0-4.8 Abs Monocytes 0.6 10^3/uL N 0-0.8 Abs Eosinophils 0.3 10^3/uL N 0-0.6 Abs Basophils 0.1 10^3/uL N 0-0.2 Abs Nucleated RBC 0.01 10^3/uL N Granulocyte % 61.5 % N 38-83 Lymphocyte % 26.7 % N 25-47 Monocyte % 7.4 % N 1-9 Eosinophil % 3.4 % N 0-6 Basophil % 1.0 % N 0-2 Nucleated Red Blood Cells % 0.1 N Laboratory test 06/14/2017 [facility] Lactic Acid 1.6 mmol/L N 0.5-2.0 [address] [place] [address] [phone] Comp Metabolic 06/14/2017 [facility] Sodium 138 mmol/L N 133- [address] [place] [address] [phone] Chloride 108 mmol/L N 101-111 Co2 Carbon Dioxide 23 mmol/L N 22-32 Glucose 105 mg/dL High 70-100 Blood Urea Nitrogen 21 mg/dL N 6-24 Creatinine 0.73 mg/dL N 0.67-1.17 BUN/Creatinine Ratio 28.8 High 8-20 Calcium 9.0 mg/dL N 8.6-10.3 Total Protein 7.0 g/dL N 6.4-8.9 Albumin 4.0 g/dL N 3.2-5.2 Globulin 3.0 g/dL N 2-4 Albumin/Globulin Ratio 1.3 N 1-3 Total Bilirubin 0.40 mg/dL N 0.2-1.0 Alkaline Phosphatase 51 U/L N 34-104 Alt 18 U/L N 7-52 Egfr Non- 119.0 N >60 Egfr 153.0 N >60 199 Potassium 4.2 mmol/L N 3.5-5.0 Anion Gap 7 mmol/L N 2-11 Ast 14 U/L N 13-39 Laboratory test 06/14/2017 [facility] Magnesium 2.0 mg/dL N 1.9-2.[address] [place] [address] [phone] Creatine Kinase(CK) 62 U/L N 10-223 TSH (Thyroid Stim Horm) 0.99 mcIU/mL N 0.34-5.60 CBC Auto Diff 06/09/2017 [facility] White Blood 5.8 10^3/uL N 3.5-10.[address] [place] [address] [phone] Red Blood Count 4.42 10^6/uL N 4.0-5.4 Hemoglobin 13.2 g/dL Low 14.0-18.0 Hematocrit 38 % Low 42-52 Mean Corpuscular Volume 87 fL N 80-94 Mean Corpuscular Hemoglobin 30 pg N 27-31 Mean Corpuscular HGB Conc 34 g/dL N 31-36 Red Cell Distribution Width 13 % N 10.5-15 Platelet Count 181 10^3/uL N 150-450 Mean Platelet Volume 8 um3 N 7.4-10.4 Abs Neutrophils 3.5 10^3/uL N 1.5-7.7 Abs Lymphocytes 1.5 10^3/uL N 1.0-4.8 Abs Monocytes 0.5 10^3/uL N 0-0.8 Abs Eosinophils 0.2 10^3/uL N 0-0.6 Abs Basophils 0.1 10^3/uL N 0-0.2 Abs Nucleated RBC 0 10^3/uL N Granulocyte % 60.6 % N 38-83 Lymphocyte % 26.2 % N 25-47 Monocyte % 8.6 % N 1-9 Eosinophil % 3.6 % N 0-6 Basophil % 1.0 % N 0-2 Nucleated Red Blood Cells % 0 N Inr/Protime 06/09/2017 [facility] Inr 0.81 Low 0.89-1.[address] [place] [address] [phone] Laboratory test 06/09/2017 [facility] Partial 31.4 N 26.0- 36.[address] [place] [address] PTT [phone] D Dimer Quantitative < 200 ng/mL N Less Than 230 200 B-Type Natriuretic Peptide BNP 48 pg/mL N 201 Lactic Acid 1.2 mmol/L N 0.5-2.0 202 Comp Metabolic Panel 06/09/2017 [facility] Sodium 137 mmol/L N 133-[address] [place] [address] [phone] Potassium 3.8 mmol/L N 3.5-5.0 Chloride 107 mmol/L N 101-111 Co2 Carbon Dioxide 24 mmol/L N 22-32 Anion Gap 6 mmol/L N 2-11 Glucose 110 mg/dL High 70-100 Blood Urea Nitrogen 13 mg/dL N 6-24 Creatinine 0.59 mg/dL Low 0.67-1.17 BUN/Creatinine Ratio 22.0 High 8-20 Calcium 8.8 mg/dL N 8.6-10.3 Total Protein 6.8 g/dL N 6.4-8.9 Albumin 3.9 g/dL N 3.2-5.2 Globulin 2.9 g/dL N 2-4 Albumin/Globulin Ratio 1.3 N 1-3 Total Bilirubin 0.30 mg/dL N 0.2-1.0 Alkaline Phosphatase 53 U/L N 34-104 Alt 13 U/L N 7-52 Ast 13 U/L N 13-39 Egfr Non- 152.1 N >60 Egfr 195.7 N >60 203 Laboratory test 06/09/2017 [facility] Magnesium 1.9 mg/dL N 1.9-2.[address] [place] [address] [phone] Lipase 14 U/L N 11.0-82.0 Creatine Kinase(CK) 95 U/L N 10-223 C Reactive Protein 3.25 mg/L N < 5.00 204 Troponin-I (TnI) 0.00 ng/mL N <0.04 CKMB 06/09/2017 [facility] CKMB ng/mL 1.7 ng/mL N 0.6-6.[address] [place] [address] [phone] Laboratory test 06/09/2017 [facility] Acetaminophen < 15 N 205 finding 101 [facility] g/[place] [address] [phone] Alcohol < 10 mg/dL N <10 Salicylate < 2.50 mg/dL N <30 TSH (Thyroid Stim Horm) 0.52 mcIU/mL N 0.34-5.60 Urine Drug 06/09/2017 [facility] Amphetamine Ur None Detected N None Detect SCR ED & [address] [place] [address] [phone] Barbiturates Urine Screen None Detected N None Detect Benzodiazepine Urine Screen None Detected N None Detect Urine Cannabinoids Screen None Detected N None Detect Urine Cocaine Screen None Detected N None Detect Urine Opiates Screen Presumptive Posi <SEE NOTE> Abnormal None Detect 206 Urine Phencyclidine Screen None Detected N None Detect 207 Urinalysis Profile 06/09/2017 [facility] Urine Color Anisha N [address] [place] [address] [phone] Urine Appearance Cloudy N Urine Specific [place] 1.024 N 1.010-1.030 Urine pH 5.0 N 5-9 Urine Urobilinogen Negative N Negative Urine Ketones Negative N Negative Urine Protein Negative N Negative Urine Leukocytes Negative N Negative Urine Blood Negative N Negative * * Abnormal Negative 208 Urine Nitrite Negative N Negative Urine Bilirubin Negative N Negative Urine Glucose Negative N Negative Wound 05/07/2017 [facility] Wound/Misc SEE RESULT 209 Culture/Sensi [address] [place] [address] Stain [phone] Laboratory test 04/02/2017 [facility] C Reactive 5.47 mg/L High < 210 finding 101 Protein 5.00 [place] [address] [phone] Lyme Disease Serology Negative N Negative 211 Connective Tissue 04/02/2017 [facility] Anti-Nuclear 0.1 U N 212 Panel 101 [place] [address] [phone] Cyclic Citrullinated Peptide <15.6 U N 213 Interpretation See Comment N 214 Laboratory test 04/02/2017 [facility] TSH (Thyroid 1.44 mcIU/mL N 0.34-5.[address] Stim Horm) [place] [address] [phone] Free T4 (Free Thyroxine) 1.03 ng/dL N 0.61-1.12 Vitamin B12 359 pg/mL N 180-914 215 Folic Acid (Folate) > 20.00 ng/mL N >3.99 Comp Metabolic Panel 04/02/2017 [facility] Sodium 136 mmol/L N 133-[address] [place] [address] [phone] Potassium 4.8 mmol/L N 3.5-5.0 Chloride 103 mmol/L N 101-111 Co2 Carbon Dioxide 27 mmol/L N 22-32 Anion Gap 6 mmol/L N 2-11 Glucose 102 mg/dL High 70-100 Blood Urea Nitrogen 15 mg/dL N 6-24 Creatinine 0.70 mg/dL N 0.67-1.17 BUN/Creatinine Ratio 21.4 High 8-20 Total Protein 6.9 g/dL N 6.4-8.9 Albumin 4.3 g/dL N 3.2-5.2 Globulin 2.6 g/dL N 2-4 Albumin/Globulin Ratio 1.7 N 1-3 Total Bilirubin 0.50 mg/dL N 0.2-1.0 Alkaline Phosphatase 58 U/L N 34-104 Alt 19 U/L N 7-52 Ast 22 U/L N 13-39 Egfr Non- 124.9 N >60 Egfr 160.6 N >60 216 Calcium 9.1 mg/dL N 8.6-10.3 CBC Auto Diff 04/02/2017 [facility] White Blood 4.8 10^3/uL N 3.5-10.[address] [place] [address] [phone] Red Blood Count 4.64 10^6/uL N 4.0-5.4 Hemoglobin 13.3 g/dL Low 14.0-18.0 Hematocrit 40 % Low 42-52 Mean Corpuscular Volume 87 fL N 80-94 Mean Corpuscular Hemoglobin 29 pg N 27-31 Mean Corpuscular HGB Conc 33 g/dL N 31-36 Red Cell Distribution Width 13 % N 10.5-15 Platelet Count 205 10^3/uL N 150-450 Mean Platelet Volume 9 um3 N 7.4-10.4 Abs Neutrophils 2.5 10^3/uL N 1.5-7.7 Abs Lymphocytes 1.7 10^3/uL N 1.0-4.8 Abs Monocytes 0.4 10^3/uL N 0-0.8 Abs Eosinophils 0.2 10^3/uL N 0-0.6 Abs Basophils 0.1 10^3/uL N 0-0.2 Abs Nucleated RBC 0 10^3/uL N Granulocyte % 50.8 % N 38-83 Lymphocyte % 35.4 % N 25-47 Monocyte % 8.0 % N 1-9 Eosinophil % 4.7 % N 0-6 Basophil % 1.1 % N 0-2 Nucleated Red Blood Cells % 0.1 N Protein 04/02/2017 [facility] Total 7.3 g/dL N 6.3 - Electrophoresis [address] Protein(Pep) 7.9 [place] [address] [phone] Albumin 3.7 g/dL N 3.4-4.7 Alpha-1 Globulin 0.3 g/dL N 0.1-0.3 Alpha-2 Globulin 1.0 g/dL N 0.6-1.0 Beta Globulin 1.4 g/dL Abnormal 0.7-1.2 Gamma Globulin 0.9 g/dL N 0.6-1.6 Albumin/Globulin Ratio 1.03 N Impression See Comment N 217 Laboratory test 01/03/2017 [facility] Vitamin B12 324 pg/mL N 180-914 [address] [place] [address] [phone] 1 [id number] 2 REFERENCE VALUE Cutoff: 500 3 REFERENCE VALUE Cutoff: 200 4 REFERENCE VALUE Cutoff: 100 5 REFERENCE VALUE Cutoff: 150 6 ADDITIONAL INFORMATION This report is intended for use in clinical monitoring or management of patients. It is not intended for use in employment-related testing. 7 REFERENCE VALUE Cutoff: 200 mg/L 8 Tylenol 3 9 Metabolite of codeine REFERENCE VALUE Cutoff: 100 10 Aisha Alanis, Contin; Also a minor metabolite (10%) of codeine and can be seen in low concentrations (<2,000 ng/mL) with poppy seed ingestion. 11 Metabolite of morphine REFERENCE VALUE Cutoff: 100 12 Metabolite of heroin 13 Lortab, [place], Vicodin; Also a very minor metabolite of codeine and impurity (<1%) of oxycodone. 14 Metabolite of hydrocodone 15 Metabolite of hydrocodone 16 Dilaudid, Exalgo; Also a metabolite of hydrocodone and a minor (<5%) metabolite of morphine. 17 Metabolite of hydromorphone REFERENCE VALUE Cutoff: 100 18 Endocet, Percocet, Oxycontin 19 Metabolite of oxycodone 20 Numorphan, Opana; Also a metabolite of oxycodone. 21 Metabolite of oxymorphone REFERENCE VALUE Cutoff: 100 22 Metabolite of oxymorphone 23 Actiq, Duragesic, Fentora 24 Metabolite of fentanyl 25 Demerol 26 Metabolite of meperidine 27 Narcan 28 Metabolite of naloxone REFERENCE VALUE Cutoff: 100 29 Dolophine 30 Metabolite of methadone 31 Darvon, Darvocet 32 Metabolite of propoxyphene 33 Tradol, Ultram, Ultracet 34 Metabolite of tramadol 35 Nucynta 36 Metabolite of tapentadol 37 Metabolite of tapentadol REFERENCE VALUE Cutoff: 100 38 Buprenex, Suboxone 39 Metabolite of buprenorphine 40 Metabolite of buprenorphine 41 Test detected the presence of tramadol and its metabolite (O-desmethyltramadol). Suspect use of tramadol within the past three days. Test detected the presence of buprenorphine and its metabolites (norbuprenorphine and norbuprenorphine glucuronide) along with naloxone metabolite (vkjroqop-2-puso-glucuronide). Suspect use of buprenorphine with naloxone (e.g. Suboxone) within the past three days. ADDITIONAL INFORMATION This test was developed and its performance characteristics determined by [facility] in a manner consistent with CLIA requirements. This test has not been cleared or approved by the U.S. Food and Drug Administration. Test Performed by: [facility] [address] [place] [address] 42 [id number] REFERENCE VALUE Cutoff: 500 44 REFERENCE VALUE Cutoff: 200 45 REFERENCE VALUE Cutoff: 100 46 REFERENCE VALUE Cutoff: 150 47 ADDITIONAL INFORMATION This report is intended for use in clinical monitoring or management of patients. It is not intended for use in employment-related testing. 48 REFERENCE VALUE Cutoff: 200 mg/L 49 Tylenol 3 50 Metabolite of codeine REFERENCE VALUE Cutoff: 100 51 Aisha Alanis, Contin; Also a minor metabolite (10%) of codeine and can be seen in low concentrations (<2,000 ng/mL) with poppy seed ingestion. 52 Metabolite of morphine REFERENCE VALUE Cutoff: 100 53 Metabolite of heroin 54 Lortab, [place], Vicodin; Also a very minor metabolite of codeine and impurity (<1%) of oxycodone. 55 Metabolite of hydrocodone 56 Metabolite of hydrocodone 57 Dilaudid, Exalgo; Also a metabolite of hydrocodone and a minor (<5%) metabolite of morphine. 58 Metabolite of hydromorphone REFERENCE VALUE Cutoff: 100 59 Endocet, Percocet, Oxycontin 60 Metabolite of oxycodone 61 Numorphan, Opana; Also a metabolite of oxycodone. 62 Metabolite of oxymorphone REFERENCE VALUE Cutoff: 100 63 Metabolite of oxymorphone 64 Actiq, Duragesic, Fentora 65 Metabolite of fentanyl 66 Demerol 67 Metabolite of meperidine 68 Narcan 69 Metabolite of naloxone REFERENCE VALUE Cutoff: 100 70 Dolophine 71 Metabolite of methadone 72 Darvon, Darvocet 73 Metabolite of propoxyphene 74 Tradol, Ultram, Ultracet 75 Metabolite of tramadol 76 Nucynta 77 Metabolite of tapentadol 78 Metabolite of tapentadol REFERENCE VALUE Cutoff: 100 79 Buprenex, Suboxone 80 Results not available due to analyte specific assay failure. Metabolite of buprenorphine 81 Metabolite of buprenorphine 82 Test detected the presence of buprenorphine and its metabolite (norbuprenorphine glucuronide) along with naloxone metabolite (qmiotluj-9-jmvb-glucuronide). Suspect use of buprenorphine with naloxone (e.g. Suboxone) within the past three days. ADDITIONAL INFORMATION This test was developed and its performance characteristics determined by [facility] in a manner consistent with CLIA requirements. This test has not been cleared or approved by the U.S. Food and Drug Administration. Test Performed by: [facility] [address] [place] [address] 83 [id number] REFERENCE VALUE Cutoff: 500 85 REFERENCE VALUE Cutoff: 200 86 REFERENCE VALUE Cutoff: 100 87 REFERENCE VALUE Cutoff: 150 88 ADDITIONAL INFORMATION This report is intended for use in clinical monitoring or management of patients. It is not intended for use in employment-related testing. 89 REFERENCE VALUE Cutoff: 200 mg/L 90 Tylenol 3 91 Metabolite of codeine REFERENCE VALUE Cutoff: 100 92 Aisha Alanis, [place] Contin; Also a minor metabolite (10%) of codeine and can be seen in low concentrations (<2,000 ng/mL) with poppy seed ingestion. 93 Metabolite of morphine REFERENCE VALUE Cutoff: 100 94 Metabolite of heroin 95 Lortab, [place], Vicodin; Also a very minor metabolite of codeine and impurity (<1%) of oxycodone. 96 Metabolite of hydrocodone 97 Metabolite of hydrocodone 98 Dilaudid, Exalgo; Also a metabolite of hydrocodone and a minor (<5%) metabolite of morphine. 99 Metabolite of hydromorphone REFERENCE VALUE Cutoff: 100 100 Endocet, Percocet, Oxycontin 101 Metabolite of oxycodone 102 Numorphan, Opana; Also a metabolite of oxycodone. 103 Metabolite of oxymorphone REFERENCE VALUE Cutoff: 100 104 Metabolite of oxymorphone 105 Actiq, Duragesic, Fentora 106 Metabolite of fentanyl 107 Demerol 108 Metabolite of meperidine 109 Narcan 110 Metabolite of naloxone REFERENCE VALUE Cutoff: 100 111 Dolophine 112 Metabolite of methadone 113 Darvon, Darvocet 114 Metabolite of propoxyphene 115 Tradol, Ultram, Ultracet 116 Metabolite of tramadol 117 Nucynta 118 Metabolite of tapentadol 119 Metabolite of tapentadol REFERENCE VALUE Cutoff: 100 120 Buprenex, Suboxone 121 Metabolite of buprenorphine 122 Metabolite of buprenorphine 123 Test detected the presence of norbuprenorphine and norbuprenorphine glucuronide which are metabolites of buprenorphine. Suspect use of buprenorphine within the past three days. ADDITIONAL INFORMATION This test was developed and its performance characteristics determined by [facility] in a manner consistent with CLIA requirements. This test has not been cleared or approved by the U.S. Food and Drug Administration. Test Performed by: [facility] [address] [place] [address] 124 Because ethnic data is not always readily [...] 15-29 5 Kidney failure <15 (or dialysis) 125 AM 8.7-22.4 PM <10 126 Normal Range 180 to 914 Indeterminate Range 145 to 180 Deficient Range <145 127 ADDITIONAL INFORMATION This test was developed and its performance characteristics determined by [facility] in a manner consistent with CLIA requirements. This test has not been cleared or approved by the U.S. Food and Drug Administration. Test Performed by: [facility] [place] [address] [place] [address] 128 ADDITIONAL INFORMATION This test was developed and its performance characteristics determined by [facility] in a manner consistent with CLIA requirements. This test has not been cleared or approved by the U.S. Food and Drug Administration. Test Performed by: [facility] - [address] [address] 129 *Ascorbic acid is present which may interfere with detection of blood. 130 [facility] Severe Sepsis and Septic Shock Management Bundle Measure requires all lactic acids initially measuring >2.0 mmol/L be repeated. 131 Because ethnic data is not always readily [...] 15-29 5 Kidney failure <15 (or dialysis) 132 Acute inflammation: >10.00 133 Therapeutic target for the treatment of diabetes mellitus patients is <7% HBA1C, and in selective patients <6.0%. Please refer to [place] [employer] diabetic care guidelines for further information. 134 SEE RESULT BELOW Name: TYSHAWN DANIELSON : [address]: Hazel Nguyễn MD Acct: [id number] Unit: [id number] AGE: 42 Location: [place] [address]- Re02/11/18 Dis: 02/13/18 SEX: M Status: DIS IN SPEC: [id number] SANA: 02/10/18 [facility] DR: Fish CONTRERAS REQ: [id number] RECD: 02/10/18 STATUS: SERGEI SMITH DR: [facility] Feliberto Esquivel MD _ SOURCE: BLOOD,VENO SPDESC: ORDERED: Blood Cult COMMENTS: Patient is On Antibiotics? NO Procedure Result Reported Site Aerobic Culture Bottle Final 02/15/18- 8 ML No Growth Day 5 Anaerobic Culture Bottle Final 02/15/18- 6 ML No Growth Day 5 * ML - Main Lab . END OF REPORT DEPARTMENT OF PATHOLOGY, [address] [place] [address] Rocco Alonzo M.D. Director [facility] # [id number] 135 *Ascorbic acid is present which may interfere with detection of blood. 136 SEE RESULT BELOW Name: TYSHAWN DANIELSON : [address]: Desmond Griffin MD Acct: [id number] Unit: [id number] AGE: 42 Location: [place] [address] Re02/06/18 Dis: 02/06/18 SEX: M Status: DIS Keith SPEC: [id number] SANA: 02/05/[address]: Sumit Fisher MD REQ: [id number] RECD: 02/05/18 STATUS: SERGEI SMITH DR: Feliberto Esquivel MD _ SOURCE: URINE SPDESC: ORDERED: Urine Culture Procedure Result Reported Site Urine Culture Final 02/07/18- 1002 ML No Growth (<1,000 CFU/mL) * ML - Main Lab . END OF REPORT DEPARTMENT OF PATHOLOGY, [address] [place] [address] Rocco Alonzo M.D. Director [facility] # [id number] SEE RESULT BELOW Name: TYSHAWN DANIELSON : [address]: Feliberto Esquivel MD Acct: [id number] Unit: [id number] AGE: 42 Location: [facility] Re02/04/18 SEX: M Status: REG REF SPEC: [id number] SANA: 02/04/18-[address]: Feliberto Esquivel MD REQ: [id number] RECD: 02/04/18 STATUS: COMP _ SOURCE: LEG, RIGHT SPDESC: ORDERED: Culture Stain COMMENTS: [id number] QUERIES: Specimen Description RIGHT LEG Procedure Result Reported Site Wound/Misc Gram Stain Final 02/05/18- 1055 ML No Neutrophils Observed No Organisms Seen Wound/Misc Culture Final 02/06/18- 1322 ML Organism 1 NORMAL MCKENNA Quantity 1+ * ML - Main Lab . END OF REPORT DEPARTMENT OF PATHOLOGY, [address] [place] [address] Rocco Alonzo M.D. Director [facility] # [id number] 139 >100 to <200 pg/mL: likely compensated congestive heart failure (CHF) 200 to 400 pg/mL: likely moderate CHF >400 pg/mL: likely moderate to severe CHF 140 Because ethnic data is not always readily [...] 15-29 5 Kidney failure <15 (or dialysis) 141 AM 8.7-22.4 PM <10 142 Because ethnic data is not always readily [...] 15-29 5 Kidney failure <15 (or dialysis) 143 It is recognized that currently available assays [...] 95% confidence interval of 99.78 to 99.96%. 144 Desirable: <150 Borderline High: 150-199 High: 200-499 Very High: >500 145 Desirable: <200 Borderline High: 200-239 High: >239 146 Low: <40 Desirable: 40-60 High: >60 147 Desirable: <100 Near Optimal: 100-129 Borderline High: 130-159 High: 160-189 Very High: >189 148 REFERENCE VALUE Cutoff: 500 149 REFERENCE VALUE Cutoff: 200 150 REFERENCE VALUE Cutoff: 100 151 REFERENCE VALUE Cutoff: 150 152 ADDITIONAL INFORMATION This report is intended for use in clinical monitoring or management of patients. It is not intended for use in employment-related testing. 153 REFERENCE VALUE Cutoff: 200 mg/L 154 Tylenol 3 155 Metabolite of codeine REFERENCE VALUE Cutoff: 100 156 Aisha Alanis, [place] Contin; Also a minor metabolite (10%) of codeine and can be seen in low concentrations (<2,000 ng/mL) with poppy seed ingestion. 157 Metabolite of morphine REFERENCE VALUE Cutoff: 100 158 Metabolite of heroin 159 Lortab, [place], Vicodin; Also a very minor metabolite of codeine and impurity (<1%) of oxycodone. 160 Metabolite of hydrocodone 161 Metabolite of hydrocodone 162 Dilaudid, Exalgo; Also a metabolite of hydrocodone and a minor (<5%) metabolite of morphine. 163 Metabolite of hydromorphone REFERENCE VALUE Cutoff: 100 164 Endocet, Percocet, Oxycontin 165 Metabolite of oxycodone 166 Numorphan, Opana; Also a metabolite of oxycodone. 167 Metabolite of oxymorphone REFERENCE VALUE Cutoff: 100 168 Metabolite of oxymorphone 169 Actiq, Duragesic, Fentora 170 Metabolite of fentanyl 171 Demerol 172 Metabolite of meperidine 173 Narcan 174 Metabolite of naloxone REFERENCE VALUE Cutoff: 100 175 Dolophine 176 Metabolite of methadone 177 Darvon, Darvocet 178 Metabolite of propoxyphene 179 Tradol, Ultram, Ultracet 180 Metabolite of tramadol 181 Nucynta 182 Metabolite of tapentadol 183 Metabolite of tapentadol REFERENCE VALUE Cutoff: 100 184 Buprenex, Suboxone 185 Metabolite of buprenorphine 186 Metabolite of buprenorphine 187 Test detected the presence of tramadol and its metabolite (O-desmethyltramadol). Suspect use of tramadol within the past three days. ADDITIONAL INFORMATION This test was developed and its performance characteristics determined by [facility] in a manner consistent with CLIA requirements. This test has not been cleared or approved by the U.S. Food and Drug Administration. Test Performed by: [facility] [address] [place] [address] 188 Normal Range 180 to 914 Indeterminate Range 145 to 180 Deficient Range <[address] [facility] Severe Sepsis and Septic Shock Management Bundle Measure requires all lactic acids initially measuring >2.0 mmol/L be repeated. 190 Because ethnic data is not always readily [...] 15-29 5 Kidney failure <15 (or dialysis) 191 Acute inflammation: >10.00 192 SEE RESULT BELOW Name: TYSHAWN DANIELSON : [address]: Chad Wilkinson MD Acct: [id number] Unit: [id number] AGE: 42 Location: ED Re07/07/17 SEX: M Status: DEP ER SPEC: [id number] SANA: 07/07/17-1406 [facility] DR: Graciela CONTRERAS REQ: [id number] RECD: 07/07/17 STATUS: RES LUIS DR: Feliberto Wilkinson MD _ SOURCE: BLOOD,VENO SPDESC: ORDERED: Blood Cult Procedure Result Reported Site Aerobic Culture Bottle Preliminary 07/08/17- 1424 ML No Growth Day 1 Anaerobic Culture Bottle Preliminary 07/08/17- 1424 ML No Growth Day 1 * ML - MAIN LAB ([facility]) . END OF REPORT * ML=Testing performed at Main Lab DEPARTMENT OF PATHOLOGY, [address] [place] [address] Rocco Alonzo M.D. Director [facility] # [id number] 193 SEE RESULT BELOW Name: SUMMER DANIELSONHAN : [address]: Chad Wilkinson MD Acct: [id number] Unit: [id number] AGE: 42 Location: ED Re07/07/17 SEX: M Status: DEP ER SPEC: [id number] SANA: 07/07/17-[address]: Graciela CONTRERAS REQ: [id number] RECD: 07/07/17 STATUS: SERGEI SMITH DR: Feliberto Wilkinson MD _ SOURCE: [facility]: ORDERED: Culture Stain Procedure Result Reported Site Wound/Misc Gram Stain Final 07/07/17- 1503 ML Test not performed Wound/Misc Culture Final 07/09/17- 1118 ML No Growth Day 2 * ML - MAIN LAB ([facility]) . END OF REPORT * ML=Testing performed at Main Lab DEPARTMENT OF PATHOLOGY, [address] [place] [address] Rocco Alonzo M.D. Director [facility] # [id number] 194 Acute inflammation: >10.[address] [facility] Severe Sepsis and Septic Shock Management Bundle Measure requires all lactic acids initially measuring >2.0 mmol/L be repeated. 196 Because ethnic data is not always readily [...] 15-29 5 Kidney failure <15 (or dialysis) 197 SEE RESULT BELOW Name: TYSHAWN DANIELSON : [address]: Chad Wilkinson MD Acct: [id number] Unit: [id number] AGE: 42 Location: ED Re07/07/17 SEX: M Status: DEP ER SPEC: [id number] SANA: 07/07/17-1454 [facility] DR: Graciela CONTRERAS REQ: [id number] RECD: 07/07/17-1501 STATUS: SERGEI SMITH DR: Feliberto Wilkinson MD _ SOURCE: BLOOD,VENO SPDESC: ORDERED: Blood Cult Procedure Result Reported Site Aerobic Culture Bottle Final 07/12/17- 1501 ML No Growth Day 5 Anaerobic Culture Bottle Final 07/12/17- 1501 ML No Growth Day 5 * ML - MAIN LAB ([facility]) . END OF REPORT * ML=Testing performed at Main Lab DEPARTMENT OF PATHOLOGY, [address] [place] [address] Rocco Alonzo M.D. Director [facility] # [id number] [address] [place] [address] Severe Sepsis and Septic Shock Management Bundle Measure requires all lactic acids initially measuring >2.0 mmol/L be repeated. 199 Because ethnic data is not always readily [...] 15-29 5 Kidney failure <15 (or dialysis) 200 Please note: The following may produce a false positive D Dimer test: - Rheumatoid factor greater than 60 IU/ml - Plasma hemoglobin greater than 0.05 gm/dl - Bilirubin greater than 50 mg/dl - Lipids greater than 1000 mg/dl - FDP greater than 20 ug/ml 201 >100 to <200 pg/mL: likely compensated congestive heart failure (CHF) 200 to 400 pg/mL: likely moderate CHF >400 pg/mL: likely moderate to severe CHF 202 [facility] Severe Sepsis and Septic Shock Management Bundle Measure requires all lactic acids initially measuring >2.0 mmol/L be repeated. 203 Because ethnic data is not always readily [...] 15-29 5 Kidney failure <15 (or dialysis) 204 Acute inflammation: >10.00 205 Therapeutic concentration: <50 ug/mL Toxic concentration: >120 ug/mL 206 Presumptive Positive Presumptive positive results are unconfirmed. 207 The urine specimen was tested at the listed cutoffs: Drug class test level (ng/mL) Amphetamines 500 Barbiturates 200 Benzodiazepine metabolites 200 Cocaine metabolites 150 Cannabinoids 50 Opiates 300 Pcp 25 Specimen was received without chain of custody. Results should be used for medical purposes only. 208 *Ascorbic acid is present which may interfere with detection of blood. 209 SEE RESULT BELOW Name: TYSHAWN DANIELSON : [address]: Feliberto Esquivel MD Acct: [id number] Unit: [id number] AGE: 41 Location: [facility] Re05/07/17 SEX: M Status: REG REF SPEC: [id number] SANA: 05/07/17 [facility] DR: Feliberto Esquivel MD REQ: [id number] RECD: 05/07/17 STATUS: RES _ SOURCE: ARM RIGHT SPDESC: ORDERED: Culture Stain COMMENTS: [id number] Specimen Description INDURATED INFECTION R FOREARM Procedure Result Reported Site Wound/Misc Gram Stain Final 05/08/17- 0737 ML 1+ Nucleated Cells No Neutrophils Observed 2+ Gram Positive Cocci Wound/Misc Culture Preliminary 05/08/17- 1316 ML Organism 1 STAPHYLOCOCCUS AUREUS Quantity 2+ * ML - MAIN LAB ([facility]) . END OF REPORT * ML=Testing performed at Main Lab DEPARTMENT OF PATHOLOGY, [address] [place] [address] Rocco Alonzo M.D. Director [facility] # [id number] 210 Acute inflammation: >10.00 211 Serologic response to B. burgdorferi infection is not detected, but cannot rule out early infection during which low or undetectable antibody levels to B. burgdorferi may be present. If clinically indicated, a new serum specimen should be submitted in 7-14 days. Test Performed by: [facility] [address] [place] [address] 212 REFERENCE VALUE <=1.0 (Negative) 213 REFERENCE VALUE <20.0 (Negative) 214 Tests for antibodies to dsDNA and FAHEEM antigens are not performed automatically unless the LO result is > or= 3.0 U. Studies performed at [facility] indicate that positive LO results <3.0 U are rarely accompanied by positive second order tests. Test Performed by: [facility] [place] [address] [place] [address] 215 Normal Range 180 to 914 Indeterminate Range 145 to 180 Deficient Range <145 216 Because ethnic data is not always readily [...] 15-29 5 Kidney failure <15 (or dialysis) 217 RESULT: No apparent monoclonal protein on serum electrophoresis. Test Performed by: [facility] [address] [place] [address] 218 Normal Range 180 to 914 Indeterminate Range 145 to 180 Deficient Range <145 Procedures Date Code Description Status 04/28/2018 [id number] Diabetic Foot Exam Completed 04/21/2018 [id number] Diabetic Foot Exam Completed 04/06/2018 11568 EKG Tracing & Interpretation Completed 03/10/2018 98568 Anoscopy Completed 02/09/2018 13247 Polysomnography Sleep Staging 4+ Parameters Completed 02/06/2018 50785 ECHO Transthorasic Realtime 2D W Doppler & Color Flow Completed Hosp 11/21/2017 [id number] Colonoscopy Completed 07/31/2017 85243 Short Arm Cast Application Completed 07/17/2017 18812 CLST TRMT Distal Radial FX Completed 05/20/2017 83733 Nerve Conduction 13+ Studies Completed 01/12/2008 72321 Color Flow Doppler/Interp & Reprt Completed 01/12/2008 37617 Color Flow Doppler/Interp & Reprt Completed 01/12/2008 16495 Pulse Wave/Continuous-Interp.RPT Completed 01/12/2008 05359 Echocardiogram Completed 01/12/2008 22209 Echocardiogram Completed Encounters Type Date Location Provider Dx Diagnosis Office Visit 12/08/2018 [facility]nel Techn[facility] Internal Aissatou Gurrola MD L03.116 Cellulitis of left 1:00p Medicine - [place] [address] G89.4 Chronic pain syndrome I89.0 Lymphedema, not elsewhere classified F33.9 Major depressive disorder, recurrent, unspecified Office Visit 11/27/2018 4:00p [facility] Internal Merari Reynoso, L08.9 Local infection of Medicine - N.P. the skin and [place] subcutaneous tissue, unsp G89.4 Chronic pain syndrome Office Visit 11/16/2018 3:00p [facility] Internal Aissatou Gurrola, M65.872 Other synovitis and Medicine - tenosynovitis, left [address] ankle and foot G89.4 Chronic pain syndrome K62.5 Hemorrhage of anus and rectum Office Visit 10/26/2018 Orthopedic Jett Dieter, M76.822 Posterior tibial 1:00p Services Of tendinijose e, left C.M.A. leg M76.72 Peroneal tendinitis, left leg S83.402A Sprain of unsp collateral ligament of left knee, init encntr M65.872 Other synovitis and tenosynovitis, left ankle and foot Office Visit 10/21/2018 2:40p [facility] Internal Aissatou Gurrola MD M25.562 Pain in left Medicine - [place] knee [address] M25.572 Pain in left ankle and joints of left foot G89.4 Chronic pain syndrome Office Visit 08/05/2018 1:50p [facility] Internal Ha Sosa G89.4 Chronic pain Medicine - [place] Jasmyn Francis,FACP syndrome Rd E66.01 Morbid (severe) obesity due to excess calories K62.5 Hemorrhage of anus and rectum K21.9 Gastro-esophageal reflux disease without esophagitis Z23 Encounter for immunization Office Visit 06/30/2018 9:40a [facility] Internal Feliberto Esquivel J44.9 Chronic Medicine Elva Vines obstructive [address] pulmonary disease, unspecified K21.9 Gastro-esophageal reflux disease without esophagitis E66.01 Morbid (severe) obesity due to excess calories L08.9 Local infection of the skin and subcutaneous tissue, unsp E55.9 Vitamin D deficiency, unspecified Office Visit 05/28/2018 11:00a [facility] Internal Ha Sosa G89.4 Chronic pain Medicine - [place] Jasmyn Francis,FACP syndrome Rd K62.5 Hemorrhage of anus and rectum G90.521 Complex regional pain syndrome I of right lower limb Office Visit 05/14/2018 4:40p [facility] Internal Ha Sosa G89.4 Chronic pain Medicine - [place] Jasmyn Francis,FACP syndrome Rd E66.01 Morbid (severe) obesity due to excess calories I89.0 Lymphedema, not elsewhere classified M54.31 Sciatica, right side K62.5 Hemorrhage of anus and rectum D64.9 Anemia, unspecified Office Visit 04/28/2018 10:30a Orthopedic Juan M54.31 Sciatica, right Services Of Jasmyn Barnett side C.M.AMazin G90.521 Complex regional pain syndrome I of right lower limb Office Visit 04/27/2018 11:20a [facility] Internal Feliberto Esquivel, R63.5 Abnormal weight Medicine - [place] M.DMazin gain Rd M51.16 Intervertebral disc disorders w radiculopathy, lumbar region G62.9 Polyneuropathy, unspecified J44.9 Chronic obstructive pulmonary disease, unspecified Office Visit 04/06/2018 3:00p [facility] Vamsi Medina R60.0 Localized edema Of [facility] Back, DO FAC R07.9 Chest pain, unspecified F17.201 Nicotine dependence, unspecified, in remission R55 Syncope and collapse R06.02 Shortness of breath E66.8 Other obesity Office Visit 04/06/2018 1:20p [facility] Internal Feliberto Esquivel, R63.5 Abnormal weight Medicine - [place] M.DMazin gain Rd F33.0 Major depressive disorder, recurrent, mild M51.16 Intervertebral disc disorders w radiculopathy, lumbar region I89.0 Lymphedema, not elsewhere classified G47.30 Sleep apnea, unspecified Office Visit 03/19/2018 [facility] Internal Feliberto G62.9 Polyneuropathy, 2:40p Medicine - Jasmyn Esquivel unspecified [address] R63.5 Abnormal weight gain R18.8 Other ascites F33.0 Major depressive disorder, recurrent, mild Office Visit 03/13/2018 2:20p [facility] Internal Merari Reynoso, R60.0 Localized edema Medicine - N.P. [place] L03.115 Cellulitis of right lower limb L03.116 Cellulitis of left lower limb Office Visit 03/10/2018 [facility] Kory Sosa R60.0 Localized edema 10:50a For Infectious Jasmyn Koenig Diseases Office Visit 03/10/2018 Surgical Marcia Crispin K62.5 Hemorrhage of 8:30a [facility] Boris anus and rectum Personnel Technician Office Visit 03/06/2018 [facility] Internal Merari Reynoso L03.119 Cellulitis of 2:20p Medicine - N.P. unspecified part [place] of limb I89.0 Lymphedema, not elsewhere classified E66.01 Morbid (severe) obesity due to excess calories Office Visit 02/25/2018 4:00p [facility] Internal Merari Reynoso L03.119 Cellulitis of Medicine - N.P. unspecified part [place] of limb Office Visit 02/20/2018 9:40a [facility] Internal Feliberto L03.119 Cellulitis of Medicine - [place], unspecified part [place] of limb I89.0 Lymphedema, not elsewhere classified G62.9 Polyneuropathy, unspecified K64.8 Other hemorrhoids F33.0 Major depressive disorder, recurrent, mild B37.9 Candidiasis, unspecified Office Visit 02/13/2018 11:25a [facility] Stan R60.1 Generalized edema Assoc,DIANE [place] Hospitalists L03.119 Cellulitis of unspecified part of limb E66.01 Morbid (severe) obesity due to excess calories Z68.43 Body mass index (BMI) 50-59.9 , adult Office Visit 02/12/2018 11:24a [facility] Stan R60.1 Generalized edema Assoc,DIANE [place] Hospitalists L03.119 Cellulitis of unspecified part of limb E66.01 Morbid (severe) obesity due to excess calories Z68.43 Body mass index (BMI) 50-59.9 , adult Office Visit 02/11/2018 11:24a [facility] Cristiana R60.1 Generalized edema Assoc,javi Dubose D.O. Hospitalists L03.119 Cellulitis of unspecified part of limb E66.01 Morbid (severe) obesity due to excess calories Z68.43 Body mass index (BMI) 50-59.9 , adult Office Visit [facility]/06/2018 [facility] R60.1 Generalized 10:44a javi Diaz II, M.D. edema Hospitalists L03.115 Cellulitis of right lower limb M79.3 Panniculitis, unspecified J44.9 Chronic obstructive pulmonary disease, unspecified Office Visit 02/04/2018 1:40p [facility] Internal Feliberto Esquivel, M79.661 Pain in Medicine - M.D. right lower [place] leg I89.0 Lymphedema, not elsewhere classified L03.115 Cellulitis of right lower limb Office Visit 01/28/2018 11:20a [facility] Internal Feliberto J44.9 Chronic Medicine Elva Esquivel M.D. obstructive [place] pulmonary disease, unspecified I89.0 Lymphedema, not elsewhere classified R63.5 Abnormal weight gain R25.2 Cramp and spasm Office Visit 01/20/2018 [facility] Internal Feliberto K21.9 Gastro-esophageal 9:00a Connor Esquivel M.D. reflux disease without [address] esophagitis G62.9 Polyneuropathy, unspecified F33.0 Major depressive disorder, recurrent, mild G47.30 Sleep apnea, unspecified D64.9 Anemia, unspecified M51.16 Intervertebral disc disorders w radiculopathy, lumbar region E66.01 Morbid (severe) obesity due to excess calories M79.671 Pain in right foot M79.604 Pain in right leg N40.1 Benign prostatic hyperplasia with lower urinary tract symp Z00.01 Encounter for general adult medical exam w abnormal findings K76.0 Fatty (change of) liver, not elsewhere classified R06.02 Shortness of breath M77.30 Calcaneal spur, unspecified foot Office Visit 01/12/2018 8:40a [facility] Internal Feliberto Esquivel, M79.671 Pain in right Medicine - M.D. foot [address] Office Visit 01/02/2018 8:20a [facility] Internal Feliberto Esquivel, M79.604 Pain in right Medicine - M.D. leg [address] Office Visit 12/23/2017 4:00p [facility] Internal Feliberto Esquivel, R10.11 Right upper Medicine - M.D. quadrant pain [address] M79.673 Pain in unspecified foot E66.01 Morbid (severe) obesity due to excess calories G47.30 Sleep apnea, unspecified K21.9 Gastro-esophageal reflux disease without esophagitis Office Visit 12/12/2017 [facility] Internal [place] G62.9 Polyneuropathy, 8:30a Connor Francis M.D.,FACP unspecified [address] F33.0 Major depressive disorder, recurrent, mild G47.30 Sleep apnea, unspecified Office Visit 12/03/2017 Pulmonology And Kavya G47.30 Sleep apnea, 1:00p Sleep Services Of LEÓN Angela, RN, unspecified [facility]- E66.01 Morbid (severe) obesity due to excess calories Z68.41 Body mass index (BMI) 40.0-44.9, adult Office Visit 11/24/2017 2:40p [facility] Internal Medicine - Tala Aburto, CASH CONTROLLER R[address] J20.9 Acute bronchitis, unspecified Office Visit 10/24/2017 [facility] Internal [place] M51.16 Intervertebral disc 8:30a Medicine - Paul Francis M.D.,FACP disorders w Rd radiculopathy, lumbar region Office Visit 10/21/2017 Marcelina Bah G62.9 Polyneuropathy, 10:45a Neurologic Jasmyn Eason unspecified Services Of [facility] G56.03 Carpal tunnel syndrome, bilateral upper limbs Office Visit 10/07/2017 4:00p [facility] Internal Feliberto Esquivel, F33.0 Major depressive Medicine - Jasmyn disorder, [address] recurrent, mild K21.9 Gastro-esophageal reflux disease without esophagitis Office Visit 09/17/2017 2:20p [facility] Internal [place] G89.4 Chronic pain Medicine - Paul Francis M.D.,FACP syndrome Rd M51.16 Intervertebral disc disorders w radiculopathy, lumbar region Office Visit 09/02/2017 Marcelina Bah G62.9 Polyneuropathy, 8:45a Neurologic Jasmyn Eason unspecified Services [facility] G56.03 Carpal tunnel syndrome, bilateral upper limbs Office Visit 08/26/2017 8:40a [facility] Internal Feliberto Esquivel, F33.0 Major depressive Medicine - M.DMazin disorder, [address] recurrent, mild K62.5 Hemorrhage of anus and rectum Office Visit 08/12/2017 8:20a [facility] Internal Felibertoaby Esquivel, D64.9 Anemia , Medicine Elva Vines unspecified [address] F33.0 Major depressive disorder, recurrent, mild G47.00 Insomnia, unspecified K62.5 Hemorrhage of anus and rectum K29.31 Chronic superficial gastritis with bleeding Office Visit 07/31/2017 9:00a [facility] Internal [place] K57.30 Dvrtclos of Connor Esquivel M.D. int w/o [address] perforation or abscess w/o bleeding M51.16 Intervertebral disc disorders w radiculopathy, lumbar region K64.9 Unspecified hemorrhoids D64.9 Anemia, unspecified G62.9 Polyneuropathy, unspecified Office Visit 07/24/2017 [facility] Internal Feliberto S52.591A Oth fractures of 2:40p Connor Esquivel M.D. lower end of right [address] radius, init for clos fx Office Visit 07/01/2017 [facility] Internal Feliberto M51.16 Intervertebral disc 8:00a Connor Esquivel M.D. disorders w [address] radiculopathy, lumbar region Office Visit 06/17/2017 Charlie Dao M51.16 Intervertebral disc 9:00a Connor Esquivel M.D. disorders w [address] radiculopathy, lumbar region L98.9 Disorder of the skin and subcutaneous tissue, unspecified F33.0 Major depressive disorder, recurrent, mild Office Visit 06/11/2017 [facility] Domi Dao G62.9 Polyneuropathy, 8:40a Connor Esquivel M.D. unspecified [place] M51.16 Intervertebral disc disorders w radiculopathy, lumbar region F33.0 Major depressive disorder, recurrent, mild Office Visit 05/15/2017 Charlie Dao L03.113 Cellulitis of right 9:00a Connor Esquivel M.D. upper limb [address] Office Visit 05/09/2017 Charlie Dao L03.113 Cellulitis of right 1:30p Connor Esquivel M.D. upper limb [address] Office Visit 05/07/2017 Charlie Dao L03.113 Cellulitis of right 4:40p Connor Esquivel M.D. upper limb [place] Office Visit 04/25/2017 [facility] Internal Feliberto M51.16 Intervertebral disc 10:20a Connor Esquivel M.D. disorders w [address] radiculopathy, lumbar region Office Visit 04/01/2017 Marcelina NoblesMazin R20.9 Unspecified 11:00a Neurologic Jasmyn Eason disturbances of Services [facility] skin sensation G62.9 Polyneuropathy, unspecified Office Visit 03/13/2017 10:00a [facility] Internal [place] G63 Polyneuropathy in Connor Esquivel M.D. diseases classified [address] elsewhere F33.0 Major depressive disorder, recurrent, mild M51.16 Intervertebral disc disorders w radiculopathy, lumbar region Office Visit 01/24/2017 11:20a [facility] Internal [place] G63 Polyneuropathy in Connor Esquivel M.D. diseases classified [address] elsewhere F33.0 Major depressive disorder, recurrent, mild M51.16 Intervertebral disc disorders w radiculopathy, lumbar region Office Visit 01/10/2017 [facility] Internal Feliberto M51.16 Intervertebral disc 11:00a Connor Esquivel M.D. disorders w [address] radiculopathy, lumbar region G63 Polyneuropathy in diseases classified elsewhere F33.0 Major depressive disorder, recurrent, mild Office Visit 12/30/2016 [facility] Internal [place] G63 Polyneuropathy in 10:30a Connor Francis M.D.,FAC diseases classified [address] elsewhere Office Visit 12/20/2016 [facility] Internal [place] M51.16 Intervertebral disc 1:40p Connor Esquivel M.D. disorders w [address] radiculopathy, lumbar region G63 Polyneuropathy in diseases classified elsewhere R10.9 Unspecified abdominal pain F33.0 Major depressive disorder, recurrent, mild E66.01 Morbid (severe) obesity due to excess calories Z00.00 Encntr for general adult medical exam w/o abnormal findings Office Visit 03/30/2016 12:53p [facility] Cristiana L02.91 Cutaneous Assoc,javi Dubose D.O. 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 Neelima Andrey, L02.91 Cutaneous Assoc,pc N.P. 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
--- OUTSIDE RECORDS SUMMARY | 2019-01-13 12:43 | XMS REPORT | Continuity of Care Document ---
:1975 External Reference #:[id number] Author Name TeriJose Manuelt Care Team Providers Name Role Phone Aissatou Gurrola M.D. 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[employer] Onset: 01/20/2018 Benign prostatic hypertrophy Feliberto Esquivel [...] Partner Occupation Currently Working 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 Tobacco Use Start: Unknown End: Former Cigarette Smoker Unknown Smoking Status Reviewed: 12/15/18 Former Cigarette Smoker ETOH Use Has consumed [...] Naproxen Active Moderate edema 10/21/2018 Prednisone Active Medications Medication Date Status Form Strength Qnty SIG Indications Ordering Provider Cephalexin 12/08 Active Capsules 500mg 21cap by mouth L03.116 s three times a [place], dusty CODY Mupirocin 12/08 Active Ointment 2% 44gm apply to L03.116 affected area Gurrola, four times a MD day Amlactin 12/08 Active Lotion 12% 150gm apply to I89.0 clean skin Gurrola, every day Bupropion 11/30 Active Tablets ER 300mg 30tab take one F33.0 24HR s tablet by [place] ER (XL) mouth every MD morning Tramadol HCL 11/27 Active Tablets 50mg 3tabs 1 tablet twice a day Jasmyn Zavala Voltaren 10/21 Active Gel 1% 200gm apply 4 gr to M25.562 affected Gurrola, joint 4 times MD a day Duloxetine HCL 09/[address] 60mg 30cap Take 1 Part s Capsule By Gurrola, Mouth Every MD Morning Duloxetine HCL 09/[address] 30mg 30cap take 1 Part s capsule by Gurrola, mouth every MD day at bedtime Triple 06/30 Active Ointment 1% 30gm apply twice L08.9 [place] Antibiotic daily to Pachika infected skin Jasmyn areas Pantoprazole 06/[address] 20mg 30tab Take 1 Tablet K21.9 Aissatou Sodium s By Mouth [place] Every Day Before Breakfast Torsemide 06/30 Active Tablets 20mg 60tab Take 1 Tablet s By Mouth Jasmyn Esquivel Symbicort 04/27 Active Aerosol 160-4.5mc 10.2u 2 puff twice J44.9 Feliberto g/Act nits a day Jasmyn Esquivel Ventolin HFA 02/04 Active Aerosol 108(90Bas 8gm 2 puffs by e) mouth four Pachikara mcg/Act times a day , M.DMazin as needed Nebulizer 01/28 Active Kit 1unit 1 unit J44.9 [place] Kit/Tubing/Mout s nebulization Sierra hpiece every 4- 6 , M.D. hours as needed J44.9 Icd code Albuterol 01/28 Active Nebulizer (2.5mg/3M 180ml 1 vial via J44.9 Feliberto Sulfate /2017 L) 0.083% nebulizer 4 Pachikara times daily , M.D. as needed Vitamin B Active Tablets 1 by mouth Unknown Complex / every day Potassium Active Tablets 99mg otc once a Unknown / day Vitamin D3 Active Tablets once daily Unknown Complete Aspirin Adult Active Tablets DR 81mg 1 by mouth Unknown Low Dose /0000 every day Iron Active Tablets 325(65Fe) 1 by mouth Unknown /0000 mg twice a day Suboxone Active Film 8-2mg 1 strip sl G89.4 three times a Galileo, day Doxycycline 11/27 Hx Tablets 100mg 20tab One po bid x L08.9 [place] Hyclate s 10 days Leonardn, - N.P. 12/07 Suboxone 11/16 Hx Film 8-2mg 30uni 1 strip sl 4x G89.4 ts a day. Galileo, - additional 12/08 quantity for increased dosage. pain management Suboxone 05/14 Hx Film 8-2mg 120un 1 strip sl 4x G89.4 its a day Elva Gurrola MD 12/08 Bupropion HCL 03/19 Hx Tablets ER 300mg 30tab take one F33.0 Ha ER (XL) /2017 24HR s tablet by Sheila Francis - mouth every M.D.,FACP 11/30 Florastor 02/25 Hx Capsules 250mg 60cap 1 by mouth L03.119 s twice a day Edgardo - N.P. 05/14 Oxycodone HCL 02/20 Hx Tablets 10mg 42tab 1 tab 8h as G62.9 s needed Sierra Stevenson M.D. 03/19 Clotrimazole 02/20 Hx Cream 1% 90gm apply twice B37.9 daily Sierra Stevenson M.D. 05/14 Bupropion HCL 02/20 Hx Tablets ER 150mg 30tab once daily in F33.0 [place] ER (XL) 24HR s the morning Sierra Stevenson with food Jasmyn 03/19 Oxycodone HCL 02/13 Hx Tablets 5mg 1 tab Q 8 hrs prn pain - 02/20 Lasix 02/09 Hx Tablets 20mg 1 by mouth every day Sierra Stevenson M.D. 02/16 Metolazone 02/04 Hx Tablets 5mg 14tab take 1 tab by I89.0 s mouth every Sierra - other day , OlvinDMazin 02/20 Doxycycline 02/04 Hx Capsules 100mg 20cap 1 cab twice a L03.115 [place] Hyclate s day Sierra Stevenson M.D. 02/16 Baclofen 01/29 Hx Tablets 10mg 30tab take 1 s tablets by Sierra - mouth twice a , MMazinDMazin Lasix 01/28 Hx Tablets 40mg 30tab 1 by mouth s every day Sierra Stevenson M.D. 02/09 Prednisone 0410 Hx Tablets 20mg 10tab 2 tab by M79.671 s mouth 5 days Pachikara - , M.D. 02/20 Tamsulosin HCL 01/20 Hx Capsules 0.4mg 30cap Take 1 N40.1 Chad Rios s Capsule By Nisa, - Mouth Every M.D. 03/19 Day Buprenorphine 01/13 Hx Tablets 8mg 90tab take 1 tab [place] HCL Sub s subligually 3 Pachikara - times a day , M.D. 05/14 as needed for pain Prednisone 01/12 Hx Tablets 20mg 10tab 2 tab by [place] s mouth 5 days Pachikara - , M.D. 01/23 Lasix 01/02 Hx Tablets 20mg 10tab take one Mark s daily as Sally, - needed for M.D. 01/28 edema Duloxetine HCL 12/[address] 60mg 30cap take 1 G62.9 Part s capsule by Sierra - mouth every , M.D. 03/19 G89.4 Guaifenesin-Codeine 11/24/2017 Hx Solution 100-10mg/5ML 180ml 5-10 R05 Ha - gabrielleiters D. Penny, 12/12/2017 q4-6hrs as M.D.,FACP needed for cough Amoxicillin/Clavulan 11/24/2017 Hx Tablets 875-125mg 14tabs one tab J20. Tala ate Potassium - twice/day 9 Aburto, 12/01/2017 LEATHER DRIER Duloxetine HCL 10/28/[address] 30mg 90caps 2 caps in [place] - Part the am and 1 Pachikara, 09/25/2018 cap in the M.D. evening Duloxetine HCL 10/24/[address] 40mg 1 po qam Ha - Meng D. Penny, 11/25/2017 M.D.,FACP Duloxetine HCL 10/24/[address] 20mg 1-3 by mouth G62. Ha - Part every 9 D. Penny, 11/25/2017 evening as M.D.,FACP directed Duloxetine HCL 10/21/[address] 30mg 90caps take 1 to 3 G62. Tali Bah - Part capsules in 9 Stackman, 10/24/2017 evening as M.D. directed Lyrica 10/15/2017 Hx Capsules 50mg 120cap 2-4 tabs/day Tali ledesma as directed Yumi, 10/24/2017 (not taking) M.D. Fluoxetine HCL 09/18/2017 Hx Capsules 10mg 30caps take one F33. Shavonne Tanner - capsule by 0 Sheila Francis, 10/24/2017 mouth once M.D.,FACP daily in the morning Duloxetine HCL 09/02/[address] 20mg 60caps 1-2 tabs by G62. Tali Bah - Meng mouth every 9 Stack[place], 10/21/2017 day as M.D. directed Bupropion HCL ER 08/12/2017 Hx Tablets 150mg 30tabs take 1 F33. Shavonne Tanner (XL) - ER 24HR tablet by 0 Sheila Francis, 01/20/2018 mouth every M.D.,FACP morning with food Pantoprazole Sodium 08/12/2017 Hx Tablets 20mg 30tabs take 1 K29. Feliberto - tablet by 31 Pachdharmesh, 04/05/2018 mouth every M.D. morning before breakfast Hydrocortisone 08/01/2017 Hx Cream 2.5% 20gm apply after Feliberto - first bowel Pachikara, 10/24/2017 movement M.D. Anucort-HC 07/31/2017 Hx Supposito 25mg 12unit apply daily K64. Feliberto - ry s after first 9 Pachikara, 08/01/2017 bm M.D. Oxycodone HCL 07/24/2017 Hx Tablets 5mg 30tabs 1 by mouth S52Mazin Dao - every 6 591A Pachikara, 07/30/2017 hours [...] mouth M51. Feliberto - every 6 16 Pachikara, 07/24/2017 hours as M.D. needed Betamethasone 06/17/2017 Hx Cream 0.05% 50gm apply twice L98. Feliberto Dipropionate - a day 9 Pachikara, 02/20/2018 M.D. Gabapentin 06/17/2017 Hx Capsules 300mg 90caps take 1 M51. Ha - capsule by 16 Sheila Francis, 01/02/2018 mouth 3 M.D.,FACP times a day Fluoxetine HCL 06/17/2017 Hx Capsules 20mg 30caps Take One F33. Feliberto - Capsule By 0 Pachikara, 09/18/2017 Mouth Every M.D. Day Lyrica 06/11/2017 [...] G62. Tali Bah - mouth every 9 Stack[place], 06/01/2017 night as M.D. directed Gabapentin 05/15/2017 Hx Capsules 300mg 120cap 1 by mouth Feliberto - s twice times Pachikara, 06/11/2017 a day and 2 M.D. cap hs Acetaminophen-Codein 05/15/2017 Hx Tablets 300-30mg 15tabs 1 tab by Feliberto brooks #3 - mouth 3 Pachikara, 06/10/2017 times /day M.D. as needed Doxycycline Hyclate 05/07/2017 Hx Capsules 100mg 20caps 1 cab twice L03. [place] - a day 113 Pachikara, 06/10/2017 M.D. Hydrocodone-Acetamin 05/07/2017 Hx Tablets 7.5-325mg 45tabs 1 tab po up L03. Chad walsh - to tid as 113 Nisa, 06/10/2017 needed M.D. Gabapentin 01/24/2017 Hx Capsules 300mg 90caps Take One G63 Feliberto [facility], 05/15/2017 Mouth 3 M.D. Times A Day Venlafaxine HCL ER 01/15/2017 Hx Caps ER 37.5mg 30caps once daily [place] - [facility]HR [facility], 06/11/2017 M.D. Tramadol HCL 01/10/2017 Hx Tablets 50mg 90tabs 2 tab three M51. Feliberto - times a day 16 ika, 09/17/2017 as needed M.D. Gabapentin 01/10/2017 Hx Capsules 100mg 90caps 2 cap three G63 Feliberto - [facility] a [facility], 01/24/2017 M.[facility]. Duloxetine HCL 01/10/[address] 30mg 14caps once a day F33. Feliberto - Part in full 0 Sierra, 01/15/2017 stomach M.D. Butrans 12/30/2016 Hx Patches 10mcg/HR 4units topical Ah - Weekly q7days DMazin Francis, 01/24/2017 M.D.,FACP Tramadol HCL 12/20/2016 Hx Tablets 50mg 14tabs three times M51. Feliberto - a day as 16 Darylika, 01/10/2017 needed M.D. Gabapentin 12/20/2016 Hx Capsules 100mg 90caps three times G63 [place] - a day [facility], 01/10/2017 M.D. Advil Hx Capsules 200mg as [...] 1 cap every Merari - 6 hours Leonardn, N.P. 03/14/2018 Lactobacillus Hx Tablets 1 by mouth Unknown - every day 06/30/2018 Torsemide Hx Tablets 20mg 60tabs take 1 Ha - tablet by Sheila Francis, 06/30/2018 mouth twice M.D.,FACP a day Immunizations CPT Code Status Date Vaccine Lot # [id number] Given 08/05/2018 Influenza Virus Vaccine, Quadrivalent, Split, [id number] Preservative Free Vital Signs Date Vital Result Comment 12/15/2018 3:22pm Height 72 inches 6'0" Weight [...] Result H/L Range Note Drug Abuse 12/08/2018 [facility] Urine Amphetamine Negative ng/ mL 1, 2 [address] [place] [address] [phone] Urine Barbiturates Negative ng/mL 3 Urine Benzodiazepines Negative ng/mL 4 Urine Cocaine Negative ng/mL 5 Urine Phencyclidine Negative ng/mL Cutoff: 25 Urine Tetrahydrocannabinol Negative ng/mL Cutoff: 50 6 Creatinine, Urine 90.7 mg/dL Specific [place] 1.016 pH 6.1 Oxidants Negative 7 Adulterants Comment Normal Codeine, Ur Not Detected ng/mL Cutoff: 25 8 Bwxmsmf-2-qdno-glucuronide, Ur Not Detected ng/mL 9 Morphine, Ur Not Detected ng/mL Cutoff: 25 10 Wotvdtkx-2-vtcw-glucuronide, U Not Detected ng/mL 11 6-monoacetylmorphine, Ur Not Detected ng/mL Cutoff: 25 12 Hydrocodone, Ur Not Detected ng/mL Cutoff: 25 13 Norhydrocodone, Ur Not Detected ng/mL Cutoff: 25 14 Dihydrocodeine, Ur Not Detected ng/mL Cutoff: 25 15 Hydromorphone, Ur Not Detected ng/mL Cutoff: 25 16 Iufvqdxjqjbvz6usbobpytohvkoza Not Detected ng/mL 17 Oxycodone, Ur Not Detected ng/mL Cutoff: 25 18 Noroxycodone, Ur Not Detected ng/mL Cutoff: 25 19 Oxymorphone, Ur Not Detected ng/mL Cutoff: 25 20 Splndytmphi-8-qgpg-glucuronide Not Detected ng/mL 21 Noroxymorphone, Ur Not Detected ng/mL Cutoff: 25 22 Fentanyl, Ur Not Detected ng/mL Cutoff: 2 23 Norfentanyl, Ur Not Detected ng/mL Cutoff: 2 24 Meperidine, Ur Not Detected ng/mL Cutoff: 25 25 Normeperidine, Ur Not Detected ng/mL Cutoff: 25 26 Naloxone, Ur Not Detected ng/mL Cutoff: 25 27 Blgyxihc-0-lztg-glucuronide, U Present ng/mL Abnormal 28 Methadone, Ur [...] Ur Not Detected ng/mL Cutoff: 50 36 Qndclufafa-sgpn-qvaffcguwaj, U Not Detected ng/mL 37 Buprenorphine, Ur Present ng/mL Abnormal Cutoff: 5 38 Norbuprenorphine, Ur Present ng/mL Abnormal Cutoff: 5 39 Norbuprenorphine glucuronide Present ng/mL Abnormal Cutoff: 20 40 Opioid Interpretation See Comment 41 CBC Auto Diff 11/16/2018 [facility] White Blood 4.5 10^3/uL N 3.5-10.[address] [place] [address] [phone] Red Blood Count 3.81 10^6/uL Low 4.00-5.40 [...] Blood Cells % 0 Drug Abuse 08/05/2018 [facility] Urine Amphetamine Negative ng/ mL 42, 43 [address] [place] [address] [phone] Urine Barbiturates Negative ng/mL 44 Urine Benzodiazepines Negative ng/mL 45 Urine Cocaine Negative ng/mL 46 Urine Phencyclidine Negative ng/mL Cutoff: 25 Urine Tetrahydrocannabinol Negative ng/mL Cutoff: 50 47 Creatinine, Urine 55.3 mg/dL Specific [place] 1.010 pH 5.1 Oxidants Negative 48 Adulterants Comment Normal Codeine, Ur Not Detected ng/mL Cutoff: 25 49 Qirkmvf-5-mpyk-glucuronide, Ur Not Detected ng/mL 50 Morphine, Ur Not Detected ng/mL Cutoff: 25 51 Eyvniuus-3-acwv-glucuronide, U Not Detected ng/mL 52 6-monoacetylmorphine, Ur Not Detected ng/mL Cutoff: 25 53 Hydrocodone, Ur Not Detected ng/mL Cutoff: 25 54 Norhydrocodone, Ur Not Detected ng/mL Cutoff: 25 55 Dihydrocodeine, Ur Not Detected ng/mL Cutoff: 25 56 Hydromorphone, Ur Not Detected ng/mL Cutoff: 25 57 Nvofyrfvvzwtq6nxksyynbuuvrpha Not Detected ng/mL 58 Oxycodone, Ur Not Detected ng/mL Cutoff: 25 59 Noroxycodone, Ur Not Detected ng/mL Cutoff: 25 60 Oxymorphone, Ur Not Detected ng/mL Cutoff: 25 61 Wpjxlyzilbq-3-jynf-glucuronide Not Detected ng/mL 62 Noroxymorphone, Ur Not Detected ng/mL Cutoff: 25 63 Fentanyl, Ur Not Detected ng/mL Cutoff: 2 64 Norfentanyl, Ur Not Detected ng/mL Cutoff: 2 65 Meperidine, Ur Not Detected ng/mL Cutoff: 25 66 Normeperidine, Ur Not Detected ng/mL Cutoff: 25 67 Naloxone, Ur Not Detected ng/mL Cutoff: 25 68 Rvrmqnqv-3-whul-glucuronide, U Present ng/mL Abnormal 69 Methadone, Ur [...] Ur Not Detected ng/mL Cutoff: 50 77 Wemzpcyahk-gmzk-dckapatikum, U Not Detected ng/mL 78 Buprenorphine, Ur Present ng/mL Abnormal Cutoff: 5 79 Norbuprenorphine, Ur See Comment ng/mL Cutoff: 5 80 Norbuprenorphine glucuronide Present ng/mL Abnormal Cutoff: 20 81 Opioid Interpretation See Comment 82 Drug Abuse 05/14/2018 [facility] Urine Amphetamine Negative ng/ mL 83, 84 [address] [place] [address] [phone] Urine Barbiturates Negative ng/mL 85 Urine Benzodiazepines Negative ng/mL 86 Urine Cocaine Negative ng/mL 87 Urine Phencyclidine Negative ng/mL Cutoff: 25 Urine Tetrahydrocannabinol Negative ng/mL Cutoff: 50 88 Creatinine, Urine 133.0 mg/dL Specific [place] 1.014 pH 6.1 Oxidants Negative 89 Adulterants Comment Normal Codeine, Ur Not Detected ng/mL Cutoff: 25 90 Owfwibr-7-beka-glucuronide, Ur Not Detected ng/mL 91 Morphine, Ur Not Detected ng/mL Cutoff: 25 92 Qhlimxom-1-rtor-glucuronide, U Not Detected ng/mL 93 6-monoacetylmorphine, Ur Not Detected ng/mL Cutoff: 25 94 Hydrocodone, Ur Not Detected ng/mL Cutoff: 25 95 Norhydrocodone, Ur Not Detected ng/mL Cutoff: 25 96 Dihydrocodeine, Ur Not Detected ng/mL Cutoff: 25 97 Hydromorphone, Ur Not Detected ng/mL Cutoff: 25 98 Aflwashsdhkdu8fseswsmbwkigbwb Not Detected ng/mL 99 Oxycodone, Ur Not Detected ng/mL Cutoff: 25 100 Noroxycodone, Ur Not Detected ng/mL Cutoff: 25 101 Oxymorphone, Ur Not Detected ng/mL Cutoff: 25 102 Swnjfuuaqyj-5-zujc-glucuronide Not Detected ng/mL 103 Noroxymorphone, Ur Not Detected ng/mL Cutoff: 25 104 Fentanyl, Ur Not Detected ng/mL Cutoff: 2 105 Norfentanyl, Ur Not Detected ng/mL Cutoff: 2 106 Meperidine, Ur Not Detected ng/mL Cutoff: 25 107 Normeperidine, Ur Not Detected ng/mL Cutoff: 25 108 Naloxone, Ur Not Detected ng/mL Cutoff: 25 109 Mocixfdy-7-bzxi-glucuronide, U Not Detected ng/mL 110 Methadone, Ur [...] Ur Not Detected ng/mL Cutoff: 50 118 Deppyxnaxw-ejwk-hfzqedudiev, U Not Detected ng/mL 119 Buprenorphine, Ur Not Detected ng/mL Cutoff: 5 120 Norbuprenorphine, Ur Present ng/mL Abnormal Cutoff: 5 121 Norbuprenorphine glucuronide Present ng/mL Abnormal Cutoff: 20 122 Opioid Interpretation See Comment 123 Stool Occult BLD 05/14/2018 [facility] Occult Blood - pos x3 1-3 SPCS Diag Stool CBC Auto Diff 04/07/2018 [facility] White Blood 4.7 10^3/uL N 3.5-10.[address] [place] [address] [phone] Red Blood Count 3.94 10^6/uL Low 4.00-5.40 [...] Cells % 0.1 Comp Metabolic Panel 04/07/2018 [facility] Sodium 140 mmol/L N 135-[address] [place] [address] [phone] Potassium 3.9 mmol/L N 3.5-5.0 Chloride 98 [...] >60 124 Iron & Iron Binding 04/07/2018 [facility] Iron 149 g/dL N 50 -212 [address] [place] [address] [phone] Unsaturated Iron Binding 249 g/dL Total Iron Binding Capacity 398 g/dL N 250-450 Transferrin 284 mg/dL N 203-362 % Iron Saturation 37 % N 15-55 Laboratory test finding 04/07/2018 [facility] Cortisol 6.49 g/ dL [address] [place] [address] [phone] Ferritin 20.4 ng/mL Low 24-336 Folic Acid (Folate) > 20.00 ng/mL >3.99 Vitamin D Total 25(Oh) 34.7 ng/mL N 20-50 TSH (Thyroid Stim Horm) 2.93 mcIU/mL N 0.34-5.60 Vitamin B12 378 pg/mL N 180-914 126 Vitamin B1 (Whole Blood) 218 nmol/L Abnormal 70-180 127 Vitamin E Level 7.9 mg/L 5.5 - 17.0 128 Laboratory test 03/10/2018 [facility] TSH (Thyroid 3.25 mcIU/mL N 0.34-5.60 finding [address] [facility] Stim [place]) [place] [address] [phone] Urinalysis 02/11/2018 [facility] Urine Color Yellow Profile [address] [place] [address] [phone] Urine Appearance Clear Urine Specific [place] 1.017 N 1.010-1.030 Urine pH 6.0 N 5-9 Urine Urobilinogen Negative Negative Urine Ketones Negative Negative Urine Protein Negative Negative Urine Leukocytes Negative Negative Urine Blood Negative Negative * * Abnormal Negative 129 Urine Nitrite Negative Negative Urine Bilirubin Negative Negative Urine Glucose Negative Negative CBC Auto Diff 02/10/2018 [facility] White Blood 3.7 10^3/uL N 3.5-10.[address] [place] [address] [phone] Red Blood Count 3.80 10^6/uL Low 4.0-5.4 [...] Blood Cells % 0.1 Laboratory test 02/10/2018 [facility] Lactic Acid 1.7 mmol/L N 0.5-2.0 [address] [place] [address] [phone] Comp Metabolic 02/10/2018 [facility] Sodium 140 mmol/L N 139- 145 Panel [address] [place] [address] [phone] Potassium 4.0 mmol/L N 3.5-5.0 Chloride 104 [...] Egfr 139.0 >60 131 Laboratory test 02/10/2018 [facility] C Reactive 15.97 mg/L High < 5.00 [address] [place] [address] [phone] Lipase 13 U/L N 11.0-82.0 Hemoglobin A1c (Glyco HGB) 5.4 % N 4.0-5.6 133 Blood Culture SEE RESULT BELOW 134 Urinalysis Profile 02/05/2018 [facility] Urine Color Yellow [address] [place] [address] [phone] Urine Appearance Clear Urine Specific [place] 1.013 N 1.010-1.030 Urine pH 6.0 N [...] Bacteria Absent Absent Urine Culture And 02/05/2018 [facility] Urine Culture SEE RESULT [address] [place] [address] [phone] CBC Auto Diff 02/05/2018 [facility] White Blood 4.3 10^3/uL N 3.5-[address] Count 0.8 [place] [address] [phone] Red Blood Count 3.97 10^6/uL Low 4.0-5.4 [...] Red Blood Cells % 0.1 Inr/Protime 02/05/2018 [facility] Inr 0.88 N 0.77-1.[address] [place] [address] [phone] Laboratory test 02/05/2018 [facility] Partial 33.0 seconds N 26.0-36.[address] [place] [address] PTT [phone] CBC Auto Diff 02/04/2018 [facility] White Blood 7.3 10^3/uL N 3.5-10.[address] Count [place], [place] [address] [phone] Red Blood Count 3.90 10^6/uL Low 4.0-5.4 [...] Red Blood Cells % 0 Laboratory 02/04/2018 [facility] Erythrocyte Sed 31 mm/Hr High 0-14 test finding [address] [place] [address] [phone] Wound 02/04/2018 [facility] Wound/Misc SEE 137, Culture/Sensi [address] Culture-Gram RESULT 138 [place] [address] Stain BELOW [phone] Laboratory 01/29/2018 [facility] B-Type 8 pg/mL 139 test finding [address] [place] [address] Peptide BNP [phone] Comp Metabolic 01/28/2018 [facility] Sodium 137 Low 139-[address] mmol/[place] [address] [phone] Potassium 4.3 mmol/L N 3.5-5.0 Chloride 100 [...] Egfr 154.7 >60 140 Laboratory test 01/28/2018 [facility] Magnesium 1.9 mg/dL N 1.9-2.7 finding [address] [place] [address] [phone] Laboratory test 01/12/2018 [facility] Erythrocyte Sed 24 mm/Hr High 0-[address] [place] [address] [phone] Uric Acid 6.0 mg/dL N 4.4-7.6 Lipid Profile 01/02/2018 [facility] Triglycerides 124 mg/dL 141 (Trig/Chol/HDL) [address] [place] [address] [phone] Cholesterol 147 mg/dL 142 HDL Cholesterol 53.8 mg/dL 143 LDL Cholesterol 68 mg/dL 144 HIV 1/2 AB 01/02/2018 [facility] HIV 1 2 Nonreactive Nonreactive 145 Evaluation 101 [facility] [place] [address] [phone] Comp Metabolic 01/02/2018 [facility] Sodium 138 mmol/L N 133- 145 Panel [address] [place] [address] [phone] Potassium 4.3 mmol/L N 3.5-5.0 Chloride 104 [...] Egfr Non- 133.0 >60 Egfr 171.1 >60 146 CBC Auto Diff 01/02/2018 [facility] White Blood 4.1 10^3/uL N 3.5-10.[address] [place] [address] [phone] Red Blood Count 3.99 10^6/uL Low 4.0-5.4 [...] Red Blood Cells % 0 Laboratory test 01/02/2018 [facility] TSH (Thyroid 1.51 mcIU/mL N 0.34-5.[address] Stim Horm) [place] [address] [phone] Cortisol 4.52 g/dL 147 Drug Abuse 09/17/2017 [facility] Urine Amphetamine Negative ng/ mL [address] [place] [address] [phone] Urine Barbiturates Negative ng/mL 149 Urine Benzodiazepines Negative ng/mL 150 Urine Cocaine Negative ng/mL 151 Urine Phencyclidine Negative ng/mL Cutoff: 25 Urine Tetrahydrocannabinol Negative ng/mL Cutoff: 50 152 Creatinine, Urine 82.8 mg/dL Specific [place] 1.013 pH 5.9 Oxidants Negative 153 Adulterants Comment Normal Codeine, Ur Not Detected ng/mL Cutoff: 25 154 Vinfxba-1-prbj-glucuronide, Ur Not Detected ng/mL 155 Morphine, Ur Not Detected ng/mL Cutoff: 25 156 Sligoied-9-dtht-glucuronide, U Not Detected ng/mL 157 6-monoacetylmorphine, Ur Not Detected ng/mL Cutoff: 25 158 Hydrocodone, Ur Not Detected ng/mL Cutoff: 25 159 Norhydrocodone, Ur Not Detected ng/mL Cutoff: 25 160 Dihydrocodeine, Ur Not Detected ng/mL Cutoff: 25 161 Hydromorphone, Ur Not Detected ng/mL Cutoff: 25 162 Ksqmjxesexayi1iqgflxedtlbkcav Not Detected ng/mL 163 Oxycodone, Ur Not Detected ng/mL Cutoff: 25 164 Noroxycodone, Ur Not Detected ng/mL Cutoff: 25 165 Oxymorphone, Ur Not Detected ng/mL Cutoff: 25 166 Tkmlacnrkly-5-joje-glucuronide Not Detected ng/mL 167 Noroxymorphone, Ur Not Detected ng/mL Cutoff: 25 168 Fentanyl, Ur Not Detected ng/mL Cutoff: 2 169 Norfentanyl, Ur Not Detected ng/mL Cutoff: 2 170 Meperidine, Ur Not Detected ng/mL Cutoff: 25 171 Normeperidine, Ur Not Detected ng/mL Cutoff: 25 172 Naloxone, Ur Not Detected ng/mL Cutoff: 25 173 Abzcmpik-3-wjiu-glucuronide, U Not Detected ng/mL 174 Methadone, Ur [...] Ur Not Detected ng/mL Cutoff: 50 182 Stbawzlyoa-pmjk-bwjcmcbailg, U Not Detected ng/mL 183 Buprenorphine, Ur Not Detected ng/mL Cutoff: 5 184 Norbuprenorphine, Ur Not Detected ng/mL Cutoff: 5 185 Norbuprenorphine glucuronide Not Detected ng/mL Cutoff: 20 186 Opioid Interpretation See Comment 187 Vitamin B12 And 08/11/2017 [facility] Vitamin B12 382 pg/mL N 180-914 188 Folate Serum [address] [place] [address] [phone] Folic Acid (Folate) > 20.00 ng/mL N >3.99 Iron & Iron Binding 08/11/2017 [facility] Iron 165 g/dL N 50 -[address] [place] [address] [phone] Unsaturated Iron Binding 279 g/dL N Total Iron Binding Capacity 444 g/dL N 250-450 % Iron Saturation 37 % N 15-55 CBC No Diff 07/29/2017 [facility] White Blood 5.3 10^3/uL N 3.5-10.[address] [place] [address] [phone] Red Blood Count 4.19 10^6/uL N 4.0-5.4 [...] um3 Low 7.4-10.4 CBC Auto Diff 07/29/2017 [facility] White Blood 5.4 10^3/uL N 3.5-10.[address] Count [place] [address] [phone] Red Blood Count 4.47 10^6/uL N 4.0-5.4 [...] Cells % 0.1 N Laboratory test 07/29/2017 [facility] Lactic Acid 1.8 mmol/L N 0.5-2.0 [address] [place] [address] [phone] Inr/Protime 07/29/2017 [facility] Inr 0.86 Low 0.89-1.[address] [place] [address] [phone] Laboratory test 07/29/2017 [facility] Partial 33.4 N 26.0- 36.3 finding [address] [facility] [place] [address] Time PTT [phone] Comp Metabolic 07/29/2017 [facility] Sodium 138 mmol/L N 133- [address] [place] [address] [phone] Potassium 4.0 mmol/L N 3.5-5.0 Chloride 104 [...] N >60 190 Laboratory test finding 07/29/2017 [facility] Lipase 11 U/L N 11.0-82.[address] [place] [address] [phone] C Reactive Protein 9.22 mg/L High < 5.00 191 Troponin-I (TnI) 0.00 ng/mL N <0.04 Laboratory test 07/07/2017 [facility] Blood Culture SEE RESULT [address] [place] [address] [phone] CBC Auto Diff 07/07/2017 [facility] White Blood 5.9 10^3/uL N 3.5-[address] Count .8 [place] [address] [phone] Red Blood Count 4.43 10^6/uL N 4.0-5.4 [...] Red Blood Cells % 0 N Inr/Protime 07/07/2017 [facility] Inr 0.81 Low 0.89-1.[address] [place] [address] [phone] Laboratory test 07/07/2017 [facility] Partial 32.7 N 26.0- 36.[address] [address] PTT [phone] Comp Metabolic 07/07/2017 [facility] Sodium 135 mmol/L N 133- [address] [place] [address] [phone] Potassium 4.2 mmol/L N 3.5-5.0 Chloride 103 [...] 133.0 N >60 Egfr 171.1 N >60 193 Laboratory test 07/07/2017 [facility] C Reactive 15.85 mg/L High < 5.00 [address] Protein [place], [place] [address]29 [phone] Lactic Acid 0.7 mmol/L N 0.5-2.0 195 Wound 07/07/2017 [facility] Wound/Misc SEE RESULT 196 Culture/Sensi [address] [place] [address] Stain [phone] Laboratory test 07/07/2017 [facility] Blood Culture SEE RESULT [address] [place] [place], [place] [address] [phone] CBC Auto Diff 06/14/2017 [facility] White Blood Count 7.9 N 3.5- [address] 10^3/uL 10.8 [place], [place] [phone] Red Blood Count 4.55 10^6/uL N 4.0-5.4 [...] Cells % 0.1 N Laboratory test 06/14/2017 [facility] Lactic Acid 1.6 mmol/L N 0.5-2.0 198 finding [address] [place] [address] [phone] Comp Metabolic 06/14/2017 [facility] Sodium 138 mmol/L N 133- 145 Panel [address] [place] [address] [phone] Chloride 108 mmol/L N 101-111 Co2 Carbon [...] 14 U/L N 13-39 Laboratory test 06/14/2017 [facility] Magnesium 2.0 mg/dL N 1.9-2.[address] [place] [address] [phone] Creatine Kinase(CK) 62 U/L N 10-223 TSH (Thyroid Stim Horm) 0.99 mcIU/mL N 0.34-5.60 Urinalysis Profile 06/09/2017 [facility] Urine Color Anisha [place] [address] [place] [address] [phone] Urine Appearance Cloudy N Urine Specific [place] 1.024 N 1.010-1.030 Urine pH 5.0 N 5-9 Urine Urobilinogen Negative N Negative Urine Ketones Negative N Negative Urine Protein Negative N Negative Urine Leukocytes Negative N Negative Urine Blood Negative N Negative * * Abnormal Negative 200 Urine Nitrite Negative N Negative Urine Bilirubin Negative N Negative Urine Glucose Negative N Negative Urine Drug 06/09/2017 [facility] Amphetamine Ur None Detected N None Detect SCR ED & [address] [place] [address] [phone] Barbiturates Urine Screen None Detected N None Detect Benzodiazepine Urine Screen None Detected N None Detect Urine Cannabinoids Screen None Detected N None Detect Urine Cocaine Screen None Detected N None Detect Urine Opiates Screen Presumptive Posi <SEE NOTE> Abnormal None Detect 201 Urine Phencyclidine Screen None Detected N None Detect 202 CBC Auto Diff 06/09/2017 [facility] White Blood 5.8 10^3/uL N 3.5-10.[address] [place] [address] [phone] Red Blood Count 4.42 10^6/uL N 4.0-5.4 [...] Blood Cells % 0 N Inr/Protime 06/09/2017 [facility] Inr 0.81 Low 0.89-1.[address] [place] [address] [phone] Laboratory test 06/09/2017 [facility] Partial 31.4 N 26.0- 36.[address] [address] PTT [phone] D Dimer Quantitative < 200 ng/mL N Less Than 230 203 B-Type Natriuretic Peptide BNP 48 pg/mL N 204 Lactic Acid 1.2 mmol/L N 0.5-2.0 205 Comp Metabolic Panel 06/09/2017 [facility] Sodium 137 mmol/L N 133-[address] [place] [address] [phone] Potassium 3.8 mmol/L N 3.5-5.0 Chloride 107 [...] 152.1 N >60 Egfr 195.7 N >60 206 Laboratory test 06/09/2017 [facility] Magnesium 1.9 mg/dL N 1.9-2.[address] [place] [address] [phone] Lipase 14 U/L N 11.0-82.0 Creatine Kinase(CK) 95 U/L N 10-223 C Reactive Protein 3.25 mg/L N < 5.00 207 Troponin-I (TnI) 0.00 ng/mL N <0.04 CKMB 06/09/2017 [facility] CKMB ng/mL 1.7 ng/mL N 0.6-6.[address] [place] [address] [phone] Laboratory test 06/09/2017 [facility] Acetaminophen < 15 [address] g/[place] [address] [phone] Alcohol < 10 mg/dL N <10 Salicylate < 2.50 mg/dL N <30 TSH (Thyroid Stim Horm) 0.52 mcIU/mL N 0.34-5.60 Wound 05/07/2017 [facility] Wound/Misc SEE RESULT 209 Culture/Sensi [address] [place] [address] Stain [phone] Comp Metabolic 04/02/2017 [facility] Sodium 136 mmol/L N 133- Panel [address] [place] [address] [phone] Potassium 4.8 mmol/L N 3.5-5.0 Chloride 103 [...] 124.9 N >60 Egfr 160.6 N >60 210 Calcium 9.1 mg/dL N 8.6-10.3 Laboratory test 04/02/2017 [facility] TSH (Thyroid 1.44 mcIU/mL N 0.34-5.[address] Stim [place]orm) [place] [address] [phone] Free T4 (Free Thyroxine) 1.03 ng/dL N 0.61-1.12 Vitamin B12 359 pg/mL N 180-914 211 Folic Acid (Folate) > 20.00 ng/mL N >3.99 Connective Tissue 04/02/2017 [facility] Anti-Nuclear 0.1 U N [address] [place] [address] [phone] Cyclic Citrullinated Peptide <15.6 U N 213 Interpretation See Comment N 214 Laboratory test 04/02/2017 [facility] C Reactive 5.47 mg/L High < 5.00 [address] [place] [address] [phone] Lyme Disease Serology Negative N Negative 216 Protein 04/02/2017 [facility] Total 7.3 g/dL N 6.3 - Electrophoresis [address] Protein(Pep) 7.9 [place] [address] [phone] Albumin 3.7 g/dL N 3.4-4.7 Alpha-1 Globulin 0.3 g/dL N 0.1-0.3 Alpha-2 Globulin 1.0 g/dL N 0.6-1.0 Beta Globulin 1.4 g/dL Abnormal 0.7-1.2 Gamma Globulin 0.9 g/dL N 0.6-1.6 Albumin/Globulin Ratio 1.03 N Impression See Comment N 217 CBC Auto Diff 04/02/2017 [facility] White Blood 4.8 10^3/uL N 3.5-10.[address] [place] [address] [phone] Red Blood Count 4.64 10^6/uL N 4.0-5.4 [...] Blood Cells % 0.1 N Laboratory test 01/03/2017 [facility] Vitamin B12 324 pg/mL N 180-914 [address] [place] [address] [phone] 1 [id number] 2 REFERENCE VALUE Cutoff: 500 3 REFERENCE [...] REFERENCE VALUE Cutoff: 100 10 Aisha Alanis, MS Contin; Also a minor metabolite (10%) of codeine and can be seen in low concentrations (<2,000 ng/mL) with poppy seed ingestion. 11 Metabolite of morphine REFERENCE VALUE Cutoff: 100 12 Metabolite of heroin 13 Lortab, [place], Vicodin; Also a very minor metabolite of [...] and norbuprenorphine glucuronide) along with naloxone metabolite (frnxvxxr-0-ecma-glucuronide). Suspect use of buprenorphine with naloxone (e.g. Suboxone) within the past three days. ADDITIONAL INFORMATION This test was developed and its performance characteristics determined by [facility] in a manner consistent with CLIA requirements. This test has not been cleared or approved by the U.S. Food and Drug Administration. Test Performed by: [facility] - [facility] [address] [place] [address] 42 [id number] REFERENCE VALUE Cutoff: 500 44 REFERENCE [...] codeine REFERENCE VALUE Cutoff: 100 51 Aisha Alanis MS Contin; Also a minor metabolite (10%) of codeine and can be seen in low concentrations (<2,000 ng/mL) with poppy seed ingestion. 52 Metabolite of morphine REFERENCE VALUE Cutoff: 100 53 Metabolite of heroin 54 Lortab, [place], Vicodin; Also a very minor metabolite of [...] metabolite (norbuprenorphine glucuronide) along with naloxone metabolite (qacbslha-5-dsdc-glucuronide). Suspect use of buprenorphine with naloxone (e.g. Suboxone) within the past three days. ADDITIONAL INFORMATION This test was developed and its performance characteristics determined by [facility] in a manner consistent with CLIA requirements. This test has not been cleared or approved by the U.S. Food and Drug Administration. Test Performed by: [facility] - [facility] [address] [place] [address] 83 [id number] REFERENCE VALUE Cutoff: 500 85 REFERENCE [...] REFERENCE VALUE Cutoff: 100 92 Aisha Alanis, Contin; Also a minor metabolite (10%) of codeine and can be seen in low concentrations (<2,000 ng/mL) with poppy seed ingestion. 93 Metabolite of morphine REFERENCE VALUE Cutoff: 100 94 Metabolite of heroin 95 Lortab, [place], Vicodin; Also a very minor metabolite of [...] developed and its performance characteristics determined by [facility] in a manner consistent with CLIA requirements. This test has not been cleared or approved by the U.S. Food and Drug Administration. Test Performed by: [facility] - [address] [address] 124 Because ethnic data is not always [...] developed and its performance characteristics determined by [facility] in a manner consistent with CLIA requirements. This test has not been cleared or approved by the U.S. Food and Drug Administration. Test Performed by: [facility] - [address] [address] 128 ADDITIONAL INFORMATION This test was developed and its performance characteristics determined by [facility] in a manner consistent with CLIA requirements. This test has not been cleared or approved by the U.S. Food and Drug Administration. Test Performed by: [facility] - [address] [address] 129 *Ascorbic acid is present which may interfere with detection of blood. 130 [facility] Severe Sepsis and Septic Shock Management [...] in selective patients <6.0%. Please refer to [place] [employer] diabetic care guidelines for further information. 134 SEE RESULT BELOW Name: TYSHAWN DANIELSON : [address]: Hazel Nguyễn MD Acct: [id number] Unit: [id number] AGE: 42 Location: [place] [address] Re02/11/18 Dis: 02/13/18 SEX: M Status: DIS IN SPEC: [id number] SANA: 02/10/18 [facility] DR: Fish CONTRERAS REQ: [id number] RECD: 02/10/18 STATUS: SERGEI SMITH DR: [facility] Feliberto Esquivel MD _ SOURCE: BLOOD,VENO SPDESC: ORDERED: Blood Cult COMMENTS: Patient is On Antibiotics? NO Procedure Result Reported Site Aerobic Culture Bottle Final 02/15/18- 2347 ML No Growth Day 5 Anaerobic Culture Bottle Final 02/15/18- 2345 ML No Growth Day 5 * ML - Main Lab . END OF REPORT DEPARTMENT OF PATHOLOGY, [address] [place] [address] Rocco Alonzo M.D. Director [facility] # [id number] 135 *Ascorbic acid is present which may interfere with detection of blood. 136 SEE RESULT BELOW Name: TYSHANW DANIELSON : [address]: Desmond Griffin MD Acct: [id number] Unit: [id number] AGE: 42 Location: [place] [address] Re02/06/18 Dis: 02/06/18 SEX: M Status: DIS Keith SPEC: [id number] SANA: 02/05/[address]: Sumit Fisher MD REQ: [id number] RECD: 02/05/18 STATUS: SERGEI SMITH DR: Feliberto Esquivel MD _ SOURCE: URINE SPDESC: ORDERED: Urine Culture Procedure Result Reported Site Urine Culture Final 02/07/18- 1002 ML No Growth (<1,000 CFU/mL) * ML - Main Lab . END OF REPORT DEPARTMENT OF PATHOLOGY, [address] [place] [address] Rocco Alonzo M.D. Director [facility] # [id number] 138 SEE RESULT BELOW Name: TYSHAWN DANIELSON : [address]: Feliberto Esquivel MD Acct: [id number] Unit: [id number] AGE: 42 Location: [facility] Re02/04/18 SEX: M Status: REG REF SPEC: [id number] SANA: 02/04/18-[address]: Feliberto Esquivel MD REQ: [id number] RECD: 02/04/18 STATUS: COMP _ SOURCE: LEG, RIGHT SPDESC: ORDERED: Culture Stain COMMENTS: [id number] QUERIES: Specimen Description RIGHT LEG Procedure Result Reported Site Wound/Misc Gram Stain Final 02/05/18- 1055 ML No Neutrophils Observed No Organisms Seen Wound/Misc Culture Final 02/06/18- 1322 ML Organism 1 NORMAL MCKENNA Quantity 1+ * ML - Main Lab . END OF REPORT DEPARTMENT OF PATHOLOGY, [address] [place] [address] Rocco Alonzo M.D. Director [facility] # [id number] 139 >100 to <200 pg/mL: likely compensated [...] 5 Kidney failure <15 (or dialysis) 141 Desirable: <150 Borderline High: 150-199 High: 200-499 Very High: >500 142 Desirable: <200 Borderline High: 200-239 High: >239 143 Low: <40 Desirable: 40-60 High: >60 144 Desirable: <100 Near Optimal: 100-129 Borderline High: 130-159 High: 160-189 Very High: >189 145 It is recognized that currently available assays [...] 95% confidence interval of 99.78 to 99.96%. 146 Because ethnic data is not always readily [...] 15-29 5 Kidney failure <15 (or dialysis) 147 AM 8.7-22.4 PM <10 148 REFERENCE VALUE Cutoff: 500 149 REFERENCE [...] REFERENCE VALUE Cutoff: 100 156 Aisha Alanis, Contin; Also a minor metabolite (10%) of codeine and can be seen in low concentrations (<2,000 ng/mL) with poppy seed ingestion. 157 Metabolite of morphine REFERENCE VALUE Cutoff: 100 158 Metabolite of heroin 159 Lortab, [place], Vicodin; Also a very minor metabolite of [...] developed and its performance characteristics determined by [facility] in a manner consistent with CLIA requirements. This test has not been cleared or approved by the U.S. Food and Drug Administration. Test Performed by: [facility] - [facility] [address] [place] [address] 188 Normal Range 180 to 914 Indeterminate Range 145 to 180 Deficient Range <145 189 [facility] Severe Sepsis and Septic Shock Management [...] [address]: Chad Wilkinson MD Acct: [id number] Unit: [id number] AGE: 42 Location: ED Re07/07/17 SEX: M Status: DEP ER SPEC: [id number] SANA: 07/07/17 [facility] DR: Graciela CONTRERAS REQ: [id number] RECD: 07/07/17 STATUS: SERGEI SMITH DR: Feliberto Wilkinson MD _ SOURCE: BLOOD,VENO SPDES: ORDERED: Blood Cult Procedure Result Reported Site Aerobic Culture Bottle Final 07/12/17- 1501 ML No Growth Day 5 Anaerobic Culture Bottle Final 07/12/17- 1501 ML No Growth Day 5 * ML - MAIN LAB ([facility]) . END OF REPORT * ML=Testing performed at Main Lab DEPARTMENT OF PATHOLOGY, [address] [place] [address] Rocco Alonzo M.D. Director [facility] # [id number] 193 Because ethnic data is not always readily [...] 15-29 5 Kidney failure <15 (or dialysis) 194 Acute inflammation: >10.00 195 [facility] Severe Sepsis and Septic Shock Management Bundle Measure requires all lactic acids initially measuring >2.0 mmol/L be repeated. 196 SEE RESULT BELOW Name: TYSHAWN DANIELSON : [address]: Chad Wilkinson MD Acct: [id number] Unit: [id number] AGE: 42 Location: ED Re07/07/17 SEX: M Status: DEP ER SPEC: [id number] SANA: 07/07/[address]: Graciela CONTRERAS REQ: [id number] RECD: 07/07/17 STATUS: SERGEI SMITH DR: Feliberto Wilkinson MD _ SOURCE: RIGHT [facility]: ORDERED: Culture Stain Procedure Result Reported Site Wound/Misc Gram Stain Final 07/07/17- 1503 ML Test not performed Wound/Misc Culture Final 07/09/17- 1118 ML No Growth Day 2 * ML - MAIN LAB ([facility]) . END OF REPORT * ML=Testing performed at Main Lab DEPARTMENT OF PATHOLOGY, [address] [place] [address] Rocco Alonzo M.D. Director [facility] # [id number] 197 SEE RESULT BELOW Name: TYSHAWN DANIELSON : [address]: Chad Wilkinson MD Acct: [id number] Unit: [id number] AGE: 42 Location: ED Re07/07/17 SEX: M Status: DEP ER SPEC: [id number] SANA: 07/07/17-1406 [facility] DR: Graciela CONTRERAS REQ: [id number] RECD: 07/07/17 STATUS: RES LUIS DR: Feliberto Wilkinson MD _ SOURCE: BLOOD,VENO SPDESC: ORDERED: Blood Cult Procedure Result Reported Site Aerobic Culture Bottle Preliminary 07/08/17- 1424 ML No Growth Day 1 Anaerobic Culture Bottle Preliminary 07/08/17- 1424 ML No Growth Day 1 * ML - MAIN LAB ([facility]) . END OF REPORT * ML=Testing performed at Main Lab DEPARTMENT OF PATHOLOGY, [address] [place] [address] Rocco Alonzo M.D. Director [facility] # [id number] [address] [place] [address] Severe Sepsis and Septic Shock Management Bundle [...] 5 Kidney failure <15 (or dialysis) 200 *Ascorbic acid is present which may interfere with detection of blood. 201 Presumptive Positive Presumptive positive results are unconfirmed. 202 The urine specimen was tested at the listed cutoffs: Drug class test level (ng/mL) Amphetamines 500 Barbiturates 200 Benzodiazepine metabolites 200 Cocaine metabolites 150 Cannabinoids 50 Opiates 300 Pcp 25 Specimen was received without chain of custody. Results should be used for medical purposes only. 203 Please note: The following may produce a false positive D Dimer test: - Rheumatoid factor greater than 60 IU/ml - Plasma hemoglobin greater than 0.05 gm/dl - Bilirubin greater than 50 mg/dl - Lipids greater than 1000 mg/dl - FDP greater than 20 ug/ml 204 >100 to <200 pg/mL: likely compensated congestive heart failure (CHF) 200 to 400 pg/mL: likely moderate CHF >400 pg/mL: likely moderate to severe CHF 205 [facility] Severe Sepsis and Septic Shock Management Bundle Measure requires all lactic acids initially measuring >2.0 mmol/L be repeated. 206 Because ethnic data is not always readily [...] 15-29 5 Kidney failure <15 (or dialysis) 207 Acute inflammation: >10.00 208 Therapeutic concentration: <50 ug/mL Toxic concentration: >120 ug/mL 209 SEE RESULT BELOW Name: TYSHAWN DANIELSON : [address]: Feliberto Esquivel MD Acct: [id number] Unit: [id number] AGE: 41 Location: [facility] Re05/07/17 SEX: M Status: REG REF SPEC: [id number] SANA: 05/07/[address]: Feliberto Esquivel MD REQ: [id number] RECD: 05/07/17 STATUS: RES _ SOURCE: ARM RIGHT SPDESC: ORDERED: Culture Stain COMMENTS: [id number] Specimen Description INDURATED INFECTION R FOREARM Procedure Result Reported Site Wound/Misc Gram Stain Final 05/08/17- 07 ML 1+ Nucleated Cells No Neutrophils Observed 2+ Gram Positive Cocci Wound/Misc Culture Preliminary 05/08/17- 1316 ML Organism 1 STAPHYLOCOCCUS AUREUS Quantity 2+ * ML - [facility] ([facility]) . END OF REPORT * ML=Testing performed at Main Lab DEPARTMENT OF PATHOLOGY, [address] [place] [address] Rocco Alonzo M.D. Director [facility] # [id number] 210 Because ethnic data is not always readily [...] 15-29 5 Kidney failure <15 (or dialysis) 211 Normal Range 180 to 914 Indeterminate Range 145 to 180 Deficient Range <145 212 REFERENCE VALUE <=1.0 (Negative) 213 REFERENCE VALUE <20.0 (Negative) 214 Tests for antibodies to dsDNA and FAHEEM antigens are not performed automatically unless the LO result is > or= 3.0 U. Studies performed at [facility] indicate that positive LO results <3.0 U are rarely accompanied by positive second order tests. Test Performed by: [address] [address] 470 Acute inflammation: >10.00 216 Serologic response to B. burgdorferi infection is not detected, but cannot rule out early infection during which low or undetectable antibody levels to B. burgdorferi may be present. If clinically indicated, a new serum specimen should be submitted in 7-14 days. Test Performed by: [facility] - [address] [address] 217 RESULT: No apparent monoclonal protein on serum electrophoresis. Test Performed by: [facility] - [address] [address] 218 Normal Range 180 to 914 Indeterminate Range 145 to 180 Deficient Range <145 Procedures Date Code Description Status 04/28/2018 [id number] Diabetic Foot Exam Completed 04/21/2018 [id number] Diabetic Foot Exam Completed 04/06/2018 91839 EKG Tracing & Interpretation Completed 03/10/2018 35527 Anoscopy Completed 02/09/2018 42959 Polysomnography Sleep Staging 4+ Parameters Completed 02/06/2018 81100 ECHO Transthorasic Realtime 2D W Doppler & Color Flow Completed Hosp 11/21/2017 [id number] Colonoscopy Completed 07/31/2017 69183 Short Arm Cast Application Completed 07/17/2017 92504 CLST TRMT Distal Radial FX Completed 05/20/2017 00789 Nerve Conduction 13+ Studies Completed 01/12/2008 94169 Color Flow Doppler/Interp & Reprt Completed 01/12/2008 62817 Color Flow Doppler/Interp & Reprt Completed 01/12/2008 13798 Pulse Wave/Continuous-Interp.RPT Completed 01/12/2008 89354 Echocardiogram Completed 01/12/2008 29939 Echocardiogram Completed Encounters Type Date Location Provider Dx Diagnosis Office Visit 11/27/2018 [facility] Internal Merari Reynoso, L08.9 Local infection of 4:00p Medicine - N.P. the skin and [place] subcutaneous tissue, unsp G89.4 Chronic pain syndrome Office Visit 11/16/2018 3:00p [facility] Internal Aissatou Gurrola M65.872 Other synovitis and Medicine - tenosynovitis, left [address] ankle and foot G89.4 Chronic pain syndrome K62.5 Hemorrhage of anus and rectum Office Visit 10/26/2018 Orthopedic Jett Garcias, M76.822 Posterior tibial 1:00p Services Of tendinitis, left C.[facility].A. leg M76.72 Peroneal tendinitis, left leg S83.402A Sprain of unsp collateral ligament of left knee, init encntr M65.872 Other synovitis and tenosynovitis, left ankle and foot Office Visit 10/21/2018 2:40p [facility] Internal Aissatou Gurrola MD M25.562 Pain in left Medicine - [address] M25.572 Pain in left ankle and joints of left foot G89.4 Chronic pain syndrome Office Visit 08/05/2018 1:50p [facility] Internal Ha Sosa G89.4 Chronic pain Medicine - [place] Jasmyn Francis,FACP syndrome Rd E66.01 Morbid (severe) obesity due to excess calories K62.5 Hemorrhage of anus and rectum K21.9 Gastro-esophageal reflux disease without esophagitis Z23 Encounter for immunization Office Visit 06/30/2018 9:40a [facility] Internal Feliberto Esquivel, J44.9 Chronic Medicine - MRobb obstructive [address] pulmonary disease, unspecified K21.9 Gastro-esophageal reflux disease without esophagitis E66.01 Morbid (severe) obesity due to excess calories L08.9 Local infection of the skin and subcutaneous tissue, unsp E55.9 Vitamin D deficiency, unspecified Office Visit 05/28/2018 11:00a [facility] Domi Sosa G89.4 Chronic pain Medicine - Tbnat Francis M.D.,FACP syndrome Rd K62.5 Hemorrhage of anus and rectum G90.521 Complex regional pain syndrome I of right lower limb Office Visit 05/14/2018 4:40p [facility] Domi Sosa G89.4 Chronic pain Medicine - [place] Jasmyn Francis,FACP syndrome Rd E66.01 Morbid (severe) obesity due to excess calories I89.0 Lymphedema, not elsewhere classified M54.31 Sciatica, right side K62.5 Hemorrhage of anus and rectum D64.9 Anemia, unspecified Office Visit 04/28/2018 10:30a Orthopedic Juan M54.31 Sciatica, right Services Of Jasmyn Barnett side C.M.A. G90.521 Complex regional pain syndrome I of right lower limb Office Visit 04/27/2018 11:20a [facility] Feliberto Esquivel, R63.5 Abnormal weight Medicine - [place] M.D. gain Rd M51.16 Intervertebral disc disorders w radiculopathy, lumbar region G62.9 Polyneuropathy, unspecified J44.9 Chronic obstructive pulmonary disease, unspecified Office Visit 04/06/2018 1:20p [facility] Feliberto Esquivel, R63.5 Abnormal weight Medicine - [place] M.D. gain Rd F33.0 Major depressive disorder, recurrent, mild M51.16 Intervertebral disc disorders w radiculopathy, lumbar region I89.0 Lymphedema, not elsewhere classified G47.30 Sleep apnea, unspecified Office Visit 04/06/2018 3:00p [facility] Vamsi Medina R60.0 Localized edema Of [facility] Wong FACC R07.9 Chest pain, unspecified F17.201 Nicotine dependence, unspecified, in remission R55 Syncope and collapse R06.02 Shortness of breath E66.8 Other obesity Office Visit 03/19/2018 [facility] Feliberto G62.9 Polyneuropathy, 2:40p Connor Esquivel M.D. unspecified [address] R63.5 Abnormal weight gain R18.8 Other ascites F33.0 Major depressive disorder, recurrent, mild Office Visit 03/13/2018 2:20p [facility] Merari Reynoso R60.0 Localized edema Medicine - N.P. [place] L03.115 Cellulitis of right lower limb L03.116 Cellulitis of left lower limb Office Visit 03/10/2018 8:30a Surgical Marcia Crispin K62.5 Hemorrhage of [facility] Boris anus and rectum [facility] Office Visit 03/10/2018 10:50a [facility] Kory Sosa R60.0 Localized edema For Infectious Jasmyn Koenig Diseases Office Visit 03/06/2018 2:20p [facility] Merari Reynoso L03.119 Cellulitis of Medicine - N.P. unspecified part [place] of limb I89.0 Lymphedema, not elsewhere classified E66.01 Morbid (severe) obesity due to excess calories Office Visit 02/25/2018 4:00p [facility] Jazmin Solis03.119 Cellulitis of Medicine - N.P. unspecified part [place] of limb Office Visit 02/20/2018 9:40a [facility] [place] L03.119 Cellulitis of Medicine - [place], unspecified part Rd M.D. of limb I89.0 Lymphedema, not elsewhere classified G62.9 Polyneuropathy, unspecified K64.8 Other hemorrhoids F33.0 Major depressive disorder, recurrent, mild B37.9 Candidiasis, unspecified Office Visit 02/13/2018 11:25a [facility] Stan R60.1 Generalized edema Assoc,DIANE [place] Hospitalists L03.119 Cellulitis of unspecified part of limb E66.01 Morbid (severe) obesity due to excess calories Z68.43 Body mass index (BMI) 50-59.9 , adult Office Visit 02/12/2018 11:24a [facility] Stan R60.1 Generalized edema Assoc,DIANE [place] Hospital[facility] L03.119 Cellulitis of unspecified part of limb E66.01 Morbid (severe) obesity due to excess calories Z68.43 Body mass index (BMI) 50-59.9 , adult Office Visit 02/11/2018 11:24a [facility] Cristiana R60.1 Generalized edema Assoc,javi Dubose D.O. Hospitalists L03.119 Cellulitis of unspecified part of limb E66.01 Morbid (severe) obesity due to excess calories Z68.43 Body mass index (BMI) 50-59.9 , adult Office Visit 02/06/2018 [facility] Edgar Reyes R60.1 Generalized 10:44a Assoc,pc Jasmyn VAZ edema Hospitalists L03.115 Cellulitis of right lower limb M79.3 Panniculitis, unspecified J44.9 Chronic obstructive pulmonary disease, unspecified Office Visit 02/04/2018 1:40p [facility] Feliberto Esquivel, M79.661 Pain in Medicine - M.D. right lower [place] leg I89.0 Lymphedema, not elsewhere classified L03.115 Cellulitis of right lower limb Office Visit 01/28/2018 11:20a [facility] Fel[place] J44.9 Chronic Medicine - Marly Esquivel. obstructive [place] pulmonary disease, unspecified I89.0 Lymphedema, not elsewhere classified R63.5 Abnormal weight gain R25.2 Cramp and spasm Office Visit 01/20/2018 [facility] Fel[place] K21.9 Gastro-esophageal 9:00a Connor Esquivel [...] spur, unspecified foot Office Visit 01/12/2018 8:40a [facility] Felib[place] Esquivel, M79.671 Pain in right Medicine - M.D. foot [address] [address] Office Visit 01/02/2018 8:20a [facility] Feliberto Esquivel, M79.604 Pain in right Medicine - M.D. leg [address] [address] Office Visit 12/23/2017 4:00p [facility] Feliberto Esquivel, R10.11 Right upper Medicine - M.D. quadrant pain [place] [address] M79.673 Pain in unspecified foot E66.01 Morbid (severe) obesity due to excess calories G47.30 Sleep apnea, unspecified K21.9 Gastro-esophageal reflux disease without esophagitis Office Visit 12/12/2017 [facility] Ha Sosa G62.9 Polyneuropathy, 8:30a Connor Francis M.D.,FACP unspecified [address] F33.0 Major depressive disorder, recurrent, mild G47.30 Sleep apnea, unspecified Office Visit 12/03/2017 [facility]avya G47.30 Sleep apnea, 1:00p [facility] Angela, RN, unspecified [facility]- E66.01 Morbid (severe) obesity due to excess calories Z68.41 Body mass index (BMI) 40.0-44.9, adult Office Visit 11/24/2017 2:40p [facility] Medicine - Tala Aburto NP R[address] J20.9 Acute bronchitis, unspecified Office Visit 10/24/2017 [facility] Ha Sosa M51.16 Intervertebral disc 8:30a Medicine - Paul Francis M.D.,FACP disorders w Rd radiculopathy, lumbar region Office Visit 10/21/2017 Marcelina Bah G62.9 Polyneuropathy, 10:45a Neurologic Jasmyn Eason unspecified Services [facility] G56.03 Carpal tunnel syndrome, bilateral upper limbs Office Visit 10/07/2017 4:00p [facility] Fel[place] Esquivel, F33.0 Major depressive Medicine - M.DMazin disorder, [address] recurrent, mild K21.9 Gastro-esophageal reflux disease without esophagitis Office Visit 09/17/2017 2:20p [facility] [place] S[place] G89.4 Chronic pain Connor Francis M.D.,FACP syndrome Rd M51.16 Intervertebral disc disorders w radiculopathy, lumbar region Office Visit 09/02/2017 Marcelina Bah G62.9 Polyneuropathy, 8:45a Neurologic Jasmyn Eason unspecified [facility] G56.03 Carpal tunnel syndrome, bilateral upper limbs Office Visit 08/26/2017 8:40a [facility] Feliberto Esquivel, F33.0 Major depressive Medicine - M.DMazin disorder, [address] recurrent, mild K62.5 Hemorrhage of anus and rectum Office Visit 08/12/2017 8:20a [facility] Feliberto Esquivel, D64.9 Anemia , Medicine - M.DMazin unspecified [address] F33.0 Major depressive disorder, recurrent, mild G47.00 Insomnia, unspecified K62.5 Hemorrhage of anus and rectum K29.31 Chronic superficial gastritis with bleeding Office Visit 07/31/2017 9:00a [facility] Feliberto K57.30 Dvrtclos of Connor Esquivel M.D. int w/o [place] [address] perforation or abscess w/o bleeding M51.16 Intervertebral disc disorders w radiculopathy, lumbar region K64.9 Unspecified hemorrhoids D64.9 Anemia, unspecified G62.9 Polyneuropathy, unspecified Office Visit 07/24/2017 [facility] Feliberto S52.591A Oth fractures of 2:40p Connor Esquivel M.D. lower end of right [address] radius, init for clos fx Office Visit 07/01/2017 [facility] Fel[place] M51.16 Intervertebral disc 8:00a Connor Esquivel M.D. disorders w [address] radiculopathy, lumbar region Office Visit 06/17/2017 [facility] [place] M51.16 Intervertebral disc 9:00a Connor Esquivel M.D. disorders w [address] radiculopathy, lumbar region L98.9 Disorder of the skin and subcutaneous tissue, unspecified F33.0 Major depressive disorder, recurrent, mild Office Visit 06/11/2017 [facility] Fel[place] G62.9 Polyneuropathy, 8:40a Connor Esquivel M.D. unspecified [place] M51.16 Intervertebral disc disorders w radiculopathy, lumbar region F33.0 Major depressive disorder, recurrent, mild Office Visit 05/15/2017 [facility] Fel[place] L03.113 Cellulitis of right 9:00a Connor Esquivel M.D. upper limb [address] Office Visit 05/09/2017 [facility] Fel[place] L03.113 Cellulitis of right 1:30p Connor Esquivel M.D. upper limb [address] Office Visit 05/07/2017 [facility] Dao L03.113 Cellulitis of right 4:40p Connor Esquivel M.D. upper limb [place] Office Visit 04/25/2017 [facility] [place] M51.16 Intervertebral disc 10:20a Connor Esquivel M.D. disorders w [address] radiculopathy, lumbar region Office Visit 04/01/2017 Marcelina Bah R20.9 Unspecified 11:00a Neurologic Jasmyn Eason disturbances of [facility] skin sensation G62.9 Polyneuropathy, unspecified Office Visit 03/13/2017 10:00a [facility] [place] G63 Polyneuropathy in Connor Esquivel M.D. diseases classified [address] elsewhere F33.0 Major depressive disorder, recurrent, mild M51.16 Intervertebral disc disorders w radiculopathy, lumbar region Office Visit 01/24/2017 11:20a [facility] [place] G63 Polyneuropathy in Connor Esquivel M.D. diseases classified [address] elsewhere F33.0 Major depressive disorder, recurrent, mild M51.16 Intervertebral disc disorders w radiculopathy, lumbar region Office Visit 01/10/2017 [facility] [place] M51.16 Intervertebral disc 11:00a Connor Esquivel M.D. disorders w [address] radiculopathy, lumbar region G63 Polyneuropathy in diseases classified elsewhere F33.0 Major depressive disorder, recurrent, mild Office Visit 12/30/2016 [facility] Ha Sosa G63 Polyneuropathy in 10:30a Connor Francis M.D.,FACP diseases classified [address] elsewhere Office Visit 12/20/2016 [facility] Fel[place] M51.16 Intervertebral disc 1:40p Connor Esquivel M.D. disorders w [address] radiculopathy, lumbar region G63 Polyneuropathy in diseases classified elsewhere R10.9 Unspecified abdominal pain F33.0 Major depressive disorder, recurrent, mild E66.01 Morbid (severe) obesity due to excess calories Z00.00 Encntr for general adult medical exam w/o abnormal findings Office Visit 03/30/2016 12:53p [facility] Cristiana L02.91 Cutaneous Assoc,pc Armani Dubose. 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 at [place] [facility]12/15/2018 - Aissatou Gurrola MDL03.116 Cellulitis of left lower limbI89.0 Lymphedema, not elsewhere [id number] Chronic pain syndromeComments:tramadol is not safe for you to take group home because of interactions with other medications. I think you are a good candidate for methadone for pain control, let's discuss further at next visitFollow up:4 foalcO58.72 Peroneal tendinitis, left legComments:please re schedule the appointment with Dr. Garcias
--- NOTE | 2019-01-13 14:32 | ED ---
Lower Extremity - HPI Summary HPI Summary: A 43 y/o M with pert PMHx: peripheral neuropathy and lymphadema presents to ED with acute on chronic bilateral LE pain onset yesterday. Associated sx: edema and erythema to bilat LE, LE weakness. His RLE is worse than his LLE. Pain is rated as 10 out of 10. He denies any trauma to his LE. Typically, he keeps his legs raised in the evenings, and that helps, but that is not alleviating his sx currently. He's been told by Dr. Pickering, vascular surgery, that he needs ABX whenever his LE worsens. He's scheduled to see Dr. Brown, internalist, on 08/31. Dr. Gurrola is his PCP. He takes Cymbalta, recently changed to Methadone from Suboxone. Pt is currently homeless. He says he's lost weight in the past year. - History of Current Complaint Chief Complaint: EDExtremityLower Stated Complaint: PAIN IN BOTH LEGS/SWELLING PER PT Time Seen by Provider: 01/13/19 14:30 Hx Obtained From: Patient, Family/Group Captain - brother Onset/Duration: Still Present Severity Initially: Moderate Severity Currently: Severe Pain Intensity: 10 Pain Scale Used: 0-10 Numeric Timing: Constant Location: Is Discrete @ - bilat LE Associated Signs And Symptoms: Positive: Swelling, Redness, Weakness - Allergies/Home Medications Allergies/Adverse Reactions: Allergies Allergy/AdvReac Type Severity Reaction Status Date / Time acetaminophen [From Tylenol] Allergy Unknown Verified 02/05/18 18:53 Reaction Details naproxen Allergy Swelling Verified 02/05/18 18:53 PMH/Surg Hx/FS Hx/Imm Hx Previously Healthy: No Endocrine/Hematology History: Reports: Hx Anemia, Hx Unexplained Bleeding - rectal bleeding, possible hemherroids Denies: Hx Anticoagulant Therapy, Hx Blood Disorders, Hx Diabetes, Hx Thyroid Disease Cardiovascular History: Reports: Hx Hypotension, Other Cardiovascular Problems/ Disorders Denies: Hx Hypertension, Hx Pacemaker/ICD Respiratory History: Reports: Hx Chronic Obstructive Pulmonary Disease (COPD), Hx Sleep Apnea - sleep study scheduled for friday Denies: Hx Asthma GI History: Reports: Hx Gastroesophageal Reflux Disease, Hx Hiatal Hernia, Hx Ulcer, Other GI Disorders - INCARCERATED VENTRAL HERNIA with surgery X2 History: Denies: Hx Renal Disease Musculoskeletal History: Reports: Hx Back Problems, Other Musculoskeletal History - Hx lumbar pain, thoracic pain Sensory History: Denies: Hx Contacts or Glasses, Hx Hearing Aid Opthamlomology History: Denies: Hx Contacts or Glasses Neurological History: Reports: Hx Headaches, Hx Peripheral Neuropathy - takes gabapentin Psychiatric History: Reports: Hx Anxiety, Hx Depression Denies: Hx Eating Disorder, Hx Panic Disorder, Hx of Violent Episodes Against Others - Surgical History Surgery Procedure, Year, and Place: hernia repair with mesh 3 sites, hernia surgery X2 - Immunization History Date of Tetanus Vaccine: uknown Infectious Disease History: No Infectious Disease History: Reports: Hx of Known/Suspected MRSA Denies: Hx Clostridium Difficile, Hx Hepatitis, Hx Human Immunodeficiency Virus (HIV), Hx Shingles, Hx Tuberculosis, Hx Known/Suspected VRE, Hx Known/ Suspected VRSA, History Other Infectious Disease, Traveled Outside the in Last 30 Days - Family History Known Family History: Positive: None - pt denies Fhx Negative: Blood Disorder - Social History Occupation: Employed Full-time Lives: Alone Alcohol Use: None Hx Substance Use: Yes Substance Use Comment - Amount & Last Used: tramadol at home Hx Tobacco Use: Yes Smoking Status (MU): Former Smoker Type: Smokeless Tobacco Have You Smoked in the Last Year: No Review of Systems Negative: Fever Musculoskeletal: Other - pos: bilat LE pain Positive: Edema - bilat LE Skin: Other - pos: bilat LE erythema Positive: Weakness - bilat LE All Other Systems Reviewed And Are Negative: Yes Physical Exam - Summary Physical Exam Summary: Appearance: Morbidly obese, no pain distress Skin: warm, dry, reflects adequate perfusion Head/face: normal Eyes: EOMI, ALLY ENT: mucous membranes moist Neck: supple, non-tender Respiratory: CTA, breath sounds present Cardiovascular: RRR, pulses symmetrical Abdomen: non-tender, soft Bowel Sounds: present Musculoskeletal: chronic appearing zakia erythema of bilat LE with edema Neuro: normal, sensory motor intact, A&Ox3 Triage Information Reviewed: Yes Vital Signs On Initial Exam: Initial Vitals Temp Pulse Resp BP Pulse Ox 98.4 F 84 16 144/84 97 01/13/19 12:27 01/13/19 12:27 01/13/19 12:27 01/13/19 12:27 01/13/19 12:27 Vital Signs Reviewed: Yes Diagnostics - Vital Signs Vital Signs Temp Pulse Resp BP Pulse Ox 01/13/19 12:27 98.4 F 84 16 144/84 97 - Laboratory Lab Statement: Any lab studies that have been ordered have been reviewed, and results considered in the medical decision making process. Re-Evaluation - Re-Evaluation 1 Re-Evaluation Time: 15:20 Change: Improved Comment: Pain rated 7 out of 10, which is an improvement. Lower Extremity Course/Dx - Course Course Of Treatment: Nurse's notes reviewed. Patient with exacerbation of chronic pain in his chronically edematous lower extremities. He does have some erythema there which doesn't seem to be much increased. We will put him on antibiotics. He'll follow-up with pain management and his primary care physician. He was discharged in much improved condition, easily walking from the ER. - Diagnoses Differential Diagnosis/HQI/PQRI: Positive: Other - Chronic pain, lymphedema, lower extremity cellulitis Provider Diagnoses: Chronic pain, Lymphedema of both lower extremities Discharge - Sign-Out/Discharge Documenting (check all that apply): Patient Departure - DC Patient Received Moderate/Deep Sedation with Procedure: No - Discharge Plan Condition: Improved Disposition: HOME Prescriptions: Amoxicillin/Clavulanate TAB* [Augmentin TAB 875*] 875 mg PO BID #20 tab Patient Education Materials: Pain Management (ED), Chronic Pain (ED) Forms: *Work Release Referrals: Steven Brown MD [Medical Doctor] - Aissatou Gurrola MD [Primary Care Provider] - Additional Instructions: Take your prescribed medications and follow-up with pain management as scheduled. Warm compresses to the area may help. Stay active and walking as much as she can. Compression garments should help. Return if worse, fever, expanding redness, new symptoms or other concerns. - Billing Disposition and Condition Condition: IMPROVED Disposition: Home - Attestation Statements Document Initiated by Scribe: Yes Documenting Scribe: Daljit Santana Provider For Whom Scribe is Documenting (Include Credential): Dr. Sumit Fisher MD Scribe Attestation: Daljit Parks, scribed for Dr. Sumit Fisher MD on 01/13/19 at 1717. Scribe Documentation Reviewed: Yes Provider Attestation: The documentation as recorded by the niloibe, Daljit Santana accurately reflects the service I personally performed and the decisions made by me, Dr. Sumit Fisher MD Status of Scribe Document: Viewed
[2019-01-13] MEDS ORDERED: Gabapentin CAP(*) 300 MG PO ONE (14:45)
[2019-01-13] MEDS ORDERED: HYDROmorphone INJ1* 1 MG/ML SYRINGE IM ONE (14:45)
[2019-01-13] MEDS ORDERED: Ketorolac INJ* 60 MG/2 ML VIAL IM ONE (14:45)
[2019-01-13 15:44] VITALS: BP 111/63
== END 2019-01-13 15:42 | disposition home or self-care (01) ==
LOC: ED 12:25
DX: I89.0 Lymphedema, not elsewhere classified (principal); G89.29 Other chronic pain; J44.9 Chronic obstructive pulmonary disease, unspecified; Z87.891 Personal history of nicotine dependence; E66.01 Morbid (severe) obesity due to excess calories; Z68.41 Body mass index [BMI] 40.0-44.9, adult; Z88.6 Allergy status to analgesic agent
CPT/HCPCS: 96374; 96375; 99282; A9270-GY; J1170; J1885

== ENCOUNTER 2019-08-26 12:42 | Emergency (ER) | payer OTHER ==
[2019-08-26 13:16] LABS: ABS Basophils 0.1 10^3/ul (0-0.2); ABS Eosinophils 0.2 10^3/ul (0-0.6); ABS Lymphocytes 1.9 10^3/ul (1.0-4.8); ABS Monocytes 0.5 10^3/ul (0-0.8); ABS Neutrophils 4.6 10^3/ul (1.5-7.7); Eosinophil % 2.4 %; Hematocrit 41 % (42-52); Hemoglobin 13.8 g/dL (14.0-18.0); Lymphocyte % 26.1 %; Mean Corpuscular HGB Conc 34 g/dL (31-36); Mean Corpuscular Hemoglobin 27 pg (27-31); Mean Corpuscular Volume 81 fL (80-94); Mean Platelet Volume 7.4 fL (7.4-10.4); Platelet Count 260 10^3/uL (150-450); Red Blood Count 5.07 10^6 /uL (4.18-5.48); Red Cell Distribution Width 16 % (10-15); White Blood Count 7.3 10^3/uL (3.5-10.8)
--- OUTSIDE RECORDS SUMMARY | 2019-08-26 13:22 | XMS REPORT | Continuity of Care Document ---
:1975 External Reference #:[id number] Author Name Parmjit Ernst MD (transmitted by agent of provider Alisson Tineo) Address [address] [place] [address] Care Team Providers Name Role Phone Marcos Liu MD - Interventional Care Team Information Precinct Captain [phone] Pain Medicine Curtis Richey M.D. - Neurology Care Team Information Precinct Captain [facility] - Sleep Disorder Care Team Information Precinct Captain [phone] Diagnostic Parmjit Ernst MD - Gastroenterology Care Team Information Precinct Captain [phone] [facility] - Care Team Information Precinct Captain [facility] - Wool Sorter Care Team Information Precinct Captain Andres Aranda MD - Surgery Care Team Information Precinct Captain [phone] [facility] - Care Team Information Precinct Captain [employer] Officer Tyshawn Rincon MD - Cardiovascular Care Team Information Precinct Captain [phone] Disease Marcia Escalante MD - Surgery Care Team Information Precinct Captain Aissatou Gurrola M.D. - Family Medicine Care Team Information Precinct Captain Problems Active Problems Provider Date Thoracic and lumbosacral neuritis Feliberto Esquivel M.D. Onset: 12/20/2016 Complex regional pain syndrome type I Ha Francis M.D.,FACP Onset: of right lower limb Chronic pain syndrome Ha Francis M.D.,FACP Onset: 08/05/2018 Note: at ER visit for "detox" admitted to Oxycodone use (Etoh mentioned mildly ) and was seeing Dr Solomon Bassett and Ashleigh Denson then; since has been on suboxone ( known opiate use d/o) Polyneuropathy Feliberto Esquivel M.D. Onset: 12/20/2016 Note: Etoh levels Aug, May 2017 Mild recurrent major depression Feliberto Esquivel M.D. Onset: 12/20/2016 Note: had psychiatry consult as inpatient for evaluation of leg edema February 2018 Morbid obesity Feliberto Esquivel M.D. Onset: 12/20/2016 Note: wgt [phone] December 2016 Carpal tunnel syndrome Feliberto Esquivle M.D. Onset: 07/01/2017 Hemorrhoids without complication Feliberto Esquivel M.D. Onset: 07/31/2017 Note: had stool for giardia / crypto negative February 2019 Anemia Feliberto Esquivel M.D. Onset: 08/12/2017 Note: reason for bidirectional endoscopy at [place] Nov 2017 was HORTENSIA - duodenal AVMs recorded APC - very poor colon prep; as of April 2019 on low dose Fe MVI - Hg 13.6 ferritin 21 MCV 85 (hypogonad) with lowest Hg 02/06/18 at 10.9 MCV 86 ferritin 20.4 then; B12 324 at first [facility] primary visit 01/03/17 Gastroesophageal reflux disease Feliberto Esquivel M.D. Onset: 10/07/2017 Note: PPI started Jun 2018; esophagus and stomach said to be normal at Nov 2017 EGD at [place] (photos in [facility] [employer]) Sleep apnea Kavya Angela, LEÓN, RN, CHEMICAL MACHINE TENDER-BC Onset: 12/03/2017 Benign prostatic hypertrophy with Feliberto Esquivel M.D. Onset: 01/20/2018 outflow obstruction Chronic nonalcoholic liver disease Feliberto Esquivel M.D. Onset: 01/20/2018 Note: fatty liver on US 01/14/[address] abd 07/29/17 normal liver size and prominent CBD; however 15 ALTs, alk phos never above 30 / 88 as of March 2019 with albumin levels generally over 4.0 (3.1 on 02/23/15 when hospitalized for strangulated hernia) Chronic obstructive lung disease Feliberto Esquivel M.D. Onset: 01/28/2018 Lymphedema Feliberto Esquivel M.D. Onset: 01/28/2018 Ex-smoker Ha Francis M.D.,FACP Onset: 08/05/2018 Hypogonadism Parmjit Ernst MD Onset: 02/25/2019 Note: total testosterone 30 this date then 70 repeat Skin sensation disturbance Curtis Richey M.D. Onset: 05/03/2019 Social History Type Date Description Comments Sex Unknown Tobacco Use Start: Unknown End: Former Cigarette Smoker Unknown Smoking Status Reviewed: 08/05/19 Former Cigarette Smoker ETOH Use Has consumed [...] 6x per week Allergies, Adverse Reactions, Alerts Active Allergies Reaction Severity Comments Date Naproxen Moderate edema 12/20/2016 Prednisone 10/21/2018 Suboxone Edema 12/30/2018 Buprenorphine / Naloxone Edema Severe 12/30/2018 Methadone itching 03/29/2019 Medications Active Medications SIG Qnty Indications Ordering Provider Date Valacyclovir HCL one by mouth every 14tabs Aissatou Gurrola MD 12 hours for one 9 1gm Tablets day, as needed oral outbreak Nortriptyline HCL take 1 capsules by 30caps Curtis Richey, mouth at bedtime M.D. 9 25mg Capsules Mupirocin apply to affected 44gm L03.116 Aissatou Gurrola MD 2% area four times a 9 Ointment day Amlactin apply to clean 150gm I89.0 Aissatou Gurrola MD 12% Lotion skin every day pt 9 states he is not using Bupropion take 1 tablet by 30tabs F33.0 Aissatou Gurrola MD Hydrochloride ER mouth every day in 9 (XL) the morning 300mg Tablets ER 24HR Voltaren apply 4 gr to 200gm M25.562 Aissatou Gurrola MD 1% Gel affected joint 4 9 times a day Duloxetine HCL Take 1 Capsule By mirta Gurrola MD 60mg Mouth Every Day In 8 Caps Part The Morning Duloxetine HCL Take 1 Capsule By 30minoo Gurrola MD 30mg Mouth Every Day AT [address] Part Bedtime Triple Antibiotic apply twice daily 30gm L08.9 Feliberto Esquivel, Plus to infected skin M.D. 8 1% Ointment areas Pantoprazole Sodium take 1 tablet by 30tabs K21.9 Parmjit Ernst, mouth every day [address] before breakfast Torsemide Take 1 Tablet By 30tabs Aissatou Gurrola MD 20mg Mouth Every Day 8 Tablets Symbicort 2 puff twice a day 10.2units J44.9 Aissatou Gurrola MD 8 160-4.5mcg/Act Aerosol Ventolin HFA 2 puffs by mouth 8gm Feliberto Esquivel, four times a day M.D. 8 108(90Base) mcg/Act as needed Aerosol Nebulizer 1 unit 1units J44.Nancy Esquivel, Kit/Tubing/Mouthpie nebulization every M.D. 8 ce 4- 6 hours as Kit needed J44.9 Icd code Albuterol Sulfate 1 vial via 180ml J44.9 Feliberto Esquivel, nebulizer 4 times M.D. 8 (2.5mg/3ML) 0.083% daily as needed Nebulizer Vitamin B Complex 1 by mouth every Unknown day 0 Tablets Potassium otc once a day Unknown 99mg 0 Tablets Vitamin D3 Complete once daily Unknown 0 Tablets Lactobacillus 1 by mouth daily Unknown 0 Tablets Calcium 600/Vitamin 1 tab by mouth Unknown D once daily 0 [id number] Chewtabs Multiple Women's ( young Unknown Vitamins-Iron version) w fe 0 Tablets Lecithin 1 tab by mouth Unknown 1200mg once daily 0 Capsules History Medications Testosterone 50mg topical every 150gm Aissatou Gurrola MD 04/15/2019 - 50mg/5GM (1%) day 04/29/2019 Gel Immunizations CPT Code Status Date Vaccine Lot # [id number] Given 08/05/2018 Influenza Virus Vaccine, Quadrivalent, Split, [id number] Preservative Free Vital Signs Date Vital Result Comment 08/05/2019 1:16pm Height 72 inches 6'0" Weight 328.00 lb Heart Rate 90 /min BP Systolic 136 mmHg BP Diastolic 80 mmHg O2 % BldC Oximetry 96 % BMI (Body Mass Index) 44.5 kg/m2 05/03/2019 3:35pm Height 72 inches 6'0" Weight 322.00 lb Heart Rate 89 /min BP Systolic 128 mmHg BP Diastolic 78 mmHg BMI (Body Mass Index) 43.7 kg/m2 Results Test Date Facility Test Result H/L Range Note CBC Auto 08/03/2019 [facility] White Blood 6.3 10^3/uL Normal 3.5-10.[address] [place] [address] [phone] Red Blood Count 4.70 10^6/uL Normal 4.18-5.48 Hemoglobin 12.7 g/dL Low 14.0-18.0 Hematocrit 39 % Low 42-52 Mean Corpuscular Volume 82 fL Normal 80-94 Mean Corpuscular Hemoglobin 27 pg Normal 27-31 Mean Corpuscular HGB Conc 33 g/dL Normal 31-36 Red Cell Distribution Width 14 % Normal 10-15 Platelet Count 290 10^3/uL Normal 150-450 Mean Platelet Volume 8.0 fL Normal 7.4-10.4 Abs Neutrophils 4.0 10^3/uL Normal 1.5-7.7 Abs Lymphocytes 1.6 10^3/uL Normal 1.0-4.8 Abs Monocytes 0.3 10^3/uL Normal 0-0.8 Abs Eosinophils 0.2 10^3/uL Normal 0-0.6 Abs Basophils 0.1 10^3/uL Normal 0-0.2 Abs Nucleated RBC 0.0 10^3/uL Granulocyte % 64.5 % Lymphocyte % 25.9 % Monocyte % 5.3 % Eosinophil % 3.5 % Basophil % 0.8 % Nucleated Red Blood Cells % 0.1 Laboratory test 08/03/2019 [facility] Ferritin 8.7 ng/mL Low 24-[address] [place] [address] [phone] Iron & Iron Binding 08/03/2019 [facility] Iron 35 g/dL Low 50-[address] [place] [address] [phone] Unsaturated Iron Binding < 485 g/dL Total Iron Binding Capacity 500 g/dL High 250-450 Transferrin 357 mg/dL Normal 203-362 % Iron Saturation 7 % Low 15-55 Laboratory test 08/03/2019 [facility] C Reactive 9.30 mg/L High <8.[address] [place] [address] [phone] Drug Abuse 20 06/23/2019 [facility] Urine Negative [address] Amphetamine ng/[place] [address] [phone] Urine Barbiturates Negative ng/mL 2 Urine Benzodiazepines Negative ng/mL 3 Urine Cocaine Negative ng/mL 4 Urine Phencyclidine Negative ng/mL Cutoff: 25 Urine Tetrahydrocannabinol Negative ng/mL Cutoff: 50 5 Creatinine, Urine 140.8 mg/dL Specific [place] 1.013 pH 6.9 Oxidants Negative 6 Adulterants Comment Normal Codeine, Ur Not Detected ng/mL Cutoff: 25 7 Prenkjz-2-vjqv-glucuronide, Ur Not Detected ng/mL 8 Morphine, Ur Not Detected ng/mL Cutoff: 25 9 Gmrtmjtl-3-dcec-glucuronide, U Not Detected ng/mL 10 6-monoacetylmorphine, Ur Not Detected ng/mL Cutoff: 25 11 Hydrocodone, Ur Not Detected ng/mL Cutoff: 25 12 Norhydrocodone, Ur Not Detected ng/mL Cutoff: 25 13 Dihydrocodeine, Ur Not Detected ng/mL Cutoff: 25 14 Hydromorphone, Ur Not Detected ng/mL Cutoff: 25 15 Ogmrmgrvcszdi6oakcqxandelobgg Not Detected ng/mL 16 Oxycodone, Ur Not Detected ng/mL Cutoff: 25 17 Noroxycodone, Ur Not Detected ng/mL Cutoff: 25 18 Oxymorphone, Ur Not Detected ng/mL Cutoff: 25 19 Zrowkzjnoly-7-qecq-glucuronide Not Detected ng/mL 20 Noroxymorphone, Ur Not Detected ng/mL Cutoff: 25 21 Fentanyl, Ur Not Detected ng/mL Cutoff: 2 22 Norfentanyl, Ur Not Detected ng/mL Cutoff: 2 23 Meperidine, Ur Not Detected ng/mL Cutoff: 25 24 Normeperidine, Ur Not Detected ng/mL Cutoff: 25 25 Naloxone, Ur Not Detected ng/mL Cutoff: 25 26 Legjaaaj-4-uije-glucuronide, U Not Detected ng/mL 27 Methadone, Ur Not Detected ng/mL Cutoff: 25 28 Eddp, Ur Not Detected ng/mL Cutoff: 25 29 Propoxyphene, Ur Not Detected ng/mL Cutoff: 25 30 Norpropoxyphene, Ur Not Detected ng/mL Cutoff: 25 31 Tramadol, Ur Present ng/mL Abnormal Cutoff: 25 32 O-desmethyltramadol, Ur Present ng/mL Abnormal Cutoff: 25 33 Tapentadol, Ur Not Detected ng/mL Cutoff: 25 34 N-desmethyltapentadol, Ur Not Detected ng/mL Cutoff: 50 35 Exrwxpypim-ylsz-vjppvqgagle, U Not Detected ng/mL 36 Buprenorphine, Ur Not Detected ng/mL Cutoff: 5 37 Norbuprenorphine, Ur Not Detected ng/mL Cutoff: 5 38 Norbuprenorphine glucuronide Not Detected ng/mL Cutoff: 20 39 Opioid Interpretation See Comment 40 CBC Auto 04/28/2019 [facility] White Blood 7.3 10^3/uL Normal 3.5-10.[address] [place] [address] [phone] Red Blood Count 4.80 10^6/uL Normal 4.18-5.48 Hemoglobin 13.6 g/dL Low 14.0-18.0 Hematocrit 41 % Low 42-52 Mean Corpuscular Volume 85 fL Normal 80-94 Mean Corpuscular Hemoglobin 28 pg Normal 27-31 Mean Corpuscular HGB Conc 33 g/dL Normal 31-36 Red Cell Distribution Width 16 % High 10-15 Platelet Count 288 10^3/uL Normal 150-450 Mean Platelet Volume 8.1 fL Normal 7.4-10.4 Abs Neutrophils 4.5 10^3/uL Normal 1.5-7.7 Abs Lymphocytes 2.1 10^3/uL Normal 1.0-4.8 Abs Monocytes 0.5 10^3/uL Normal 0-0.8 Abs Eosinophils 0.2 10^3/uL Normal 0-0.6 Abs Basophils 0.1 10^3/uL Normal 0-0.2 Abs Nucleated RBC 0.0 10^3/uL Granulocyte % 61.0 % Lymphocyte % 28.0 % Monocyte % 7.1 % Eosinophil % 3.1 % Basophil % 0.8 % Nucleated Red Blood Cells % 0.0 Comp Metabolic 04/28/2019 [facility] Sodium 141 mmol/L Normal 135-[address] [place] [address] [phone] Potassium 4.7 mmol/L Normal 3.5-5.0 Chloride 104 mmol/L Normal 101-111 Co2 Carbon Dioxide 28 mmol/L Normal 22-32 Anion Gap 9 mmol/L Normal 2-11 Glucose 91 mg/dL Normal 70-100 Blood Urea Nitrogen 14 mg/dL Normal 6-24 Creatinine 0.94 mg/dL Normal 0.67-1.17 BUN/Creatinine Ratio 14.9 Normal 8-20 Calcium 9.9 mg/dL Normal 8.6-10.3 Total Protein 7.8 g/dL Normal 6.4-8.9 Albumin 4.5 g/dL Normal 3.2-5.2 Globulin 3.3 g/dL Normal 2-4 Albumin/Globulin Ratio 1.4 Normal 1-3 Total Bilirubin 0.70 mg/dL Normal 0.2-1.0 Alkaline Phosphatase 80 U/L Normal 34-104 Alt 18 U/L Normal 7-52 Ast 19 U/L Normal 13-39 Egfr Non- 88.0 >60 Egfr 106.5 >60 41 Iron & Iron Binding 04/28/2019 [facility] Iron 63 g/dL Normal 50-[address] [place] [address] [phone] Unsaturated Iron Binding < 490 g/dL Total Iron Binding Capacity 505 g/dL High 250-450 Transferrin 361 mg/dL Normal 203-362 % Iron Saturation 12 % Low 15-55 Laboratory test 04/28/2019 [facility] Ferritin 21.5 Low 24- [address] ng/[place] [address] [phone] Lipid Profile 04/08/2019 [facility] Triglycerides 100 mg/dL 42, 43 (Trig/Chol/HDL) [address] [place] [address] [phone] Cholesterol 156 mg/dL 44 HDL Cholesterol 51.6 mg/dL 45 LDL Cholesterol 84 mg/dL 46 Testosterone 04/08/2019 [facility] Testosterone 70 ng/dL Abnormal 240-[address] [place] [address] [phone] Free Testosterone ng/dl 1.89 ng/dL Abnormal 4.46-17.1 48 Bioavailable Testosterone 15 ng/dL Abnormal 61-213 49 CBC Auto 03/09/2019 [facility] White Blood 6.9 10^3/uL Normal 3.5-10.[address] [place] [address] [phone] Red Blood Count 4.69 10^6/uL Normal 4.18-5.48 Hemoglobin 13.1 g/dL Low 14.0-18.0 Hematocrit 39 % Low 42-52 Mean Corpuscular Volume 84 fL Normal 80-94 Mean Corpuscular Hemoglobin 28 pg Normal 27-31 Mean Corpuscular HGB Conc 34 g/dL Normal 31-36 Red Cell Distribution Width 14 % Normal 10.5-15 Platelet Count 231 10^3/uL Normal 150-450 Mean Platelet Volume 8.0 fL Normal 7.4-10.4 Abs Neutrophils 3.9 10^3/uL Normal 1.5-7.7 Abs Lymphocytes 2.2 10^3/uL Normal 1.0-4.8 Abs Monocytes 0.5 10^3/uL Normal 0-0.8 Abs Eosinophils 0.3 10^3/uL Normal 0-0.6 Abs Basophils 0.1 10^3/uL Normal 0-0.2 Abs Nucleated RBC 0.0 10^3/uL Granulocyte % 56.1 % Lymphocyte % 31.7 % Monocyte % 7.0 % Eosinophil % 4.2 % Basophil % 1.0 % Nucleated Red Blood Cells % 0.1 Laboratory test 03/04/2019 [facility] C Difficile PCR SEE RESULT 50, [address] [place] [address] [phone] Stool Culture SEE RESULT BELOW 52 Cryptosporidium And 03/04/2019 [facility] Cryptosporidium Ag, Negative [address] [place] [address] [phone] Giardia Antigen, Feces Negative 54 Liver Function 02/25/2019 [facility] Total Protein 7.1 g/dL Normal 6.4-8.[address] [facility] [place] [address] [phone] Albumin 4.1 g/dL Normal 3.2-5.2 Globulin 3.0 g/dL Normal 2-4 Albumin/Globulin Ratio 1.4 Normal 1-3 Total Bilirubin 0.40 mg/dL Normal 0.2-1.0 Direct Bilirubin 0.10 mg/dL Normal 0.03-0.18 Indirect Bilirubin 0.3 mg/dL Normal 0.3-1.0 Alkaline Phosphatase 67 U/L Normal 34-104 Alt 14 U/L Normal 7-52 Ast 14 U/L Normal 13-39 Basic Metabolic 02/25/2019 [facility] Sodium 137 mmol/L Normal 135-[address] [place] [address] [phone] Potassium 4.3 mmol/L Normal 3.5-5.0 Chloride 103 mmol/L Normal 101-111 Co2 Carbon Dioxide 26 mmol/L Normal 22-32 Anion Gap 8 mmol/L Normal 2-11 Glucose 97 mg/dL Normal 70-100 Blood Urea Nitrogen 16 mg/dL Normal 6-24 Creatinine 0.69 mg/dL Normal 0.67-1.17 BUN/Creatinine Ratio 23.2 High 8-20 Calcium 9.1 mg/dL Normal 8.6-10.3 Egfr Non- 125.7 >60 Egfr 152.1 >60 55 Testosterone 02/25/2019 [facility] Testosterone 30 ng/dL Abnormal 240-[address] [facility] [address] [phone] Free Testosterone ng/dl 0.84 ng/dL Abnormal 4.46-17.1 57 Bioavailable Testosterone 4.5 ng/dL Abnormal 61-213 58 Laboratory 02/25/2019 [facility] TSH (Thyroid 2.12 Normal 0.34 -5.60 test finding [address] [place] [address] Stim Horm) mcIU/[place] [address] [phone] 1 REFERENCE VALUE Cutoff: 500 2 REFERENCE VALUE Cutoff: 200 3 REFERENCE VALUE Cutoff: 100 4 REFERENCE VALUE Cutoff: 150 5 ADDITIONAL INFORMATION This report is intended for use in clinical monitoring or management of patients. It is not intended for use in employment-related testing. Test Performed by: [facility] [employer] [facility] [address] [place] [address] Controlled Area Checker: Stan Suarez M.D. Ph.D.; CLIA# [id number] 6 REFERENCE VALUE Cutoff: 200 mg/L 7 Tylenol 3 8 Metabolite of codeine REFERENCE VALUE Cutoff: 100 9 Aisha Alanis, MS Contin; Also a minor metabolite (10%) of codeine and can be seen in low concentrations (<2,000 ng/mL) with poppy seed ingestion. 10 Metabolite of morphine REFERENCE VALUE Cutoff: 100 11 Metabolite of heroin 12 Lortab, [place], Vicodin; Also a very minor metabolite of [...] developed and its performance characteristics determined by [facility] in a manner consistent with CLIA requirements. This test has not been cleared or approved by the U.S. Food and Drug Administration. 41 Because ethnic data is not always readily [...] 15-29 5 Kidney failure <15 (or dialysis) 42 FASTING 10 HOUR 43 Desirable: <150 Borderline High: 150-199 High: 200-499 Very High: >500 44 Desirable: <200 Borderline High: 200-239 High: >239 45 Low: <40 Desirable: 40-60 High: >60 46 Desirable: <100 Near Optimal: 100-129 Borderline High: 130-159 High: 160-189 Very High: >189 47 ADDITIONAL INFORMATION Testing performed by Liquid Chromatography-Tandem Mass Spectrometry (LC-MS/MS). This test was developed and its performance characteristics determined by [facility] in a manner consistent with CLIA requirements. This test has not been cleared or approved by the U.S. Food and Drug Administration. 48 ADDITIONAL INFORMATION Testing performed by [facility]. This test was developed and its performance characteristics determined by [facility] in a manner consistent with CLIA requirements. This test has not been cleared or approved by the U.S. Food and Drug Administration. 49 ADDITIONAL INFORMATION Testing performed by Differential Precipitation. This test was developed and its performance characteristics determined by [facility] in a manner consistent with CLIA requirements. This test has not been cleared or approved by the U.S. Food and Drug Administration. Test Performed by: [facility] [address] [facility], [place] [address] 50 C. Difficile toxin testing is not performed on formed stool specimens. Test of cure on positive 51 SEE RESULT BELOW Name: TYSHAWN DANIELSON : [address]: Merari Reynoso NP Acct: [id number] Unit: [id number] AGE: 43 Location: [facility] Re03/04/19 SEX: M Status: REG REF SPEC: [id number] SANA: 03/04/[address] [facility] [address]: Merari Reynoso NP REQ: [id number] RECD: 03/04/19 STATUS: RES _ SOURCE: STOOL SPDESC: ORDERED: C. diff PCR, Stool Culture, O P: Shekhar/Félix Procedure Result Reported Site Stool Culture PENDING Stool Specimen Description Final 03/04/19- 2022 ML Stool Color Brown Stool Form Semi-formed Stool Consistency Thick Shiga Toxin 1 2 PENDING C. difficile PCR PENDING O P: Giardia/Cryptospor Screen PENDING * ML - Main Lab . END OF REPORT DEPARTMENT OF PATHOLOGY, [address] [place] [address] Rocco Alonzo M.D. Director [facility] # [id number] 52 SEE RESULT BELOW Name: TYSHAWN DANIELSON : [address]: Merari Reynoso NP Acct: [id number] Unit: [id number] AGE: 43 Location: [facility] Re03/04/19 SEX: M Status: REG REF SPEC: [id number] SANA: 03/04/[address]: Merari Reynoso NP REQ: [id number] RECD: 03/04/19 STATUS: COMP _ [facility] ORDERED: Stool Culture COMMENTS: C. Difficile toxin testing is not performed on formed stool specimens. Test of cure on positive patients is not recommended. Verbal to January by [id number] at 1022 on 03/05/19. Procedure Result Reported Site Stool Culture Final 03/06/19- 1126 ML Result No enteric pathogens isolated Testing for Salmonella, Shigella, Aeromonas, Plesiomonas, Yersinia and Campylobacter are included in a Stool Culture. Vibrio spp not routinely tested for in a stool culture. If testing is desired, please request specifically when placing test order. Sensitivities not routinely performed on stool isolates, as antibiotics may prolong the carriage rate of bacteria. Please contact the microbiology lab if sensitivities are required. Stool Specimen Description Final 03/04/19- 2022 ML Stool Color Brown Stool Form Semi-formed Stool Consistency Thick Shiga Toxin 1 2 Final 03/05/19- 1315 ML Organism 1 Negative Shiga Toxin 1 2 CONTINUED ON NEXT PAGE DEPARTMENT OF PATHOLOGY, [address] [place] [address] Rocco Alonzo M.D. Director [facility] # [id number] Patient: TYSHAWN DANIELSON [id number] (Continued) Specimen: [id number] Collected: 03/04/19 Received: 03/04/19 (Continued) Procedure Result Reported Site Shiga Toxin 1 2 Final (continued) 03/05/19- 2345 Immunochromatographic Assay * ML - [facility] . END OF REPORT DEPARTMENT OF PATHOLOGY, [address] [place] [address] Rocco Alonzo M.D. Director [facility] # [id number] 53 Test Result Ref Range Cryptosporidium Ag, F Negative Negative 54 Test Result Ref Range Giardia Ag, F Negative Negative Test Performed by: [address] [address] 55 Because ethnic data is not always [...] 5 Kidney failure <15 (or dialysis) 56 ADDITIONAL INFORMATION Testing performed by Liquid Chromatography-Tandem Mass Spectrometry (LC-MS/MS). This test was developed and its performance characteristics determined by [facility] in a manner consistent with CLIA requirements. This test has not been cleared or approved by the U.S. Food and Drug Administration. 57 ADDITIONAL INFORMATION Testing performed by [facility]. This test was developed and its performance characteristics determined by [facility] in a manner consistent with CLIA requirements. This test has not been cleared or approved by the U.S. Food and Drug Administration. 58 ADDITIONAL INFORMATION Testing performed by Differential Precipitation. This test was developed and its performance characteristics determined by [facility] in a manner consistent with CLIA requirements. This test has not been cleared or approved by the U.S. Food and Drug Administration. Test Performed by: [facility] [address] [place] [address] Procedures Date Code Description Status 04/28/2018 [id number] Diabetic Foot Exam Completed 04/21/2018 [id number] Diabetic Foot Exam Completed 11/21/2017 [id number] Colonoscopy Completed Medical Devices Description No Information Available Encounters Type Date Location Provider Dx Diagnosis Office Visit 05/03/2019 [facility] Curtis Richey, R20.2 Paresthesia of 3:30p [facility] skin G62.9 Polyneuropathy, unspecified G56.03 Carpal tunnel syndrome, bilateral upper limbs Office Visit 04/29/2019 [facility] Parmjit Chopra D50.9 Iron deficiency 1:00p MD Klever anemia, unspecified K62.5 Hemorrhage of anus and rectum K59.00 Constipation, unspecified Office Visit 03/30/2019 3:00p [facility] Internal Aissatou Gurrola, R03.0 Elevated Medicine - MD blood-pressure Ccmob reading, w/o diagnosis of htn R00.0 Tachycardia, unspecified E29.1 Testicular hypofunction Office Visit 03/29/2019 [facility] [place] D50.9 Iron deficiency 1:30p Monae, OPHTHALMOLOGY TECHNICIAN anemia, unspecified K62.5 Hemorrhage of anus and rectum 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 unspecified [facility] Assessments Date Code Description Provider 05/03/2019 R20.2 Paresthesia of skin Curtis Richey M.D. 05/03/2019 G62.9 Polyneuropathy, unspecified Curtis Richey M.D. 05/03/2019 G56.03 Carpal tunnel syndrome, bilateral upper Curtis Richey M.D. limbs 04/29/2019 D50.9 Iron deficiency anemia, unspecified Parmjit Ernst MD 04/29/2019 K62.5 Hemorrhage of anus and rectum Parmjit Ernst MD 04/29/2019 K59.00 Constipation, unspecified Parmjit Ernst MD 03/30/2019 R03.0 Elevated blood-pressure reading, without Aissatou Gurrola MD diagnosis of hypert 03/30/2019 R00.0 Tachycardia, unspecified Aissatou Gurrola MD 03/30/2019 E29.1 Testicular hypofunction Aissatou Gurrola MD 03/29/2019 D50.9 Iron deficiency anemia, unspecified Parkbart Monae, OPHTHALMOLOGY TECHNICIAN 03/29/2019 K62.5 Hemorrhage of anus and rectum Parkbart Monae, OPHTHALMOLOGY TECHNICIAN 03/29/2019 Q27.33 Arteriovenous malformation of digestive Park Monae, OPHTHALMOLOGY TECHNICIAN system vessel 03/15/2019 K21.9 Gastro-esophageal reflux disease without Park Monae, OPHTHALMOLOGY TECHNICIAN esophagitis 03/15/2019 Q27.33 Arteriovenous malformation of digestive Park Monae, OPHTHALMOLOGY TECHNICIAN system vessel 03/15/2019 K62.5 Hemorrhage of anus and rectum Park Monae NP 03/15/2019 D50.9 Iron deficiency anemia, unspecified Park Monae NP 02/25/2019 R19.7 Diarrhea, unspecified Merari Reynoso N.P. Plan of Treatment Future Appointment(s):08/25/2019 3:00 pm - Aissatou Gurrola MD at [facility] - [facility]09/02/2019 1:45 pm - Curtis Richey M.D. at [facility] Functional Status Description No Information Available Mental Status Description No Information Available Referrals Refer to Dr Reason for Referral Status Appt Date Parmjit Ernst MD Patient has been experiencing diarrhea and Sent 2018 rectal bleeding. Referred for evaluation and treatment. [address] [place] [id number] [phone] Patient with diarrhea and rectal bleeding referred for Patient Declined evaluation and treatment.
--- OUTSIDE RECORDS SUMMARY | 2019-08-26 13:22 | XMS REPORT | Continuity of Care Document ---
:1975 External Reference #:[id number] Author Name Sheila Roth MD (transmitted by agent of provider Alisson Alonzo) Address [address] [facility] [facility] [address], [place] [address] Care Team Providers Name Role Phone Marcos Liu MD - Interventional Care Team Information Field Marketing Coordinator Pain Medicine Curtis Richey M.D. - Neurology Care Team Information Field Marketing Coordinator [facility] - Sleep Disorder Care Team Information Field Marketing Coordinator Diagnostic Parmjit Ernst MD - Gastroenterology Care Team Information Field Marketing Coordinator [facility] - Care Team Information Field Marketing Coordinator [facility] D[facility] - Electron Beam Machine Welder Setter Care Team Information Field Marketing Coordinator Andres Aranda MD - Surgery Care Team Information Field Marketing Coordinator [phone] [facility] - Care Team Information Field Marketing Coordinator Auto Mechanic Tyshawn Rincon MD - Cardiovascular Care Team Information Field Marketing Coordinator [phone] Disease Marcia Escalante MD - Surgery Care Team Information Field Marketing Coordinator Aissatou Gurrola M.D. - Family Medicine Care Team Information Field Marketing Coordinator Problems Active Problems Provider Date Thoracic and [...] 292 December 2016 Carpal tunnel syndrome Feliberto Esquivel M.D. Onset: 07/01/2017 Hemorrhoids without complication Feliberto Esquivel M.D. Onset: 07/31/2017 Note: had stool for giardia / crypto negative February 2019 Anemia Feliberto Esquivel M.D. Onset: 08/12/2017 Note: reason for bidirectional endoscopy at [place] Nov 2017 was HORTENSIA - duodenal AVMs recorded APC - very poor colon prep; as of April 2019 on low dose Fe MVI - Hg 13.6 ferritin 21 MCV 85 (hypogonad) with lowest Hg 02/06/18 at 10.9 MCV 86 ferritin 20.4 then; B12 324 at first [facility] primary visit 01/03/17 Gastroesophageal reflux disease Feliberto Esquivel M.D. Onset: 10/07/2017 Note: PPI started Jun 2018; esophagus and stomach said to be normal at Nov 2017 EGD at [place] (photos in [facility]) Sleep apnea Kavya Angela DNP, RN, BACKSHOE PERSON-BC Onset: 12/03/2017 Benign prostatic hypertrophy with Feliberto [...] Former Cigarette Smoker Unknown Smoking Status Reviewed: 08/17/19 Former Cigarette Smoker ETOH Use Has consumed [...] Medications SIG Qnty Indications Ordering Provider Date Suprep Bowel Prep take according to 354ml Parmjit Ernst, Kit the instructions MD Cruz you received, the 17.5-3.13-1.6GM/177 afternoon before ML Solution and morning of your procedure. Miralax Take 1 packet, 4packets Parmjit Ernst, 3350NF every other day, MD Cruz Packet starting 09/01/19 for colonoscopy pre-procedural prep. Valacyclovir HCL one by mouth every 14tabs Aissatou Gurrola MD 12 hours for one 9 1gm Tablets day, as needed oral outbreak Nortriptyline HCL take 1 capsules by 30caps Curtis Richey, mouth at bedtime MRobb 9 25mg Capsules Mupirocin apply to affected [...] 60mg Mouth Every Day In [address] Meng The Morning Duloxetine HCL Take 1 Capsule By mirta Gurrola MD 30mg Mouth Every Day AT [address] Fan Bedtime Triple Antibiotic apply twice daily 30gm L08.9 Feliberto Esquivel, Plus to infected skin M.D. 8 1% Ointment areas Pantoprazole Sodium take 1 tablet by 30tabs K21.9 Parmjit Ernst, mouth every day [address] before breakfast Torsemide Take 1 Tablet By 30tabs Aissatou Gurrola MD 20mg Mouth Every Day 8 Tablets Symbicort Take 2 Puffs By 10.2units J44.9 Roseline Kulkarni, Mouth Twice A Day M.D. 8 160-4.5mcg/Act Aerosol Ventolin HFA 2 puffs by mouth 8gm Feliberto Esquivel, four times a day M.D. 8 108(90Base) mcg/Act as needed Aerosol Nebulizer 1 unit 1units J44.9 Feliberto Esquivel, Kit/Tubing/Mouthpie nebulization every M.D. 8 ce 4- 6 hours as Kit needed J44.9 Icd code Albuterol Sulfate 1 vial via 180ml J44.9 Feliberto Esquivel nebulizer 4 times M.D. 8 (2.5mg/3ML) 0.083% daily as needed Nebulizer Vitamin B Complex 1 by mouth every Unknown day 0 Tablets Potassium otc once a day Unknown 99mg 0 Tablets Vitamin D3 Complete once daily Unknown 0 Tablets Lactobacillus 1 by mouth daily Unknown 0 Tablets Calcium 600/Vitamin 1 tab by mouth Unknown D once daily 0 161-556od-Stne Chewtabs Multiple Women's ( young Unknown Vitamins-Iron version) w fe 0 Tablets Lecithin 1 tab by mouth Unknown 1200mg once daily 0 Capsules Tramadol HCL 1-2 tablets by Unknown 50mg mouth every 6 0 Tablets hours as needed pain History Medications Testosterone 50mg topical every 150gm Aissatou Gurrola MD 04/15/2019 - 50mg/5GM (1%) day 04/29/2019 Gel Immunizations CPT Code Status Date Vaccine Lot # [id number] Given 08/05/2018 Influenza Virus Vaccine, Quadrivalent, Split, [id number] Preservative Free Vital Signs Date Vital Result Comment 08/17/2019 2:02pm Height 72 inches 6'0" Weight 327.00 lb Heart Rate 91 /min BP Systolic Sitting 137 mmHg Rue lg cuff BP Diastolic Sitting 86 mmHg Rue lg cuff O2 % BldC Oximetry 97 % BMI (Body Mass Index) 44.3 kg/m2 08/05/2019 1:16pm Height 72 inches 6'0" Weight 328.00 lb Heart Rate 90 /min BP Systolic 136 mmHg BP Diastolic 80 mmHg O2 % BldC Oximetry 96 % BMI (Body Mass Index) 44.5 kg/m2 Results Test Acquired Date Facility Test Result H/L Range Note CBC Auto 08/03/2019 [facility] White Blood 6.3 10^3/uL Normal 3.5-10.[address] [place] [address] [phone] Red Blood Count 4.70 10^6/uL Normal 4.18-5.48 [...] Blood Cells % 0.1 Laboratory test 08/03/2019 [facility] Ferritin 8.7 ng/mL Low 24-336 finding [address] [place] [address] [phone] Iron & Iron Binding 08/03/2019 [facility] Iron 35 g/dL Low 50-212 Capacity [facility] [place] [address] [phone] Unsaturated Iron Binding < 485 g/dL Total Iron Binding Capacity 500 g/dL High 250-450 Transferrin 357 mg/dL Normal 203-362 % Iron Saturation 7 % Low 15-55 Laboratory test 08/03/2019 [facility] C Reactive 9.30 mg/L High <8.01 finding [address] [employer] [facility] [place] [address] [phone] Drug Abuse 20 06/23/2019 [facility] Urine Negative 1 Urine [address] [employer] [facility] Amphetamine ng/[place] [address] [phone] Urine Barbiturates Negative ng/mL 2 Urine Benzodiazepines Negative ng/mL 3 Urine Cocaine Negative ng/mL 4 Urine Phencyclidine Negative ng/mL Cutoff: 25 Urine Tetrahydrocannabinol Negative ng/mL Cutoff: 50 5 Creatinine, Urine 140.8 mg/dL Specific [place] 1.013 pH 6.9 Oxidants Negative 6 Adulterants Comment Normal Codeine, Ur Not Detected ng/mL Cutoff: 25 7 Umheldc-6-nylu-glucuronide, Ur Not Detected ng/mL 8 Morphine, Ur Not Detected ng/mL Cutoff: 25 9 Shznmtmg-3-jkgu-glucuronide, U Not Detected ng/mL 10 6-monoacetylmorphine, Ur Not Detected ng/mL Cutoff: 25 11 Hydrocodone, Ur Not Detected ng/mL Cutoff: 25 12 Norhydrocodone, Ur Not Detected ng/mL Cutoff: 25 13 Dihydrocodeine, Ur Not Detected ng/mL Cutoff: 25 14 Hydromorphone, Ur Not Detected ng/mL Cutoff: 25 15 Inlpldrhtqstx6cjepfoqipomualb Not Detected ng/mL 16 Oxycodone, Ur Not Detected ng/mL Cutoff: 25 17 Noroxycodone, Ur Not Detected ng/mL Cutoff: 25 18 Oxymorphone, Ur Not Detected ng/mL Cutoff: 25 19 Wqmfsecaasy-4-agxw-glucuronide Not Detected ng/mL 20 Noroxymorphone, Ur Not Detected ng/mL Cutoff: 25 21 Fentanyl, Ur Not Detected ng/mL Cutoff: 2 22 Norfentanyl, Ur Not Detected ng/mL Cutoff: 2 23 Meperidine, Ur Not Detected ng/mL Cutoff: 25 24 Normeperidine, Ur Not Detected ng/mL Cutoff: 25 25 Naloxone, Ur Not Detected ng/mL Cutoff: 25 26 Mytbycqv-4-cgob-glucuronide, U Not Detected ng/mL 27 Methadone, Ur [...] Ur Not Detected ng/mL Cutoff: 50 35 Yrvfxczjgk-ankj-ozjqycsxygf, U Not Detected ng/mL 36 Buprenorphine, Ur Not Detected ng/mL Cutoff: 5 37 Norbuprenorphine, Ur Not Detected ng/mL Cutoff: 5 38 Norbuprenorphine glucuronide Not Detected ng/mL Cutoff: 20 39 Opioid Interpretation See Comment 40 CBC Auto 04/28/2019 [facility] White Blood 7.3 10^3/uL Normal 3.5-10.[address] [place], [place] [id number] [phone] Red Blood Count 4.80 10^6/uL Normal 4.18-5.48 [...] Blood Cells % 0.0 Comp Metabolic 04/28/2019 [facility] Sodium 141 mmol/L Normal 135-[address] [place] [address] [phone] Potassium 4.7 mmol/L Normal 3.5-5.0 Chloride 104 [...] >60 41 Iron & Iron Binding 04/28/2019 [facility] Iron 63 g/dL Normal 50-[address] [place] [address] [phone] Unsaturated Iron Binding < 490 g/dL Total Iron Binding Capacity 505 g/dL High 250-450 Transferrin 361 mg/dL Normal 203-362 % Iron Saturation 12 % Low 15-55 Laboratory test 04/28/2019 [facility] Ferritin 21.5 Low 24- [address] ng/[place] [address] [phone] Lipid Profile 04/08/2019 [facility] Triglycerides 100 mg/dL 42, 43 (Trig/Chol/HDL) [address] [place] [address] [phone] Cholesterol 156 mg/dL 44 HDL Cholesterol 51.6 mg/dL 45 LDL Cholesterol 84 mg/dL 46 Testosterone 04/08/2019 [facility] Testosterone 70 ng/dL Abnormal 240-[address] [place] [address] [phone] Free Testosterone ng/dl 1.89 ng/dL Abnormal 4.46-17.1 48 Bioavailable Testosterone 15 ng/dL Abnormal 61-213 49 CBC Auto 03/09/2019 [facility] White Blood 6.9 10^3/uL Normal 3.5-10.[address] [place] [address] [phone] Red Blood Count 4.69 10^6/uL Normal 4.18-5.48 [...] Blood Cells % 0.1 Laboratory test 03/04/2019 [facility] C Difficile PCR SEE RESULT 50, [address] [place] [address] [phone] Stool Culture SEE RESULT BELOW 52 Cryptosporidium And 03/04/2019 [facility] Cryptosporidium Ag, Negative 53 Giardia Ag [address] [place] [address] [phone] Giardia Antigen, Feces Negative 54 Liver Function 02/25/2019 [facility] Total Protein 7.1 g/dL Normal 6.4-8.9 Panel [address] [place] [address] [phone] Albumin 4.1 g/dL Normal 3.2-5.2 Globulin 3.0 g/dL Normal 2-4 Albumin/Globulin Ratio 1.4 Normal 1-3 Total Bilirubin 0.40 mg/dL Normal 0.2-1.0 Direct Bilirubin 0.10 mg/dL Normal 0.03-0.18 Indirect Bilirubin 0.3 mg/dL Normal 0.3-1.0 Alkaline Phosphatase 67 U/L Normal 34-104 Alt 14 U/L Normal 7-52 Ast 14 U/L Normal 13-39 Basic Metabolic 02/25/2019 [facility] Sodium 137 mmol/L Normal 135-145 Panel [address] [place] [address] [phone] Potassium 4.3 mmol/L Normal 3.5-5.0 Chloride 103 mmol/L Normal 101-111 Co2 Carbon Dioxide 26 mmol/L Normal 22-32 Anion Gap 8 mmol/L Normal 2-11 Glucose 97 mg/dL Normal 70-100 Blood Urea Nitrogen 16 mg/dL Normal 6-24 Creatinine 0.69 mg/dL Normal 0.67-1.17 BUN/Creatinine Ratio 23.2 High 8-20 Calcium 9.1 mg/dL Normal 8.6-10.3 Egfr Non- 125.7 >60 Egfr 152.1 >60 55 Testosterone 02/25/2019 [facility] Testosterone 30 ng/dL Abnormal 240-950 56 Profile [address] [place] [address] [phone] Free Testosterone ng/dl 0.84 ng/dL Abnormal 4.46-17.1 57 Bioavailable Testosterone 4.5 ng/dL Abnormal 61-213 58 Laboratory 02/25/2019 [facility] TSH (Thyroid 2.12 Normal 0.34 -5.60 test finding [address] Stim Horm) mcIU/[place] [address] [phone] 1 REFERENCE VALUE Cutoff: 500 2 REFERENCE VALUE Cutoff: 200 3 REFERENCE VALUE Cutoff: 100 4 REFERENCE VALUE Cutoff: 150 5 ADDITIONAL INFORMATION This report is intended for use in clinical monitoring or management of patients. It is not intended for use in employment-related testing. Test Performed by: [facility] [address] [facility] [address] [facility], [place] [address] Data Management Specialist: Stan Suarez M.D. Ph.D.; CLIA# [id number] 6 REFERENCE VALUE Cutoff: 200 mg/L 7 Tylenol 3 8 Metabolite of codeine REFERENCE VALUE Cutoff: 100 9 Aisha Alanis, MS Contin; Also a minor metabolite (10%) of codeine and can be seen in low concentrations (<2,000 ng/mL) with poppy seed ingestion. 10 Metabolite of morphine REFERENCE VALUE Cutoff: 100 11 Metabolite of heroin 12 Lortab, [place], Vicodin; Also a very minor metabolite of [...] developed and its performance characteristics determined by [facility] in a manner consistent with CLIA requirements. [...] developed and its performance characteristics determined by [facility] in a manner consistent with CLIA requirements. This test has not been cleared or approved by the U.S. Food and Drug Administration. 48 ADDITIONAL INFORMATION Testing performed by [facility]. This test was developed and its performance characteristics determined by [facility] in a manner consistent with CLIA requirements. This test has not been cleared or approved by the U.S. Food and Drug Administration. 49 ADDITIONAL INFORMATION Testing performed by [facility]. This test was developed and its performance characteristics determined by [facility] in a manner consistent with CLIA requirements. This test has not been cleared or approved by the U.S. Food and Drug Administration. Test Performed by: [facility] - [address] [address] C. Difficile toxin testing is not performed on formed stool specimens. Test of cure on positive 51 SEE RESULT BELOW Name: TYSHAWN DANIELSNO : [address]: Merari Reynoso NP Acct: [id number] Unit: [id number] AGE: 43 Location: [facility] Re03/04/19 SEX: M Status: REG REF SPEC: [id number] SANA: 03/04/[address]: Merari Reynoso NP REQ: [id number] RECD: 03/04/19 STATUS: RES _ SOURCE: STOOL SPDESC: ORDERED: C. diff PCR, Stool Culture, O P: Giar/Crypt Procedure Result Reported Site Stool Culture PENDING Stool Specimen Description Final 03/04/192022 ML Stool Color Brown Stool Form Semi-formed Stool Consistency Thick Shiga Toxin 1 2 PENDING C. difficile PCR PENDING O P: Giardia/Cryptospor Screen PENDING * ML - Main Lab . END OF REPORT DEPARTMENT OF PATHOLOGY, [address] [place] [address] Rocco Alonzo M.D. Director FABIAN # [id number] 52 SEE RESULT BELOW Name: TYSHAWN DANIELSON : [address]: Merari Reynoso NP Acct: [id number] Unit: [id number] AGE: 43 Location: [facility] Re03/04/19 SEX: M Status: REG REF SPEC: [id number] SANA: 03/04/[address]: Merari Reynoso NP REQ: [id number] RECD: 03/04/19 STATUS: COMP _ SOURCE: STOOL SPDESC: ORDERED: Stool Culture COMMENTS: C. Difficile toxin testing is not performed on formed stool specimens. Test of cure on positive patients is not recommended. Verbal to January by [id number] at 1022 on 03/05/19. Procedure Result Reported [...] CONTINUED ON NEXT PAGE DEPARTMENT OF PATHOLOGY, [address] [place] [address] Rocco Alonzo M.D. Director [facility] # [id number] Patient: TYSHAWN DANIELSON [id number] (Continued) Specimen: [id number] Collected: 03/04/19 Received: 03/04/19 (Continued) Procedure Result Reported Site Shiga Toxin 1 2 Final (continued) 03/05/19- 1315 Immunochromatographic Assay * - [facility] . END OF REPORT DEPARTMENT OF PATHOLOGY, [address] [place] [address] Rocco Alonzo M.D. Director [facility] # [id number] 53 Test Result Ref Range Cryptosporidium Ag, F Negative Negative 54 Test Result Ref Range Giardia Ag, F Negative Negative Test Performed by: [facility] - [address] [address] 55 Because ethnic data is not always [...] developed and its performance characteristics determined by [facility] in a manner consistent with CLIA requirements. This test has not been cleared or approved by the U.S. Food and Drug Administration. 57 ADDITIONAL INFORMATION Testing performed by [facility]. This test was developed and its performance characteristics determined by [facility] in a manner consistent with CLIA requirements. This test has not been cleared or approved by the U.S. Food and Drug Administration. 58 ADDITIONAL INFORMATION Testing performed by [facility]. This test was developed and its performance characteristics determined by [facility] in a manner consistent with CLIA requirements. This test has not been cleared or approved by the U.S. Food and Drug Administration. 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 [facility] G62.9 Polyneuropathy, unspecified G56.03 Carpal tunnel syndrome, bilateral upper limbs Office Visit 04/29/2019 [facility] Gastroenterology Parmjit Chopra D50.9 Iron deficiency 1:00p MD Klever anemia, unspecified K62.5 Hemorrhage of anus and rectum K59.00 Constipation, unspecified Office Visit 03/30/2019 3:00p [facility] Internal Aissatou Gurrola, R03.0 Elevated Medicine - MD blood-pressure Ccmob reading, w/o diagnosis of htn R00.0 Tachycardia, unspecified E29.1 Testicular hypofunction Office Visit 03/29/2019 [facility] Gastroenterology [place] D50.9 Iron deficiency 1:30p LAKHWINDER Monae anemia, unspecified K62.5 Hemorrhage of anus and rectum 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 unspecified Ccmob Assessments Date Code Description Provider 08/17/2019 F33.9 Major depressive disorder, recurrent, Sheila Roth MD unspecified 08/17/2019 G62.9 Polyneuropathy, unspecified Sheila Roth MD 08/17/2019 R03.0 Elevated blood-pressure reading, without Sheila Roth MD diagnosis of hypert 08/17/2019 R00.0 Tachycardia, unspecified Sheila Roth MD 08/17/2019 E29.1 Testicular hypofunction Sheila Roth MD 08/17/2019 I89.0 Lymphedema, not elsewhere classified Sheila Roth MD 08/05/2019 D50.9 Iron deficiency anemia, unspecified Parmjit Ernst MD 08/05/2019 K62.5 Hemorrhage of anus and rectum Parmjit Ernst MD 08/05/2019 E66.9 Obesity, unspecified Parmjit Ernst MD 08/05/2019 G89.4 Chronic pain syndrome Parmjit Ernst MD 08/05/2019 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 Parmjit Ernst MD 05/03/2019 R20.2 Paresthesia of skin Curtis Richey [...] MD 03/29/2019 D50.9 Iron deficiency anemia, unspecified Park Monae, SHOE RECONDITIONER 03/29/2019 K62.5 Hemorrhage of anus and rectum Park Monae, SHOE RECONDITIONER 03/29/2019 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 Plan of Treatment Future Appointment(s):09/10/2019 2:00 pm - Sheila Roth MD at [facility] Internal Medicine - [facility]09/10/2019 12:30 pm - Parmjit Ernst MD at [facility] Yngokjcrcfktxmsj53/21/2019 1:45 pm - Curtis Richey M.D. at [facility]08/17/2019 - Sheila Roth MDF33.9 Major depressive disorder, recurrent, unspecifiedComments:Return for follow up in 3 iujjeyG18.9 Polyneuropathy, pvnbhxrodtvV31.0 Elevated blood-pressure reading, without diagnosis of hypertComments:Stable todayContinue to work on diet and weight to continue control Please reduce use of tbmioblezrosuslcjuggQ99.0 Tachycardia, unspecifiedComments:Please reduce use of caffienated sulouhbacR76.1 Testicular hypofunctionComments:Please have labs done as soon as bwgecupwZ88.0 Lymphedema, not elsewhere classifiedComments:Continue with medication as prescribed Functional Status Description No Information Available Mental Status Description No Information Available Referrals Refer to Dr Reason for Referral Status Appt Date Parmjit Ernst MD Patient has been experiencing diarrhea and Sent 2018 rectal bleeding. Referred for evaluation and treatment. [address] [place] [address] [phone] Patient with diarrhea and rectal bleeding referred for Patient Declined evaluation and treatment.
[2019-08-26 13:23] LABS: INR 0.97 (0.82-1.09)
[2019-08-26 13:37] LABS: Albumin 4.2 g/dL (3.2-5.2); Albumin/Globulin Ratio 1.2 (1-3); BUN/Creatinine Ratio 19.3 (8-20); Calcium 9.4 mg/dL (8.6-10.3); EGFR African American 122.4 (>60); EGFR Non-African American 101.1 (>60); Globulin 3.4 g/dL (2-4); Potassium 4.3 mmol/L (3.5-5.0); Total Bilirubin 0.4 mg/dL (0.2-1.0); Total Protein 7.6 g/dL (6.4-8.9)
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
[2019-08-26] MEDS: Iohexol 350* (CONTRAST) 500 ML MDV IV ONE (14:17)
[2019-08-26 14:46] VITALS: BP 125/90
== END 2019-08-26 15:03 | disposition home or self-care (01) ==
LOC: ED 12:42
DX: G43.909 Migraine, unspecified, not intractable, without status migrainosus (principal); D64.9 Anemia, unspecified; J44.9 Chronic obstructive pulmonary disease, unspecified; K21.9 Gastro-esophageal reflux disease without esophagitis; F41.9 Anxiety disorder, unspecified; F32.9 Major depressive disorder, single episode, unspecified; Z87.891 Personal history of nicotine dependence; Z88.6 Allergy status to analgesic agent; Z88.5 Allergy status to narcotic agent; Z88.8 Allergy status to other drugs, medicaments and biological substances
CPT/HCPCS: 36415; 70496; 80053; 85025; 85610; 99282; Q9967

== ENCOUNTER 2019-10-08 17:15 | Inpatient (IN) | payer OTHER ==
--- OUTSIDE RECORDS SUMMARY | 2019-10-08 17:35 | XMS REPORT | Continuity of Care Document ---
:1975 External Reference #:[id number] Author Name Sheila Roth MD (transmitted by agent of provider Twyla Rodríguez) Address [address] [facility], [place] [address] Care Team Providers Name Role Phone Marcos Liu MD - Interventional Care Team Information Wall Cleaner Pain Medicine Curtis Richey M.D. - Neurology Care Team Information Wall Cleaner [phone] [facility] - Sleep Disorder Care Team Information Wall Cleaner [phone] Diagnostic Parmjit Ernst MD - Gastroenterology Care Team Information Wall Cleaner [facility] - Care Team Information Wall Cleaner [facility] D[facility] - Customs Brokerage Manager Care Team Information Wall Cleaner Andres Aranda MD - Surgery Care Team Information Wall Cleaner [phone] [facility] - Care Team Information Wall Cleaner [phone] Air Gun Operator Nelson Rincon MD - Cardiovascular Care Team Information Wall Cleaner [phone] Disease Marcia Escalante MD - Surgery Care Team Information Wall Cleaner Aissatou Gurrola M.D. - Family Medicine Care Team Information Wall Cleaner [phone] Problems Active Problems Provider Date Thoracic and [...] 08/12/2017 Note: reason for bidirectional endoscopy at [place] Nov 2017 was HORTENSIA - duodenal AVMs recorded APC - very poor colon prep; as of April 2019 on low dose Fe MVI - Hg 13.6 ferritin 21 MCV 85 (hypogonad) with lowest Hg 02/06/18 at 10.9 MCV 86 ferritin 20.4 then; B12 324 at first [facility] primary visit 01/03/17 Gastroesophageal reflux disease Feliberto Esquivel M.D. Onset: 10/07/2017 Note: PPI started Jun 2018; esophagus and stomach said to be normal at Nov 2017 EGD at [place] (photos in [facility] [employer]) Sleep apnea Kavya Angela, LEÓN, RN, PREVENTATIVE MAINTENANCE TECHNICIAN-BC Onset: 12/03/2017 Benign prostatic hypertrophy with Feliberto [...] Former Cigarette Smoker Unknown Smoking Status Reviewed: 09/14/19 Former Cigarette Smoker ETOH Use Has consumed [...] Medications SIG Qnty Indications Ordering Provider Date Peg-3350/Electrolyt take according to 4000ml Parmjit Ernst, your physicians 9 236gm Solution instructions the Rec day before your procedure split the dose as directed. Valacyclovir HCL one by mouth every 14tabs [...] day Duloxetine HCL Take 1 Capsule By 30minoo Gurrola MD 60mg Mouth Every Day In [address] Fan The Morning Duloxetine HCL Take 1 Capsule [...] by mouth Unknown D once daily 0 [id number] Chewtabs Multiple Women's ( young Unknown Vitamins-Iron version) w fe 0 Tablets Lecithin 1 tab by mouth Unknown 1200mg once daily 0 Capsules Tramadol HCL 1-2 tablets by Unknown 50mg mouth every 6 0 Tablets hours as needed pain History Medications Suprep Bowel Prep Kit take according to 354ml Parmjit Chopra 08/06/2019 - the instructions MD Klever 08/31/2019 17.5-3.13-1.6GM/177ML you received, the Solution afternoon before and morning of your procedure. Miralax Take 1 packet, 4packets Parmjit Chopra 08/06/2019 - 3350NF Packet every other day, MD Klever 09/11/2019 starting 09/01/19 for colonoscopy pre-procedural prep. Testosterone 50mg topical every 150gm Aissatou Gurrola 04/15/2019 - 50mg/5GM (1%) Gel dusty CODY 04/29/2019 Immunizations CPT Code Status Date Vaccine Lot # [id number] Given 08/05/2018 Influenza Virus Vaccine, Quadrivalent, Split, [id number] Preservative Free Vital Signs Date Vital Result Comment 09/14/2019 11:07am Height 72 inches 6'0" Weight 316.00 lb Heart Rate 102 /min BP Systolic Sitting 135 mmHg Rue lg cuff BP Diastolic Sitting 80 mmHg Rue lg cuff O2 % BldC Oximetry 98 % BMI (Body Mass Index) 42.9 kg/m2 09/02/2019 1:57pm Height 72 inches 6'0" Weight 316.00 lb Heart Rate 92 /min BP Systolic 136 mmHg BP Diastolic 98 mmHg BMI (Body Mass Index) 42.9 kg/m2 Results Test Acquired Date Facility Test Result H/L Range Note CBC Auto 08/26/2019 [facility] White Blood 7.3 10^3/uL Normal 3.5-10.[address] [place] [address] [phone] Red Blood Count 5.07 10^6/uL Normal 4.18-5.48 Hemoglobin 13.8 g/dL Low 14.0-18.0 Hematocrit 41 % Low 42-52 Mean Corpuscular Volume 81 fL Normal 80-94 Mean Corpuscular Hemoglobin 27 pg Normal 27-31 Mean Corpuscular HGB Conc 34 g/dL Normal 31-36 Red Cell Distribution Width 16 % High 10-15 Platelet Count 260 10^3/uL Normal 150-450 Mean Platelet Volume 7.4 fL Normal 7.4-10.4 Abs Neutrophils 4.6 10^3/uL Normal 1.5-7.7 Abs Lymphocytes 1.9 10^3/uL Normal 1.0-4.8 Abs Monocytes 0.5 10^3/uL Normal 0-0.8 Abs Eosinophils 0.2 10^3/uL Normal 0-0.6 Abs Basophils 0.1 10^3/uL Normal 0-0.2 Abs Nucleated RBC 0.0 10^3/uL Granulocyte % 63.7 % Lymphocyte % 26.1 % Monocyte % 6.8 % Eosinophil % 2.4 % Basophil % 1.0 % Nucleated Red Blood Cells % 0.0 Comp Metabolic 08/26/2019 [facility] Sodium 138 mmol/L Normal 135-[address] [place] [id number] [phone] Potassium 4.3 mmol/L Normal 3.5-5.0 Chloride 103 mmol/L Normal 101-111 Co2 Carbon Dioxide 29 mmol/L Normal 22-32 Anion Gap 6 mmol/L Normal 2-11 Glucose 102 mg/dL High 70-100 Blood Urea Nitrogen 16 mg/dL Normal 6-24 Creatinine 0.83 mg/dL Normal 0.67-1.17 BUN/Creatinine Ratio 19.3 Normal 8-20 Calcium 9.4 mg/dL Normal 8.6-10.3 Total Protein 7.6 g/dL Normal 6.4-8.9 Albumin 4.2 g/dL Normal 3.2-5.2 Globulin 3.4 g/dL Normal 2-4 Albumin/Globulin Ratio 1.2 Normal 1-3 Total Bilirubin 0.40 mg/dL Normal 0.2-1.0 Alkaline Phosphatase 68 U/L Normal 34-104 Alt 12 U/L Normal 7-52 Ast 13 U/L Normal 13-39 Egfr Non- 101.1 >60 Egfr 122.4 >60 1 Inr/Protime 08/26/2019 [facility] Inr 0.97 Normal 0.82-1.[address] [place] [address] [phone] Testosterone 08/19/2019 [facility] Testosterone 169 Abnormal 240-[address] ng/[place] [address] [phone] Free Testosterone ng/dl 4.39 ng/dL Abnormal 4.46-17.1 4 Bioavailable Testosterone 46 ng/dL Abnormal 61-213 5 CBC Auto 08/19/2019 [facility] White Blood 5.7 10^3/uL Normal 3.5-10.[address] [place] [address] [phone] Red Blood Count 4.91 10^6/uL Normal 4.18-5.48 Hemoglobin 13.5 g/dL Low 14.0-18.0 Hematocrit 40 % Low 42-52 Mean Corpuscular Volume 81 fL Normal 80-94 Mean Corpuscular Hemoglobin 28 pg Normal 27-31 Mean Corpuscular HGB Conc 34 g/dL Normal 31-36 Red Cell Distribution Width 15 % Normal 10-15 Platelet Count 261 10^3/uL Normal 150-450 Mean Platelet Volume 8.5 fL Normal 7.4-10.4 Abs Neutrophils 3.6 10^3/uL Normal 1.5-7.7 Abs Lymphocytes 1.6 10^3/uL Normal 1.0-4.8 Abs Monocytes 0.4 10^3/uL Normal 0-0.8 Abs Eosinophils 0.2 10^3/uL Normal 0-0.6 Abs Basophils 0.0 10^3/uL Normal 0-0.2 Abs Nucleated RBC 0.0 10^3/uL Granulocyte % 61.8 % Lymphocyte % 27.3 % Monocyte % 6.3 % Eosinophil % 3.9 % Basophil % 0.7 % Nucleated Red Blood Cells % 0.1 CBC Auto 08/03/2019 [facility] White Blood 6.3 10^3/uL Normal 3.5-10.[address] [place] [address] [phone] Red Blood Count 4.70 10^6/uL Normal 4.18-5.48 [...] Blood Cells % 0.1 Laboratory test 08/03/2019 [facility] Ferritin 8.7 ng/mL Low 24-336 finding [address] [place] [address] [phone] Iron & Iron Binding 08/03/2019 [facility] Iron 35 g/dL Low 50-212 Capacity [facility] [place] [address] [phone] Unsaturated Iron Binding < 485 g/dL Total Iron Binding Capacity 500 g/dL High 250-450 Transferrin 357 mg/dL Normal 203-362 % Iron Saturation 7 % Low 15-55 Laboratory test 08/03/2019 [facility] C Reactive 9.30 mg/L High <8.01 finding [address] [place] [address] [phone] Drug Abuse 20 06/23/2019 [facility] Urine Negative 6 Urine [address] [facility] Amphetamine ng/[place] [address] [phone] Urine Barbiturates Negative ng/mL 7 Urine Benzodiazepines Negative ng/mL 8 Urine Cocaine Negative ng/mL 9 Urine Phencyclidine Negative ng/mL Cutoff: 25 Urine Tetrahydrocannabinol Negative ng/mL Cutoff: 50 10 Creatinine, Urine 140.8 mg/dL Specific [place] 1.013 pH 6.9 Oxidants Negative 11 Adulterants Comment Normal Codeine, Ur Not Detected ng/mL Cutoff: 25 12 Jgrsmqw-3-zfay-glucuronide, Ur Not Detected ng/mL 13 Morphine, Ur Not Detected ng/mL Cutoff: 25 14 Nswilcgv-7-yaqp-glucuronide, U Not Detected ng/mL 15 6-monoacetylmorphine, Ur Not Detected ng/mL Cutoff: 25 16 Hydrocodone, Ur Not Detected ng/mL Cutoff: 25 17 Norhydrocodone, Ur Not Detected ng/mL Cutoff: 25 18 Dihydrocodeine, Ur Not Detected ng/mL Cutoff: 25 19 Hydromorphone, Ur Not Detected ng/mL Cutoff: 25 20 Lthqwuwancgep8xshasjxswpfkzcp Not Detected ng/mL 21 Oxycodone, Ur Not Detected ng/mL Cutoff: 25 22 Noroxycodone, Ur Not Detected ng/mL Cutoff: 25 23 Oxymorphone, Ur Not Detected ng/mL Cutoff: 25 24 Epeiaefdcuh-4-bvgi-glucuronide Not Detected ng/mL 25 Noroxymorphone, Ur Not Detected ng/mL Cutoff: 25 26 Fentanyl, Ur Not Detected ng/mL Cutoff: 2 27 Norfentanyl, Ur Not Detected ng/mL Cutoff: 2 28 Meperidine, Ur Not Detected ng/mL Cutoff: 25 29 Normeperidine, Ur Not Detected ng/mL Cutoff: 25 30 Naloxone, Ur Not Detected ng/mL Cutoff: 25 31 Jfahcgyn-6-wwdg-glucuronide, U Not Detected ng/mL 32 Methadone, Ur Not Detected ng/mL Cutoff: 25 33 Eddp, Ur Not Detected ng/mL Cutoff: 25 34 Propoxyphene, Ur Not Detected ng/mL Cutoff: 25 35 Norpropoxyphene, Ur Not Detected ng/mL Cutoff: 25 36 Tramadol, Ur Present ng/mL Abnormal Cutoff: 25 37 O-desmethyltramadol, Ur Present ng/mL Abnormal Cutoff: 25 38 Tapentadol, Ur Not Detected ng/mL Cutoff: 25 39 N-desmethyltapentadol, Ur Not Detected ng/mL Cutoff: 50 40 Utuvehvdxn-nmqh-zwcjhmvodmw, U Not Detected ng/mL 41 Buprenorphine, Ur Not Detected ng/mL Cutoff: 5 42 Norbuprenorphine, Ur Not Detected ng/mL Cutoff: 5 43 Norbuprenorphine glucuronide Not Detected ng/mL Cutoff: 20 44 Opioid Interpretation See Comment 45 CBC Auto 04/28/2019 [facility] White Blood 7.3 10^3/uL Normal 3.5-10.[address] [place] [address] [phone] Red Blood Count 4.80 10^6/uL Normal 4.18-5.48 [...] Blood Cells % 0.0 Comp Metabolic 04/28/2019 [facility] Sodium 141 mmol/L Normal 135-[address] [place] [address] [phone] Potassium 4.7 mmol/L Normal 3.5-5.0 Chloride 104 [...] Egfr Non- 88.0 >60 Egfr 106.5 >60 46 Iron & Iron Binding 04/28/2019 [facility] Iron 63 g/dL Normal 50-[address] [place], [place] [id number] [phone] Unsaturated Iron Binding < 490 g/dL Total Iron Binding Capacity 505 g/dL High 250-450 Transferrin 361 mg/dL Normal 203-362 % Iron Saturation 12 % Low 15-55 Laboratory test 04/28/2019 [facility] Ferritin 21.5 Low 24- [address] ng/mL [place], [place] [id number] [phone] Testosterone 04/08/2019 [facility] Testosterone 70 ng/dL Abnormal 240-950 47, Profile [address] [place] [address] [phone] Free Testosterone ng/dl 1.89 ng/dL Abnormal 4.46-17.1 49 Bioavailable Testosterone 15 ng/dL Abnormal 61-213 50 Lipid Profile 04/08/2019 [facility] Triglycerides 100 mg/dL 51 (Trig/Chol/HDL) [address] [place], [place] [id number] [phone] Cholesterol 156 mg/dL 52 HDL Cholesterol 51.6 mg/dL 53 LDL Cholesterol 84 mg/dL 54 1 Because ethnic data is not always readily [...] 15-29 5 Kidney failure <15 (or dialysis) 2 Standard intensity warfarin therapeutic range: 2.0-3.0 High intensity warfarin therapeutic range: 2.5-3.5 3 ADDITIONAL INFORMATION Testing performed by Liquid Chromatography-Tandem Mass Spectrometry (LC-MS/MS). This test was developed and its performance characteristics determined by [facility] in a manner consistent with CLIA requirements. This test has not been cleared or approved by the U.S. Food and Drug Administration. 4 ADDITIONAL INFORMATION Testing performed by Equilibrium Dialysis. This test was developed and its performance characteristics determined by [facility] in a manner consistent with CLIA requirements. This test has not been cleared or approved by the U.S. Food and Drug Administration. 5 ADDITIONAL INFORMATION Testing performed by Differential Precipitation. This test was developed and its performance characteristics determined by [facility] in a manner consistent with CLIA requirements. This test has not been cleared or approved by the U.S. Food and Drug Administration. Test Performed by: [facility] - [address] [address] Park Interpretive Specialist: Stan Suarez M.D. Ph.D.; CLIA# [id number] 6 REFERENCE VALUE Cutoff: 500 7 REFERENCE VALUE Cutoff: 200 8 REFERENCE VALUE Cutoff: 100 9 REFERENCE VALUE Cutoff: 150 10 ADDITIONAL INFORMATION This report is intended for use in clinical monitoring or management of patients. It is not intended for use in employment-related testing. Test Performed by: [facility] [employer] [facility] [address] [place] [address] Park Interpretive Specialist: Stan Suarez M.D. Ph.D.; IA# [id number] 11 REFERENCE VALUE Cutoff: 200 mg/L 12 Tylenol 3 13 Metabolite of codeine REFERENCE VALUE Cutoff: 100 14 Aisha Alanis, MS Contin; Also a minor metabolite (10%) of codeine and can be seen in low concentrations (<2,000 ng/mL) with poppy seed ingestion. 15 Metabolite of morphine REFERENCE VALUE Cutoff: 100 16 Metabolite of heroin 17 Lortab, [place], Vicodin; Also a very minor metabolite of codeine and impurity (<1%) of oxycodone. 18 Metabolite of hydrocodone 19 Metabolite of hydrocodone 20 Dilaudid, Exalgo; Also a metabolite of hydrocodone and a minor (<5%) metabolite of morphine. 21 Metabolite of hydromorphone REFERENCE VALUE Cutoff: 100 22 Endocet, Percocet, Oxycontin 23 Metabolite of oxycodone 24 Numorphan, Opana; Also a metabolite of oxycodone. 25 Metabolite of oxymorphone REFERENCE VALUE Cutoff: 100 26 Metabolite of oxymorphone 27 Actiq, Duragesic, Fentora 28 Metabolite of fentanyl 29 Demerol 30 Metabolite of meperidine 31 Narcan 32 Metabolite of naloxone REFERENCE VALUE Cutoff: 100 33 Dolophine 34 Metabolite of methadone 35 Darvon, Darvocet 36 Metabolite of propoxyphene 37 Tradol, Ultram, Ultracet 38 Metabolite of tramadol 39 Nucynta 40 Metabolite of tapentadol 41 Metabolite of tapentadol REFERENCE VALUE Cutoff: 100 42 Buprenex, Suboxone 43 Metabolite of buprenorphine 44 Metabolite of buprenorphine 45 Test detected the presence of tramadol and its metabolite (O-desmethyltramadol). Suspect use of tramadol within the past three days. ADDITIONAL INFORMATION This test was developed and its performance characteristics determined by [facility] in a manner consistent with CLIA requirements. This test has not been cleared or approved by the U.S. Food and Drug Administration. 46 Because ethnic data is not always readily [...] 15-29 5 Kidney failure <15 (or dialysis) 47 FASTING 10 HOUR 48 ADDITIONAL INFORMATION Testing performed by Liquid Chromatography-Tandem Mass Spectrometry (LC-MS/MS). This test was developed and its performance characteristics determined by [facility] in a manner consistent with CLIA requirements. This test has not been cleared or approved by the U.S. Food and Drug Administration. 49 ADDITIONAL INFORMATION Testing performed by Equilibrium Dialysis. This test was developed and its performance characteristics determined by [facility] in a manner consistent with CLIA requirements. This test has not been cleared or approved by the U.S. Food and Drug Administration. 50 ADDITIONAL INFORMATION Testing performed by Differential Precipitation. This test was developed and its performance characteristics determined by [facility] in a manner consistent with CLIA requirements. This test has not been cleared or approved by the U.S. Food and Drug Administration. Test Performed by: [facility] [address] [place] [address] 51 Desirable: <150 Borderline High: 150-199 High: 200-499 Very High: >500 52 Desirable: <200 Borderline High: 200-239 High: >239 53 Low: <40 Desirable: 40-60 High: >60 54 Desirable: <100 Near Optimal: 100-129 Borderline High: 130-159 High: 160-189 Very High: >189 Procedures Date Code Description Status 04/28/2018 [id number] Diabetic Foot Exam Completed 04/21/2018 [id number] Diabetic Foot Exam Completed 11/21/2017 [id number] Colonoscopy Completed Medical Devices Description No Information Available Encounters Type Date Location Provider Dx Diagnosis Office Visit 09/02/2019 [place] [facility] Curtis Richey, G62.9 Polyneuropathy, 1:45p [facility] MRobb unspecified R20.2 Paresthesia of skin G56.03 Carpal tunnel syndrome, bilateral upper limbs Office Visit 08/17/2019 2:00p [facility] Internal Sheila F33.9 Major depressive Connor Roth MD disorder, Ccmob recurrent, unspecified G62.9 Polyneuropathy, unspecified R03.0 Elevated blood-pressure reading, w/o diagnosis of htn R00.0 Tachycardia, unspecified E29.1 Testicular hypofunction I89.0 Lymphedema, not elsewhere classified Office Visit 08/05/2019 [facility] Gastroenterology Parmjit Chopra D50.9 Iron deficiency 1:00p MD Klever anemia, unspecified K62.5 Hemorrhage of anus and rectum E66.9 Obesity, unspecified G89.4 Chronic pain syndrome Z79.891 assisted (current) use of opiate analgesic Office Visit 05/03/2019 [place] Curtis Richey, R20.2 Paresthesia of 3:30p Neurologic M.D. skin [facility] G62.9 Polyneuropathy, unspecified G56.03 Carpal tunnel syndrome, bilateral upper limbs Office Visit 04/29/2019 [facility] Gastroenterology Parmjit Chopra D50.9 Iron deficiency 1:00p MD Klever anemia, unspecified K62.5 Hemorrhage of anus and rectum K59.00 Constipation, unspecified Office Visit 03/30/2019 3:00p [facility] Internal Aissatou Gurrola, R03.0 Elevated Connor blood-pressure Ccmob reading, w/o diagnosis of htn R00.0 Tachycardia, unspecified E29.1 Testicular hypofunction Office Visit 03/29/2019 [facility] Gastroenterology Park D50.9 Iron deficiency 1:30p LAKHWINDER Monae anemia, unspecified K62.5 Hemorrhage of anus and rectum 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 09/02/2019 R20.2 Paresthesia of skin Curtis Richey M.D. 09/02/2019 G56.03 Carpal tunnel syndrome, bilateral upper Curtis Richey M.D. limbs 08/17/2019 F33.9 Major depressive disorder, recurrent, Sheila [...] pain syndrome Parmjit Ernst MD 08/05/2019 Z79.891 damascener (current) use of opiate analgesic Parmjit Ernst [...] of hypert 03/30/2019 R00.0 Tachycardia, unspecified Aissatou Grurola MD 03/30/2019 E29.1 Testicular hypofunction Aissatou Gurrola MD 03/29/2019 D50.9 Iron deficiency anemia, unspecified [place] Monae NP 03/29/2019 K62.5 Hemorrhage of anus and rectum Park Monae NP 03/29/2019 Q27.33 Arteriovenous malformation of digestive [place] Monae NP system vessel Plan of Treatment 09/14/2019 - Sheila Roth MDG62.9 Polyneuropathy, unspecifiedFollow up: follow up OV in 2 sclmatH62.00 Dyspnea, vnexbytxjyeX16.0 Lymphedema, not elsewhere qjudhtgyvgK90.33 Obstructive sleep apnea (adult) (pediatric)Z68.41 Body mass index (BMI) 40.0-44.9, adult Functional Status Description No Information Available Mental Status Description No Information Available Referrals Description No Information Available
--- OUTSIDE RECORDS SUMMARY | 2019-10-08 17:35 | XMS REPORT | Continuity of Care Document ---
:1975 External Reference #:[id number] Author Name Curtis Richey M.D. (transmitted by agent of provider Tita Santos) Address [address] [facility] [address], [place] [address] Care Team Providers Name Role Phone Marcos Liu MD - Interventional Care Team Information Fire Hydrant Mechanic [phone] Pain Medicine Curtis Richey M.D. - Neurology Care Team Information Fire Hydrant Mechanic [phone] [facility] - Sleep Disorder Care Team Information Fire Hydrant Mechanic [phone] Diagnostic Parmjit Ernst MD - Gastroenterology Care Team Information Fire Hydrant Mechanic [facility] - Care Team Information Fire Hydrant Mechanic [facility] archibald DPM - Substation Operator Helper Generation Care Team Information Fire Hydrant Mechanic [phone] Andres Aranda MD - Surgery Care Team Information Fire Hydrant Mechanic [phone] [facility] - Care Team Information Fire Hydrant Mechanic Revit Drafter Tyshawn Rincon MD - Cardiovascular Care Team Information Fire Hydrant Mechanic Disease Marcia Escalante MD - Surgery Care Team Information Fire Hydrant Mechanic [phone] Aissatou Gurrola M.D. - Family Medicine Care Team Information Fire Hydrant Mechanic Problems Active Problems Provider Date Thoracic and [...] 08/12/2017 Note: reason for bidirectional endoscopy at [place] Nov 2017 was HORTENSIA - duodenal AVMs recorded APC - very poor colon prep; as of April 2019 on low dose Fe MVI - Hg 13.6 ferritin 21 MCV 85 (hypogonad) with lowest Hg 02/06/18 at 10.9 MCV 86 ferritin 20.4 then; B12 324 at first [facility] primary visit 01/03/17 Gastroesophageal reflux disease Feliberto Esquivel M.D. Onset: 10/07/2017 Note: PPI started Jun 2018; esophagus and stomach said to be normal at Nov 2017 EGD at [facility] (photos in [facility]) Sleep apnea Kavya Angela, LEÓN, RN, FINISHING MACHINE TENDER-BC Onset: 12/03/2017 Benign prostatic hypertrophy [...] Former Cigarette Smoker Unknown Smoking Status Reviewed: 09/02/19 Former Cigarette Smoker ETOH Use Has consumed [...] Peg-3350/Electrolyt take according to 4000ml Parmjit Ernst, es your physicians 9 236gm Solution instructions the Rec day before your procedure split the dose as directed. Miralax Take 1 packet, 4packets Parmjit Ernst, 3350NF every other day, 9 Packet starting 09/01/19 for colonoscopy pre-procedural prep. [...] Mouth Every Day In [address] Part The Morning Duloxetine HCL Take 1 Capsule By mirta Gurrola MD 30mg Mouth Every Day AT 8 Caps Part Bedtime Triple Antibiotic apply twice daily [...] by mouth Unknown D once daily 0 [id number] Chewtabs Multiple Women's ( young Unknown Vitamins-Iron [...] afternoon before and morning of your procedure. Testosterone 50mg topical every 150gm Aissatou Gurrola 04/15/2019 - 50mg/5GM (1%) Gel dusty CODY 04/29/2019 Immunizations CPT Code Status Date Vaccine Lot # [id number] Given 08/05/2018 Influenza Virus Vaccine, Quadrivalent, Split, [id number] Preservative Free Vital Signs Date Vital Result Comment 09/02/2019 1:57pm Height 72 inches 6'0" Weight 316.00 lb Heart Rate 92 /min BP Systolic 136 mmHg BP Diastolic 98 mmHg BMI (Body Mass Index) 42.9 kg/m2 08/17/2019 2:02pm Height 72 inches 6'0" Weight 327.00 lb Heart Rate 91 /min BP Systolic Sitting 137 mmHg Rue lg cuff BP Diastolic Sitting 86 mmHg Rue lg cuff O2 % BldC Oximetry 97 % BMI (Body Mass Index) 44.3 kg/m2 Results Test Acquired Date Facility Test Result H/L Range Note CBC Auto 08/26/2019 [facility] White Blood 7.3 10^3/uL Normal 3.5-10.[address] [place] [address] [phone] Red Blood Count 5.07 10^6/uL Normal 4.18-5.48 [...] Blood Cells % 0.0 Comp Metabolic 08/26/2019 [facility] Sodium 138 mmol/L Normal 135-145 Panel [address] [place] [address] [phone] Potassium 4.3 mmol/L Normal 3.5-5.0 Chloride 103 [...] >60 Egfr 122.4 >60 1 Inr/Protime 08/26/2019 [facility] Inr 0.97 Normal 0.82-1.[address] [facility] [place] [address] [phone] Testosterone 08/19/2019 [facility] Testosterone 169 Abnormal 240-[address] ng/[place] [address] [phone] Free Testosterone ng/dl 4.39 ng/dL Abnormal 4.46-17.1 4 Bioavailable Testosterone 46 ng/dL Abnormal 61-213 5 CBC Auto 08/19/2019 [facility] White Blood 5.7 10^3/uL Normal 3.5-10.[address] [place] [place] [address] [phone] Red Blood Count 4.91 10^6/uL Normal 4.18-5.48 [...] Blood Cells % 0.1 CBC Auto 08/03/2019 [facility] White Blood 6.3 10^3/uL Normal 3.5-10.[address] [place] [place] [address] [phone] Red Blood Count 4.70 10^6/uL Normal 4.18-5.48 [...] Ferritin 8.7 ng/mL Low 24-336 finding [address] [place] [address] [phone] Iron & Iron Binding 08/03/2019 [facility] Iron 35 g/dL Low 50-212 [address] [place] [address] [phone] Unsaturated Iron Binding < 485 g/dL Total Iron Binding Capacity 500 g/dL High 250-450 Transferrin 357 mg/dL Normal 203-362 % Iron Saturation 7 % Low 15-55 Laboratory test 08/03/2019 [facility] C Reactive 9.30 mg/L High <8.01 finding [address] [place] [address] [phone] Drug Abuse 20 06/23/2019 [facility] Urine Negative [address] Amphetamine ng/[place] [address] [phone] Urine Barbiturates Negative ng/mL 7 Urine Benzodiazepines Negative ng/mL 8 Urine Cocaine Negative ng/mL 9 Urine Phencyclidine Negative ng/mL Cutoff: 25 Urine Tetrahydrocannabinol Negative ng/mL Cutoff: 50 10 Creatinine, Urine 140.8 mg/dL Specific [place] 1.013 pH 6.9 Oxidants Negative 11 Adulterants Comment Normal Codeine, Ur Not Detected ng/mL Cutoff: 25 12 Qteybzt-4-bgff-glucuronide, Ur Not Detected ng/mL 13 Morphine, Ur Not Detected ng/mL Cutoff: 25 14 Nmtglwcn-5-dduo-glucuronide, U Not Detected ng/mL 15 6-monoacetylmorphine, Ur Not Detected ng/mL Cutoff: 25 16 Hydrocodone, Ur Not Detected ng/mL Cutoff: 25 17 Norhydrocodone, Ur Not Detected ng/mL Cutoff: 25 18 Dihydrocodeine, Ur Not Detected ng/mL Cutoff: 25 19 Hydromorphone, Ur Not Detected ng/mL Cutoff: 25 20 Hklttgjawngrl2wyhbepnasssyemd Not Detected ng/mL 21 Oxycodone, Ur Not Detected ng/mL Cutoff: 25 22 Noroxycodone, Ur Not Detected ng/mL Cutoff: 25 23 Oxymorphone, Ur Not Detected ng/mL Cutoff: 25 24 Dkaxfiukdwa-7-sjkf-glucuronide Not Detected ng/mL 25 Noroxymorphone, Ur Not Detected ng/mL Cutoff: 25 26 Fentanyl, Ur Not Detected ng/mL Cutoff: 2 27 Norfentanyl, Ur Not Detected ng/mL Cutoff: 2 28 Meperidine, Ur Not Detected ng/mL Cutoff: 25 29 Normeperidine, Ur Not Detected ng/mL Cutoff: 25 30 Naloxone, Ur Not Detected ng/mL Cutoff: 25 31 Kmwmzkkj-4-cvzs-glucuronide, U Not Detected ng/mL 32 Methadone, Ur [...] Ur Not Detected ng/mL Cutoff: 50 40 Lanleurttf-dnfx-seeieuyqdkl, U Not Detected ng/mL 41 Buprenorphine, Ur Not Detected ng/mL Cutoff: 5 42 Norbuprenorphine, Ur Not Detected ng/mL Cutoff: 5 43 Norbuprenorphine glucuronide Not Detected ng/mL Cutoff: 20 44 Opioid Interpretation See Comment 45 CBC Auto 04/28/2019 [facility] White Blood 7.3 10^3/uL Normal 3.5-10.[address] [place] [place] [address] [phone] Red Blood Count 4.80 10^6/uL Normal 4.18-5.48 [...] mmol/L Normal 135-[address] [place] [address] [phone] Potassium 4.7 mmol/L Normal 3.5-5.0 Chloride 104 [...] >60 46 Iron & Iron Binding 04/28/2019 [facility] Iron 63 g/dL Normal 50-[address] [place], [place] [address] [phone] Unsaturated Iron Binding < 490 g/dL Total Iron Binding Capacity 505 g/dL High 250-450 Transferrin 361 mg/dL Normal 203-362 % Iron Saturation 12 % Low 15-55 Laboratory test 04/28/2019 [facility] Ferritin 21.5 Low 24- [address] ng/mL [place], [place] [id number] [phone] Testosterone 04/08/2019 [facility] Testosterone 70 ng/dL Abnormal 240-950 47, Profile [address] [place] [address] [phone] Free Testosterone ng/dl 1.89 ng/dL Abnormal 4.46-17.1 49 Bioavailable Testosterone 15 ng/dL Abnormal 61-213 50 Lipid Profile 04/08/2019 [facility] Triglycerides 100 mg/dL 51 (Trig/Chol/HDL) [address] [place] [address] [phone] Cholesterol 156 mg/dL 52 HDL Cholesterol 51.6 mg/dL 53 LDL Cholesterol 84 mg/dL 54 CBC Auto 03/09/2019 [facility] White Blood 6.9 10^3/uL Normal 3.5-10.[address] [place] [address] [phone] Red Blood Count 4.69 10^6/uL Normal 4.18-5.48 [...] [facility] C Difficile PCR SEE RESULT 55, [address] [place] [address] [phone] Stool Culture SEE RESULT BELOW 57 Cryptosporidium And 03/04/2019 [facility] Cryptosporidium Ag, Negative 58 Giardia Ag [address] [place] [address] [phone] Giardia Antigen, Feces Negative 59 1 Because ethnic data is not always [...] its performance characteristics determined by [facility] in a manner consistent with CLIA requirements. This test has not been cleared or approved by the U.S. Food and Drug Administration. 4 ADDITIONAL INFORMATION Testing performed by [facility]. This test was developed and its performance characteristics determined by [facility] in a manner consistent with CLIA requirements. This test has not been cleared or approved by the U.S. Food and Drug Administration. 5 ADDITIONAL INFORMATION Testing performed by [facility]. This test was developed and its performance characteristics determined by [facility] in a manner consistent with CLIA requirements. This test has not been cleared or approved by the U.S. Food and Drug Administration. Test Performed by: [facility] [place] [address] Battery Container Tester: Stan Suarez M.D. Ph.D.; CLIA# [id number] 6 REFERENCE VALUE Cutoff: 500 7 REFERENCE VALUE Cutoff: 200 8 REFERENCE VALUE Cutoff: 100 9 REFERENCE VALUE Cutoff: 150 10 ADDITIONAL INFORMATION This report is intended for use in clinical monitoring or management of patients. It is not intended for use in employment-related testing. Test Performed by: [facility] [place] [address] Battery Container Tester: Stan Suarez M.D. Ph.D.; [facility]# [id number] 11 REFERENCE VALUE Cutoff: 200 mg/L 12 Tylenol 3 13 Metabolite of codeine REFERENCE VALUE Cutoff: 100 14 Aisha Alanis, MS Contin; Also a minor metabolite (10%) of codeine and can be seen in low concentrations (<2,000 ng/mL) with poppy seed ingestion. 15 Metabolite of morphine REFERENCE VALUE Cutoff: 100 16 Metabolite of heroin 17 Lortab, [place], Vicodin; Also a very minor metabolite of [...] its performance characteristics determined by [facility] in a manner consistent with CLIA [...] its performance characteristics determined by [facility] in a manner consistent with CLIA requirements. This test has not been cleared or approved by the U.S. Food and Drug Administration. 49 ADDITIONAL INFORMATION Testing performed by [facility]. This test was developed and its performance characteristics determined by [facility] in a manner consistent with CLIA requirements. This test has not been cleared or approved by the U.S. Food and Drug Administration. 50 ADDITIONAL INFORMATION Testing performed by [facility]. This test was developed and its performance characteristics determined by [facility] in a manner consistent with CLIA requirements. This test has not been cleared or approved by the U.S. Food and Drug Administration. Test Performed by: [facility] [address] [place] [id number] 51 Desirable: <150 Borderline High: 150-199 High: 200-499 Very High: >500 52 Desirable: <200 Borderline High: 200-239 High: >239 53 Low: <40 Desirable: 40-60 High: >60 54 Desirable: <100 Near Optimal: 100-129 Borderline High: 130-159 High: 160-189 Very High: >189 55 C. Difficile toxin testing is not performed on formed stool specimens. Test of cure on positive 56 SEE RESULT BELOW Name: PARULSUMMERTYSHAWN : [address]: Merari Reynoso NP Acct: [id number] Unit: [id number] AGE: 43 Location: [facility]: 03/04/19 SEX: M Status: REG REF SPEC: [id number] SANA: 03/04/19 [facility] DR: Merari Reynoso SSIS SSRS DEVELOPER REQ: [id number] RECD: 03/04/19 STATUS: RES _ SOURCE: STOOL SPDESC: ORDERED: C. diff PCR, Stool Culture, O P: Giar/Crypt Procedure Result Reported Site Stool Culture PENDING Stool Specimen Description Final 03/04/19- 2022 ML Stool Color Brown Stool Form Semi-formed Stool Consistency Thick Shiga Toxin 1 2 PENDING C. difficile PCR PENDING O P: Giardia/Cryptospor Screen PENDING * - [facility] . END OF REPORT DEPARTMENT OF PATHOLOGY, [address] [place] [address] Rocco Alonzo M.D. Director KARISSA # [id number] 57 SEE RESULT BELOW Name: TYSHAWN DANIELSON : [address]: Merari Reynoso NP Acct: [id number] Unit: [id number] AGE: 43 Location: [facility] Re03/04/19 SEX: M Status: REG REF SPEC: [id number] SANA: 03/04/[address]: Merari Reynoso NP REQ: [id number] RECD: 03/04/19 STATUS: COMP _ SOURCE: STOOL SPDESC: ORDERED: Stool Culture COMMENTS: C. Difficile toxin testing is not performed on formed stool specimens. Test of cure on positive patients is not recommended. Verbal to January by [id number] at 1022 on 03/05/19. Procedure Result Reported [...] CONTINUED ON NEXT PAGE DEPARTMENT OF PATHOLOGY, [address] [place] [address] Rocco Alonzo M.D. Director KARISSA # [id number] Patient: TYSHAWN DANIELSON [id number] (Continued) Specimen: [id number] Collected: 03/04/19 Received: 03/04/19 (Continued) Procedure Result Reported Site Shiga Toxin 1 2 Final (continued) 03/05/19- 131 Immunochromatographic Assay * ML - Main Lab . END OF REPORT DEPARTMENT OF PATHOLOGY, [address] [place] [address] Rocco Alonzo M.D. Director FABIAN # [id number] 58 Test Result Ref Range Cryptosporidium Ag, F Negative Negative 59 Test Result Ref Range Giardia Ag, F Negative Negative Test Performed by: [facility] - [address] [address] Procedures Date Code Description Status 04/28/2018 [id number] Diabetic Foot Exam Completed 04/21/2018 [id number] Diabetic Foot Exam Completed 11/21/2017 [id number] Colonoscopy Completed Medical Devices Description No Information Available Encounters Type Date Location Provider Dx Diagnosis Office Visit 09/02/2019 [place] Blaze Richey, G62.9 Polyneuropathy, 1:45p [facility] Jasmyn unspecified R20.2 Paresthesia of skin G56.03 Carpal tunnel syndrome, bilateral upper limbs Office Visit 08/17/2019 2:00p [facility] Internal Sheila F33.9 Major depressive Connor Roth MD disorder, Ccmob recurrent, unspecified G62.9 Polyneuropathy, unspecified R03.0 Elevated blood-pressure reading, w/o diagnosis of htn R00.0 Tachycardia, unspecified E29.1 Testicular hypofunction I89.0 Lymphedema, not elsewhere classified Office Visit 08/05/2019 [facility] Gastroenterology Parmjit Chopra D50.9 Iron deficiency 1:00p MD Klever anemia, unspecified K62.5 Hemorrhage of anus and rectum E66.9 Obesity, unspecified G89.4 Chronic pain syndrome Z79.891 group home (current) use of opiate analgesic Office Visit 05/03/2019 Marcelina Richey, R20.2 Paresthesia of 3:30p Neurologic MRobb skin [facility] G62.9 Polyneuropathy, unspecified G56.03 Carpal tunnel syndrome, bilateral upper limbs Office Visit 04/29/2019 [facility] Gastroenterology Parmjit Chopra D50.9 Iron deficiency 1:00p MD Klever anemia, unspecified K62.5 Hemorrhage of anus and rectum K59.00 Constipation, unspecified Office Visit 03/30/2019 3:00p [facility] Internal Aissatou Oneale, R03.0 Elevated Medicine - blood-pressure Ccmob reading, w/o diagnosis of htn R00.0 Tachycardia, unspecified E29.1 Testicular hypofunction Office Visit 03/29/2019 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 [...] pain syndrome Parmjit Ernst MD 08/05/2019 Z79.891 buttermaker continuous churn (current) use of opiate analgesic Parmjit Ernst [...] D50.9 Iron deficiency anemia, unspecified [place] Monae, SSIS SSRS DEVELOPER 03/29/2019 K62.5 Hemorrhage of anus and rectum [place] Monae, SSIS SSRS DEVELOPER 03/29/2019 Q27.33 Arteriovenous malformation of digestive [place] Monae, SSIS SSRS DEVELOPER system vessel 03/15/2019 K21.9 Gastro-esophageal reflux disease without [place] Monae, SSIS SSRS DEVELOPER esophagitis 03/15/2019 Q27.33 Arteriovenous malformation of digestive [place] Monae, SSIS SSRS DEVELOPER system vessel 03/15/2019 K62.5 Hemorrhage of anus and rectum [place] Monae, SSIS SSRS DEVELOPER 03/15/2019 D50.9 Iron deficiency anemia, unspecified [place] Monae, SSIS SSRS DEVELOPER Plan of Treatment Future Appointment(s):09/14/2019 11:00 am - Sheila Roth MD at [facility] Internal Medicine - Ccmob09/10/2019 12:30 pm - Parmjit Ernst MD at [facility] Jxodusplfbxfnmpq48/21/2019 - Curtis Richey M.D.G62.9 Polyneuropathy, unspecifiedNew Orders:EMG w/Nerve Conduct Study, Lower, Ordered: 09/02/19EMG w/ Nerve Conduct Study, Upper, Ordered: 09/02/19R20.2 Paresthesia of skinG56.03 Carpal tunnel syndrome, bilateral upper limbs Functional Status Description No Information Available Mental Status Description No Information Available Referrals Refer to Reason for Referral Status Appt Date Parmjit Ernst MD Patient has been experiencing diarrhea and Sent 2018 rectal bleeding. Referred for evaluation and treatment. [address] [place] [address] [phone] Patient with diarrhea and rectal bleeding referred for Patient Declined evaluation and treatment.
--- NOTE | 2019-10-08 17:41 | ED ---
Medical Screening - HPI Summary HPI Summary: Patient complains of SI, HI. Patient wont give much detail beyond that. Patient alert and oriented, coherent. Denies self harm at this time. Denies any fever, cough, sore throat, CP, SOB, N/C/D, abdominal pain, change in urine, change in BM. Patient aggravated and verbally hostile. Denies EtOH or recreational drug use. - History of Current Complaint Chief Complaint: EDSuicidal Stated Complaint: MHE PER PT Time Seen by Provider: 10/08/19 17:39 Severity: moderate PMH/Surg Hx/FS Hx/Imm Hx Endocrine/Hematology History: Reports: Hx Anemia, Hx Unexplained Bleeding - rectal bleeding, possible hemherroids Denies: Hx Anticoagulant Therapy, Hx Blood Disorders, Hx Diabetes, Hx Thyroid Disease Cardiovascular History: Reports: Hx Hypotension, Other Cardiovascular Problems/ Disorders - lymphedema, edema, painful skin LE Denies: Hx Hypertension, Hx Pacemaker/ICD Respiratory History: Reports: Hx Chronic Obstructive Pulmonary Disease (COPD) - former smoker, Hx Sleep Apnea - sleep study scheduled for friday Denies: Hx Asthma GI History: Reports: Hx Gastroesophageal Reflux Disease, Hx Hiatal Hernia, Hx Ulcer, Other GI Disorders - INCARCERATED VENTRAL HERNIA with surgery X2 History: Denies: Hx Renal Disease Musculoskeletal History: Reports: Hx Back Problems, Other Musculoskeletal History - Hx lumbar pain, thoracic pain Sensory History: Denies: Hx Contacts or Glasses, Hx Hearing Aid Opthamlomology History: Denies: Hx Contacts or Glasses Neurological History: Reports: Hx Headaches, Hx Migraine, Hx Peripheral Neuropathy - takes gabapentin Comment Only: Hx Spinal Cord Injury - possibly, but never Dx Psychiatric History: Reports: Hx Anxiety, Hx Depression - s/t pain, Other Psychiatric Issues/Disorders - OCD Denies: Hx Eating Disorder, Hx Panic Disorder, Hx of Violent Episodes Against Others - Surgical History Surgery Procedure, Year, and Place: hernia repair with mesh 3 sites, hernia surgery X2 - Immunization History Date of Tetanus Vaccine: Date of Influenza Vaccine: 06/2019 Infectious Disease History: Yes Infectious Disease History: Reports: Hx of Known/Suspected MRSA Denies: Hx Clostridium Difficile, Hx Hepatitis, Hx Human Immunodeficiency Virus (HIV), Hx Shingles, Hx Tuberculosis, Hx Known/Suspected VRE, Hx Known/ Suspected VRSA, History Other Infectious Disease, Traveled Outside the [place] in Last 30 Days - Family History Known Family History: Positive: None - pt denies Fhx Negative: Blood Disorder - Social History Alcohol Use: None Alcohol Amount: wine Hx Substance Use: Yes Substance Use Type: Reports: None Substance Use Comment - Amount & Last Used: tramadol at home Hx Tobacco Use: Yes Smoking Status (MU): Former Smoker Type: Smokeless Tobacco Amount Used/How Often: 1 can every other day Have You Smoked in the Last Year: No Review of Systems Constitutional: Negative Eyes: Negative ENT: Negative Cardiovascular: Negative Respiratory: Negative Gastrointestinal: Negative Genitourinary: Negative Musculoskeletal: Negative Neurological: Negative Psychological: Other All Other Systems Reviewed And Are Negative: Yes Physical Exam - Summary Physical Exam Summary: Patient verbally hostile. Alert and oriented. No visible distress. Triage Information Reviewed: Yes Vital Signs On Initial Exam: Initial Vitals Temp Pulse Resp BP Pulse Ox 97.3 F 103 16 138/95 96 10/08/19 17:17 10/08/19 17:17 10/08/19 17:17 10/08/19 17:17 10/08/19 17:17 Vital Signs Reviewed: Yes Appearance: Positive: Well-Appearing Skin: Positive: Warm Head/Face: Positive: Normal Head/Face Inspection Eyes: Positive: Normal Neck: Positive: Supple Respiratory/Lung Sounds: Positive: Clear to Auscultation Cardiovascular: Positive: Normal Abdomen Description: Positive: Nontender Musculoskeletal: Positive: Normal Neurological: Positive: Normal Psychiatric: Positive: Other AVPU Assessment: Alert - Spurgeon Coma Scale Best Eye Response: 4 - Spontaneous Best Motor Response: 6 - Obeys Commands Best Verbal Response: 5 - Oriented Coma Scale Total: 15 Procedures - Sedation Patient Received Moderate/Deep Sedation with Procedure: No Diagnostics - Vital Signs Vital Signs Temp Pulse Resp BP Pulse Ox 10/08/19 17:17 97.3 F 103 16 138/95 96 - Laboratory Result Diagrams: 10/08/19 18:34 10/08/19 18:34 Lab Statement: Any lab studies that have been ordered have been reviewed, and results considered in the medical decision making process. Course/Dx - Course Course Of Treatment: Patient complains of SI, HI. Patient wont give much detail beyond that. Patient alert and oriented, coherent. Denies self harm at this time. Denies any fever, cough, sore throat, CP, SOB, N/C/D, abdominal pain , change in urine, change in BM. Patient aggravated and verbally hostile. Denies EtOH or recreational drug use. Vital signs within normal limits. Labs unremarkable. Mental health recommends involuntary admission for mood disorder. - Diagnoses Provider Diagnoses: Mood disorder Discharge ED - Sign-Out/Discharge Documenting (check all that apply): Patient Departure - Discharge Plan Condition: Stable [facility] [place] [facility] [place]: Sheila Roth MD [Primary Care Provider] - - Billing Disposition and Condition Condition: STABLE Disposition: Psychiatric Facility [facility] [place]
[2019-10-08 18:42] LABS: ABS Basophils 0.1 10^3/ul (0-0.2); ABS Eosinophils 0.2 10^3/ul (0-0.6); ABS Lymphocytes 2.1 10^3/ul (1.0-4.8); ABS Monocytes 0.5 10^3/ul (0-0.8); Eosinophil % 2.9 %; Hematocrit 36 % (42-52); Hemoglobin 12.4 g/dL (14.0-18.0); Lymphocyte % 26.3 %; Mean Corpuscular HGB Conc 35 g/dL (31-36); Mean Corpuscular Hemoglobin 28 pg (27-31); Mean Corpuscular Volume 81 fL (80-94); Mean Platelet Volume 7.5 fL (7.4-10.4); Platelet Count 260 10^3/uL (150-450); Red Blood Count 4.44 10^6 /uL (4.18-5.48); Red Cell Distribution Width 17 % (10-15)
[2019-10-08 19:00] LABS: ALT 23 U/L (7-52); AST 18 U/L (13-39); Albumin/Globulin Ratio 1.3 (1-3); Alkaline Phosphatase 62 U/L (34-104); Anion Gap 6 mmol/L (2-11); BUN/Creatinine Ratio 18.1 (8-20); Blood Urea Nitrogen 13 mg/dL (6-24); CO2 Carbon Dioxide 27 mmol/L (22-32); Calcium 8.9 mg/dL (8.6-10.3); Chloride 106 mmol/L (101-111); EGFR African American 144.2 (>60); EGFR Non-African American 119.1 (>60); Glucose 93 mg/dL (70-100); Potassium 3.9 mmol/L (3.5-5.0); Sodium 139 mmol/L (135-145)
[2019-10-08 19:12] LABS: Acetaminophen < 15 mcg/mL; Alcohol < 10 mg/dL (<10); Salicylate < 2.50 mg/dL (<30)
[2019-10-08 19:25] LABS: TSH (Thyroid Stimulating Horm) 1.23 mcIU/mL (0.34-5.60)
[2019-10-08] MEDS ORDERED: Al Hydrox/Mg Hydrox/Simet LIQ* 30 ML UDC PO PRN (23:00)
[2019-10-08 23:36] LABS: Urine Appearance Cloudy; Urine Bilirubin Negative (Negative); Urine Blood Negative (Negative); Urine Color Yellow; Urine Glucose Negative (Negative); Urine Ketones Negative (Negative); Urine Nitrite Negative (Negative); Urine Protein Negative (Negative); Urine Specific Gravity 1.025 (1.010-1.030); Urine Urobilinogen Negative (Negative)
[2019-10-08] MEDS: DULoxetine DR CAP* 30 MG CAP.DR PO SCH (23:40)
[2019-10-08] MEDS: traMADol TAB* 50 MG PO PRN (23:40)
[2019-10-08] MEDS: Mometasone/Formoter 200/5 MDI INH SCH (23:42)
[2019-10-08 23:53] LABS: Urine Benzodiazepine Screen None Detected (None Detect); Urine Opiates Screen None Detected (None Detect)
[2019-10-09] MEDS: Mometasone/Formoter 200/5 MDI INH SCH ×2 (08:51→20:53)
[2019-10-09] MEDS: Vitamin THERAPEUTIC TAB PO SCH (08:52)
[2019-10-09] MEDS: Torsemide TAB* 20 MG PO SCH (08:52)
[2019-10-09] MEDS: traMADol TAB* 50 MG PO PRN ×3 (08:56→21:53)
[2019-10-09] MEDS ORDERED: BuPROPion XL* 300 MG TAB.XL PO SCH (09:00)
[2019-10-09] MEDS: PTO: Pantoprazole TAB (NF) 20 MG TAB PO SCH (09:34)
[2019-10-09] MEDS: Gabapentin CAP(*) 300 MG PO SCH ×2 (12:56→20:52)
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
[2019-10-09] MEDS: DULoxetine DR CAP* 30 MG CAP.DR PO SCH (20:52)
[2019-10-09] MEDS: ARIPiprazole TAB* 5 MG PO SCH (20:52)
[2019-10-10] MEDS: traMADol TAB* 50 MG PO PRN ×3 (06:08→18:02)
[2019-10-10 07:01] LABS: HDL Cholesterol 52.7 mg/dL
[2019-10-10] MEDS: Gabapentin CAP(*) 300 MG PO SCH ×3 (10:35→20:36)
[2019-10-10] MEDS: PTO: Pantoprazole TAB (NF) 20 MG TAB PO SCH (10:36)
[2019-10-10] MEDS: Mometasone/Formoter 200/5 MDI INH SCH ×2 (10:36→20:36)
[2019-10-10] MEDS: Vitamin THERAPEUTIC TAB PO SCH (10:36)
[2019-10-10] MEDS: Torsemide TAB* 20 MG PO SCH (10:37)
[2019-10-10] MEDS: DULoxetine DR CAP* 30 MG CAP.DR PO SCH (20:36)
[2019-10-10] MEDS: ARIPiprazole TAB* 5 MG PO SCH (20:36)
[2019-10-11] MEDS: traMADol TAB* 50 MG PO PRN ×4 (00:15→19:14)
[2019-10-11] MEDS: hydrOXYzine HCL TAB* 10 MG PO PRN (00:25)
[2019-10-11] MEDS: PTO: Pantoprazole TAB (NF) 20 MG TAB PO SCH (09:14)
[2019-10-11] MEDS: Mometasone/Formoter 200/5 MDI INH SCH ×2 (09:15→21:05)
[2019-10-11] MEDS: Torsemide TAB* 20 MG PO SCH (09:16)
[2019-10-11] MEDS: Gabapentin CAP(*) 300 MG PO SCH ×3 (09:17→21:03)
[2019-10-11] MEDS: Vitamin THERAPEUTIC TAB PO SCH (09:17)
--- NOTE | 2019-10-11 15:04 | HP ---
PSYCHIATRIC HISTORY AND PHYSICAL: DATE OF ADMISSION: ADDENDUM: PHYSICAL EXAMINATION VITAL SIGNS: Blood pressure 143/85, heart rate 90, respiratory rate 14, temperature is 97.9 degrees Fahrenheit, oxygen saturations are 99% on room air. HEENT: Head is normocephalic, atraumatic. NECK: Supple. CHEST: Clear to auscultation bilaterally. CARDIAC: Exam reveals normal heart sounds. ABDOMEN: Soft and nontender. MUSCULOSKELETAL: Exam reveals no sign of edema. NEUROLOGIC: He is grossly intact with no focal deficits. SKIN: Warm and dry. [id number]/[facility] #: [id number]
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
[2019-10-11] MEDS ORDERED: ARIPiprazole TAB* 20 MG PO SCH (21:00)
[2019-10-11] MEDS: DULoxetine DR CAP* 30 MG CAP.DR PO SCH (21:02)
[2019-10-12] MEDS: traMADol TAB* 50 MG PO PRN ×4 (01:37→19:34)
[2019-10-12] MEDS: Vitamin THERAPEUTIC TAB PO SCH (10:50)
[2019-10-12] MEDS: Mometasone/Formoter 200/5 MDI INH SCH ×2 (10:50→20:31)
[2019-10-12] MEDS: Gabapentin CAP(*) 300 MG PO SCH ×3 (10:50→20:26)
[2019-10-12] MEDS: PTO: Pantoprazole TAB (NF) 20 MG TAB PO SCH (10:51)
[2019-10-12] MEDS: Torsemide TAB* 20 MG PO SCH (10:52)
--- NOTE | 2019-10-12 16:01 | PN ---
Subjective - Subjective Date of Service: 10/12/19 Service Type: 07643 Hosp care 25 min moderate complexity Subjective: Tyshawn, who goes by Angelina, remains religiously preoccupied. He states he hasn't slept in more than 24 hours. He repeats things verbatim from the day before regarding being lied to or feeling too much pain and other problems he has faced for years. His conversation is bizarre and one sided. He talks at length, not with pressured speech, but with a clear theme to his thoughts. He compares himself to Biblical characters and is grandiose in his comparisons. Objective - General Observations Appearance: Neat Appears Stated Age: Yes Stature: Overweight Posture: WNL Eye Contact: Average Behavior/Activity: Peculiar - Interaction Observations Attitude Towards Examiner: Cooperative, Anxious Stated Mood: Dysphoric, Expansive Affect: Restricted Speech Pattern/Tone: Clear, Normal Volume, Rambling, Excessive Thought Process: Goal Directed Perception: WNL Thought Content: Preoccupation/Ruminations, Grandiose Hallucination Type: None Delusion Type: Yazidi - Cognitive Function Orientation: A&O x 4 Level of Consciousness: Awake, Alert, Appropriate Cognition: Impaired Attention/Concentration Estimated Intelligence: Normal Insight: Difficulty Acknowledging Presence of Psyciatric Problems Judgment Within Normal Limits: No Ability to Make Reasonable Decisions: Serverely Impaired - Medication Compliance Cooperative with Inpatient Medication Regimen: Yes - Group Participation Participates in Group Activities: Partial Assessment - Assessment Merits Inpatient Hospitalization: For Immediate Safety Inpatient DSM-V Dx: F31.64 Clinical Impression: Tyshawn is a 44-year-old white male with bipolar 1 disorder, mixed, with psychosis who comes to the hospital in a psychotic state eager to continue his "3-year mission to fix my own health problems." Plan - Plan Treatment Plan: Name: TYSHAWN TERAN Birthdate: 1975 [id number] Consider medication changes, initially working with sleep and then in company of other providers, with pain. 10/12/19 Abilify 20 mg moved to the morning. Seroquel 100 mg added at bedtime for sleep. Continue building rapport. Contact Dr. Brown for collateral. Continued Medication Management: Different Medication Medications: Current Medications Al Hydrox/Mg Hydrox/Simethicone (Maalox Plus*) 30 ml PO Q4H PRN PRN Reason: INDIGESTION Aripiprazole (Abilify Tab*) 20 mg PO DAILY [facility] Gabapentin (Neurontin Cap(*)) 300 mg PO TID [facility] Last Admin: 10/12/19 15:19 Dose: 300 mg Hydroxyzine HCl (Atarax Tab*) 10 mg PO TID PRN PRN Reason: ANXIETY/ AGITATION Last Admin: 10/11/19 00:25 Dose: 10 mg Mometasone Furoate/Formoterol Fumar (Dulera 200/5 Mdi*) 2 puff INH BID [facility] Last Admin: 10/12/19 10:50 Dose: 2 puff Multivitamins (Theragran Tab*) 1 tab PO DAILY [facility] Last Admin: 10/12/19 10:50 Dose: 1 tab Pantoprazole Sodium (Protonix Tab (Nf)) 20 mg PO DAILY [facility] Last Admin: 10/12/19 10:51 Dose: 20 mg Prazosin HCl (Minipress Cap*) 1 mg PO BEDTIME [facility] Last Admin: 10/11/19 21:04 Dose: 1 mg Quetiapine Fumarate (Seroquel Tab*) 100 mg PO BEDTIME [facility] Torsemide (Demadex*) 20 mg PO DAILY [facility] Last Admin: 10/12/19 10:52 Dose: 20 mg Tramadol HCl (Ultram*) 100 mg PO Q6H PRN PRN Reason: PAIN MILD Last Admin: 10/12/19 13:34 Dose: 100 mg
[2019-10-12] MEDS ORDERED: QUEtiapine TAB* 100 MG PO SCH (21:00)
[2019-10-13] MEDS: hydrOXYzine HCL TAB* 10 MG PO PRN (01:39)
[2019-10-13] MEDS: traMADol TAB* 50 MG PO PRN ×4 (01:41→20:58)
[2019-10-13] MEDS: ARIPiprazole TAB* 20 MG PO SCH (09:14)
[2019-10-13] MEDS: Vitamin THERAPEUTIC TAB PO SCH (09:14)
[2019-10-13] MEDS: Gabapentin CAP(*) 300 MG PO SCH ×3 (09:15→20:51)
[2019-10-13] MEDS: PTO: Pantoprazole TAB (NF) 20 MG TAB PO SCH (09:16)
[2019-10-13] MEDS: Torsemide TAB* 20 MG PO SCH (09:16)
[2019-10-13] MEDS: Mometasone/Formoter 200/5 MDI INH SCH ×2 (09:16→20:54)
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
[2019-10-13] MEDS ORDERED: LORazepam TAB(*) 1 MG PO ONE (18:21)
[2019-10-13] MEDS: Divalproex DR TAB(*) 500 MG PO SCH (20:49)
[2019-10-14] MEDS: traMADol TAB* 50 MG PO PRN ×4 (03:39→22:11)
[2019-10-14] MEDS ORDERED: Pneumococcal *Vac Polyvalent 0.5 ML VIAL IM ONE (09:00)
[2019-10-14] MEDS: PTO: Pantoprazole TAB (NF) 20 MG TAB PO SCH (09:41)
[2019-10-14] MEDS: Mometasone/Formoter 200/5 MDI INH SCH ×2 (09:42→22:14)
[2019-10-14] MEDS: Torsemide TAB* 20 MG PO SCH ×2 (09:43→09:49)
[2019-10-14] MEDS: Vitamin THERAPEUTIC TAB PO SCH (09:43)
[2019-10-14] MEDS: Divalproex DR TAB(*) 500 MG PO SCH ×2 (09:43→22:11)
[2019-10-14] MEDS: Gabapentin CAP(*) 300 MG PO SCH ×3 (09:43→22:10)
[2019-10-14] MEDS: ARIPiprazole TAB* 20 MG PO SCH (09:44)
--- NOTE | 2019-10-14 17:08 | PN ---
Subjective - Subjective Date of Service: 10/14/19 Service Type: 25900 Hosp care 25 min moderate complexity Subjective: Tyshawn states Seroquel doesn't work "with my modus operandi." He states that so far Depakote is "ok, but it's the Ativan that put me out." He complains of racing thoughts and that sometimes the thoughts are not his own and that many of all of the thoughts he's having are distressing. 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 He worries that people will be nice to him and then behind his back, treat him poorly or ignore his needs or "render me evil." His language is poetic and biblical. His suffering is intense at this time and yet he does not seem to recognize that this accumulation of three years of problems will be difficult to solve in a very short time. An odd detail is that he is wearing a sheet around him as his clothes aren't clean and he cannot fit into any of the donated clothing. Objective - General Observations Appearance: Neat Appears Stated Age: Yes Stature: Overweight Posture: WNL Eye Contact: Average Behavior/Activity: Slowed, Peculiar - Interaction Observations Attitude Towards Examiner: Cooperative, Anxious, Confused, Demanding Stated Mood: Dysphoric, Anxious Affect: Labile Speech Pattern/Tone: Clear, Rambling, Excessive Thought Process: Goal Directed, Disorganized, Circumstantial Perception: WNL Thought Content: Preoccupation/Ruminations, Obsessional, Self-Deprecatory Thought Process: Lethality: Passive Wish Hallucination Type: Auditory Delusion Type: Hoahaoism - Cognitive Function Orientation: A&O x 4 Level of Consciousness: Awake, Alert, Appropriate Cognition: Impaired Cognition Estimated Intelligence: Normal Insight: WNL Judgment Within Normal Limits: No Ability to Make Reasonable Decisions: Serverely Impaired - Medication Compliance Cooperative with Inpatient Medication Regimen: Yes - Group Participation Participates in Group Activities: No Assessment - Assessment Merits Inpatient Hospitalization: For Immediate Safety Inpatient DSM-V Dx: F31.64 Clinical Impression: Tyshawn is a 44-year-old white male with bipolar 1 disorder, mixed, with psychosis who comes to the hospital in a psychotic state with significant oriental orthodox preoccupation eager to continue his "3-year mission to fix my own health problems." Plan - Plan Treatment Plan: Name: TYSHAWN TERAN Birthdate: 1975 [id number] 10/12/19 Abilify 20 mg moved to the morning. Seroquel 100 mg added at bedtime for sleep. Continue building rapport. Contact Dr. Brown for collateral. 10/14/19 Continue Ativan at bedtime. Seroquel discontinued as he didn't like the sensations or side effects. Continue Depakote. Continued Medication Management: Different Medication Medications: Current Medications Al Hydrox/Mg Hydrox/Simethicone (Maalox Plus*) 30 ml PO Q4H PRN PRN Reason: INDIGESTION Aripiprazole (Abilify Tab*) 20 mg PO DAILY [facility] Last Admin: 10/14/19 09:44 Dose: 20 mg Divalproex Sodium (Depakote Dr Tab(*)) 500 mg PO BID [facility] Last Admin: 10/14/19 09:43 Dose: 500 mg Gabapentin (Neurontin Cap(*)) 300 mg PO TID [facility] Last Admin: 10/14/19 14:33 Dose: 300 mg Hydroxyzine HCl (Atarax Tab*) 10 mg PO TID PRN PRN Reason: ANXIETY/ AGITATION Last Admin: 10/13/19 01:39 Dose: 10 mg Mometasone Furoate/Formoterol Fumar (Dulera 200/5 Mdi*) 2 puff INH BID [facility] Last Admin: 10/14/19 09:42 Dose: 2 puff Multivitamins (Theragran Tab*) 1 tab PO DAILY [facility] Last Admin: 10/14/19 09:43 Dose: 1 tab Pantoprazole Sodium (Protonix Tab (Nf)) 20 mg PO DAILY [facility] Last Admin: 10/14/19 09:41 Dose: 20 mg Prazosin HCl (Minipress Cap*) 1 mg PO BEDTIME [facility] Last Admin: 10/13/19 20:51 Dose: 1 mg Torsemide (Demadex*) 20 mg PO DAILY [facility] Last Admin: 10/14/19 09:49 Dose: Not Given Tramadol HCl (Ultram*) 100 mg PO Q6H PRN PRN Reason: PAIN MILD Last Admin: 10/14/19 16:03 Dose: 100 mg
[2019-10-14] MEDS ORDERED: LORazepam TAB(*) 1 MG PO ONE ×2 (17:13→22:15)
[2019-10-15] MEDS: traMADol TAB* 50 MG PO PRN ×4 (03:59→22:12)
[2019-10-15] MEDS: Mometasone/Formoter 200/5 MDI INH SCH ×2 (10:14→22:15)
[2019-10-15] MEDS: Divalproex DR TAB(*) 500 MG PO SCH ×2 (10:15→22:12)
[2019-10-15] MEDS: PTO: Pantoprazole TAB (NF) 20 MG TAB PO SCH (10:15)
[2019-10-15] MEDS: Vitamin THERAPEUTIC TAB PO SCH (10:15)
[2019-10-15] MEDS: Torsemide TAB* 20 MG PO SCH (10:15)
[2019-10-15] MEDS: ARIPiprazole TAB* 20 MG PO SCH (10:16)
[2019-10-15] MEDS: Gabapentin CAP(*) 300 MG PO SCH ×3 (10:16→22:13)
--- NOTE | 2019-10-15 15:15 | PN ---
Subjective - Subjective Date of Service: 10/15/19 Subjective: Tyshawn states he slept a little better with Ativan. He describes himself as a hot and cold type of person--the type of person who is all in or nothing at all. He uses the word sanctuary again and mentions that he would like the opportunity for meditation. He talks again about his life, his physical pain, and their relationship to his work. He states his physical pain reminds him of memories of past mental pain, in addition to the physical pain. Objective - General Observations Appearance: Neat Appears Stated Age: Yes Stature: Overweight Posture: WNL Eye Contact: Average - Interaction Observations Attitude Towards Examiner: Cooperative Stated Mood: Elevated Affect: Full Speech Pattern/Tone: Clear, Excessive Thought Process: Goal Directed, Tangential, Flight of Ideas Perception: WNL Thought Content: Preoccupation/Ruminations, Obsessional, Grandiose Hallucination Type: None Delusion Type: Yazdanism - Cognitive Function Orientation: A&O x 4 Level of Consciousness: Awake, Alert, Appropriate Cognition: Impaired Cognition Estimated Intelligence: Normal Insight: Difficulty Acknowledging Presence of Psyciatric Problems Judgment Within Normal Limits: No Ability to Make Reasonable Decisions: Serverely Impaired - Medication Compliance Cooperative with Inpatient Medication Regimen: Yes - Group Participation Participates in Group Activities: Partial Assessment - Assessment Merits Inpatient Hospitalization: For Immediate Safety Inpatient DSM-V Dx: F31.64 Clinical Impression: Tyshawn is a 44-year-old white male with bipolar 1 disorder, mixed, with psychosis who comes to the hospital in a psychotic state with significant christian preoccupation eager to continue his "3-year mission to fix my own health problems." Plan - Plan Treatment Plan: Name: TYSHAWN TERAN Birthdate: 1975 [id number] 10/12/19 Abilify 20 mg moved to the morning. Seroquel 100 mg added at bedtime for sleep. Continue building rapport. Contact Dr. Brown for collateral. 10/14/19 Continue Ativan at bedtime. Seroquel discontinued as he didn't like the sensations or side effects. Continue Depakote. 10/15/19 Continue Depakote and Abilify. Likely increase Depakote dose on Friday after [facility] level on Friday morning. Medications: Current Medications Al Hydrox/Mg Hydrox/Simethicone (Maalox Plus*) 30 ml PO Q4H PRN PRN Reason: INDIGESTION Aripiprazole (Abilify Tab*) 20 mg PO DAILY [facility] Last Admin: 10/15/19 10:16 Dose: 20 mg Divalproex Sodium (Depakote Dr Tab(*)) 500 mg PO BID [facility] Last Admin: 10/15/19 10:15 Dose: 500 mg Gabapentin (Neurontin Cap(*)) 300 mg PO TID [facility] Last Admin: 10/15/19 10:16 Dose: 300 mg Hydroxyzine HCl (Atarax Tab*) 10 mg PO TID PRN PRN Reason: ANXIETY/ AGITATION Last Admin: 10/13/19 01:39 Dose: 10 mg Mometasone Furoate/Formoterol Fumar (Dulera 200/5 Mdi*) 2 puff INH BID [facility] Last Admin: 10/15/19 10:14 Dose: 2 puff Multivitamins (Theragran Tab*) 1 tab PO DAILY [facility] Last Admin: 10/15/19 10:15 Dose: 1 tab Pantoprazole Sodium (Protonix Tab (Nf)) 20 mg PO DAILY [facility] Last Admin: 10/15/19 10:15 Dose: 20 mg Prazosin HCl (Minipress Cap*) 1 mg PO BEDTIME [facility] Last Admin: 10/14/19 22:10 Dose: 1 mg Torsemide (Demadex*) 20 mg PO DAILY [facility] Last Admin: 10/15/19 10:15 Dose: Not Given Tramadol HCl (Ultram*) 100 mg PO Q6H PRN PRN Reason: PAIN MILD Last Admin: 10/15/19 10:18 Dose: 100 mg
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
[2019-10-15] MEDS: LORazepam TAB(*) 1 MG PO SCH (22:14)
[2019-10-16] MEDS: traMADol TAB* 50 MG PO PRN ×4 (03:30→22:31)
[2019-10-16] MEDS: Torsemide TAB* 20 MG PO SCH (10:00)
[2019-10-16] MEDS: Divalproex DR TAB(*) 500 MG PO SCH ×2 (10:01→21:08)
[2019-10-16] MEDS: Vitamin THERAPEUTIC TAB PO SCH (10:01)
[2019-10-16] MEDS: Gabapentin CAP(*) 300 MG PO SCH ×3 (10:02→21:08)
[2019-10-16] MEDS: PTO: Pantoprazole TAB (NF) 20 MG TAB PO SCH (10:02)
[2019-10-16] MEDS: ARIPiprazole TAB* 20 MG PO SCH (10:02)
[2019-10-16] MEDS: Mometasone/Formoter 200/5 MDI INH SCH ×2 (10:02→21:10)
[2019-10-16] MEDS: LORazepam TAB(*) 1 MG PO SCH (21:09)
[2019-10-17] MEDS: traMADol TAB* 50 MG PO PRN ×3 (05:00→21:11)
[2019-10-17] MEDS: Divalproex DR TAB(*) 500 MG PO SCH ×2 (09:47→21:10)
[2019-10-17] MEDS: ARIPiprazole TAB* 20 MG PO SCH (09:47)
[2019-10-17] MEDS: Vitamin THERAPEUTIC TAB PO SCH (09:47)
[2019-10-17] MEDS: Gabapentin CAP(*) 300 MG PO SCH ×3 (09:47→21:10)
[2019-10-17] MEDS: PTO: Pantoprazole TAB (NF) 20 MG TAB PO SCH (09:48)
[2019-10-17] MEDS: Mometasone/Formoter 200/5 MDI INH SCH ×2 (09:50→21:12)
[2019-10-17] MEDS: Torsemide TAB* 20 MG PO SCH (09:55)
[2019-10-17] MEDS: LORazepam TAB(*) 1 MG PO SCH (21:11)
[2019-10-18] MEDS: traMADol TAB* 50 MG PO PRN ×4 (03:05→21:03)
[2019-10-18] MEDS: Gabapentin CAP(*) 300 MG PO SCH ×3 (09:15→20:59)
[2019-10-18] MEDS: ARIPiprazole TAB* 20 MG PO SCH (09:17)
[2019-10-18] MEDS: Vitamin THERAPEUTIC TAB PO SCH (09:17)
[2019-10-18] MEDS: Divalproex DR TAB(*) 500 MG PO SCH ×2 (09:18→21:00)
[2019-10-18] MEDS: Torsemide TAB* 20 MG PO SCH (09:18)
[2019-10-18] MEDS: Mometasone/Formoter 200/5 MDI INH SCH ×2 (09:18→21:02)
[2019-10-18] MEDS: PTO: Pantoprazole TAB (NF) 20 MG TAB PO SCH (09:19)
[2019-10-18] MEDS ORDERED: Torsemide TAB* 20 MG PO PRN (11:21)
--- NOTE | 2019-10-18 11:41 | PN ---
BSU: Group Therapy Note - Service Type Service Type: 61042 Group Psychotherapy - Cognitive Behavioral group note: Varun was active in programming this morning, citing how he doens't sleep "for a week at a time", but is treatment resistent regarding recommendations about effective treatment of sleep apena. Although he appears to have insight that his sleep issues are a problem, he adamantly refused to consider using equipment.
--- NOTE | 2019-10-18 14:33 | PN ---
Subjective - Subjective Date of Service: 10/18/19 Service Type: 70568 Hosp care 25 min moderate complexity Subjective: Tyshawn talks at great length about his pain, repeating what he has stated in the past. I reviewed Dr. Brown's pain consult and see that he has attended to Tyshawn's pain in the manner that seems best to him, given his expertise in pain management. This is not to Tyshawn's liking, as Tyshawn believes OxyContin will solve his problems and that medication is not one that Dr. Brown deems appropriate. Still, Tyshawn remains hyper islam, engages in frequent subject changes, is distractible, and delusional regarding a pharmaceutical industry that does not supply an adequate resolution for his pain. He states, "I am hard pressed to believe," that the pharmaceutical industry does not have a medication that will ease my pain. When it is discussed with him that sometimes pain is difficult to treat, he asserts that it is because of the training that all healthcare professionals receive that make it impossible to treat his pain adequately. Objective - General Observations Appearance: Neat, Well Groomed Appears Stated Age: Yes Stature: Overweight Posture: WNL Eye Contact: Average Behavior/Activity: Agitated - Interaction Observations Attitude Towards Examiner: Cooperative, Anxious, Defensive, Demanding Stated Mood: Elevated, Irritable, Anxious Affect: Full Speech Pattern/Tone: Clear, Appropriate, Normal Volume, Rambling, Excessive Thought Process: Coherent, Goal Directed, Flight of Ideas Perception: WNL Thought Content: Preoccupation/Ruminations, Obsessional, Paranoid Hallucination Type: None Delusion Type: Persecution, Zoroastrianism - Cognitive Function Orientation: A&O x 4 Level of Consciousness: Awake, Alert, Appropriate Cognition: Impaired Cognition, Impaired Attention/Concentration Estimated Intelligence: Normal Judgment Within Normal Limits: No Ability to Make Reasonable Decisions: Moderately Impaired - Medication Compliance Cooperative with Inpatient Medication Regimen: Yes - Group Participation Participates in Group Activities: No Assessment - Assessment Merits Inpatient Hospitalization: For Immediate Safety Inpatient DSM-V Dx: F31.64 Clinical Impression: Tyshawn is a 44-year-old white male with bipolar 1 disorder, mixed, with psychosis who comes to the hospital in a psychotic state with significant islam preoccupation eager to continue his "3-year mission to fix my own health problems." Plan - Plan Treatment Plan: Name: TYSHAWN TERAN Birthdate: 1975 [id number] 10/12/19 Abilify 20 mg moved to the morning. Seroquel 100 mg added at bedtime for sleep. Continue building rapport. Contact Dr. Brown for collateral. 10/14/19 Continue Ativan at bedtime. Seroquel discontinued as he didn't like the sensations or side effects. Continue Depakote. 10/15/19 Continue Depakote and Abilify. Likely increase Depakote dose on Friday after [facility] level on Friday morning. 10/18/19 Increase Depakote. Inform Tyshawn of final decision related to pain medication. Continued Medication Management: Different Medication Medications: Current Medications Al Hydrox/Mg Hydrox/Simethicone (Maalox Plus*) 30 ml PO Q4H PRN PRN Reason: INDIGESTION Aripiprazole (Abilify Tab*) 20 mg PO DAILY [facility] Last Admin: 10/18/19 09:17 Dose: 20 mg Divalproex Sodium (Depakote Dr Tab(*)) 1,000 mg PO BEDTIME [facility] Divalproex Sodium (Depakote Dr Tab(*)) 500 mg PO DAILY [facility] Gabapentin (Neurontin Cap(*)) 600 mg PO TID [facility] Last Admin: 10/18/19 09:15 Dose: 600 mg Hydroxyzine HCl (Atarax Tab*) 10 mg PO TID PRN PRN Reason: ANXIETY/ AGITATION Last Admin: 10/13/19 01:39 Dose: 10 mg Lorazepam (Ativan Tab(*)) 1 mg PO BEDTIME [facility] Last Admin: 10/17/19 21:11 Dose: 1 mg Mometasone Furoate/Formoterol Fumar (Dulera 200/5 Mdi*) 2 puff INH BID [facility] Last Admin: 10/18/19 09:18 Dose: 2 puff Multivitamins (Theragran Tab*) 1 tab PO DAILY [facility] Last Admin: 10/18/19 09:17 Dose: 1 tab Pantoprazole Sodium (Protonix Tab (Nf)) 20 mg PO DAILY [facility] Last Admin: 10/18/19 09:19 Dose: 20 mg Prazosin HCl (Minipress Cap*) 1 mg PO BEDTIME [facility] Last Admin: 10/17/19 21:11 Dose: 1 mg Torsemide (Demadex*) 20 mg PO DAILY PRN PRN Reason: edema Tramadol HCl (Ultram*) 100 mg PO Q6H PRN PRN Reason: PAIN MILD Last Admin: 10/18/19 09:16 Dose: 100 mg - Discharge Plan Discharge Plan: Outpatient Follow Up Outpatient Program: [facility]
[2019-10-18] MEDS: hydrOXYzine HCL TAB* 10 MG PO PRN (20:45)
[2019-10-18] MEDS: LORazepam TAB(*) 1 MG PO SCH (21:00)
[2019-10-19] MEDS: hydrOXYzine HCL TAB* 10 MG PO PRN (03:05)
[2019-10-19] MEDS: traMADol TAB* 50 MG PO PRN ×4 (03:05→21:25)
[2019-10-19] MEDS: ARIPiprazole TAB* 20 MG PO SCH (09:06)
[2019-10-19] MEDS: Vitamin THERAPEUTIC TAB PO SCH (09:06)
[2019-10-19] MEDS: PTO: Pantoprazole TAB (NF) 20 MG TAB PO SCH (09:06)
[2019-10-19] MEDS: Divalproex DR TAB(*) 500 MG PO SCH ×2 (09:07→20:41)
[2019-10-19] MEDS: Gabapentin CAP(*) 300 MG PO SCH ×3 (09:07→20:42)
[2019-10-19] MEDS: Mometasone/Formoter 200/5 MDI INH SCH ×2 (09:09→20:41)
[2019-10-19] MEDS: LORazepam TAB(*) 1 MG PO SCH (20:48)
[2019-10-20] MEDS: traMADol TAB* 50 MG PO PRN ×4 (03:25→22:00)
[2019-10-20] MEDS: Vitamin THERAPEUTIC TAB PO SCH (09:48)
[2019-10-20] MEDS: Divalproex DR TAB(*) 500 MG PO SCH ×2 (09:49→22:01)
[2019-10-20] MEDS: ARIPiprazole TAB* 20 MG PO SCH (09:50)
[2019-10-20] MEDS: Gabapentin CAP(*) 300 MG PO SCH ×3 (09:50→22:00)
[2019-10-20] MEDS: Mometasone/Formoter 200/5 MDI INH SCH ×2 (09:51→22:02)
[2019-10-20] MEDS: PTO: Pantoprazole TAB (NF) 20 MG TAB PO SCH (09:51)
[2019-10-20] MEDS: hydrOXYzine HCL TAB* 10 MG PO PRN (15:40)
--- NOTE | 2019-10-20 16:01 | PN ---
Subjective - Subjective Date of Service: 10/20/19 Service Type: 18177 Hosp care 35 min high complexity Subjective: Tyshawn is found resting in bed. He agrees to meet with us after he uses the bathroom. Tyshawn goes on at length about how the world is doing him a disservice by not providing him with housing. He is tearful at times during this. He remarks that we are "kicking me to the curb" and that we have lied to him. He remains scientologist stating that he "gave up everything for yola" yet asserts that he is humble. Objective - General Observations Appearance: Neat Appears Stated Age: Yes Stature: Overweight Posture: WNL Eye Contact: Avoidant Behavior/Activity: Agitated, Other (See Comment) Behavior Comment: self-absorbed - Interaction Observations Attitude Towards Examiner: Mistrustful, Disrespectful Stated Mood: Dysphoric Affect: Restricted Speech Pattern/Tone: Clear, Normal Volume, Rambling, Excessive Thought Process: Circumstantial Perception: WNL Thought Content: Preoccupation/Ruminations, Grandiose Hallucination Type: None Delusion Type: None - Cognitive Function Orientation: A&O x 4 Level of Consciousness: Awake, Alert, Appropriate Cognition: WNL Estimated Intelligence: Normal Insight: Mostly Blames Others for Problems Judgment Within Normal Limits: No Ability to Make Reasonable Decisions: Mildly Impaired - Medication Compliance Cooperative with Inpatient Medication Regimen: Yes - Group Participation Participates in Group Activities: No Assessment - Assessment Inpatient DSM-V Dx: F31.64 Clinical Impression: Tyshawn is a 44-year-old white male with bipolar 1 disorder, mixed, with psychosis who comes to the hospital in a psychotic state with significant scientologist preoccupation eager to continue his "3-year mission to fix my own health problems." His psychosis has dissipated. He remains preoccupied with his health and yarsani. Plan - Plan Treatment Plan: Name: TYSHAWN TERAN Birthdate: 1975 [id number] 10/12/19 Abilify 20 mg moved to the morning. Seroquel 100 mg added at bedtime for sleep. Continue building rapport. Contact Dr. Brown for collateral. 10/14/19 Continue Ativan at bedtime. Seroquel discontinued as he didn't like the sensations or side effects. Continue Depakote. 10/15/19 Continue Depakote and Abilify. Likely increase Depakote dose on Friday after [facility] level on Friday morning. 10/18/19 Increase Depakote. Inform Tyshawn of final decision related to pain medication. 10/20/19 Plan for discharge tomorrow. Medications: Current Medications Al Hydrox/Mg Hydrox/Simethicone (Maalox Plus*) 30 ml PO Q4H PRN PRN Reason: INDIGESTION Aripiprazole (Abilify Tab*) 20 mg PO DAILY [facility] Last Admin: 10/20/19 09:50 Dose: 20 mg Divalproex Sodium (Depakote Dr Tab(*)) 1,000 mg PO BEDTIME [facility] Last Admin: 10/19/19 20:41 Dose: 1,000 mg Divalproex Sodium (Depakote Dr Tab(*)) 500 mg PO DAILY [facility] Last Admin: 10/20/19 09:49 Dose: 500 mg Gabapentin (Neurontin Cap(*)) 600 mg PO TID [facility] Last Admin: 10/20/19 15:37 Dose: 600 mg Hydroxyzine HCl (Atarax Tab*) 10 mg PO TID PRN PRN Reason: ANXIETY/ AGITATION Last Admin: 10/20/19 15:40 Dose: 10 mg Lorazepam (Ativan Tab(*)) 1 mg PO BEDTIME [facility] Last Admin: 10/19/19 20:48 Dose: 1 mg Mometasone Furoate/Formoterol Fumar (Dulera 200/5 Mdi*) 2 puff INH BID [facility] Last Admin: 10/20/19 09:51 Dose: 2 puff Multivitamins (Theragran Tab*) 1 tab PO DAILY [facility] Last Admin: 10/20/19 09:48 Dose: 1 tab Pantoprazole Sodium (Protonix Tab (Nf)) 20 mg PO DAILY [facility] Last Admin: 10/20/19 09:51 Dose: 20 mg Prazosin HCl (Minipress Cap*) 1 mg PO BEDTIME [facility] Last Admin: 10/19/19 20:42 Dose: 1 mg Torsemide (Demadex*) 20 mg PO DAILY PRN PRN Reason: edema Tramadol HCl (Ultram*) 100 mg PO Q6H PRN PRN Reason: PAIN MILD Last Admin: 10/20/19 09:49 Dose: 100 mg
[2019-10-20] MEDS: LORazepam TAB(*) 1 MG PO SCH (22:00)
[2019-10-21] MEDS: traMADol TAB* 50 MG PO PRN (06:16)
[2019-10-21] MEDS: hydrOXYzine HCL TAB* 10 MG PO PRN (06:19)
[2019-10-21 08:52] VITALS: BP 128/78
[2019-10-21] MEDS: ARIPiprazole TAB* 20 MG PO SCH (08:58)
[2019-10-21] MEDS: Vitamin THERAPEUTIC TAB PO SCH (08:59)
[2019-10-21] MEDS: PTO: Pantoprazole TAB (NF) 20 MG TAB PO SCH (08:59)
[2019-10-21] MEDS: Divalproex DR TAB(*) 500 MG PO SCH (08:59)
[2019-10-21] MEDS: Mometasone/Formoter 200/5 MDI INH SCH (09:00)
[2019-10-21] MEDS: Gabapentin CAP(*) 300 MG PO SCH (09:00)
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
== END 2019-10-21 11:25 | disposition home or self-care (01) | DRG 753 ==
LOC: ED 17:15 → BSU 20:00
PROVIDERS: ADMIT Psychiatry & Neurology Psychiatry; ATTEND Psychiatry & Neurology Psychiatry
PROC: GZHZZZZ Group Psychotherapy (ICD-10-PCS; principal; 2019-10-18)
DX: F31.64 Bipolar disorder, current episode mixed, severe, with psychotic features (principal); R45.851 Suicidal ideations; Z68.41 Body mass index [BMI] 40.0-44.9, adult; M54.5 Low back pain; G62.9 Polyneuropathy, unspecified; J45.909 Unspecified asthma, uncomplicated; J44.9 Chronic obstructive pulmonary disease, unspecified; G89.29 Other chronic pain; G47.30 Sleep apnea, unspecified; I89.0 Lymphedema, not elsewhere classified; E66.01 Morbid (severe) obesity due to excess calories; F63.81 Intermittent explosive disorder; F43.10 Post-traumatic stress disorder, unspecified; I10 Essential (primary) hypertension; M54.2 Cervicalgia; G43.909 Migraine, unspecified, not intractable, without status migrainosus; F41.9 Anxiety disorder, unspecified; Z88.6 Allergy status to analgesic agent; Z88.8 Allergy status to other drugs, medicaments and biological substances; Z28.21 Immunization not carried out because of patient refusal; Z91.5 Personal history of self-harm; Z56.0 Unemployment, unspecified; Z87.891 Personal history of nicotine dependence
CPT/HCPCS: 36415; 80053; 80061; 80164; 80307; 80320; 80329; 81003; 83036; 84443; 85025; 90853; 99222; 99232; 99233; 99238; 99285; A9270-GY; G0480

== ENCOUNTER 2021-04-11 19:56 | Inpatient (IN) ==
[2021-04-11] MEDS ORDERED: Naloxone Nasal Spray 4 MG/0.1 ML NASAL.SPR INTRANASAL ONE (20:07)
[2021-04-11] MEDS ORDERED: NS 0.9% 1000 ml BAG 1,000 ML IV ONE ×2 (20:15→21:34)
[2021-04-11 20:34] LABS: PO2 Arterial 146 mmHg (80-100)
[2021-04-11 20:35] LABS: ABS Eosinophils 0.1 10^3/ul (0-0.6); ABS Lymphocytes 1.4 10^3/ul (1.0-4.8); ABS Monocytes 1.2 10^3/ul (0-0.8); Eosinophil % 0.3 %; Hematocrit 39 % (42-52); Hemoglobin 12.3 g/dL (14.0-18.0); Lymphocyte % 8.1 %; Mean Corpuscular HGB Conc 32 g/dL (31-36); Mean Corpuscular Hemoglobin 29 pg (27-31); Mean Corpuscular Volume 90 fL (80-94); Mean Platelet Volume 7.8 fL (7.4-10.4); Platelet Count 316 10^3/uL (150-450); Red Blood Count 4.33 10^6 /uL (4.18-5.48); Red Cell Distribution Width 16 % (10-15); White Blood Count 16.7 10^3/uL (3.5-10.8)
[2021-04-11 20:40] LABS: PCO2 Arterial 75 mmHg (35-45)
[2021-04-11] MEDS ORDERED: Naloxone 0.4 mg VIAL 0.4 mg/ml 1 ml VIAL IV PUSH ONE ×2 (20:46→23:59)
[2021-04-11 21:01] LABS: Alcohol, S < 10 mg/dL (<10)
[2021-04-11 21:02] LABS: ALT 20 U/L (7-52); AST 20 U/L (13-39); Albumin/Globulin Ratio 1.2 (1-3); Alkaline Phosphatase 70 U/L (35-149); Anion Gap 11 mmol/L (2-11); Blood Urea Nitrogen 34 mg/dL (6-24); CO2 Carbon Dioxide 24 mmol/L (22-32); Calcium 8.4 mg/dL (8.6-10.3); Chloride 99 mmol/L (101-111); EGFR Non-African American 16.5 (>60); Globulin 3.4 g/dL (2-4); Glucose 115 mg/dL (70-100); Magnesium 2.3 mg/dL (1.9-2.7); Sodium 134 mmol/L (135-145); Total Protein 7.4 g/dL (6.4-8.9)
[2021-04-11 21:08] LABS: Troponin I 0.04 ng/mL (<0.03)
[2021-04-11 21:15] LABS: Urine Appearance Cloudy; Urine Bilirubin Negative (Negative); Urine Blood Negative (Negative); Urine Color Amber; Urine Glucose Negative (Negative); Urine Ketones Negative (Negative); Urine Nitrite Negative (Negative); Urine Protein 2+(100 mg/dL) (Negative); Urine Specific Gravity 1.019 (1.002-1.030); Urine Urobilinogen Negative (Negative)
[2021-04-11 21:17] LABS: TSH Ultra Thyroid Stim Horm 3.88 mcIU/mL (0.34-5.60)
[2021-04-11 21:25] LABS: Urine Amorphous Crystals Present (Absent); Urine Bacteria 1+ (Absent); Urine Red Blood Cell Absent (Absent); Urine Squamous Epithelial Cell Present (Absent); Urine White Blood Cell 1+(6-10/hpf) (Absent); Urine Yeast Present (Absent)
[2021-04-11 21:34] LABS: Activated Partial Thrombo Time 30.2 seconds (26.0-38.0); INR 1.13 (0.86-1.15)
[2021-04-11 22:51] LABS: PCO2 Arterial 65 mmHg (35-45); PO2 Arterial 76 mmHg (80-100)
[2021-04-11 23:13] LABS: Influenza A Molecular Negative (Negative); Influenza B Molecular Negative (Negative)
[2021-04-11] MEDS ORDERED: methylPREDNISolone 125 mg 2 ML VIAL IV ONE (23:24)
[2021-04-11] MEDS ORDERED: Albuterol 2.5mg/3 ml (0.083%) NEB.SOLN INH PRN (23:24)
[2021-04-11] MEDS: cefTRIAXone 1 gm/50 mL NS BAG 1 GM/50 ML BAG IVPB SCH (23:48)
[2021-04-11] MEDS: Azithromycin 500 mg/250 ml NS 500 MG/250 ML BAG IVPB SCH (23:48)
[2021-04-12 00:05] LABS: Troponin I 0.03 ng/mL (<0.03)
[2021-04-12 00:41] LABS: PCO2 Arterial 57 mmHg (35-45)
[2021-04-12 00:49] LABS: PO2 Arterial 46 mmHg (80-100)
[2021-04-12] MEDS ORDERED: Rocuronium 50 mg VIAL 10 mg/ml 5 ml VIAL (50 mg) ONE ×2 (00:49→04:41)
[2021-04-12] MEDS ORDERED: Succinylcholine 200 mg VIAL 20 mg/ml 10 ml VIAL (200 mg) ONE (00:49)
[2021-04-12 01:05] LABS: Urine Creatinine Concentration 228.4 mg/dL
[2021-04-12 01:34] LABS: PCO2 Arterial 55 mmHg (35-45); PO2 Arterial 136 mmHg (80-100)
[2021-04-12 01:37] LABS: Calcium 7.5 mg/dL (8.6-10.3); EGFR African American 17.7 (>60); EGFR Non-African American 14.6 (>60)
[2021-04-12 01:38] LABS: Potassium 5.6 mmol/L (3.5-5.0)
[2021-04-12] MEDS ORDERED: Sodium Bicarb 8.4% Vial 50 ML 150 MEQ in D5W 1000 ml BAG 850 ML IV SCH (02:00)
[2021-04-12 03:49] LABS: PCO2 Arterial 64 mmHg (35-45); PO2 Arterial 100 mmHg (80-100)
[2021-04-12 04:24] LABS: Calcium 7.4 mg/dL (8.6-10.3); EGFR African American 17.7 (>60); EGFR Non-African American 14.6 (>60)
[2021-04-12] MEDS ORDERED: NS 0.9% 1000 ml BAG 1,000 ML IV ONE (04:26)
[2021-04-12 04:27] LABS: Potassium 6.4 mmol/L (3.5-5.0); Troponin I 0.02 ng/mL (<0.03)
[2021-04-12] MEDS ORDERED: Dextrose 50% VIAL 50 ml IV ONE (04:28)
[2021-04-12] MEDS ORDERED: Dextrose 50% Syringe 50 ml 25 GM/50 ML SYRINGE IV PUSH ONE (04:28)
[2021-04-12] MEDS ORDERED: CALCIUM GLUCONATE 1GM/50ML NS 1 GM/50 ML BAG IV ONE (04:28)
[2021-04-12] MEDS ORDERED: Patiromer POWDER 8.4 GM PAK PO ONE (04:29)
[2021-04-12] MEDS ORDERED: Calcium CHLORIDE 10% SYRINGE 1 GM/10 ML ONE (04:36)
[2021-04-12] MEDS ORDERED: Dextrose 50% Syringe 50 ml 25 GM/50 ML SYRINGE ONE (04:36)
[2021-04-12] MEDS ORDERED: Norepinephrine 16MCG/ML IVPRE 4,000 MCG/250 ML BAG IV ONE (04:36)
[2021-04-12] MEDS ORDERED: Etomidate 40 mg/20 ml (2 MG/ML) 20 ml VIAL (40 mg) ONE (04:45)
[2021-04-12] MEDS ORDERED: fentaNYL 100 mcg/2 ml 50 MCG/ML VIAL IV SLOW PU PRN (04:50)
[2021-04-12] MEDS: Midazolam 50 MG VIAL IV DRIP 50 ML IV SCH ×3 (05:05→22:15)
[2021-04-12] MEDS ORDERED: fentaNYL 100 mcg/2 ml 50 MCG/ML VIAL IV SLOW PU ONE (06:03)
[2021-04-12] MEDS ORDERED: fentaNYL 100 mcg/2 ml 50 MCG/ML VIAL ONE (06:04)
[2021-04-12] MEDS ORDERED: Midazolam 2 mg/2 ml VIAL 1 mg/ml 2 ml VIAL (2 mg) IV SLOW PU ONE (06:17)
[2021-04-12] MEDS ORDERED: fentaNYL INFUSION BAG 50MCG/ML 2,500 MCG/50 ML BAG IV SCH (07:00)
[2021-04-12 07:04] LABS: Calcium 7.3 mg/dL (8.6-10.3); Potassium 4.6 mmol/L (3.5-5.0)
[2021-04-12 07:08] LABS: INR 1.09 (0.86-1.15)
[2021-04-12 07:10] LABS: EGFR African American 21.3 (>60); EGFR Non-African American 17.6 (>60)
[2021-04-12] MEDS: Chlorhexidine MOUTHWASH 0.12% 15 ML UDC TOPICAL SCH ×5 (07:10→22:15)
[2021-04-12] MEDS: Heparin 5000 UNITS/ML 1 mL VIAL SUBCUT SCH ×3 (07:10→22:15)
[2021-04-12 07:12] LABS: Hematocrit 35 % (42-52); Hemoglobin 11.4 g/dL (14.0-18.0); Mean Corpuscular HGB Conc 33 g/dL (31-36); Mean Corpuscular Hemoglobin 29 pg (27-31); Mean Corpuscular Volume 89 fL (80-94); Mean Platelet Volume 7.7 fL (7.4-10.4); Platelet Count 213 10^3/uL (150-450); Red Blood Count 3.92 10^6 /uL (4.18-5.48); Red Cell Distribution Width 16 % (10-15); White Blood Count 11.2 10^3/uL (3.5-10.8)
[2021-04-12] MEDS: Albuterol/Ipratropium NEB.SOL (2.5/0.5 MG) 3 ML NEB.SOLN INH SCH ×2 (07:27→07:28)
[2021-04-12 08:03] LABS: PCO2 Arterial 48 mmHg (35-45); PO2 Arterial 89 mmHg (80-100)
[2021-04-12 08:11] LABS: ABS Lymphocytes 0.5 10^3/ul (1.0-4.8); ABS Monocytes 0.2 10^3/ul (0-0.8); ABS Neutrophils 10.4 10^3/ul (1.5-7.7); Eosinophil % 0.1 %; Lymphocyte % 4.9 %
[2021-04-12 08:13] LABS: Magnesium 2.3 mg/dL (1.9-2.7)
[2021-04-12] MEDS: Norepinephrine 16MCG/ML IVPRE 4,000 MCG/250 ML BAG IV SCH ×2 (08:15→11:44)
[2021-04-12] MEDS: NS 0.9% 1000 ml BAG 1,000 ML IV SCH ×3 (09:00→23:35)
[2021-04-12] MEDS: methylPREDNISolone SOD 40 mg/ml 1 ml VIAL IV SCH ×2 (09:00→14:34)
[2021-04-12] MEDS ORDERED: Mometasone/Formoter 200/5 MDI INH SCH (09:00)
[2021-04-12] MEDS: Pantoprazole VIAL 40 MG VIAL IV SCH (09:00)
[2021-04-12] MEDS ORDERED: NS 0.9% 500 ml BAG 500 ML IV ONE (11:55)
[2021-04-12 13:06] LABS: EGFR African American 36.6 (>60); EGFR Non-African American 30.3 (>60); Potassium 4.7 mmol/L (3.5-5.0)
[2021-04-12 14:05] LABS: Hepatitis B Surface Antigen Nonreactive (Nonreactive)
[2021-04-12 14:14] LABS: HIV 4th Generation Nonreactive (Nonreactive)
[2021-04-12 14:22] LABS: Hepatitis B Surface Ab Not Immune (Immune); Hepatitis C Antibody Negative (Negative)
[2021-04-12 20:22] LABS: PCO2 Arterial 51 mmHg (35-45); PO2 Arterial 86 mmHg (80-100)
[2021-04-12] MEDS: cefTRIAXone 1 gm/50 mL NS BAG 1 GM/50 ML BAG IVPB SCH (23:32)
[2021-04-13] MEDS: Azithromycin 500 mg/250 ml NS 500 MG/250 ML BAG IVPB SCH ×2 (00:13→23:08)
[2021-04-13] MEDS: methylPREDNISolone SOD 40 mg/ml 1 ml VIAL IV SCH ×3 (00:14→15:39)
[2021-04-13] MEDS: Chlorhexidine MOUTHWASH 0.12% 15 ML UDC TOPICAL SCH ×4 (02:39→14:15)
[2021-04-13] MEDS: Midazolam 50 MG VIAL IV DRIP 50 ML IV SCH (04:10)
[2021-04-13] MEDS ORDERED: fentaNYL 100 mcg/2 ml 50 MCG/ML VIAL IV SLOW PU PRN (05:44)
[2021-04-13 06:09] LABS: ABS Lymphocytes 0.6 10^3/ul (1.0-4.8); ABS Monocytes 0.5 10^3/ul (0-0.8); ABS Neutrophils 11.8 10^3/ul (1.5-7.7); Hematocrit 33 % (42-52); Hemoglobin 10.9 g/dL (14.0-18.0); Lymphocyte % 4.3 %; Mean Corpuscular HGB Conc 33 g/dL (31-36); Mean Corpuscular Hemoglobin 29 pg (27-31); Mean Corpuscular Volume 88 fL (80-94); Platelet Count 216 10^3/uL (150-450); Red Blood Count 3.72 10^6 /uL (4.18-5.48); Red Cell Distribution Width 16 % (10-15); White Blood Count 12.9 10^3/uL (3.5-10.8)
[2021-04-13 06:39] LABS: Calcium 8.4 mg/dL (8.6-10.3); EGFR African American 99.4 (>60); EGFR Non-African American 82.1 (>60); Magnesium 2.2 mg/dL (1.9-2.7); Phosphorus 2.4 mg/dL (2.5-5.0); Potassium 4.6 mmol/L (3.5-5.0)
[2021-04-13] MEDS: Heparin 5000 UNITS/ML 1 mL VIAL SUBCUT SCH ×3 (06:39→22:57)
[2021-04-13] MEDS ORDERED: Perflutren Lipid Microsphere 3 ML VIAL ONE (07:59)
[2021-04-13] MEDS ORDERED: Sodium Phosphate IV 15 MMOLE in NS 0.9% 250 ml 250 ML IVPB ONE (08:00)
[2021-04-13] MEDS: Pantoprazole VIAL 40 MG VIAL IV SCH (08:25)
[2021-04-13] MEDS: cefTRIAXone 1 gm/50 mL NS BAG 1 GM/50 ML BAG IVPB SCH (23:08)
[2021-04-14] MEDS: methylPREDNISolone SOD 40 mg/ml 1 ml VIAL IV SCH ×3 (02:21→20:52)
[2021-04-14 04:48] LABS: ABS Lymphocytes 0.8 10^3/ul (1.0-4.8); ABS Monocytes 0.6 10^3/ul (0-0.8); ABS Neutrophils 7.8 10^3/ul (1.5-7.7); Hematocrit 33 % (42-52); Hemoglobin 10.9 g/dL (14.0-18.0); Lymphocyte % 8.3 %; Mean Corpuscular HGB Conc 34 g/dL (31-36); Mean Corpuscular Hemoglobin 29 pg (27-31); Mean Corpuscular Volume 88 fL (80-94); Mean Platelet Volume 8.2 fL (7.4-10.4); Platelet Count 215 10^3/uL (150-450); Red Blood Count 3.71 10^6 /uL (4.18-5.48); Red Cell Distribution Width 16 % (10-15); White Blood Count 9.1 10^3/uL (3.5-10.8)
[2021-04-14 05:09] LABS: Calcium 8.5 mg/dL (8.6-10.3); EGFR African American 115.3 (>60); EGFR Non-African American 95.3 (>60); Magnesium 2.2 mg/dL (1.9-2.7); Phosphorus 2.8 mg/dL (2.5-5.0); Potassium 4.4 mmol/L (3.5-5.0)
[2021-04-14] MEDS: Heparin 5000 UNITS/ML 1 mL VIAL SUBCUT SCH ×3 (06:22→20:52)
[2021-04-14] MEDS: cefTRIAXone 1 gm/50 mL NS BAG 1 GM/50 ML BAG IVPB SCH (22:52)
[2021-04-14] MEDS: Azithromycin 500 mg/250 ml NS 500 MG/250 ML BAG IVPB SCH (23:48)
[2021-04-15] MEDS: Benzocaine/Menthol LOZ MT PRN ×3 (00:04→22:31)
[2021-04-15] MEDS: Heparin 5000 UNITS/ML 1 mL VIAL SUBCUT SCH ×3 (06:11→21:05)
[2021-04-15] MEDS: methylPREDNISolone SOD 40 mg/ml 1 ml VIAL IV SCH ×2 (07:16→21:05)
[2021-04-15 09:13] LABS: ABS Monocytes 0.5 10^3/ul (0-0.8); ABS Neutrophils 7.3 10^3/ul (1.5-7.7); Hematocrit 34 % (42-52); Hemoglobin 11.4 g/dL (14.0-18.0); Lymphocyte % 11.4 %; Mean Corpuscular HGB Conc 34 g/dL (31-36); Mean Corpuscular Hemoglobin 30 pg (27-31); Mean Corpuscular Volume 87 fL (80-94); Mean Platelet Volume 8.3 fL (7.4-10.4); Nucleated Red Blood Cells % 0.1; Platelet Count 232 10^3/uL (150-450); Red Blood Count 3.87 10^6 /uL (4.18-5.48); Red Cell Distribution Width 16 % (10-15); White Blood Count 8.8 10^3/uL (3.5-10.8)
[2021-04-15 09:29] LABS: Calcium 8.5 mg/dL (8.6-10.3); EGFR African American 123.5 (>60); EGFR Non-African American 102.1 (>60); Potassium 4.2 mmol/L (3.5-5.0)
[2021-04-15] MEDS: cefTRIAXone 1 gm/50 mL NS BAG 1 GM/50 ML BAG IVPB SCH (22:22)
[2021-04-15] MEDS: Azithromycin 500 mg/250 ml NS 500 MG/250 ML BAG IVPB SCH (23:13)
[2021-04-16] MEDS: Heparin 5000 UNITS/ML 1 mL VIAL SUBCUT SCH ×3 (05:05→20:47)
[2021-04-16 08:36] LABS: ABS Lymphocytes 1.4 10^3/ul (1.0-4.8); ABS Monocytes 0.5 10^3/ul (0-0.8); ABS Neutrophils 8.3 10^3/ul (1.5-7.7); Hematocrit 37 % (42-52); Hemoglobin 12.2 g/dL (14.0-18.0); Lymphocyte % 13.5 %; Mean Corpuscular HGB Conc 33 g/dL (31-36); Mean Corpuscular Hemoglobin 29 pg (27-31); Mean Corpuscular Volume 88 fL (80-94); Mean Platelet Volume 8.3 fL (7.4-10.4); Nucleated Red Blood Cells % 0.1; Platelet Count 234 10^3/uL (150-450); Red Blood Count 4.22 10^6 /uL (4.18-5.48); Red Cell Distribution Width 15 % (10-15); White Blood Count 10.2 10^3/uL (3.5-10.8)
[2021-04-16 08:51] LABS: Calcium 8.8 mg/dL (8.6-10.3); EGFR African American 120.1 (>60); EGFR Non-African American 99.3 (>60); Potassium 4.4 mmol/L (3.5-5.0)
[2021-04-16] MEDS: Benzocaine/Menthol LOZ MT PRN ×2 (15:39→22:56)
[2021-04-16] MEDS: cefTRIAXone 1 gm/50 mL NS BAG 1 GM/50 ML BAG IVPB SCH (22:46)
[2021-04-17] MEDS: Heparin 5000 UNITS/ML 1 mL VIAL SUBCUT SCH ×3 (05:25→20:56)
[2021-04-17 05:53] LABS: Hematocrit 37 % (42-52); Hemoglobin 12.4 g/dL (14.0-18.0); Mean Corpuscular HGB Conc 33 g/dL (31-36); Mean Corpuscular Hemoglobin 29 pg (27-31); Mean Corpuscular Volume 88 fL (80-94); Mean Platelet Volume 7.9 fL (7.4-10.4); Platelet Count 218 10^3/uL (150-450); Red Blood Count 4.24 10^6 /uL (4.18-5.48); Red Cell Distribution Width 16 % (10-15); White Blood Count 10.7 10^3/uL (3.5-10.8)
[2021-04-17 06:11] LABS: Calcium 8.3 mg/dL (8.6-10.3); EGFR African American 120.1 (>60); EGFR Non-African American 99.3 (>60); Potassium 3.6 mmol/L (3.5-5.0)
[2021-04-17 09:20] LABS: ABS Basophils 0.1 10^3/ul (0-0.2); ABS Eosinophils 0.1 10^3/ul (0-0.6); ABS Lymphocytes 2.7 10^3/ul (1.0-4.8); ABS Monocytes 0.7 10^3/ul (0-0.8); ABS Neutrophils 7.1 10^3/ul (1.5-7.7); Eosinophil % 1.4 %; Lymphocyte % 25.3 %; Nucleated Red Blood Cells % 0.1
[2021-04-17] MEDS: cefTRIAXone 1 gm/50 mL NS BAG 1 GM/50 ML BAG IVPB SCH (22:59)
[2021-04-18] MEDS: Heparin 5000 UNITS/ML 1 mL VIAL SUBCUT SCH ×3 (05:17→21:02)
[2021-04-19] MEDS: Heparin 5000 UNITS/ML 1 mL VIAL SUBCUT SCH ×2 (05:36→15:23)
[2021-04-19 11:15] VITALS: BP 129/78
== END 2021-04-19 16:15 | disposition home health service (06) | DRG 720 ==
LOC: ED 19:56 → ICU 04-12 00:23 → MEDTELE 04-14 16:17
PROVIDERS: ADMIT Internal Medicine; ATTEND Internal Medicine

== ENCOUNTER 2021-11-21 18:27 | Observation (INO) ==
[2021-11-21 20:46] LABS: ABS Basophils 0.1 10^3/ul (0-0.2); ABS Eosinophils 0.2 10^3/ul (0-0.6); ABS Lymphocytes 1.1 10^3/ul (1.0-4.8); ABS Monocytes 0.5 10^3/ul (0-0.8); ABS Neutrophils 5.7 10^3/ul (1.5-7.7); Eosinophil % 2.9 %; Hematocrit 33 % (42-52); Mean Corpuscular HGB Conc 33 g/dL (31-36); Mean Corpuscular Hemoglobin 28 pg (27-31); Mean Corpuscular Volume 83 fL (80-94); Mean Platelet Volume 7.4 fL (7.4-10.4); Platelet Count 274 10^3/uL (150-450); Red Blood Count 3.99 10^6 /uL (4.18-5.48); Red Cell Distribution Width 16 % (10-15); White Blood Count 7.5 10^3/uL (3.5-10.8)
[2021-11-21 20:52] LABS: INR 1.14 (0.86-1.15)
[2021-11-21 20:59] LABS: Rapid COVID-19 Molecular Undetected (Undetected)
[2021-11-21 21:07] LABS: ALT 17 U/L (7-52); Albumin 3.7 g/dL (3.2-5.2); Alkaline Phosphatase 57 U/L (35-149); Blood Urea Nitrogen 13 mg/dL (6-24); CO2 Carbon Dioxide 30 mmol/L (22-32); Calcium 8.5 mg/dL (8.6-10.3); Chloride 100 mmol/L (101-111); Globulin 3.6 g/dL (2-4); Glucose 112 mg/dL (70-100); Magnesium 2.4 mg/dL (1.9-2.7); Sodium 133 mmol/L (135-145); Total Protein 7.3 g/dL (6.4-8.9); eGFR CKD-EPI 117.3 (>60)
[2021-11-21 21:08] LABS: Anion Gap 3 mmol/L (2-11)
[2021-11-21 21:36] LABS: TSH Ultra Thyroid Stim Horm 3.53 mcIU/mL (0.34-5.60)
[2021-11-21 22:00] LABS: Potassium Redraw 3.9 mmol/L (3.5-5.0)
[2021-11-21 22:39] LABS: Venous Bicarbonate HCO3 31.3 mmol/L (24-28)
[2021-11-21] MEDS ORDERED: Iohexol 350 (CONTRAST) 500 ML MDV IV ONE (23:28)
[2021-11-22] MEDS ORDERED: Enoxaparin 40 MG/0.4 ML SYR SUBCUT SCH (00:30)
[2021-11-22] MEDS: Mometasone/Formoter 200/5 MDI INH SCH ×2 (05:07→19:46)
[2021-11-22] MEDS: Albuterol HFA INHALER 8 gm MDI INH PRN (05:08)
[2021-11-22 05:36] LABS: ABS Basophils 0.1 10^3/ul (0-0.2); ABS Eosinophils 0.2 10^3/ul (0-0.6); ABS Lymphocytes 1.2 10^3/ul (1.0-4.8); ABS Monocytes 0.6 10^3/ul (0-0.8); Eosinophil % 3.3 %; Hematocrit 33 % (42-52); Hemoglobin 10.7 g/dL (14.0-18.0); Lymphocyte % 16.9 %; Mean Corpuscular HGB Conc 32 g/dL (31-36); Mean Corpuscular Hemoglobin 27 pg (27-31); Mean Corpuscular Volume 84 fL (80-94); Mean Platelet Volume 7.7 fL (7.4-10.4); Platelet Count 285 10^3/uL (150-450); Red Blood Count 3.94 10^6 /uL (4.18-5.48); Red Cell Distribution Width 15 % (10-15); White Blood Count 7.1 10^3/uL (3.5-10.8)
[2021-11-22] MEDS: Lurasidone 120 mg TAB PO SCH (05:43)
[2021-11-22] MEDS: DULoxetine DR 30 mg CAP PO SCH (05:43)
[2021-11-22 05:55] LABS: Calcium 8.5 mg/dL (8.6-10.3); Potassium 3.7 mmol/L (3.5-5.0); eGFR CKD-EPI 116.3 (>60)
[2021-11-22] MEDS ORDERED: DULoxetine DR 30 mg CAP PO SCH (09:00)
[2021-11-22] MEDS: Enoxaparin 40 MG/0.4 ML SYR SUBCUT SCH (09:23)
[2021-11-22] MEDS: Calcium/Vitamin D TAB 250/125 TAB PO SCH (09:23)
[2021-11-22] MEDS: Cholecalciferol (VIT D3) 400 units TAB PO SCH (09:25)
[2021-11-22] MEDS ORDERED: Perflutren Lipid Microsphere 3 ML VIAL ONE (10:10)
[2021-11-22] MEDS: Senna TAB 8.6 mg TAB PO SCH (21:43)
[2021-11-23 01:51] LABS: Urine Appearance Clear; Urine Bilirubin Negative (Negative); Urine Blood Negative (Negative); Urine Color Yellow; Urine Glucose Negative (Negative); Urine Ketones Negative (Negative); Urine Nitrite Negative (Negative); Urine Protein Negative (Negative); Urine Specific Gravity 1.008 (1.002-1.030); Urine Urobilinogen Negative (Negative)
[2021-11-23] MEDS: Mometasone/Formoter 200/5 MDI INH SCH ×2 (07:45→20:14)
[2021-11-23] MEDS: Albuterol HFA INHALER 8 gm MDI INH PRN (07:48)
[2021-11-23] MEDS: DULoxetine DR 30 mg CAP PO SCH (09:07)
[2021-11-23] MEDS: Calcium/Vitamin D TAB 250/125 TAB PO SCH (09:08)
[2021-11-23] MEDS: Cholecalciferol (VIT D3) 400 units TAB PO SCH (09:08)
[2021-11-23] MEDS: Enoxaparin 40 MG/0.4 ML SYR SUBCUT SCH (09:09)
[2021-11-23] MEDS: Lurasidone 120 mg TAB PO SCH (11:45)
[2021-11-23] MEDS: Senna TAB 8.6 mg TAB PO SCH (21:05)
[2021-11-24] MEDS: Mometasone/Formoter 200/5 MDI INH SCH (07:56)
[2021-11-24] MEDS: Albuterol HFA INHALER 8 gm MDI INH PRN (07:58)
[2021-11-24 09:19] VITALS: BP 136/67
[2021-11-24] MEDS: Cholecalciferol (VIT D3) 400 units TAB PO SCH (09:32)
[2021-11-24] MEDS: DULoxetine DR 30 mg CAP PO SCH (09:32)
[2021-11-24] MEDS: Calcium/Vitamin D TAB 250/125 TAB PO SCH (09:33)
[2021-11-24] MEDS: Lurasidone 120 mg TAB PO SCH (09:33)
[2021-11-24] MEDS: Enoxaparin 40 MG/0.4 ML SYR SUBCUT SCH (09:34)
== END 2021-11-24 12:50 | disposition home or self-care (01) ==
LOC: MED 18:27 → ED 18:27 → SUATTDRO 23:29 → MED 11-22 03:32
PROVIDERS: ADMIT Internal Medicine; ATTEND Internal Medicine

== ENCOUNTER 2022-02-09 20:01 | Inpatient (IN) ==
[2022-02-09 20:38] LABS: ABS Basophils 0.1 10^3/ul (0-0.2); ABS Eosinophils 0.2 10^3/ul (0-0.6); ABS Lymphocytes 1.2 10^3/ul (1.0-4.8); ABS Monocytes 0.5 10^3/ul (0-0.8); ABS Neutrophils 5.2 10^3/ul (1.5-7.7); Eosinophil % 2.7 %; Hematocrit 31 % (42-52); Hemoglobin 9.7 g/dL (14.0-18.0); Lymphocyte % 17.3 %; Mean Corpuscular HGB Conc 31 g/dL (31-36); Mean Corpuscular Hemoglobin 25 pg (27-31); Mean Corpuscular Volume 80 fL (80-94); Mean Platelet Volume 7.4 fL (7.4-10.4); Nucleated Red Blood Cells % 0.1; Platelet Count 277 10^3/uL (150-450); Red Blood Count 3.91 10^6 /uL (4.18-5.48); Red Cell Distribution Width 18 % (10-15); White Blood Count 7.1 10^3/uL (3.5-10.8)
[2022-02-09 21:10] LABS: Albumin 3.2 g/dL (3.2-5.2); Albumin/Globulin Ratio 1.1 (1-3); Calcium 8.4 mg/dL (8.6-10.3); Globulin 2.9 g/dL (2-4); Potassium 4.2 mmol/L (3.5-5.0); Total Bilirubin 0.5 mg/dL (0.2-1.0); Total Protein 6.1 g/dL (6.4-8.9); eGFR CKD-EPI 117.9 (>60)
[2022-02-09 21:20] LABS: INR 1.15 (0.86-1.15)
[2022-02-09 22:08] LABS: High Sensitivity Troponin 1 Hr 3 pg/mL (<20)
[2022-02-09] MEDS ORDERED: Furosemide 40 mg/4 ml IV VIAL IV SLOW PU ONE (22:42)
[2022-02-09 23:18] LABS: Urine Appearance Cloudy; Urine Bilirubin Negative (Negative); Urine Blood Negative (Negative); Urine Color Yellow; Urine Glucose Negative (Negative); Urine Ketones Negative (Negative); Urine Nitrite Negative (Negative); Urine Protein Negative (Negative); Urine Specific Gravity 1.018 (1.002-1.030); Urine Urobilinogen Positive (Negative)
[2022-02-10] MEDS ORDERED: Lurasidone 120 mg TAB PO ONE (00:09)
[2022-02-10] MEDS ORDERED: DULoxetine DR 30 mg CAP PO ONE (00:10)
[2022-02-10] MEDS ORDERED: Albuterol HFA INHALER 8 gm MDI INH PRN (01:54)
[2022-02-10] MEDS ORDERED: Iohexol 350 (CONTRAST) 500 ML MDV IV ONE (04:00)
[2022-02-10] MEDS: Enoxaparin 60 MG/0.6 ML SYR SUBCUT SCH ×2 (07:56→19:13)
[2022-02-10] MEDS ORDERED: Furosemide 40 mg/4 ml IV VIAL IV ONE (08:00)
[2022-02-10] MEDS: Mometasone/Formoter 200/5 MDI INH SCH ×2 (08:05→21:28)
[2022-02-10 12:03] LABS: PCO2 Arterial 63 mmHg (35-45); PO2 Arterial 78 mmHg (80-100)
[2022-02-10 22:04] LABS: Ferritin 8.1 ng/mL (24-336)
[2022-02-10] MEDS: Lurasidone 120 mg TAB PO SCH (22:41)
[2022-02-10] MEDS: DULoxetine DR 30 mg CAP PO SCH (22:41)
[2022-02-10] MEDS: Senna TAB 8.6 mg TAB PO SCH (22:41)
[2022-02-11] MEDS: Enoxaparin 60 MG/0.6 ML SYR SUBCUT SCH ×2 (05:33→17:53)
[2022-02-11 05:39] LABS: ABS Eosinophils 0.3 10^3/ul (0-0.6); ABS Lymphocytes 1.3 10^3/ul (1.0-4.8); ABS Monocytes 0.6 10^3/ul (0-0.8); ABS Neutrophils 4.6 10^3/ul (1.5-7.7); Eosinophil % 4.9 %; Hematocrit 31 % (42-52); Hemoglobin 9.4 g/dL (14.0-18.0); Lymphocyte % 19.6 %; Mean Corpuscular HGB Conc 31 g/dL (31-36); Mean Corpuscular Hemoglobin 25 pg (27-31); Mean Corpuscular Volume 81 fL (80-94); Mean Platelet Volume 7.2 fL (7.4-10.4); Nucleated Red Blood Cells % 0.1; Platelet Count 267 10^3/uL (150-450); Red Blood Count 3.82 10^6 /uL (4.18-5.48); Red Cell Distribution Width 18 % (10-15); White Blood Count 6.9 10^3/uL (3.5-10.8)
[2022-02-11 06:00] LABS: Calcium 8.6 mg/dL (8.6-10.3); Potassium 4.5 mmol/L (3.5-5.0); eGFR CKD-EPI 116.3 (>60)
[2022-02-11] MEDS: Mometasone/Formoter 200/5 MDI INH SCH ×2 (08:20→20:06)
[2022-02-11] MEDS ORDERED: Furosemide 40 mg/4 ml IV VIAL IV ONE (08:34)
[2022-02-11] MEDS: DULoxetine DR 30 mg CAP PO SCH (21:37)
[2022-02-11] MEDS: Senna TAB 8.6 mg TAB PO SCH (21:38)
[2022-02-11] MEDS: Lurasidone 120 mg TAB PO SCH (21:38)
[2022-02-12] MEDS: Enoxaparin 60 MG/0.6 ML SYR SUBCUT SCH ×2 (05:41→18:17)
[2022-02-12 06:18] LABS: Hematocrit 32 % (42-52); Hemoglobin 9.9 g/dL (14.0-18.0); Lymphocyte % 18.1 %; Mean Corpuscular HGB Conc 31 g/dL (31-36); Mean Corpuscular Hemoglobin 25 pg (27-31); Mean Corpuscular Volume 80 fL (80-94); Red Blood Count 4.04 10^6 /uL (4.18-5.48); Red Cell Distribution Width 18 % (10-15)
[2022-02-12 06:19] LABS: CO2 Carbon Dioxide 36 mmol/L (22-32); Calcium 8.5 mg/dL (8.6-10.3); Chloride 95 mmol/L (101-111); Sodium 135 mmol/L (135-145)
[2022-02-12 06:24] LABS: Blood Urea Nitrogen 13 mg/dL (6-24); Glucose 84 mg/dL (70-100); eGFR CKD-EPI 116.8 (>60)
[2022-02-12 06:26] LABS: Anion Gap 4 mmol/L (2-11)
[2022-02-12 07:15] LABS: ABS Basophils 0.1 10^3/ul (0-0.2); ABS Eosinophils 0.5 10^3/ul (0-0.6); ABS Lymphocytes 1.6 10^3/ul (1.0-4.8); ABS Monocytes 0.7 10^3/ul (0-0.8); ABS Neutrophils 5.9 10^3/ul (1.5-7.7); Mean Platelet Volume 7.7 fL (7.4-10.4); Nucleated Red Blood Cells % 0.5; Platelet Count 257 10^3/uL (150-450); White Blood Count 8.8 10^3/uL (3.5-10.8)
[2022-02-12] MEDS: Mometasone/Formoter 200/5 MDI INH SCH ×2 (07:56→18:46)
[2022-02-12 12:55] LABS: Urine Appearance Clear; Urine Bilirubin Negative (Negative); Urine Blood 2+ (Negative); Urine Color Yellow; Urine Glucose Negative (Negative); Urine Ketones Negative (Negative); Urine Nitrite Negative (Negative); Urine Protein Negative (Negative); Urine Specific Gravity 1.006 (1.002-1.030); Urine Urobilinogen Negative (Negative)
[2022-02-12 12:57] LABS: Urine Bacteria 1+ (Absent); Urine Red Blood Cell 1+(3-5/hpf) (Absent); Urine Squamous Epithelial Cell Present (Absent); Urine White Blood Cell Trace(0-5/hpf) (Absent)
[2022-02-12] MEDS: Lurasidone 120 mg TAB PO SCH (21:19)
[2022-02-12] MEDS: DULoxetine DR 30 mg CAP PO SCH (21:20)
[2022-02-12] MEDS: Senna TAB 8.6 mg TAB PO SCH (21:20)
[2022-02-13] MEDS: Enoxaparin 60 MG/0.6 ML SYR SUBCUT SCH ×2 (05:41→17:42)
[2022-02-13 06:13] LABS: Hematocrit 34 % (42-52); Hemoglobin 10.6 g/dL (14.0-18.0); Mean Corpuscular HGB Conc 31 g/dL (31-36); Mean Corpuscular Hemoglobin 25 pg (27-31); Mean Corpuscular Volume 81 fL (80-94); Platelet Count 254 10^3/uL (150-450); Red Blood Count 4.23 10^6 /uL (4.18-5.48); Red Cell Distribution Width 18 % (10-15); White Blood Count 6.5 10^3/uL (3.5-10.8)
[2022-02-13 06:25] LABS: Potassium 4.6 mmol/L (3.5-5.0)
[2022-02-13 06:30] LABS: eGFR CKD-EPI 115.3 (>60)
[2022-02-13] MEDS: Mometasone/Formoter 200/5 MDI INH SCH ×2 (07:38→20:01)
[2022-02-13] MEDS: Senna TAB 8.6 mg TAB PO SCH (20:54)
[2022-02-13] MEDS: Lurasidone 120 mg TAB PO SCH (20:54)
[2022-02-13] MEDS: DULoxetine DR 30 mg CAP PO SCH (20:55)
[2022-02-14] MEDS: Calamine LOTION BTL TOPICAL SCH ×5 (00:29→20:11)
[2022-02-14] MEDS: Lidocaine PATCH 5% PATCH TRANSDERM SCH ×2 (00:31→08:59)
[2022-02-14] MEDS: Mometasone/Formoter 200/5 MDI INH SCH ×2 (07:37→21:00)
[2022-02-14] MEDS: Enoxaparin 60 MG/0.6 ML SYR SUBCUT SCH ×2 (07:45→18:39)
[2022-02-14 08:18] LABS: Calcium 8.6 mg/dL (8.6-10.3); Magnesium 2.1 mg/dL (1.9-2.7); Phosphorus 3.9 mg/dL (2.5-5.0); Potassium 4.3 mmol/L (3.5-5.0); eGFR CKD-EPI 111.2 (>60)
[2022-02-14] MEDS: Lurasidone 120 mg TAB PO SCH (20:10)
[2022-02-14] MEDS: DULoxetine DR 30 mg CAP PO SCH (20:10)
[2022-02-14] MEDS: Senna TAB 8.6 mg TAB PO SCH (20:10)
[2022-02-15] MEDS: Enoxaparin 60 MG/0.6 ML SYR SUBCUT SCH ×2 (04:57→18:31)
[2022-02-15] MEDS: Mometasone/Formoter 200/5 MDI INH SCH ×2 (07:40→19:39)
[2022-02-15] MEDS: Calamine LOTION BTL TOPICAL SCH ×4 (08:15→21:05)
[2022-02-15] MEDS: Lidocaine PATCH 5% PATCH TRANSDERM SCH (08:15)
[2022-02-15] MEDS: DULoxetine DR 30 mg CAP PO SCH (21:05)
[2022-02-15] MEDS: Senna TAB 8.6 mg TAB PO SCH (21:05)
[2022-02-15] MEDS: Lurasidone 120 mg TAB PO SCH (21:05)
[2022-02-16] MEDS: Enoxaparin 60 MG/0.6 ML SYR SUBCUT SCH ×2 (05:22→16:47)
[2022-02-16] MEDS: Lidocaine PATCH 5% PATCH TRANSDERM SCH (08:12)
[2022-02-16] MEDS: Calamine LOTION BTL TOPICAL SCH ×4 (08:12→20:59)
[2022-02-16] MEDS: Mometasone/Formoter 200/5 MDI INH SCH ×2 (08:41→20:34)
[2022-02-16 09:52] LABS: Calcium 8.4 mg/dL (8.6-10.3); Phosphorus 3.2 mg/dL (2.5-5.0); Potassium 4.2 mmol/L (3.5-5.0); eGFR CKD-EPI 113.9 (>60)
[2022-02-16] MEDS: Lurasidone 120 mg TAB PO SCH (20:59)
[2022-02-16] MEDS: DULoxetine DR 30 mg CAP PO SCH (20:59)
[2022-02-16] MEDS: Senna TAB 8.6 mg TAB PO SCH (20:59)
[2022-02-17] MEDS: Enoxaparin 60 MG/0.6 ML SYR SUBCUT SCH ×2 (05:09→18:19)
[2022-02-17] MEDS: Mometasone/Formoter 200/5 MDI INH SCH ×2 (07:54→21:00)
[2022-02-17] MEDS: Calamine LOTION BTL TOPICAL SCH ×4 (14:02→20:34)
[2022-02-17] MEDS: Lidocaine PATCH 5% PATCH TRANSDERM SCH (14:02)
[2022-02-17] MEDS: DULoxetine DR 30 mg CAP PO SCH (20:33)
[2022-02-17] MEDS: Senna TAB 8.6 mg TAB PO SCH (20:33)
[2022-02-17] MEDS: Lurasidone 120 mg TAB PO SCH (20:34)
[2022-02-17] MEDS: Nystatin TOP POWDER 15 GM BTL TOPICAL SCH (20:50)
[2022-02-18] MEDS: Calamine LOTION BTL TOPICAL SCH ×5 (04:00→21:12)
[2022-02-18] MEDS: Enoxaparin 60 MG/0.6 ML SYR SUBCUT SCH ×2 (05:43→16:53)
[2022-02-18] MEDS: Mometasone/Formoter 200/5 MDI INH SCH ×2 (07:05→19:14)
[2022-02-18] MEDS: Nystatin TOP POWDER 15 GM BTL TOPICAL SCH ×2 (09:39→21:12)
[2022-02-18] MEDS: Lidocaine PATCH 5% PATCH TRANSDERM SCH (09:39)
[2022-02-18] MEDS: Senna TAB 8.6 mg TAB PO SCH (21:09)
[2022-02-18] MEDS: DULoxetine DR 30 mg CAP PO SCH (21:10)
[2022-02-18] MEDS: Lurasidone 120 mg TAB PO SCH (21:11)
[2022-02-19] MEDS: Enoxaparin 60 MG/0.6 ML SYR SUBCUT SCH ×2 (06:01→16:22)
[2022-02-19] MEDS: Mometasone/Formoter 200/5 MDI INH SCH ×3 (07:04→21:50)
[2022-02-19] MEDS: Nystatin TOP POWDER 15 GM BTL TOPICAL SCH ×2 (09:27→21:57)
[2022-02-19] MEDS: Lidocaine PATCH 5% PATCH TRANSDERM SCH (09:27)
[2022-02-19] MEDS: Calamine LOTION BTL TOPICAL SCH ×4 (09:27→21:57)
[2022-02-19 10:07] LABS: Calcium 8.6 mg/dL (8.6-10.3); Potassium 4.2 mmol/L (3.5-5.0); eGFR CKD-EPI 114.3 (>60)
[2022-02-19 11:45] LABS: Hematocrit 32 % (42-52); Hemoglobin 9.8 g/dL (14.0-18.0); Mean Corpuscular HGB Conc 31 g/dL (31-36); Mean Corpuscular Hemoglobin 25 pg (27-31); Mean Corpuscular Volume 81 fL (80-94); Mean Platelet Volume 7.4 fL (7.4-10.4); Platelet Count 262 10^3/uL (150-450); Red Blood Count 3.97 10^6 /uL (4.18-5.48); Red Cell Distribution Width 18 % (10-15); White Blood Count 6.7 10^3/uL (3.5-10.8)
[2022-02-19] MEDS: Senna TAB 8.6 mg TAB PO SCH (21:55)
[2022-02-19] MEDS: Lurasidone 120 mg TAB PO SCH (21:55)
[2022-02-19] MEDS: DULoxetine DR 30 mg CAP PO SCH (21:56)
[2022-02-20] MEDS: Enoxaparin 60 MG/0.6 ML SYR SUBCUT SCH ×2 (05:35→17:49)
[2022-02-20] MEDS: Calamine LOTION BTL TOPICAL SCH ×4 (07:52→21:39)
[2022-02-20] MEDS: Nystatin TOP POWDER 15 GM BTL TOPICAL SCH ×2 (07:52→21:39)
[2022-02-20] MEDS: Lidocaine PATCH 5% PATCH TRANSDERM SCH (07:58)
[2022-02-20] MEDS: Mometasone/Formoter 200/5 MDI INH SCH ×2 (08:20→20:52)
[2022-02-20] MEDS: DULoxetine DR 30 mg CAP PO SCH (21:36)
[2022-02-20] MEDS: Lurasidone 120 mg TAB PO SCH (21:38)
[2022-02-20] MEDS: Senna TAB 8.6 mg TAB PO SCH (21:38)
[2022-02-21] MEDS: Enoxaparin 60 MG/0.6 ML SYR SUBCUT SCH (05:33)
[2022-02-21 07:30] VITALS: BP 145/96
[2022-02-21] MEDS: Mometasone/Formoter 200/5 MDI INH SCH (07:59)
[2022-02-21] MEDS: Calamine LOTION BTL TOPICAL SCH (08:47)
[2022-02-21] MEDS: Lidocaine PATCH 5% PATCH TRANSDERM SCH (08:48)
[2022-02-21] MEDS: Nystatin TOP POWDER 15 GM BTL TOPICAL SCH (08:49)
== END 2022-02-21 12:07 | disposition home health service (06) | DRG 194 ==
LOC: ED 20:01 → SUATTDRO 02-10 01:48 → EDHOLD 02-10 01:48 → MEDTELE 02-10 05:11
PROVIDERS: ADMIT Internal Medicine; ATTEND Internal Medicine

== ENCOUNTER 2022-02-28 17:21 | Inpatient (IN) ==
[2022-02-28 18:30] LABS: ABS Eosinophils 0.2 10^3/ul (0-0.6); ABS Lymphocytes 1.1 10^3/ul (1.0-4.8); ABS Monocytes 0.6 10^3/ul (0-0.8); ABS Neutrophils 7.9 10^3/ul (1.5-7.7); Eosinophil % 1.6 %; Hematocrit 32 % (42-52); Hemoglobin 9.9 g/dL (14.0-18.0); Mean Corpuscular HGB Conc 31 g/dL (31-36); Mean Corpuscular Hemoglobin 24 pg (27-31); Mean Corpuscular Volume 79 fL (80-94); Mean Platelet Volume 7.4 fL (7.4-10.4); Nucleated Red Blood Cells % 0.1; Platelet Count 339 10^3/uL (150-450); Red Blood Count 4.05 10^6 /uL (4.18-5.48); Red Cell Distribution Width 19 % (10-15); Venous Bicarbonate HCO3 27.8 mmol/L (24-28); White Blood Count 9.8 10^3/uL (3.5-10.8)
[2022-02-28 19:06] LABS: PCO2 Arterial 62 mmHg (35-45); PO2 Arterial 160 mmHg (80-100)
[2022-02-28 19:23] LABS: Albumin 3.8 g/dL (3.2-5.2); Albumin/Globulin Ratio 1.1 (1-3); Calcium 8.6 mg/dL (8.6-10.3); Globulin 3.5 g/dL (2-4); Total Bilirubin 0.6 mg/dL (0.2-1.0); Total Protein 7.3 g/dL (6.4-8.9); eGFR CKD-EPI 114.3 (>60)
[2022-02-28 20:20] LABS: High Sensitivity Troponin 1 Hr 12 pg/mL (<20)
[2022-02-28] MEDS ORDERED: Furosemide 40 mg/4 ml IV VIAL IV SLOW PU ONE (21:02)
[2022-02-28] MEDS ORDERED: Iohexol 350 (CONTRAST) 500 ML MDV IV ONE (21:06)
[2022-02-28] MEDS ORDERED: Albuterol HFA INHALER 8 gm MDI INH ONE (21:08)
[2022-02-28] MEDS ORDERED: oxyCODONE SR 10 mg TAB PO ONE (23:56)
[2022-03-01 01:48] LABS: C Reactive Protein 87.81 mg/L (<8.01)
[2022-03-01] MEDS ORDERED: Enoxaparin 60 MG/0.6 ML SYR SUBCUT SCH (03:00)
[2022-03-01 06:25] LABS: ABS Eosinophils 0.3 10^3/ul (0-0.6); ABS Lymphocytes 0.9 10^3/ul (1.0-4.8); ABS Monocytes 0.5 10^3/ul (0-0.8); ABS Neutrophils 5.9 10^3/ul (1.5-7.7); Eosinophil % 3.7 %; Hematocrit 32 % (42-52); Hemoglobin 9.8 g/dL (14.0-18.0); Mean Corpuscular HGB Conc 31 g/dL (31-36); Mean Corpuscular Hemoglobin 25 pg (27-31); Mean Corpuscular Volume 80 fL (80-94); Mean Platelet Volume 6.9 fL (7.4-10.4); Platelet Count 307 10^3/uL (150-450); Red Blood Count 3.97 10^6 /uL (4.18-5.48); Red Cell Distribution Width 19 % (10-15); White Blood Count 7.6 10^3/uL (3.5-10.8)
[2022-03-01 06:31] LABS: Urine Appearance Clear; Urine Bilirubin Negative (Negative); Urine Blood 2+ (Negative); Urine Color Yellow; Urine Glucose Negative (Negative); Urine Ketones Negative (Negative); Urine Nitrite Negative (Negative); Urine Protein Negative (Negative); Urine Specific Gravity 1.021 (1.002-1.030); Urine Urobilinogen Negative (Negative)
[2022-03-01 06:47] LABS: Urine Bacteria Absent (Absent); Urine Red Blood Cell 2+(6-10/hpf) (Absent); Urine Squamous Epithelial Cell Present (Absent); Urine White Blood Cell Absent (Absent)
[2022-03-01 06:59] LABS: Anion Gap 6 mmol/L (2-11); CO2 Carbon Dioxide 33 mmol/L (22-32); Calcium 8.4 mg/dL (8.6-10.3); Chloride 100 mmol/L (101-111); Magnesium 2.1 mg/dL (1.9-2.7); Potassium 3.9 mmol/L (3.5-5.0); Sodium 139 mmol/L (135-145)
[2022-03-01 07:05] LABS: Blood Urea Nitrogen 14 mg/dL (6-24); Glucose 101 mg/dL (70-100); eGFR CKD-EPI 96.9 (>60)
[2022-03-01 09:28] LABS: Lipase < 10 U/L (11.0-82.0)
[2022-03-01] MEDS: DULoxetine DR 30 mg CAP PO SCH (10:30)
[2022-03-01] MEDS: DULoxetine DR 60 mg CAP PO SCH (10:30)
[2022-03-01] MEDS ORDERED: Perflutren Lipid Microsphere 3 ML VIAL ONE (14:37)
[2022-03-01] MEDS: Mometasone/Formoter 200/5 MDI INH SCH ×2 (15:03→19:20)
[2022-03-01] MEDS: Senna TAB 8.6 mg TAB PO SCH (20:33)
[2022-03-01] MEDS: Lurasidone 120 mg TAB PO SCH (20:34)
[2022-03-02 06:59] LABS: Hematocrit 32 % (42-52); Hemoglobin 9.9 g/dL (14.0-18.0); Mean Corpuscular HGB Conc 31 g/dL (31-36); Mean Corpuscular Hemoglobin 25 pg (27-31); Mean Corpuscular Volume 80 fL (80-94); Mean Platelet Volume 7.1 fL (7.4-10.4); Platelet Count 296 10^3/uL (150-450); Red Blood Count 4.01 10^6 /uL (4.18-5.48); Red Cell Distribution Width 19 % (10-15); White Blood Count 5.6 10^3/uL (3.5-10.8)
[2022-03-02 07:27] LABS: Calcium 8.8 mg/dL (8.6-10.3); Magnesium 2.1 mg/dL (1.9-2.7); Potassium 4.1 mmol/L (3.5-5.0); eGFR CKD-EPI 113.9 (>60)
[2022-03-02] MEDS: Mometasone/Formoter 200/5 MDI INH SCH ×2 (08:35→21:14)
[2022-03-02] MEDS: DULoxetine DR 60 mg CAP PO SCH (09:13)
[2022-03-02] MEDS: DULoxetine DR 30 mg CAP PO SCH (09:13)
[2022-03-02] MEDS: Enoxaparin 40 MG/0.4 ML SYR SUBCUT SCH (09:13)
[2022-03-02] MEDS: Albuterol HFA INHALER 8 gm MDI INH PRN (13:00)
[2022-03-02] MEDS ORDERED: Furosemide 100 mg/10 ml IV VIAL IV ONE (14:13)
[2022-03-02] MEDS ORDERED: Furosemide 40 mg/4 ml IV VIAL ONE (14:28)
[2022-03-02 15:10] LABS: Urine Appearance Cloudy; Urine Bilirubin Negative (Negative); Urine Blood 2+ (Negative); Urine Color Yellow; Urine Glucose Negative (Negative); Urine Ketones Negative (Negative); Urine Nitrite Negative (Negative); Urine Protein Negative (Negative); Urine Specific Gravity 1.019 (1.002-1.030); Urine Urobilinogen Negative (Negative)
[2022-03-02 15:40] LABS: Urine Bacteria Absent (Absent); Urine Red Blood Cell 3+(>10/hpf) (Absent); Urine Squamous Epithelial Cell Present (Absent); Urine White Blood Cell Trace(0-5/hpf) (Absent)
[2022-03-02] MEDS: Senna TAB 8.6 mg TAB PO SCH (20:19)
[2022-03-02] MEDS: Lurasidone 120 mg TAB PO SCH (20:19)
[2022-03-03 06:58] LABS: Calcium 8.3 mg/dL (8.6-10.3); Magnesium 1.9 mg/dL (1.9-2.7); eGFR CKD-EPI 115.8 (>60)
[2022-03-03] MEDS: Enoxaparin 40 MG/0.4 ML SYR SUBCUT SCH (08:16)
[2022-03-03] MEDS: DULoxetine DR 60 mg CAP PO SCH (08:16)
[2022-03-03] MEDS: DULoxetine DR 30 mg CAP PO SCH (08:16)
[2022-03-03] MEDS: Albuterol HFA INHALER 8 gm MDI INH PRN (08:22)
[2022-03-03] MEDS: Mometasone/Formoter 200/5 MDI INH SCH ×2 (08:23→19:10)
[2022-03-03] MEDS: Bumetanide IV 0.25 MG/ML 4 ml VIAL (1 mg) SLOW PUSH SCH ×2 (14:14→16:35)
[2022-03-03] MEDS: Senna TAB 8.6 mg TAB PO SCH (21:00)
[2022-03-03] MEDS: Lurasidone 120 mg TAB PO SCH (21:04)
[2022-03-03] MEDS: Nystatin TOP POWDER 15 GM BTL TOPICAL SCH (22:53)
[2022-03-04] MEDS: Mometasone/Formoter 200/5 MDI INH SCH ×2 (07:18→20:32)
[2022-03-04] MEDS: DULoxetine DR 30 mg CAP PO SCH (08:34)
[2022-03-04] MEDS: Bumetanide IV 0.25 MG/ML 4 ml VIAL (1 mg) SLOW PUSH SCH ×2 (08:34→16:03)
[2022-03-04] MEDS: DULoxetine DR 60 mg CAP PO SCH (08:34)
[2022-03-04] MEDS: Enoxaparin 40 MG/0.4 ML SYR SUBCUT SCH (08:34)
[2022-03-04] MEDS: Nystatin TOP POWDER 15 GM BTL TOPICAL SCH ×2 (08:35→20:27)
[2022-03-04 09:39] LABS: Calcium 8.5 mg/dL (8.6-10.3); Magnesium 1.7 mg/dL (1.9-2.7); Potassium 3.8 mmol/L (3.5-5.0); eGFR CKD-EPI 111.2 (>60)
[2022-03-04] MEDS ORDERED: Magnesium Sulfate IV 3 GM in NS 0.9% 100 ml BAG 100 ML IVPB ONE (18:02)
[2022-03-04] MEDS ORDERED: Magnesium Sulfate 2 GM IV (Premix) IVPB ONE (19:00)
[2022-03-04] MEDS ORDERED: Magnesium Sulfate 1 GM IV 1 GM/100 ML BAG IV ONE (20:00)
[2022-03-04] MEDS: cefTRIAXone 1 gm/50 mL D5W 1 GM/50 ML BAG IV SCH (20:21)
[2022-03-04] MEDS: Senna TAB 8.6 mg TAB PO SCH (20:26)
[2022-03-04] MEDS: Lurasidone 120 mg TAB PO SCH (20:27)
[2022-03-05 07:09] LABS: Calcium 8.4 mg/dL (8.6-10.3); Magnesium 2.3 mg/dL (1.9-2.7); eGFR CKD-EPI 114.3 (>60)
[2022-03-05] MEDS: Mometasone/Formoter 200/5 MDI INH SCH ×2 (07:20→20:29)
[2022-03-05] MEDS: DULoxetine DR 60 mg CAP PO SCH (10:16)
[2022-03-05] MEDS: Nystatin TOP POWDER 15 GM BTL TOPICAL SCH ×2 (10:17→20:44)
[2022-03-05] MEDS: Bumetanide IV 0.25 MG/ML 4 ml VIAL (1 mg) SLOW PUSH SCH ×2 (10:17→16:27)
[2022-03-05] MEDS: DULoxetine DR 30 mg CAP PO SCH (10:17)
[2022-03-05] MEDS: Enoxaparin 40 MG/0.4 ML SYR SUBCUT SCH (10:17)
[2022-03-05] MEDS: cefTRIAXone 1 gm/50 mL D5W 1 GM/50 ML BAG IV SCH (18:26)
[2022-03-05] MEDS: Lurasidone 120 mg TAB PO SCH (20:44)
[2022-03-05] MEDS: Senna TAB 8.6 mg TAB PO SCH (20:44)
[2022-03-06] MEDS: Mometasone/Formoter 200/5 MDI INH SCH ×2 (08:32→20:48)
[2022-03-06] MEDS: Bumetanide IV 0.25 MG/ML 4 ml VIAL (1 mg) SLOW PUSH SCH ×2 (09:12→16:27)
[2022-03-06] MEDS: DULoxetine DR 30 mg CAP PO SCH (09:13)
[2022-03-06] MEDS: Enoxaparin 40 MG/0.4 ML SYR SUBCUT SCH (09:13)
[2022-03-06] MEDS: DULoxetine DR 60 mg CAP PO SCH (09:13)
[2022-03-06] MEDS: Nystatin TOP POWDER 15 GM BTL TOPICAL SCH ×2 (09:18→20:15)
[2022-03-06] MEDS: cefTRIAXone 1 gm/50 mL D5W 1 GM/50 ML BAG IV SCH (18:35)
[2022-03-06] MEDS: Lurasidone 120 mg TAB PO SCH (20:14)
[2022-03-06] MEDS: Senna TAB 8.6 mg TAB PO SCH (20:14)
[2022-03-06] MEDS: Albuterol HFA INHALER 8 gm MDI INH PRN (20:46)
[2022-03-07 05:48] LABS: Calcium 8.2 mg/dL (8.6-10.3); Magnesium 1.9 mg/dL (1.9-2.7); Potassium 3.7 mmol/L (3.5-5.0); eGFR CKD-EPI 113.9 (>60)
[2022-03-07] MEDS: DULoxetine DR 30 mg CAP PO SCH (08:40)
[2022-03-07] MEDS: DULoxetine DR 60 mg CAP PO SCH (08:40)
[2022-03-07] MEDS: Enoxaparin 40 MG/0.4 ML SYR SUBCUT SCH (08:41)
[2022-03-07] MEDS: Bumetanide IV 0.25 MG/ML 4 ml VIAL (1 mg) SLOW PUSH SCH ×2 (08:41→16:44)
[2022-03-07] MEDS: Mometasone/Formoter 200/5 MDI INH SCH ×2 (08:42→19:29)
[2022-03-07] MEDS: Nystatin TOP POWDER 15 GM BTL TOPICAL SCH ×2 (09:00→20:31)
[2022-03-07] MEDS: cefTRIAXone 1 gm/50 mL D5W 1 GM/50 ML BAG IV SCH (17:45)
[2022-03-07] MEDS: Albuterol HFA INHALER 8 gm MDI INH PRN (19:29)
[2022-03-07] MEDS: Lurasidone 120 mg TAB PO SCH (20:06)
[2022-03-07] MEDS: Senna TAB 8.6 mg TAB PO SCH (20:06)
[2022-03-08 06:09] LABS: Hematocrit 35 % (42-52); Hemoglobin 10.8 g/dL (14.0-18.0); Mean Corpuscular HGB Conc 31 g/dL (31-36); Mean Corpuscular Hemoglobin 24 pg (27-31); Mean Corpuscular Volume 79 fL (80-94); Mean Platelet Volume 7.6 fL (7.4-10.4); Platelet Count 238 10^3/uL (150-450); Red Blood Count 4.45 10^6 /uL (4.18-5.48); Red Cell Distribution Width 19 % (10-15); White Blood Count 4.1 10^3/uL (3.5-10.8)
[2022-03-08 06:30] LABS: Magnesium 1.9 mg/dL (1.9-2.7); Potassium 3.5 mmol/L (3.5-5.0); eGFR CKD-EPI 105.9 (>60)
[2022-03-08] MEDS: Mometasone/Formoter 200/5 MDI INH SCH ×2 (07:59→20:01)
[2022-03-08] MEDS: DULoxetine DR 30 mg CAP PO SCH (09:09)
[2022-03-08] MEDS: DULoxetine DR 60 mg CAP PO SCH (09:09)
[2022-03-08] MEDS: Enoxaparin 40 MG/0.4 ML SYR SUBCUT SCH (09:11)
[2022-03-08] MEDS: Bumetanide IV 0.25 MG/ML 4 ml VIAL (1 mg) SLOW PUSH SCH ×2 (09:11→17:01)
[2022-03-08] MEDS: Nystatin TOP POWDER 15 GM BTL TOPICAL SCH ×2 (09:25→20:20)
[2022-03-08] MEDS: cefTRIAXone 1 gm/50 mL D5W 1 GM/50 ML BAG IV SCH (17:01)
[2022-03-08] MEDS: Senna TAB 8.6 mg TAB PO SCH (20:17)
[2022-03-08] MEDS: Lurasidone 120 mg TAB PO SCH (20:18)
[2022-03-09 06:34] LABS: Calcium 9.1 mg/dL (8.6-10.3); Magnesium 1.9 mg/dL (1.9-2.7); Potassium 3.2 mmol/L (3.5-5.0)
[2022-03-09] MEDS ORDERED: Potassium Chlor 20 meq TAB.ER PO ONE (07:11)
[2022-03-09] MEDS ORDERED: Magnesium Sulfate 2 gm BAG 2 GM/50 ML BAG IVPB ONE (07:11)
[2022-03-09] MEDS: Mometasone/Formoter 200/5 MDI INH SCH ×2 (07:39→19:46)
[2022-03-09] MEDS: DULoxetine DR 30 mg CAP PO SCH (08:37)
[2022-03-09] MEDS: DULoxetine DR 60 mg CAP PO SCH (08:37)
[2022-03-09] MEDS: Enoxaparin 40 MG/0.4 ML SYR SUBCUT SCH (08:38)
[2022-03-09] MEDS: Bumetanide IV 0.25 MG/ML 4 ml VIAL (1 mg) SLOW PUSH SCH ×2 (08:38→16:07)
[2022-03-09] MEDS: Nystatin TOP POWDER 15 GM BTL TOPICAL SCH ×2 (09:42→20:13)
[2022-03-09] MEDS: Lurasidone 120 mg TAB PO SCH (20:12)
[2022-03-09] MEDS: Senna TAB 8.6 mg TAB PO SCH (20:13)
[2022-03-10 05:54] LABS: Calcium 9.1 mg/dL (8.6-10.3); Potassium 2.9 mmol/L (3.5-5.0); eGFR CKD-EPI 113.4 (>60)
[2022-03-10] MEDS ORDERED: Potassium Chlor 20 meq TAB.ER PO ONE (07:28)
[2022-03-10] MEDS: Mometasone/Formoter 200/5 MDI INH SCH ×2 (07:39→20:38)
[2022-03-10] MEDS: KCL 10 MEQ/50 ML IVPREMIX 10 MEQ/50 ML BAG IV SCH ×3 (08:21→10:07)
[2022-03-10] MEDS: Bumetanide IV 0.25 MG/ML 4 ml VIAL (1 mg) SLOW PUSH SCH ×2 (08:21→16:19)
[2022-03-10] MEDS: Enoxaparin 40 MG/0.4 ML SYR SUBCUT SCH (08:21)
[2022-03-10] MEDS: DULoxetine DR 30 mg CAP PO SCH (08:22)
[2022-03-10] MEDS: DULoxetine DR 60 mg CAP PO SCH (08:22)
[2022-03-10] MEDS: Nystatin TOP POWDER 15 GM BTL TOPICAL SCH ×2 (08:23→20:37)
[2022-03-10 17:37] LABS: Calcium 8.9 mg/dL (8.6-10.3); Potassium 3.1 mmol/L (3.5-5.0); eGFR CKD-EPI 87.2 (>60)
[2022-03-10] MEDS: Senna TAB 8.6 mg TAB PO SCH (20:35)
[2022-03-10] MEDS: Lurasidone 120 mg TAB PO SCH (20:35)
[2022-03-11] MEDS: Mometasone/Formoter 200/5 MDI INH SCH ×2 (07:08→19:37)
[2022-03-11 07:55] LABS: Calcium 9.1 mg/dL (8.6-10.3); Magnesium 1.9 mg/dL (1.9-2.7); eGFR CKD-EPI 110.8 (>60)
[2022-03-11] MEDS: Bumetanide IV 0.25 MG/ML 4 ml VIAL (1 mg) SLOW PUSH SCH ×2 (08:59→16:13)
[2022-03-11] MEDS: DULoxetine DR 30 mg CAP PO SCH (09:01)
[2022-03-11] MEDS: DULoxetine DR 60 mg CAP PO SCH (09:03)
[2022-03-11] MEDS: Enoxaparin 40 MG/0.4 ML SYR SUBCUT SCH (09:04)
[2022-03-11] MEDS: Nystatin TOP POWDER 15 GM BTL TOPICAL SCH ×2 (09:07→21:26)
[2022-03-11] MEDS ORDERED: Potassium Chlor 20 meq TAB.ER PO ONE ×2 (09:44→14:00)
[2022-03-11] MEDS: Enoxaparin 60 MG/0.6 ML SYR SUBCUT SCH (21:24)
[2022-03-11] MEDS: Senna TAB 8.6 mg TAB PO SCH (21:25)
[2022-03-11] MEDS: Lurasidone 120 mg TAB PO SCH (21:26)
[2022-03-12 06:35] LABS: ABS Eosinophils 0.2 10^3/ul (0-0.6); ABS Lymphocytes 1.8 10^3/ul (1.0-4.8); ABS Monocytes 0.6 10^3/ul (0-0.8); ABS Neutrophils 4.2 10^3/ul (1.5-7.7); Hematocrit 34 % (42-52); Hemoglobin 10.6 g/dL (14.0-18.0); Lymphocyte % 26.4 %; Mean Corpuscular HGB Conc 32 g/dL (31-36); Mean Corpuscular Hemoglobin 24 pg (27-31); Mean Corpuscular Volume 78 fL (80-94); Mean Platelet Volume 7.7 fL (7.4-10.4); Platelet Count 248 10^3/uL (150-450); Red Blood Count 4.36 10^6 /uL (4.18-5.48); Red Cell Distribution Width 19 % (10-15); White Blood Count 6.8 10^3/uL (3.5-10.8)
[2022-03-12] MEDS: Mometasone/Formoter 200/5 MDI INH SCH ×2 (07:12→21:02)
[2022-03-12 07:13] LABS: Calcium 9.1 mg/dL (8.6-10.3); Potassium 3.2 mmol/L (3.5-5.0); eGFR CKD-EPI 111.2 (>60)
[2022-03-12] MEDS: Bumetanide IV 0.25 MG/ML 4 ml VIAL (1 mg) SLOW PUSH SCH ×2 (09:23→20:41)
[2022-03-12] MEDS: Enoxaparin 60 MG/0.6 ML SYR SUBCUT SCH ×2 (09:24→20:41)
[2022-03-12] MEDS: DULoxetine DR 30 mg CAP PO SCH (09:24)
[2022-03-12] MEDS: DULoxetine DR 60 mg CAP PO SCH (09:24)
[2022-03-12] MEDS: Nystatin TOP POWDER 15 GM BTL TOPICAL SCH ×2 (09:44→20:57)
[2022-03-12] MEDS: Lurasidone 120 mg TAB PO SCH (20:40)
[2022-03-12] MEDS: Senna TAB 8.6 mg TAB PO SCH (20:40)
[2022-03-13 06:46] LABS: Calcium 8.8 mg/dL (8.6-10.3); eGFR CKD-EPI 110.8 (>60)
[2022-03-13] MEDS ORDERED: Potassium Chlor 20 meq TAB.ER PO ONE ×2 (07:53→14:00)
[2022-03-13] MEDS: Mometasone/Formoter 200/5 MDI INH SCH ×2 (08:25→19:29)
[2022-03-13] MEDS: Bumetanide IV 0.25 MG/ML 4 ml VIAL (1 mg) SLOW PUSH SCH ×2 (10:44→16:36)
[2022-03-13] MEDS: DULoxetine DR 60 mg CAP PO SCH (10:44)
[2022-03-13] MEDS: DULoxetine DR 30 mg CAP PO SCH (10:45)
[2022-03-13] MEDS: Enoxaparin 60 MG/0.6 ML SYR SUBCUT SCH ×2 (10:46→21:42)
[2022-03-13] MEDS: Nystatin TOP POWDER 15 GM BTL TOPICAL SCH ×2 (10:47→21:46)
[2022-03-13] MEDS: Lurasidone 120 mg TAB PO SCH (21:42)
[2022-03-13] MEDS: Senna TAB 8.6 mg TAB PO SCH (21:43)
[2022-03-14 05:43] LABS: Calcium 8.6 mg/dL (8.6-10.3); Potassium 3.1 mmol/L (3.5-5.0)
[2022-03-14] MEDS ORDERED: Potassium Chlor 20 meq TAB.ER PO ONE (06:49)
[2022-03-14] MEDS: Mometasone/Formoter 200/5 MDI INH SCH ×2 (07:47→19:55)
[2022-03-14] MEDS: Bumetanide IV 0.25 MG/ML 4 ml VIAL (1 mg) SLOW PUSH SCH ×2 (08:25→16:38)
[2022-03-14] MEDS: Enoxaparin 60 MG/0.6 ML SYR SUBCUT SCH ×2 (08:25→20:57)
[2022-03-14] MEDS: DULoxetine DR 60 mg CAP PO SCH (08:26)
[2022-03-14] MEDS: DULoxetine DR 30 mg CAP PO SCH (08:26)
[2022-03-14] MEDS: Nystatin TOP POWDER 15 GM BTL TOPICAL SCH ×2 (08:33→21:01)
[2022-03-14] MEDS ORDERED: Potassium Chlor 20 meq TAB.ER PO SCH (09:00)
[2022-03-14] MEDS: Lurasidone 120 mg TAB PO SCH (20:57)
[2022-03-14] MEDS: Potassium Chlor 20 meq TAB.ER PO SCH (20:57)
[2022-03-14] MEDS: Senna TAB 8.6 mg TAB PO SCH (20:57)
[2022-03-15 06:33] LABS: Calcium 8.8 mg/dL (8.6-10.3); Magnesium 2.2 mg/dL (1.9-2.7); Potassium 3.4 mmol/L (3.5-5.0); eGFR CKD-EPI 108.1 (>60)
[2022-03-15] MEDS: Mometasone/Formoter 200/5 MDI INH SCH ×2 (07:01→19:57)
[2022-03-15] MEDS ORDERED: Potassium Chlor 20 meq TAB.ER PO ONE (08:40)
[2022-03-15] MEDS: Bumetanide IV 0.25 MG/ML 4 ml VIAL (1 mg) SLOW PUSH SCH ×2 (09:20→17:20)
[2022-03-15] MEDS: Enoxaparin 60 MG/0.6 ML SYR SUBCUT SCH ×2 (09:20→20:58)
[2022-03-15] MEDS: DULoxetine DR 60 mg CAP PO SCH (09:20)
[2022-03-15] MEDS: Nystatin TOP POWDER 15 GM BTL TOPICAL SCH ×2 (09:22→20:58)
[2022-03-15] MEDS: DULoxetine DR 30 mg CAP PO SCH (09:22)
[2022-03-15] MEDS: Potassium Chlor 20 meq TAB.ER PO SCH ×2 (09:22→20:55)
[2022-03-15] MEDS ORDERED: Bumetanide IV 0.25 MG/ML 4 ml VIAL (1 mg) SLOW PUSH ONE (12:40)
[2022-03-15 18:21] LABS: Rapid COVID-19 Molecular Detected (Undetected)
[2022-03-15] MEDS: Senna TAB 8.6 mg TAB PO SCH (20:55)
[2022-03-15] MEDS: Lurasidone 120 mg TAB PO SCH (20:56)
[2022-03-16] MEDS ORDERED: Remdesivir 100 mg Vial 200 MG in NS 0.9% 250 ml 210 ML IV ONE (04:45)
[2022-03-16 05:13] LABS: INR 1.22 (0.86-1.15)
[2022-03-16 05:36] LABS: Albumin 3.7 g/dL (3.2-5.2); Albumin/Globulin Ratio 1.1 (1-3); Calcium 8.9 mg/dL (8.6-10.3); Globulin 3.4 g/dL (2-4); Total Bilirubin 0.6 mg/dL (0.2-1.0); Total Protein 7.1 g/dL (6.4-8.9)
[2022-03-16] MEDS: Mometasone/Formoter 200/5 MDI INH SCH ×2 (08:47→20:17)
[2022-03-16] MEDS: DULoxetine DR 60 mg CAP PO SCH (08:49)
[2022-03-16] MEDS: Potassium Chlor 20 meq TAB.ER PO SCH ×2 (08:49→22:03)
[2022-03-16] MEDS: Nystatin TOP POWDER 15 GM BTL TOPICAL SCH (08:49)
[2022-03-16] MEDS: DULoxetine DR 30 mg CAP PO SCH (08:49)
[2022-03-16] MEDS: Enoxaparin 60 MG/0.6 ML SYR SUBCUT SCH ×2 (08:50→22:03)
[2022-03-16] MEDS: Bumetanide IV 0.25 MG/ML 4 ml VIAL (1 mg) SLOW PUSH SCH (09:26)
[2022-03-16] MEDS: Lurasidone 120 mg TAB PO SCH (22:03)
[2022-03-16] MEDS: Senna TAB 8.6 mg TAB PO SCH (22:04)
[2022-03-17 06:48] LABS: ABS Basophils 0.1 10^3/ul (0-0.2); ABS Eosinophils 0.4 10^3/ul (0-0.6); ABS Lymphocytes 1.5 10^3/ul (1.0-4.8); ABS Monocytes 0.6 10^3/ul (0-0.8); ABS Neutrophils 5.1 10^3/ul (1.5-7.7); Eosinophil % 5.5 %; Hematocrit 32 % (42-52); Hemoglobin 9.9 g/dL (14.0-18.0); Mean Corpuscular HGB Conc 31 g/dL (31-36); Mean Corpuscular Hemoglobin 25 pg (27-31); Mean Corpuscular Volume 78 fL (80-94); Mean Platelet Volume 7.5 fL (7.4-10.4); Platelet Count 330 10^3/uL (150-450); Red Blood Count 4.05 10^6 /uL (4.18-5.48); Red Cell Distribution Width 19 % (10-15); White Blood Count 7.6 10^3/uL (3.5-10.8)
[2022-03-17 07:06] LABS: INR 1.23 (0.86-1.15)
[2022-03-17 07:44] LABS: Albumin 3.3 g/dL (3.2-5.2); Calcium 8.5 mg/dL (8.6-10.3); Globulin 3.4 g/dL (2-4); Potassium 3.8 mmol/L (3.5-5.0); Total Bilirubin 0.4 mg/dL (0.2-1.0); Total Protein 6.7 g/dL (6.4-8.9); eGFR CKD-EPI 109.6 (>60)
[2022-03-17] MEDS: Mometasone/Formoter 200/5 MDI INH SCH ×2 (08:01→19:46)
[2022-03-17] MEDS: Enoxaparin 60 MG/0.6 ML SYR SUBCUT SCH ×2 (08:52→20:00)
[2022-03-17] MEDS: DULoxetine DR 30 mg CAP PO SCH (08:52)
[2022-03-17] MEDS: DULoxetine DR 60 mg CAP PO SCH (08:52)
[2022-03-17] MEDS: Potassium Chlor 20 meq TAB.ER PO SCH ×2 (08:53→19:58)
[2022-03-17] MEDS: Remdesivir 100 mg Vial 100 MG in NS 0.9% 250 ml 230 ML IV SCH (08:54)
[2022-03-17] MEDS ORDERED: Iohexol 350 (CONTRAST) 500 ML MDV IV ONE (11:25)
[2022-03-17] MEDS: Lurasidone 120 mg TAB PO SCH (19:59)
[2022-03-17] MEDS: Senna TAB 8.6 mg TAB PO SCH (20:00)
[2022-03-18 06:10] LABS: INR 1.23 (0.86-1.15)
[2022-03-18 06:29] LABS: Albumin 3.2 g/dL (3.2-5.2); Calcium 8.2 mg/dL (8.6-10.3); Globulin 3.2 g/dL (2-4); Potassium 3.8 mmol/L (3.5-5.0); Total Bilirubin 0.4 mg/dL (0.2-1.0); Total Protein 6.4 g/dL (6.4-8.9); eGFR CKD-EPI 110.8 (>60)
[2022-03-18] MEDS: Mometasone/Formoter 200/5 MDI INH SCH ×2 (07:16→20:46)
[2022-03-18] MEDS: Potassium Chlor 20 meq TAB.ER PO SCH ×2 (08:09→22:23)
[2022-03-18] MEDS: DULoxetine DR 30 mg CAP PO SCH (08:09)
[2022-03-18] MEDS: DULoxetine DR 60 mg CAP PO SCH (08:09)
[2022-03-18] MEDS: Enoxaparin 60 MG/0.6 ML SYR SUBCUT SCH ×2 (08:11→22:26)
[2022-03-18] MEDS: Remdesivir 100 mg Vial 100 MG in NS 0.9% 250 ml 230 ML IV SCH (08:16)
[2022-03-18] MEDS: Albuterol HFA INHALER 8 gm MDI INH PRN (20:46)
[2022-03-18] MEDS: Senna TAB 8.6 mg TAB PO SCH (22:23)
[2022-03-18] MEDS: Lurasidone 120 mg TAB PO SCH (22:24)
[2022-03-19 06:30] LABS: INR 1.28 (0.86-1.15)
[2022-03-19 06:46] LABS: Albumin 3.2 g/dL (3.2-5.2); Calcium 8.4 mg/dL (8.6-10.3); Globulin 3.3 g/dL (2-4); Potassium 4.1 mmol/L (3.5-5.0); Total Bilirubin 0.4 mg/dL (0.2-1.0); Total Protein 6.5 g/dL (6.4-8.9); eGFR CKD-EPI 113.4 (>60)
[2022-03-19] MEDS: Remdesivir 100 mg Vial 100 MG in NS 0.9% 250 ml 230 ML IV SCH (07:59)
[2022-03-19] MEDS: Potassium Chlor 20 meq TAB.ER PO SCH (07:59)
[2022-03-19] MEDS: Enoxaparin 60 MG/0.6 ML SYR SUBCUT SCH (07:59)
[2022-03-19] MEDS: DULoxetine DR 30 mg CAP PO SCH (08:00)
[2022-03-19] MEDS: DULoxetine DR 60 mg CAP PO SCH (08:01)
[2022-03-19] MEDS: Mometasone/Formoter 200/5 MDI INH SCH (09:03)
[2022-03-19] MEDS: Albuterol HFA INHALER 8 gm MDI INH PRN (09:03)
[2022-03-19 11:34] VITALS: BP 126/91
[2022-03-19 18:58] LABS: XCalcitriol 45 pg/mL (18-64)
== END 2022-03-19 13:14 | disposition home health service (06) | DRG 133 ==
LOC: ED 17:21 → EDHOLD 23:53 → SUATTDRO 23:53 → MEDTELE 03-01 08:11
PROVIDERS: ADMIT Internal Medicine; ATTEND Internal Medicine

== ENCOUNTER 2022-03-28 17:28 | Inpatient (IN) ==
[2022-03-28 18:11] LABS: PCO2 Arterial 61 mmHg (35-45); PO2 Arterial 100 mmHg (80-100)
[2022-03-28 18:18] LABS: ABS Eosinophils 0.3 10^3/ul (0-0.6); ABS Lymphocytes 1.2 10^3/ul (1.0-4.8); ABS Monocytes 0.5 10^3/ul (0-0.8); Eosinophil % 3.7 %; Hematocrit 29 % (42-52); Hemoglobin 8.9 g/dL (14.0-18.0); Lymphocyte % 16.5 %; Mean Corpuscular HGB Conc 31 g/dL (31-36); Mean Corpuscular Hemoglobin 24 pg (27-31); Mean Corpuscular Volume 78 fL (80-94); Mean Platelet Volume 6.9 fL (7.4-10.4); Platelet Count 271 10^3/uL (150-450); Red Blood Count 3.69 10^6 /uL (4.18-5.48); Red Cell Distribution Width 19 % (10-15)
[2022-03-28] MEDS ORDERED: Furosemide 40 mg/4 ml IV VIAL IV SLOW PU ONE (18:53)
[2022-03-28 18:55] LABS: High Sens Troponin Baseline < 3 pg/mL (<20)
[2022-03-28 19:29] LABS: ALT 12 U/L (7-52); AST 12 U/L (13-39); Albumin 3.2 g/dL (3.2-5.2); Alkaline Phosphatase 65 U/L (35-149); Anion Gap 7 mmol/L (2-11); Blood Urea Nitrogen 14 mg/dL (6-24); CO2 Carbon Dioxide 35 mmol/L (22-32); Calcium 7.9 mg/dL (8.6-10.3); Chloride 97 mmol/L (101-111); Globulin 3.2 g/dL (2-4); Glucose 91 mg/dL (70-100); Potassium 3.9 mmol/L (3.5-5.0); Sodium 139 mmol/L (135-145); Total Protein 6.4 g/dL (6.4-8.9); eGFR CKD-EPI 108.4 (>60)
[2022-03-28 19:54] LABS: High Sensitivity Troponin 1 Hr < 3 pg/mL (<20)
[2022-03-28 21:47] LABS: PCO2 Arterial 60 mmHg (35-45); PO2 Arterial 114 mmHg (80-100)
[2022-03-28] MEDS ORDERED: Bumetanide IV 0.25 MG/ML 4 ml VIAL (1 mg) SLOW PUSH ONE (23:19)
[2022-03-28] MEDS ORDERED: Albuterol HFA INHALER 8 gm MDI INH PRN (23:20)
[2022-03-28] MEDS: Enoxaparin 40 MG/0.4 ML SYR SUBCUT SCH (23:39)
[2022-03-29 06:35] LABS: Calcium 7.9 mg/dL (8.6-10.3); Magnesium 2.1 mg/dL (1.9-2.7)
[2022-03-29 06:37] LABS: Hematocrit 32 % (42-52); Hemoglobin 9.9 g/dL (14.0-18.0); Mean Corpuscular HGB Conc 31 g/dL (31-36); Mean Corpuscular Hemoglobin 24 pg (27-31); Mean Corpuscular Volume 78 fL (80-94); Red Blood Count 4.12 10^6 /uL (4.18-5.48); Red Cell Distribution Width 20 % (10-15); White Blood Count 4.9 10^3/uL (3.5-10.8)
[2022-03-29 06:38] LABS: ABS Eosinophils 0.2 10^3/ul (0-0.6); ABS Monocytes 0.3 10^3/ul (0-0.8); ABS Neutrophils 3.4 10^3/ul (1.5-7.7); Eosinophil % 4.4 %; Lymphocyte % 19.6 %; Nucleated Red Blood Cells % 0.1
[2022-03-29 06:39] LABS: Platelet Count Platelets clumped. 10^3/uL (150-450)
[2022-03-29 06:41] LABS: eGFR CKD-EPI 101.9 (>60)
[2022-03-29] MEDS: Mometasone/Formoter 200/5 MDI INH SCH ×2 (07:23→19:38)
[2022-03-29] MEDS: Nystatin TOP POWDER 15 GM BTL TOPICAL SCH ×2 (09:15→20:53)
[2022-03-29] MEDS: Cholecalciferol (VIT D3) 400 units TAB PO SCH (09:15)
[2022-03-29] MEDS: DULoxetine DR 60 mg CAP PO SCH (09:15)
[2022-03-29] MEDS: Calcium/Vitamin D TAB 250/125 TAB PO SCH (09:15)
[2022-03-29] MEDS: DULoxetine DR 30 mg CAP PO SCH (09:15)
[2022-03-29] MEDS: Iron Sucrose 200 MG in NS 0.9% 100 ml BAG 100 ML IVPB SCH (09:15)
[2022-03-29] MEDS ORDERED: Furosemide 40 mg/4 ml IV VIAL IV ONE (10:55)
[2022-03-29 11:39] LABS: Urine Appearance Clear; Urine Bilirubin Negative (Negative); Urine Blood Negative (Negative); Urine Color Yellow; Urine Glucose Negative (Negative); Urine Ketones Negative (Negative); Urine Nitrite Negative (Negative); Urine Protein Negative (Negative); Urine Specific Gravity 1.014 (1.002-1.030); Urine Urobilinogen Negative (Negative)
[2022-03-29] MEDS: Lurasidone 120 mg TAB PO SCH (20:42)
[2022-03-29] MEDS: Senna TAB 8.6 mg TAB PO SCH (20:43)
[2022-03-29] MEDS: Enoxaparin 40 MG/0.4 ML SYR SUBCUT SCH (22:58)
[2022-03-30] MEDS: Mometasone/Formoter 200/5 MDI INH SCH ×2 (07:24→18:59)
[2022-03-30] MEDS: Iron Sucrose 200 MG in NS 0.9% 100 ml BAG 100 ML IVPB SCH (07:38)
[2022-03-30] MEDS: Calcium/Vitamin D TAB 250/125 TAB PO SCH (07:38)
[2022-03-30 07:39] LABS: ABS Eosinophils 0.3 10^3/ul (0-0.6); ABS Lymphocytes 1.1 10^3/ul (1.0-4.8); ABS Monocytes 0.4 10^3/ul (0-0.8); ABS Neutrophils 3.2 10^3/ul (1.5-7.7); Eosinophil % 5.3 %; Hematocrit 31 % (42-52); Hemoglobin 9.6 g/dL (14.0-18.0); Lymphocyte % 22.6 %; Mean Corpuscular HGB Conc 31 g/dL (31-36); Mean Corpuscular Hemoglobin 25 pg (27-31); Mean Corpuscular Volume 79 fL (80-94); Mean Platelet Volume 6.9 fL (7.4-10.4); Platelet Count 245 10^3/uL (150-450); Red Blood Count 3.94 10^6 /uL (4.18-5.48); Red Cell Distribution Width 20 % (10-15); White Blood Count 4.9 10^3/uL (3.5-10.8)
[2022-03-30] MEDS: Nystatin TOP POWDER 15 GM BTL TOPICAL SCH ×2 (07:39→21:03)
[2022-03-30] MEDS: DULoxetine DR 30 mg CAP PO SCH (07:39)
[2022-03-30] MEDS: DULoxetine DR 60 mg CAP PO SCH (07:39)
[2022-03-30] MEDS: Cholecalciferol (VIT D3) 400 units TAB PO SCH (07:39)
[2022-03-30 08:36] LABS: Calcium 8.2 mg/dL (8.6-10.3); Magnesium 2.1 mg/dL (1.9-2.7); Potassium 3.8 mmol/L (3.5-5.0); eGFR CKD-EPI 107.3 (>60)
[2022-03-30] MEDS ORDERED: Bumetanide IV 0.25 MG/ML 4 ml VIAL (1 mg) SLOW PUSH ONE (13:00)
[2022-03-30] MEDS: Lurasidone 120 mg TAB PO SCH (21:01)
[2022-03-30] MEDS: Senna TAB 8.6 mg TAB PO SCH (21:02)
[2022-03-30] MEDS: Enoxaparin 40 MG/0.4 ML SYR SUBCUT SCH ×2 (22:01→22:05)
[2022-03-31] MEDS: Mometasone/Formoter 200/5 MDI INH SCH ×2 (07:50→19:54)
[2022-03-31] MEDS: Iron Sucrose 200 MG in NS 0.9% 100 ml BAG 100 ML IVPB SCH (07:55)
[2022-03-31] MEDS: Cholecalciferol (VIT D3) 400 units TAB PO SCH (07:55)
[2022-03-31] MEDS: Calcium/Vitamin D TAB 250/125 TAB PO SCH (07:56)
[2022-03-31] MEDS: Nystatin TOP POWDER 15 GM BTL TOPICAL SCH ×2 (07:56→22:10)
[2022-03-31] MEDS: DULoxetine DR 60 mg CAP PO SCH (07:56)
[2022-03-31] MEDS: DULoxetine DR 30 mg CAP PO SCH (07:56)
[2022-03-31] MEDS: Senna TAB 8.6 mg TAB PO SCH (22:08)
[2022-03-31] MEDS: Lurasidone 120 mg TAB PO SCH (22:08)
[2022-03-31] MEDS: Enoxaparin 40 MG/0.4 ML SYR SUBCUT SCH (22:09)
[2022-04-01 06:45] LABS: ABS Eosinophils 0.3 10^3/ul (0-0.6); ABS Lymphocytes 1.2 10^3/ul (1.0-4.8); ABS Monocytes 0.5 10^3/ul (0-0.8); ABS Neutrophils 4.4 10^3/ul (1.5-7.7); Eosinophil % 4.6 %; Hematocrit 30 % (42-52); Hemoglobin 9.8 g/dL (14.0-18.0); Mean Corpuscular HGB Conc 33 g/dL (31-36); Mean Corpuscular Hemoglobin 26 pg (27-31); Mean Corpuscular Volume 79 fL (80-94); Mean Platelet Volume 7.4 fL (7.4-10.4); Nucleated Red Blood Cells % 0.2; Platelet Count 239 10^3/uL (150-450); Red Blood Count 3.81 10^6 /uL (4.18-5.48); Red Cell Distribution Width 19 % (10-15); White Blood Count 6.5 10^3/uL (3.5-10.8)
[2022-04-01 07:00] LABS: Calcium 8.4 mg/dL (8.6-10.3); Potassium 4.1 mmol/L (3.5-5.0); eGFR CKD-EPI 111.6 (>60)
[2022-04-01] MEDS: Mometasone/Formoter 200/5 MDI INH SCH ×2 (07:08→19:00)
[2022-04-01] MEDS: DULoxetine DR 30 mg CAP PO SCH (07:43)
[2022-04-01] MEDS: Iron Sucrose 200 MG in NS 0.9% 100 ml BAG 100 ML IVPB SCH (07:43)
[2022-04-01] MEDS: Cholecalciferol (VIT D3) 400 units TAB PO SCH (07:43)
[2022-04-01] MEDS: DULoxetine DR 60 mg CAP PO SCH (07:43)
[2022-04-01] MEDS: Calcium/Vitamin D TAB 250/125 TAB PO SCH (07:43)
[2022-04-01] MEDS: Nystatin TOP POWDER 15 GM BTL TOPICAL SCH ×2 (08:09→20:46)
[2022-04-01] MEDS: Lurasidone 120 mg TAB PO SCH (20:45)
[2022-04-01] MEDS: Senna TAB 8.6 mg TAB PO SCH (20:45)
[2022-04-01] MEDS: Enoxaparin 40 MG/0.4 ML SYR SUBCUT SCH (21:11)
[2022-04-02] MEDS: Mometasone/Formoter 200/5 MDI INH SCH ×2 (08:00→19:06)
[2022-04-02] MEDS: Cholecalciferol (VIT D3) 400 units TAB PO SCH (08:28)
[2022-04-02] MEDS: DULoxetine DR 30 mg CAP PO SCH (08:28)
[2022-04-02] MEDS: DULoxetine DR 60 mg CAP PO SCH (08:28)
[2022-04-02] MEDS: Nystatin TOP POWDER 15 GM BTL TOPICAL SCH ×2 (08:28→21:27)
[2022-04-02] MEDS: Calcium/Vitamin D TAB 250/125 TAB PO SCH (08:28)
[2022-04-02] MEDS: Iron Sucrose 200 MG in NS 0.9% 100 ml BAG 100 ML IVPB SCH (08:30)
[2022-04-02] MEDS: Lurasidone 120 mg TAB PO SCH (21:19)
[2022-04-02] MEDS: Senna TAB 8.6 mg TAB PO SCH (21:19)
[2022-04-02] MEDS: Enoxaparin 40 MG/0.4 ML SYR SUBCUT SCH (21:21)
[2022-04-02] MEDS: Ketorolac 10 mg TAB (NF) PO PRN (23:03)
[2022-04-03] MEDS: Mometasone/Formoter 200/5 MDI INH SCH ×2 (07:12→19:03)
[2022-04-03] MEDS: Ketorolac 10 mg TAB (NF) PO PRN ×2 (08:44→20:47)
[2022-04-03] MEDS: Cholecalciferol (VIT D3) 400 units TAB PO SCH (08:44)
[2022-04-03] MEDS: Calcium/Vitamin D TAB 250/125 TAB PO SCH (08:47)
[2022-04-03] MEDS: DULoxetine DR 30 mg CAP PO SCH (08:47)
[2022-04-03] MEDS: DULoxetine DR 60 mg CAP PO SCH (08:47)
[2022-04-03] MEDS: Nystatin TOP POWDER 15 GM BTL TOPICAL SCH ×2 (09:34→21:44)
[2022-04-03] MEDS: Lurasidone 120 mg TAB PO SCH (20:42)
[2022-04-03] MEDS: Senna TAB 8.6 mg TAB PO SCH (20:43)
[2022-04-03] MEDS: Enoxaparin 40 MG/0.4 ML SYR SUBCUT SCH (21:45)
[2022-04-04] MEDS: Mometasone/Formoter 200/5 MDI INH SCH (07:24)
[2022-04-04] MEDS: Calcium/Vitamin D TAB 250/125 TAB PO SCH (08:36)
[2022-04-04] MEDS: Cholecalciferol (VIT D3) 400 units TAB PO SCH (08:36)
[2022-04-04] MEDS: DULoxetine DR 60 mg CAP PO SCH (08:36)
[2022-04-04] MEDS: DULoxetine DR 30 mg CAP PO SCH (08:36)
[2022-04-04] MEDS: Nystatin TOP POWDER 15 GM BTL TOPICAL SCH (09:11)
[2022-04-04 11:32] VITALS: BP 142/77
== END 2022-04-04 11:16 | disposition swing bed (61) | DRG 133 ==
LOC: ED 17:28 → EDHOLD 22:48 → SUATTDRO 22:48 → MED 03-29 02:46
PROVIDERS: ADMIT Internal Medicine; ATTEND Internal Medicine

== ENCOUNTER 2022-04-04 11:22 | Inpatient (IN) ==
[2022-04-04] MEDS ORDERED: Albuterol HFA INHALER 8 gm MDI INH PRN (13:35)
[2022-04-04] MEDS: Mometasone/Formoter 200/5 MDI INH SCH (18:14)
[2022-04-04] MEDS: Enoxaparin 40 MG/0.4 ML SYR SUBCUT SCH (21:55)
[2022-04-04] MEDS: Lurasidone 120 mg TAB PO SCH (21:56)
[2022-04-04] MEDS: CMCS: Ketorolac 10 mg TAB (NF) PO PRN (21:56)
[2022-04-04] MEDS: Senna TAB 8.6 mg TAB PO SCH (21:56)
[2022-04-04] MEDS: Nystatin TOP POWDER 15 GM BTL TOPICAL SCH (21:56)
[2022-04-05] MEDS: Mometasone/Formoter 200/5 MDI INH SCH ×2 (07:34→20:15)
[2022-04-05] MEDS: DULoxetine DR 30 mg CAP PO SCH (09:19)
[2022-04-05] MEDS: DULoxetine DR 60 mg CAP PO SCH (09:19)
[2022-04-05] MEDS: Calcium/Vitamin D TAB 250/125 TAB PO SCH (09:19)
[2022-04-05] MEDS: Cholecalciferol (VIT D3) 400 units TAB PO SCH (09:19)
[2022-04-05] MEDS: Nystatin TOP POWDER 15 GM BTL TOPICAL SCH ×2 (09:20→20:36)
[2022-04-05] MEDS: CMCS: Ketorolac 10 mg TAB (NF) PO PRN ×2 (09:56→20:36)
[2022-04-05] MEDS: Lurasidone 120 mg TAB PO SCH (20:35)
[2022-04-05] MEDS: Enoxaparin 40 MG/0.4 ML SYR SUBCUT SCH (20:35)
[2022-04-05] MEDS: Senna TAB 8.6 mg TAB PO SCH (20:36)
[2022-04-06] MEDS: Mometasone/Formoter 200/5 MDI INH SCH ×2 (07:34→20:08)
[2022-04-06] MEDS: Cholecalciferol (VIT D3) 400 units TAB PO SCH (08:44)
[2022-04-06] MEDS: DULoxetine DR 30 mg CAP PO SCH (08:44)
[2022-04-06] MEDS: DULoxetine DR 60 mg CAP PO SCH (08:44)
[2022-04-06] MEDS: Calcium/Vitamin D TAB 250/125 TAB PO SCH (08:44)
[2022-04-06] MEDS: Nystatin TOP POWDER 15 GM BTL TOPICAL SCH ×2 (08:45→20:32)
[2022-04-06] MEDS: CMCS: Ketorolac 10 mg TAB (NF) PO PRN ×2 (10:40→20:30)
[2022-04-06] MEDS: Enoxaparin 40 MG/0.4 ML SYR SUBCUT SCH (20:29)
[2022-04-06] MEDS: Senna TAB 8.6 mg TAB PO SCH (20:30)
[2022-04-06] MEDS: Lurasidone 120 mg TAB PO SCH (20:30)
[2022-04-07] MEDS: Mometasone/Formoter 200/5 MDI INH SCH ×2 (07:01→19:59)
[2022-04-07] MEDS: Calcium/Vitamin D TAB 250/125 TAB PO SCH (08:33)
[2022-04-07] MEDS: Cholecalciferol (VIT D3) 400 units TAB PO SCH (08:34)
[2022-04-07] MEDS: DULoxetine DR 60 mg CAP PO SCH (08:34)
[2022-04-07] MEDS: DULoxetine DR 30 mg CAP PO SCH (08:35)
[2022-04-07] MEDS: Nystatin TOP POWDER 15 GM BTL TOPICAL SCH ×2 (09:00→22:12)
[2022-04-07] MEDS: CMCS: Ketorolac 10 mg TAB (NF) PO PRN (22:09)
[2022-04-07] MEDS: Lurasidone 120 mg TAB PO SCH (22:09)
[2022-04-07] MEDS: Senna TAB 8.6 mg TAB PO SCH (22:09)
[2022-04-07] MEDS: Enoxaparin 40 MG/0.4 ML SYR SUBCUT SCH (22:10)
[2022-04-08] MEDS: Mometasone/Formoter 200/5 MDI INH SCH ×2 (08:04→21:06)
[2022-04-08] MEDS: DULoxetine DR 30 mg CAP PO SCH (08:54)
[2022-04-08] MEDS: Calcium/Vitamin D TAB 250/125 TAB PO SCH (08:54)
[2022-04-08] MEDS: Cholecalciferol (VIT D3) 400 units TAB PO SCH (08:54)
[2022-04-08] MEDS: DULoxetine DR 60 mg CAP PO SCH (08:54)
[2022-04-08] MEDS: Nystatin TOP POWDER 15 GM BTL TOPICAL SCH ×3 (10:00→20:11)
[2022-04-08] MEDS: Senna TAB 8.6 mg TAB PO SCH (20:06)
[2022-04-08] MEDS: Lurasidone 120 mg TAB PO SCH (20:07)
[2022-04-08] MEDS: Enoxaparin 40 MG/0.4 ML SYR SUBCUT SCH (20:07)
[2022-04-08] MEDS: CMCS: Ketorolac 10 mg TAB (NF) PO PRN (20:07)
[2022-04-09 06:48] LABS: Hematocrit 32 % (42-52); Hemoglobin 10.1 g/dL (14.0-18.0); Mean Platelet Volume 7.4 fL (7.4-10.4); Platelet Count 256 10^3/uL (150-450)
[2022-04-09 07:02] LABS: eGFR CKD-EPI 104.5 (>60)
[2022-04-09] MEDS: Mometasone/Formoter 200/5 MDI INH SCH ×2 (09:28→19:10)
[2022-04-09] MEDS: Cholecalciferol (VIT D3) 400 units TAB PO SCH (09:34)
[2022-04-09] MEDS: DULoxetine DR 30 mg CAP PO SCH (09:34)
[2022-04-09] MEDS: DULoxetine DR 60 mg CAP PO SCH (09:34)
[2022-04-09] MEDS: Calcium/Vitamin D TAB 250/125 TAB PO SCH (09:35)
[2022-04-09] MEDS: Nystatin TOP POWDER 15 GM BTL TOPICAL SCH ×2 (09:40→21:39)
[2022-04-09] MEDS: CMCS: Ketorolac 10 mg TAB (NF) PO PRN (21:37)
[2022-04-09] MEDS: Lurasidone 120 mg TAB PO SCH (21:37)
[2022-04-09] MEDS: Senna TAB 8.6 mg TAB PO SCH (21:39)
[2022-04-09] MEDS: Enoxaparin 40 MG/0.4 ML SYR SUBCUT SCH (21:39)
[2022-04-10] MEDS: Mometasone/Formoter 200/5 MDI INH SCH ×2 (08:08→19:03)
[2022-04-10] MEDS: DULoxetine DR 30 mg CAP PO SCH (11:35)
[2022-04-10] MEDS: DULoxetine DR 60 mg CAP PO SCH (11:35)
[2022-04-10] MEDS: Calcium/Vitamin D TAB 250/125 TAB PO SCH (11:35)
[2022-04-10] MEDS: Cholecalciferol (VIT D3) 400 units TAB PO SCH (11:35)
[2022-04-10] MEDS: Nystatin TOP POWDER 15 GM BTL TOPICAL SCH ×2 (11:38→20:46)
[2022-04-10] MEDS: Senna TAB 8.6 mg TAB PO SCH (20:45)
[2022-04-10] MEDS: Lurasidone 120 mg TAB PO SCH (20:45)
[2022-04-10] MEDS: Enoxaparin 40 MG/0.4 ML SYR SUBCUT SCH (20:46)
[2022-04-11 05:41] LABS: ABS Eosinophils 0.4 10^3/ul (0-0.6); ABS Monocytes 0.6 10^3/ul (0-0.8); Eosinophil % 6.4 %; Hematocrit 30 % (42-52); Hemoglobin 9.3 g/dL (14.0-18.0); Mean Corpuscular HGB Conc 31 g/dL (31-36); Mean Corpuscular Hemoglobin 25 pg (27-31); Mean Corpuscular Volume 80 fL (80-94); Mean Platelet Volume 7.2 fL (7.4-10.4); Nucleated Red Blood Cells % 0.2; Platelet Count 299 10^3/uL (150-450); Red Blood Count 3.74 10^6 /uL (4.18-5.48); Red Cell Distribution Width 21 % (10-15); White Blood Count 6.1 10^3/uL (3.5-10.8)
[2022-04-11 06:12] LABS: Calcium 8.4 mg/dL (8.6-10.3); Potassium 3.5 mmol/L (3.5-5.0); eGFR CKD-EPI 114.3 (>60)
[2022-04-11] MEDS: Mometasone/Formoter 200/5 MDI INH SCH ×2 (08:34→19:36)
[2022-04-11] MEDS: Cholecalciferol (VIT D3) 400 units TAB PO SCH (09:13)
[2022-04-11] MEDS: Calcium/Vitamin D TAB 250/125 TAB PO SCH (09:13)
[2022-04-11] MEDS: DULoxetine DR 60 mg CAP PO SCH (09:13)
[2022-04-11] MEDS: DULoxetine DR 30 mg CAP PO SCH (09:13)
[2022-04-11] MEDS: Nystatin TOP POWDER 15 GM BTL TOPICAL SCH ×2 (09:14→19:58)
[2022-04-11] MEDS: Lurasidone 120 mg TAB PO SCH (19:55)
[2022-04-11] MEDS: Senna TAB 8.6 mg TAB PO SCH (19:56)
[2022-04-11] MEDS: Enoxaparin 40 MG/0.4 ML SYR SUBCUT SCH (19:58)
[2022-04-12] MEDS: Mometasone/Formoter 200/5 MDI INH SCH ×2 (08:03→19:30)
[2022-04-12] MEDS: DULoxetine DR 60 mg CAP PO SCH (09:27)
[2022-04-12] MEDS: Calcium/Vitamin D TAB 250/125 TAB PO SCH (09:28)
[2022-04-12] MEDS: DULoxetine DR 30 mg CAP PO SCH (09:28)
[2022-04-12] MEDS: Cholecalciferol (VIT D3) 400 units TAB PO SCH (09:28)
[2022-04-12] MEDS: Nystatin TOP POWDER 15 GM BTL TOPICAL SCH ×2 (09:57→21:52)
[2022-04-12] MEDS: Senna TAB 8.6 mg TAB PO SCH (21:51)
[2022-04-12] MEDS: Lurasidone 120 mg TAB PO SCH (21:51)
[2022-04-12] MEDS: Enoxaparin 40 MG/0.4 ML SYR SUBCUT SCH (21:51)
[2022-04-13] MEDS: Mometasone/Formoter 200/5 MDI INH SCH ×2 (07:49→19:37)
[2022-04-13] MEDS: Calcium/Vitamin D TAB 250/125 TAB PO SCH (09:22)
[2022-04-13] MEDS: DULoxetine DR 30 mg CAP PO SCH (09:22)
[2022-04-13] MEDS: Cholecalciferol (VIT D3) 400 units TAB PO SCH (09:22)
[2022-04-13] MEDS: DULoxetine DR 60 mg CAP PO SCH (09:22)
[2022-04-13] MEDS: Nystatin TOP POWDER 15 GM BTL TOPICAL SCH ×2 (09:23→21:16)
[2022-04-13] MEDS: Enoxaparin 40 MG/0.4 ML SYR SUBCUT SCH (21:13)
[2022-04-13] MEDS: Lurasidone 120 mg TAB PO SCH (21:13)
[2022-04-13] MEDS: Senna TAB 8.6 mg TAB PO SCH (21:13)
[2022-04-14] MEDS: Mometasone/Formoter 200/5 MDI INH SCH ×2 (07:07→19:16)
[2022-04-14] MEDS: Cholecalciferol (VIT D3) 400 units TAB PO SCH (09:28)
[2022-04-14] MEDS: Calcium/Vitamin D TAB 250/125 TAB PO SCH (09:29)
[2022-04-14] MEDS: DULoxetine DR 60 mg CAP PO SCH (09:29)
[2022-04-14] MEDS: DULoxetine DR 30 mg CAP PO SCH (09:29)
[2022-04-14] MEDS: Nystatin TOP POWDER 15 GM BTL TOPICAL SCH ×2 (09:30→21:37)
[2022-04-14] MEDS: Senna TAB 8.6 mg TAB PO SCH (21:36)
[2022-04-14] MEDS: Lurasidone 120 mg TAB PO SCH (21:37)
[2022-04-14] MEDS: Enoxaparin 40 MG/0.4 ML SYR SUBCUT SCH (21:37)
[2022-04-15] MEDS: Mometasone/Formoter 200/5 MDI INH SCH ×2 (07:53→19:14)
[2022-04-15] MEDS: DULoxetine DR 30 mg CAP PO SCH (09:11)
[2022-04-15] MEDS: DULoxetine DR 60 mg CAP PO SCH (09:11)
[2022-04-15] MEDS: Cholecalciferol (VIT D3) 400 units TAB PO SCH (09:11)
[2022-04-15] MEDS: Calcium/Vitamin D TAB 250/125 TAB PO SCH (09:11)
[2022-04-15] MEDS: Nystatin TOP POWDER 15 GM BTL TOPICAL SCH ×2 (09:12→22:13)
[2022-04-15] MEDS: Lurasidone 120 mg TAB PO SCH (22:12)
[2022-04-15] MEDS: Senna TAB 8.6 mg TAB PO SCH (22:13)
[2022-04-15] MEDS: Enoxaparin 40 MG/0.4 ML SYR SUBCUT SCH (22:13)
[2022-04-16] MEDS: DULoxetine DR 60 mg CAP PO SCH (09:08)
[2022-04-16] MEDS: Cholecalciferol (VIT D3) 400 units TAB PO SCH (09:08)
[2022-04-16] MEDS: Calcium/Vitamin D TAB 250/125 TAB PO SCH (09:08)
[2022-04-16] MEDS: DULoxetine DR 30 mg CAP PO SCH (09:08)
[2022-04-16] MEDS: Nystatin TOP POWDER 15 GM BTL TOPICAL SCH ×2 (09:23→21:58)
[2022-04-16] MEDS: Mometasone/Formoter 200/5 MDI INH SCH ×2 (09:27→19:20)
[2022-04-16 15:52] LABS: Hematocrit 34 % (42-52); Hemoglobin 10.4 g/dL (14.0-18.0); Mean Corpuscular HGB Conc 31 g/dL (31-36); Mean Corpuscular Hemoglobin 26 pg (27-31); Mean Corpuscular Volume 83 fL (80-94); Red Blood Count 4.03 10^6 /uL (4.18-5.48); Red Cell Distribution Width 21 % (10-15); White Blood Count 8.4 10^3/uL (3.5-10.8)
[2022-04-16 16:28] LABS: Mean Platelet Volume 7.8 fL (7.4-10.4); Platelet Count 54 10^3/uL (150-450)
[2022-04-16] MEDS: Lurasidone 120 mg TAB PO SCH (21:57)
[2022-04-16] MEDS: Senna TAB 8.6 mg TAB PO SCH (21:58)
[2022-04-17] MEDS: Mometasone/Formoter 200/5 MDI INH SCH ×2 (07:36→19:56)
[2022-04-17] MEDS: DULoxetine DR 60 mg CAP PO SCH (07:48)
[2022-04-17] MEDS: Cholecalciferol (VIT D3) 400 units TAB PO SCH (07:48)
[2022-04-17] MEDS: DULoxetine DR 30 mg CAP PO SCH (07:48)
[2022-04-17] MEDS: Calcium/Vitamin D TAB 250/125 TAB PO SCH (07:48)
[2022-04-17] MEDS: Nystatin TOP POWDER 15 GM BTL TOPICAL SCH ×2 (08:24→21:24)
[2022-04-17 08:50] LABS: ABS Eosinophils 0.4 10^3/ul (0-0.6); ABS Lymphocytes 1.3 10^3/ul (1.0-4.8); ABS Monocytes 0.6 10^3/ul (0-0.8); ABS Neutrophils 4.6 10^3/ul (1.5-7.7); Eosinophil % 6.1 %; Hematocrit 30 % (42-52); Hemoglobin 9.7 g/dL (14.0-18.0); Lymphocyte % 18.8 %; Mean Corpuscular HGB Conc 32 g/dL (31-36); Mean Corpuscular Hemoglobin 26 pg (27-31); Mean Corpuscular Volume 81 fL (80-94); Nucleated Red Blood Cells % 0.1; Platelet Count 339 10^3/uL (150-450); Red Blood Count 3.72 10^6 /uL (4.18-5.48); Red Cell Distribution Width 22 % (10-15)
[2022-04-17 20:28] VITALS: BP 134/66
[2022-04-17] MEDS: Senna TAB 8.6 mg TAB PO SCH (21:22)
[2022-04-17] MEDS: Lurasidone 120 mg TAB PO SCH (21:23)
[2022-04-18] MEDS: Calcium/Vitamin D TAB 250/125 TAB PO SCH (07:34)
[2022-04-18] MEDS: Cholecalciferol (VIT D3) 400 units TAB PO SCH (07:34)
[2022-04-18] MEDS: DULoxetine DR 30 mg CAP PO SCH (07:34)
[2022-04-18] MEDS: DULoxetine DR 60 mg CAP PO SCH (07:34)
[2022-04-18] MEDS: Nystatin TOP POWDER 15 GM BTL TOPICAL SCH (07:35)
== END 2022-04-18 08:30 | DRG 133 ==
LOC: SUATTDRO 11:22 → MED 11:22
PROVIDERS: ADMIT Student in an Organized Health Care Education/Training Program; ATTEND Internal Medicine

== ENCOUNTER 2023-05-29 00:20 | Inpatient (IN) ==
[2023-05-29] MEDS ORDERED: methylPREDNISolone SOD SUCC 125 mg 2 ML VIAL IV ONE (00:52)
[2023-05-29 01:12] LABS: Albumin 3.5 g/dL (3.2-5.2); Calcium 8.3 mg/dL (8.6-10.3); Creatinine, Serum 0.56 mg/dL (0.67-1.17); Globulin 3.6 g/dL (2-4); Potassium 4.3 mmol/L (3.5-5.0); Total Bilirubin 0.4 mg/dL (0.2-1.0); Total Protein 7.1 g/dL (6.4-8.9); eGFR CKD-EPI 123.1 (>60)
[2023-05-29 02:00] LABS: ABS Basophils 0.1 10^3/uL (0.0-0.1); ABS Eosinophils 0.2 10^3/uL (0.0-0.5); ABS Lymphocytes 1.4 10^3/uL (1.0-4.8); ABS Neutrophils 11.6 10^3/uL (1.5-7.6); ABS Nucleated RBC 0.02 10^3/ul; Eosinophil % 1.3 %; Hematocrit 41.1 % (38-53); Hemoglobin 13.5 g/dL (13.2-16.3); Mean Corpuscular Hemoglobin 29.1 pg (27-33); Mean Corpuscular Volume 88.2 fL (80-97); Mean Platelet Volume 8.2 fL (7.5-11.2); Nucleated Red Blood Cells % 0.1 /100 WBC (0.0-0.4); Platelet Count 189 10^3/uL (150-450); Red Blood Count 4.66 10^6/uL (4.06-5.63); Red Cell Distribution Width 19.1 % (12-17); White Blood Count 14.4 10^3/uL (3.6-10.2)
[2023-05-29 03:10] LABS: High Sensitivity Troponin 1 Hr 4 pg/mL (<20)
[2023-05-29] MEDS ORDERED: Albuterol 2.5mg/3 ml (0.083%) NEB.SOLN INH ONE (03:36)
[2023-05-29] MEDS: Enoxaparin 40 MG/0.4 ML SYR SUBCUT SCH (06:27)
[2023-05-29] MEDS: Albuterol HFA INHALER 8 gm MDI INH PRN (08:01)
[2023-05-29] MEDS: methylPREDNISolone SOD SUCC 125 mg 2 ML VIAL IV SCH (12:09)
[2023-05-29] MEDS ORDERED: Iodixanol (CONTRAST) 320 MG/ML 100 ML SDV IV ONE (16:07)
[2023-05-29] MEDS: Lurasidone 120 mg TAB PO SCH (16:09)
[2023-05-29] MEDS: DULoxetine DR 60 mg CAP PO SCH (16:09)
[2023-05-29] MEDS: DULoxetine DR 30 mg CAP PO SCH (16:09)
[2023-05-29 18:48] LABS: PO2 Arterial 66 mmHg (80-100)
[2023-05-29 18:51] LABS: PCO2 Arterial 78 mmHg (35-45)
[2023-05-29] MEDS ORDERED: Albuterol/Ipratropium NEB.SOL (2.5/0.5 MG) 3 ML NEB.SOLN INH ONE (19:50)
[2023-05-29] MEDS ORDERED: Albuterol/Ipratropium NEB.SOL (2.5/0.5 MG) 3 ML NEB.SOLN ONE (20:12)
[2023-05-30] MEDS: methylPREDNISolone SOD SUCC 125 mg 2 ML VIAL IV SCH ×3 (01:18→23:39)
[2023-05-30] MEDS: Enoxaparin 40 MG/0.4 ML SYR SUBCUT SCH (06:05)
[2023-05-30 06:11] LABS: ABS Lymphocytes 0.8 10^3/uL (1.0-4.8); ABS Monocytes 0.4 10^3/uL (0.0-1.1); ABS Neutrophils 8.8 10^3/uL (1.5-7.6); Hematocrit 40.5 % (38-53); Hemoglobin 13.3 g/dL (13.2-16.3); Lymphocyte % 7.8 %; Mean Corpuscular Hemoglobin 28.8 pg (27-33); Mean Corpuscular Hgb Conc 32.9 g/dL (31-36); Mean Corpuscular Volume 87.5 fL (80-97); Mean Platelet Volume 8.3 fL (7.5-11.2); Platelet Count 172 10^3/uL (150-450); Red Blood Count 4.63 10^6/uL (4.06-5.63); Red Cell Distribution Width 18.4 % (12-17)
[2023-05-30 06:31] LABS: Calcium 8.5 mg/dL (8.6-10.3); Creatinine, Serum 0.57 mg/dL (0.67-1.17); Phosphorus 2.9 mg/dL (2.5-5.0); Potassium 4.7 mmol/L (3.5-5.0); eGFR CKD-EPI 122.4 (>60)
[2023-05-30 08:03] LABS: PO2 Arterial 93 mmHg (80-100)
[2023-05-30 08:12] LABS: PCO2 Arterial 73 mmHg (35-45)
[2023-05-30] MEDS: DULoxetine DR 60 mg CAP PO SCH (12:22)
[2023-05-30] MEDS: DULoxetine DR 30 mg CAP PO SCH (12:22)
[2023-05-30] MEDS: Lurasidone 120 mg TAB PO SCH (12:22)
[2023-05-30] MEDS ORDERED: Albuterol/Ipratropium NEB.SOL (2.5/0.5 MG) 3 ML NEB.SOLN INH ONE (14:17)
[2023-05-30] MEDS ORDERED: Bumetanide IV 0.25 MG/ML 4 ml VIAL (1 mg) IV SLOW PU ONE (15:00)
[2023-05-30] MEDS ORDERED: acetaZOLAMIDE IV 500 MG in NS 0.9% 50 ML 50 ML IVPB ONE (15:00)
[2023-05-30] MEDS: Mometasone/Formoter 200/5 MDI INH SCH (20:08)
[2023-05-30 20:29] LABS: Urine Appearance Clear; Urine Bilirubin Negative (Negative); Urine Blood 1+ (Negative); Urine Color Straw; Urine Glucose Negative (Negative); Urine Ketones Negative (Negative); Urine Nitrite Negative (Negative); Urine Protein Negative (Negative); Urine Specific Gravity 1.009 (1.002-1.030); Urine Urobilinogen Negative (Negative)
[2023-05-30 20:34] LABS: Urine Bacteria Absent (Absent); Urine Red Blood Cell 1+(3-5/hpf) (Absent); Urine White Blood Cell Absent (Absent)
[2023-05-31] MEDS: Enoxaparin 40 MG/0.4 ML SYR SUBCUT SCH (05:31)
[2023-05-31 05:50] LABS: ABS Lymphocytes 0.8 10^3/uL (1.0-4.8); ABS Monocytes 0.2 10^3/uL (0.0-1.1); ABS Neutrophils 8.5 10^3/uL (1.5-7.6); Eosinophil % 0.1 %; Hemoglobin 14.1 g/dL (13.2-16.3); Lymphocyte % 8.2 %; Mean Corpuscular Hemoglobin 28.8 pg (27-33); Mean Corpuscular Hgb Conc 32.8 g/dL (31-36); Mean Corpuscular Volume 87.7 fL (80-97); Mean Platelet Volume 8.2 fL (7.5-11.2); Platelet Count 185 10^3/uL (150-450); Red Blood Count 4.91 10^6/uL (4.06-5.63); Red Cell Distribution Width 18.6 % (12-17); White Blood Count 9.5 10^3/uL (3.6-10.2)
[2023-05-31 05:53] LABS: PCO2 Arterial 62 mmHg (35-45); PO2 Arterial 77 mmHg (80-100)
[2023-05-31 06:09] LABS: Albumin 3.7 g/dL (3.2-5.2); C Reactive Protein 13.76 mg/L (<8.01); Calcium 8.8 mg/dL (8.6-10.3); Creatinine, Serum 0.68 mg/dL (0.67-1.17); Globulin 3.8 g/dL (2-4); Magnesium 2.1 mg/dL (1.9-2.7); Phosphorus 4.9 mg/dL (2.5-5.0); Potassium 4.3 mmol/L (3.5-5.0); Total Bilirubin 0.4 mg/dL (0.2-1.0); Total Protein 7.5 g/dL (6.4-8.9); eGFR CKD-EPI 116.1 (>60)
[2023-05-31] MEDS: Mometasone/Formoter 200/5 MDI INH SCH ×2 (07:19→19:29)
[2023-05-31] MEDS: DULoxetine DR 60 mg CAP PO SCH (09:19)
[2023-05-31] MEDS: DULoxetine DR 30 mg CAP PO SCH (09:19)
[2023-05-31] MEDS: Lurasidone 120 mg TAB PO SCH (09:26)
[2023-05-31] MEDS ORDERED: acetaZOLAMIDE IV 250 MG in NS 0.9% 50 ML 50 ML IVPB ONE (12:21)
[2023-05-31] MEDS: methylPREDNISolone SOD SUCC 125 mg 2 ML VIAL IV SCH (14:17)
[2023-06-01] MEDS: methylPREDNISolone SOD SUCC 125 mg 2 ML VIAL IV SCH ×2 (00:47→12:17)
[2023-06-01 07:03] LABS: ABS Basophils 0.3 10^3/uL (0.0-0.1); ABS Eosinophils 0.1 10^3/uL (0.0-0.5); ABS Lymphocytes 0.8 10^3/uL (1.0-4.8); ABS Monocytes 0.4 10^3/uL (0.0-1.1); ABS Neutrophils 10.3 10^3/uL (1.5-7.6); ABS Nucleated RBC 0.01 10^3/ul; Eosinophil % 0.4 %; Hematocrit 45.3 % (38-53); Hemoglobin 14.9 g/dL (13.2-16.3); Lymphocyte % 6.7 %; Mean Corpuscular Hemoglobin 28.8 pg (27-33); Mean Corpuscular Hgb Conc 32.9 g/dL (31-36); Mean Corpuscular Volume 87.6 fL (80-97); Mean Platelet Volume 7.8 fL (7.5-11.2); Nucleated Red Blood Cells % 0.1 /100 WBC (0.0-0.4); Platelet Count 194 10^3/uL (150-450); Red Blood Count 5.17 10^6/uL (4.06-5.63); Red Cell Distribution Width 18.3 % (12-17); White Blood Count 11.8 10^3/uL (3.6-10.2)
[2023-06-01 07:18] LABS: Calcium 8.6 mg/dL (8.6-10.3); Creatinine, Serum 0.67 mg/dL (0.67-1.17); Magnesium 2.2 mg/dL (1.9-2.7); Phosphorus 3.7 mg/dL (2.5-5.0); Potassium 4.8 mmol/L (3.5-5.0); eGFR CKD-EPI 116.6 (>60)
[2023-06-01] MEDS: Lurasidone 120 mg TAB PO SCH (07:51)
[2023-06-01] MEDS: DULoxetine DR 60 mg CAP PO SCH (07:52)
[2023-06-01] MEDS: DULoxetine DR 30 mg CAP PO SCH (07:52)
[2023-06-01] MEDS: Enoxaparin 40 MG/0.4 ML SYR SUBCUT SCH (07:52)
[2023-06-01] MEDS: Mometasone/Formoter 200/5 MDI INH SCH ×2 (11:08→19:09)
[2023-06-02] MEDS: methylPREDNISolone SOD SUCC 125 mg 2 ML VIAL IV SCH ×2 (01:19→12:03)
[2023-06-02] MEDS: Enoxaparin 40 MG/0.4 ML SYR SUBCUT SCH (05:23)
[2023-06-02] MEDS: DULoxetine DR 60 mg CAP PO SCH (07:51)
[2023-06-02] MEDS: DULoxetine DR 30 mg CAP PO SCH (07:51)
[2023-06-02] MEDS: Lurasidone 120 mg TAB PO SCH (07:53)
[2023-06-02] MEDS: Mometasone/Formoter 200/5 MDI INH SCH ×2 (07:58→20:02)
[2023-06-02 08:05] LABS: ABS Basophils 0.1 10^3/uL (0.0-0.1); ABS Lymphocytes 0.7 10^3/uL (1.0-4.8); ABS Monocytes 0.4 10^3/uL (0.0-1.1); ABS Neutrophils 11.4 10^3/uL (1.5-7.6); ABS Nucleated RBC 0.03 10^3/ul; Hematocrit 47.2 % (38-53); Hemoglobin 15.3 g/dL (13.2-16.3); Lymphocyte % 5.9 %; Mean Corpuscular Hemoglobin 28.3 pg (27-33); Mean Corpuscular Hgb Conc 32.4 g/dL (31-36); Mean Corpuscular Volume 87.3 fL (80-97); Mean Platelet Volume 8.3 fL (7.5-11.2); Nucleated Red Blood Cells % 0.3 /100 WBC (0.0-0.4); Platelet Count 190 10^3/uL (150-450); Red Blood Count 5.41 10^6/uL (4.06-5.63); White Blood Count 12.6 10^3/uL (3.6-10.2)
[2023-06-02 08:12] LABS: Calcium 8.3 mg/dL (8.6-10.3); Creatinine, Serum 0.62 mg/dL (0.67-1.17); Potassium 4.3 mmol/L (3.5-5.0); eGFR CKD-EPI 119.4 (>60)
[2023-06-03] MEDS: methylPREDNISolone SOD SUCC 125 mg 2 ML VIAL IV SCH ×2 (00:28→12:28)
[2023-06-03] MEDS: Enoxaparin 40 MG/0.4 ML SYR SUBCUT SCH (05:26)
[2023-06-03] MEDS: DULoxetine DR 60 mg CAP PO SCH (08:31)
[2023-06-03] MEDS: DULoxetine DR 30 mg CAP PO SCH (08:31)
[2023-06-03] MEDS: Lurasidone 120 mg TAB PO SCH (08:32)
[2023-06-03] MEDS: Mometasone/Formoter 200/5 MDI INH SCH ×2 (08:34→20:03)
[2023-06-03] MEDS: Albuterol HFA INHALER 8 gm MDI INH PRN (20:13)
[2023-06-04] MEDS: Enoxaparin 40 MG/0.4 ML SYR SUBCUT SCH (06:32)
[2023-06-04 07:07] LABS: ABS Monocytes 1.2 10^3/uL (0.0-1.1); ABS Neutrophils 12.1 10^3/uL (1.5-7.6); Eosinophil % 0.1 %; Hematocrit 45.4 % (38-53); Hemoglobin 14.7 g/dL (13.2-16.3); Lymphocyte % 7.2 %; Mean Corpuscular Hemoglobin 28.3 pg (27-33); Mean Corpuscular Hgb Conc 32.3 g/dL (31-36); Mean Corpuscular Volume 87.6 fL (80-97); Mean Platelet Volume 8.3 fL (7.5-11.2); Platelet Count 187 10^3/uL (150-450); Red Blood Count 5.18 10^6/uL (4.06-5.63); Red Cell Distribution Width 18.2 % (12-17); White Blood Count 14.4 10^3/uL (3.6-10.2)
[2023-06-04 07:28] LABS: Calcium 8.3 mg/dL (8.6-10.3); Creatinine, Serum 0.64 mg/dL (0.67-1.17); Magnesium 2.1 mg/dL (1.9-2.7); eGFR CKD-EPI 118.2 (>60)
[2023-06-04] MEDS: Mometasone/Formoter 200/5 MDI INH SCH ×2 (07:49→20:06)
[2023-06-04 08:00] LABS: Potassium 4.3 mmol/L (3.5-5.0)
[2023-06-04] MEDS: DULoxetine DR 60 mg CAP PO SCH (08:07)
[2023-06-04] MEDS: DULoxetine DR 30 mg CAP PO SCH (08:07)
[2023-06-04] MEDS: Lurasidone 120 mg TAB PO SCH (08:08)
[2023-06-05] MEDS: Enoxaparin 40 MG/0.4 ML SYR SUBCUT SCH (06:31)
[2023-06-05] MEDS: Lurasidone 120 mg TAB PO SCH (08:09)
[2023-06-05] MEDS: DULoxetine DR 30 mg CAP PO SCH (08:09)
[2023-06-05] MEDS: DULoxetine DR 60 mg CAP PO SCH (08:09)
[2023-06-05] MEDS: Mometasone/Formoter 200/5 MDI INH SCH (09:06)
[2023-06-05 09:47] VITALS: BP 125/80
[2023-06-05] MEDS: Albuterol HFA INHALER 8 gm MDI INH PRN (10:42)
== END 2023-06-05 11:35 | disposition home or self-care (01) | DRG 133 ==
LOC: ED 00:20 → SUATTDRO 04:07 → EDHOLD 04:07 → MED 11:26 → ICU 05-30 17:06 → SSU 05-31 10:52
PROVIDERS: ADMIT Student in an Organized Health Care Education/Training Program; ATTEND Hospitalist

== ENCOUNTER 2023-10-27 17:47 | Inpatient (IN) ==
[2023-10-27] MEDS ORDERED: HYDROmorphone 1 MG/1 ML SYRINGE IV SLOW PU ONE ×2 (18:20→20:38)
[2023-10-27 19:08] LABS: ABS Basophils 0.1 10^3/uL (0.0-0.1); ABS Eosinophils 0.3 10^3/uL (0.0-0.5); ABS Lymphocytes 1.1 10^3/uL (1.0-4.8); ABS Monocytes 0.6 10^3/uL (0.0-1.1); ABS Neutrophils 8.3 10^3/uL (1.5-7.6); ABS Nucleated RBC 0.01 10^3/ul; Eosinophil % 3.4 %; Hematocrit 43.8 % (38-53); Hemoglobin 14.7 g/dL (13.2-16.3); Lymphocyte % 10.9 %; Mean Corpuscular Hemoglobin 29.7 pg (27-33); Mean Corpuscular Hgb Conc 33.6 g/dL (31-36); Mean Corpuscular Volume 88.4 fL (80-97); Mean Platelet Volume 8.7 fL (7.5-11.2); Nucleated Red Blood Cells % 0.1 %/100WBC (0.0-0.8); Platelet Count 198 10^3/uL (150-450); Red Blood Count 4.95 10^6/uL (4.06-5.63); White Blood Count 10.4 10^3/uL (3.6-10.2)
[2023-10-27 19:54] LABS: ALT 31 U/L (7-52); Albumin 4.1 g/dL (3.2-5.2); Albumin/Globulin Ratio 1.1 (1-3); Alkaline Phosphatase 75 U/L (35-149); Anion Gap 4 mmol/L (2-16); Blood Urea Nitrogen 18 mg/dL (6-24); C Reactive Protein 68.54 mg/L (<8.01); CO2 Carbon Dioxide 35 mmol/L (22-32); Calcium 8.8 mg/dL (8.6-10.3); Chloride 95 mmol/L (101-111); Creatinine, Serum 0.76 mg/dL (0.67-1.17); Globulin 3.7 g/dL (2-4); Glucose 105 mg/dL (70-100); Sodium 134 mmol/L (135-145); Total Protein 7.8 g/dL (6.4-8.9); eGFR CKD-EPI 111.6 (>60)
[2023-10-27] MEDS ORDERED: Iohexol 350 (CONTRAST) 500 ML MDV IV ONE (20:03)
[2023-10-27] MEDS ORDERED: HYDROmorphone 1 MG/1 ML SYRINGE IV SLOW PU PRN ×2 (20:39→23:00)
[2023-10-28] MEDS ORDERED: HYDROmorphone 1 MG/1 ML SYRINGE IV ONE (00:33)
[2023-10-28] MEDS ORDERED: Naloxone Nasal Spray 4 MG/0.1 ML NASAL.SPR INTRANASAL PRN (01:38)
[2023-10-28] MEDS ORDERED: Albuterol HFA INHALER 8 gm MDI INH PRN (01:38)
[2023-10-28] MEDS: Enoxaparin 40 MG/0.4 ML SYR SUBCUT SCH ×2 (02:16→20:04)
[2023-10-28] MEDS: HYDROmorphone 1 MG/1 ML SYRINGE IV SCH ×6 (02:18→22:27)
[2023-10-28 02:27] LABS: Urine Appearance Clear; Urine Bilirubin Negative (Negative); Urine Blood 2+ (Negative); Urine Color Amber; Urine Glucose Negative (Negative); Urine Ketones Negative (Negative); Urine Nitrite Negative (Negative); Urine Protein 1+(30 mg/dL) (Negative); Urine Urobilinogen Positive (Negative)
[2023-10-28 02:34] LABS: Urine Bacteria Absent (Absent); Urine Red Blood Cell 3+(>10/hpf) (Absent); Urine Squamous Epithelial Cell Present (Absent); Urine White Blood Cell Trace(0-5/hpf) (Absent)
[2023-10-28 02:46] LABS: Urine Specific Gravity > 1.060 (1.002-1.030)
[2023-10-28 07:31] LABS: Calcium 8.7 mg/dL (8.6-10.3); Creatinine, Serum 0.89 mg/dL (0.67-1.17); Potassium 4.1 mmol/L (3.5-5.0); Potassium Redraw 4.1 mmol/L (3.5-5.0); eGFR CKD-EPI 106.4 (>60)
[2023-10-28 07:42] LABS: ABS Eosinophils 0.4 10^3/uL (0.0-0.5); ABS Monocytes 0.8 10^3/uL (0.0-1.1); ABS Neutrophils 7.9 10^3/uL (1.5-7.6); ABS Nucleated RBC 0.03 10^3/ul; Eosinophil % 3.6 %; Hematocrit 45.7 % (38-53); Hemoglobin 14.8 g/dL (13.2-16.3); Lymphocyte % 9.6 %; Mean Corpuscular Hemoglobin 28.9 pg (27-33); Mean Corpuscular Hgb Conc 32.3 g/dL (31-36); Mean Corpuscular Volume 89.5 fL (80-97); Mean Platelet Volume 8.9 fL (7.5-11.2); Nucleated Red Blood Cells % 0.3 %/100WBC (0.0-0.8); Platelet Count 199 10^3/uL (150-450); Red Cell Distribution Width 16.4 % (12-17)
[2023-10-28] MEDS: DULoxetine DR 60 mg CAP PO SCH (08:04)
[2023-10-28 08:52] LABS: High Sensitivity Troponin 1 Hr 4 pg/mL (<20)
[2023-10-28] MEDS: CMCS: Calcitonin NASAL(NF) 200 UNITS/SPRAY NASAL.SPR ALT NARE SCH (10:23)
[2023-10-28] MEDS: SPIRIVA Respimat (tiotropium) 2.5 mcg/inh Inhaler INH SCH (10:41)
[2023-10-28] MEDS ORDERED: Furosemide 40 mg/4 ml IV VIAL IV SLOW PU ONE (13:21)
[2023-10-28] MEDS: Cholecalciferol (VIT D3) 1,000 unit TAB PO SCH (20:03)
[2023-10-28] MEDS: Lurasidone 120 mg TAB PO SCH (20:03)
[2023-10-29] MEDS: HYDROmorphone 1 MG/1 ML SYRINGE IV SCH ×6 (02:32→22:34)
[2023-10-29] MEDS: SPIRIVA Respimat (tiotropium) 2.5 mcg/inh Inhaler INH SCH (07:26)
[2023-10-29] MEDS: DULoxetine DR 60 mg CAP PO SCH (09:49)
[2023-10-29] MEDS: CMCS: Calcitonin NASAL(NF) 200 UNITS/SPRAY NASAL.SPR ALT NARE SCH (09:50)
[2023-10-29 09:59] LABS: Hematocrit 44.4 % (38-53); Hemoglobin 14.6 g/dL (13.2-16.3); Mean Corpuscular Hemoglobin 29.5 pg (27-33); Mean Corpuscular Hgb Conc 32.9 g/dL (31-36); Mean Corpuscular Volume 89.5 fL (80-97); Mean Platelet Volume 8.8 fL (7.5-11.2); Platelet Count 183 10^3/uL (150-450); Red Blood Count 4.97 10^6/uL (4.06-5.63); Red Cell Distribution Width 15.9 % (12-17); White Blood Count 9.6 10^3/uL (3.6-10.2)
[2023-10-29 10:15] LABS: Calcium 9.2 mg/dL (8.6-10.3); Creatinine, Serum 0.74 mg/dL (0.67-1.17); Potassium 4.4 mmol/L (3.5-5.0); eGFR CKD-EPI 112.5 (>60)
[2023-10-29] MEDS: Lurasidone 120 mg TAB PO SCH (17:58)
[2023-10-29] MEDS: Cholecalciferol (VIT D3) 1,000 unit TAB PO SCH (20:29)
[2023-10-29] MEDS: Enoxaparin 40 MG/0.4 ML SYR SUBCUT SCH (20:31)
[2023-10-30] MEDS: HYDROmorphone 0.5 MG/0.5 ML SYRINGE IV SLOW PU PRN ×5 (03:29→20:32)
[2023-10-30 06:38] LABS: Hematocrit 42.4 % (38-53); Hemoglobin 13.7 g/dL (13.2-16.3); Mean Corpuscular Hemoglobin 28.9 pg (27-33); Mean Corpuscular Hgb Conc 32.2 g/dL (31-36); Mean Corpuscular Volume 89.6 fL (80-97); Mean Platelet Volume 8.7 fL (7.5-11.2); Platelet Count 165 10^3/uL (150-450); Red Blood Count 4.74 10^6/uL (4.06-5.63); Red Cell Distribution Width 16.1 % (12-17); White Blood Count 7.2 10^3/uL (3.6-10.2)
[2023-10-30 07:09] LABS: Calcium 8.8 mg/dL (8.6-10.3); Creatinine, Serum 0.63 mg/dL (0.67-1.17); Potassium 4.4 mmol/L (3.5-5.0); eGFR CKD-EPI 118.1 (>60)
[2023-10-30] MEDS: SPIRIVA Respimat (tiotropium) 2.5 mcg/inh Inhaler INH SCH (08:12)
[2023-10-30] MEDS: DULoxetine DR 60 mg CAP PO SCH (08:36)
[2023-10-30] MEDS: CMCS: Calcitonin NASAL(NF) 200 UNITS/SPRAY NASAL.SPR ALT NARE SCH (12:29)
[2023-10-30] MEDS: Lurasidone 120 mg TAB PO SCH (16:20)
[2023-10-30] MEDS: Enoxaparin 40 MG/0.4 ML SYR SUBCUT SCH (20:25)
[2023-10-30] MEDS: Cholecalciferol (VIT D3) 1,000 unit TAB PO SCH (20:26)
[2023-10-31] MEDS: HYDROmorphone 0.5 MG/0.5 ML SYRINGE IV SLOW PU PRN ×3 (01:15→11:09)
[2023-10-31] MEDS: SPIRIVA Respimat (tiotropium) 2.5 mcg/inh Inhaler INH SCH (07:11)
[2023-10-31 07:51] LABS: Calcium 8.9 mg/dL (8.6-10.3); Creatinine, Serum 0.68 mg/dL (0.67-1.17); Potassium 4.5 mmol/L (3.5-5.0); eGFR CKD-EPI 115.4 (>60)
[2023-10-31] MEDS: DULoxetine DR 60 mg CAP PO SCH (08:10)
[2023-10-31] MEDS: HYDROmorphone 1 MG/1 ML SYRINGE IV SLOW PU PRN ×2 (16:07→21:38)
[2023-10-31] MEDS: Lurasidone 120 mg TAB PO SCH (16:07)
[2023-10-31] MEDS: CMCS: Calcitonin NASAL(NF) 200 UNITS/SPRAY NASAL.SPR ALT NARE SCH (16:30)
[2023-10-31] MEDS: Cholecalciferol (VIT D3) 1,000 unit TAB PO SCH (21:41)
[2023-10-31] MEDS: Enoxaparin 40 MG/0.4 ML SYR SUBCUT SCH (21:42)
[2023-11-01] MEDS: HYDROmorphone 1 MG/1 ML SYRINGE IV SLOW PU PRN ×4 (01:46→14:19)
[2023-11-01] MEDS: SPIRIVA Respimat (tiotropium) 2.5 mcg/inh Inhaler INH SCH (08:48)
[2023-11-01] MEDS: DULoxetine DR 60 mg CAP PO SCH (09:15)
[2023-11-01] MEDS: CMCS: Calcitonin NASAL(NF) 200 UNITS/SPRAY NASAL.SPR ALT NARE SCH (09:17)
[2023-11-01 12:08] LABS: ABS Eosinophils 0.7 10^3/uL (0.0-0.5); ABS Lymphocytes 0.9 10^3/uL (1.0-4.8); ABS Monocytes 0.6 10^3/uL (0.0-1.1); ABS Neutrophils 4.9 10^3/uL (1.5-7.6); Eosinophil % 9.8 %; Hematocrit 39.4 % (38-53); Hemoglobin 12.7 g/dL (13.2-16.3); Mean Corpuscular Hgb Conc 32.3 g/dL (31-36); Mean Corpuscular Volume 90.1 fL (80-97); Mean Platelet Volume 8.6 fL (7.5-11.2); Platelet Count 164 10^3/uL (150-450); Red Blood Count 4.38 10^6/uL (4.06-5.63); White Blood Count 7.2 10^3/uL (3.6-10.2)
[2023-11-01 12:24] LABS: Calcium 8.8 mg/dL (8.6-10.3); Creatinine, Serum 0.61 mg/dL (0.67-1.17); Magnesium 1.9 mg/dL (1.9-2.7); Potassium 4.5 mmol/L (3.5-5.0); eGFR CKD-EPI 119.2 (>60)
[2023-11-01] MEDS: Lurasidone 120 mg TAB PO SCH (16:49)
[2023-11-01] MEDS: Cholecalciferol (VIT D3) 1,000 unit TAB PO SCH (22:05)
[2023-11-01] MEDS: Enoxaparin 40 MG/0.4 ML SYR SUBCUT SCH (22:06)
[2023-11-02] MEDS: SPIRIVA Respimat (tiotropium) 2.5 mcg/inh Inhaler INH SCH (07:35)
[2023-11-02] MEDS: DULoxetine DR 60 mg CAP PO SCH (08:40)
[2023-11-02] MEDS: CMCS: Calcitonin NASAL(NF) 200 UNITS/SPRAY NASAL.SPR ALT NARE SCH (08:40)
[2023-11-02] MEDS: Lurasidone 120 mg TAB PO SCH (16:31)
[2023-11-02] MEDS: Cholecalciferol (VIT D3) 1,000 unit TAB PO SCH (22:19)
[2023-11-02] MEDS: Enoxaparin 40 MG/0.4 ML SYR SUBCUT SCH (22:24)
[2023-11-03 06:17] LABS: Hematocrit 38.8 % (38-53); Hemoglobin 12.6 g/dL (13.2-16.3); Mean Corpuscular Hemoglobin 29.2 pg (27-33); Mean Corpuscular Hgb Conc 32.4 g/dL (31-36); Mean Platelet Volume 8.5 fL (7.5-11.2); Platelet Count 167 10^3/uL (150-450); Red Blood Count 4.31 10^6/uL (4.06-5.63); Red Cell Distribution Width 15.9 % (12-17); White Blood Count 6.2 10^3/uL (3.6-10.2)
[2023-11-03 06:34] LABS: Calcium 8.7 mg/dL (8.6-10.3); Creatinine, Serum 0.75 mg/dL (0.67-1.17); Potassium 4.2 mmol/L (3.5-5.0)
[2023-11-03] MEDS: SPIRIVA Respimat (tiotropium) 2.5 mcg/inh Inhaler INH SCH (07:41)
[2023-11-03] MEDS: CMCS: Calcitonin NASAL(NF) 200 UNITS/SPRAY NASAL.SPR ALT NARE SCH (09:12)
[2023-11-03] MEDS: DULoxetine DR 60 mg CAP PO SCH (09:18)
[2023-11-03 14:11] VITALS: BP 145/90
== END 2023-11-03 15:45 | disposition home or self-care (01) | DRG 861 ==
LOC: EDHOLD 17:47 → ED 17:47 → SUATTDRO 10-28 00:53 → MEDTELE 10-28 17:43 → MED 10-30 11:47 → SUATTDRO 10-30 14:00
PROVIDERS: ADMIT Internal Medicine; ATTEND Family Medicine

== ENCOUNTER 2023-11-07 16:29 | Inpatient (IN) ==
[2023-11-07] MEDS ORDERED: Vancomycin 1,000 MG in NS 0.9% 250 ml 250 ML IVPB ONE (17:02)
[2023-11-07] MEDS: Piperacillin/Tazobac 3.375 BAG 3.375 GM/100 ML BAG IV ONE (17:33)
[2023-11-07 17:34] LABS: ABS Basophils 0.1 10^3/uL (0.0-0.1); ABS Eosinophils 0.4 10^3/uL (0.0-0.5); ABS Lymphocytes 0.8 10^3/uL (1.0-4.8); ABS Monocytes 0.7 10^3/uL (0.0-1.1); ABS Neutrophils 6.9 10^3/uL (1.5-7.6); Eosinophil % 4.9 %; Hematocrit 37.3 % (38-53); Hemoglobin 12.3 g/dL (13.2-16.3); Mean Corpuscular Hemoglobin 29.1 pg (27-33); Mean Corpuscular Hgb Conc 32.9 g/dL (31-36); Mean Corpuscular Volume 88.4 fL (80-97); Mean Platelet Volume 8.3 fL (7.5-11.2); Platelet Count 207 10^3/uL (150-450); Red Blood Count 4.22 10^6/uL (4.06-5.63); Red Cell Distribution Width 16.1 % (12-17)
[2023-11-07] MEDS: HYDROmorphone 1 MG/1 ML SYRINGE IV ONE (17:48)
[2023-11-07 17:54] LABS: ALT 18 U/L (7-52); AST 17 U/L (13-39); Albumin 3.4 g/dL (3.2-5.2); Alkaline Phosphatase 56 U/L (35-149); Anion Gap 5 mmol/L (2-16); Blood Urea Nitrogen 11 mg/dL (6-24); C Reactive Protein 89.66 mg/L (<8.01); CO2 Carbon Dioxide 33 mmol/L (22-32); Calcium 8.8 mg/dL (8.6-10.3); Chloride 97 mmol/L (101-111); Creatinine, Serum 0.62 mg/dL (0.67-1.17); Globulin 3.3 g/dL (2-4); Glucose 97 mg/dL (70-100); Lipase < 10 U/L (11.0-82.0); Magnesium 1.9 mg/dL (1.9-2.7); Phosphorus 3.1 mg/dL (2.5-5.0); Potassium 4.3 mmol/L (3.5-5.0); Sodium 135 mmol/L (135-145); Total Bilirubin 0.6 mg/dL (0.2-1.0); Total Protein 6.7 g/dL (6.4-8.9); eGFR CKD-EPI 118.6 (>60)
[2023-11-07] MEDS: Vancomycin 2,000 MG in NS 0.9% 500 ml BAG 500 ML IVPB ONE (18:12)
[2023-11-07] MEDS ORDERED: Albuterol HFA INHALER 8 gm MDI INH PRN (19:07)
[2023-11-07] MEDS ORDERED: Naloxone Nasal Spray 4 MG/0.1 ML NASAL.SPR INTRANASAL PRN (19:07)
[2023-11-07] MEDS: Morphine ER 15 mg TAB ** extended release PO SCH (20:28)
[2023-11-07] MEDS: Morphine 2 MG/ML SYRINGE IV PRN (20:30)
[2023-11-07] MEDS ORDERED: Vancomycin per Pharmacy 1 EA NOTE FOLLOW UP SCH (22:00)
[2023-11-07] MEDS: HYDROmorphone 1 MG/1 ML SYRINGE IV PRN (22:08)
[2023-11-07] MEDS: Furosemide 40 mg/4 ml IV VIAL IV ONE (22:10)
[2023-11-07] MEDS: Enoxaparin 40 MG/0.4 ML SYR SUBCUT SCH (22:15)
[2023-11-07] MEDS: Lurasidone 120 mg TAB PO SCH (22:20)
[2023-11-07] MEDS: Cholecalciferol (VIT D3) 1,000 unit TAB PO SCH (22:21)
[2023-11-07] MEDS: Polyethylene Glycol 3350 17 GM PACKET PO SCH (22:30)
[2023-11-08] MEDS: Vancomycin 2,000 MG in NS 0.9% 500 ml BAG 500 ML IVPB SCH (02:01)
[2023-11-08 06:49] LABS: ABS Basophils 0.1 10^3/uL (0.0-0.1); ABS Eosinophils 0.5 10^3/uL (0.0-0.5); ABS Lymphocytes 1.1 10^3/uL (1.0-4.8); ABS Monocytes 0.8 10^3/uL (0.0-1.1); ABS Neutrophils 6.4 10^3/uL (1.5-7.6); Eosinophil % 5.4 %; Hematocrit 37.8 % (38-53); Hemoglobin 12.3 g/dL (13.2-16.3); Lymphocyte % 12.2 %; Mean Corpuscular Hemoglobin 28.9 pg (27-33); Mean Corpuscular Hgb Conc 32.7 g/dL (31-36); Mean Corpuscular Volume 88.4 fL (80-97); Mean Platelet Volume 8.7 fL (7.5-11.2); Platelet Count 216 10^3/uL (150-450); Red Blood Count 4.27 10^6/uL (4.06-5.63); Red Cell Distribution Width 15.8 % (12-17); White Blood Count 8.8 10^3/uL (3.6-10.2)
[2023-11-08 07:06] LABS: Calcium 8.4 mg/dL (8.6-10.3); Creatinine, Serum 0.67 mg/dL (0.67-1.17); Magnesium 1.9 mg/dL (1.9-2.7); Potassium 3.9 mmol/L (3.5-5.0); eGFR CKD-EPI 115.9 (>60)
[2023-11-08] MEDS: SPIRIVA Respimat (tiotropium) 2.5 mcg/inh Inhaler INH SCH (07:46)
[2023-11-08] MEDS: DULoxetine DR 60 mg CAP PO SCH (08:50)
[2023-11-08] MEDS: Furosemide 40 mg/4 ml IV VIAL IV ONE (10:14)
[2023-11-08] MEDS: Magnesium Sulfate IV 1GM/100ML 1 GM/100 ML BAG IV ONE (10:15)
[2023-11-09 10:58] LABS: Calcium 9.4 mg/dL (8.6-10.3); Creatinine, Serum 0.66 mg/dL (0.67-1.17); Magnesium 1.8 mg/dL (1.9-2.7); Potassium 4.1 mmol/L (3.5-5.0); eGFR CKD-EPI 116.4 (>60)
[2023-11-09] MEDS: Furosemide 40 mg/4 ml IV VIAL IV ONE (12:18)
[2023-11-09] MEDS: Magnesium Sulfate 2 gm BAG 2 GM/50 ML BAG IVPB ONE (12:18)
[2023-11-09] MEDS: Vancomycin Trough Check NOTE FOLLOW UP ONE (14:40)
[2023-11-09] MEDS: Polyethylene Glycol 3350 17 GM PACKET PO SCH (21:26)
[2023-11-10 06:20] LABS: Creatinine, Serum 0.65 mg/dL (0.67-1.17)
[2023-11-10 08:25] LABS: C Reactive Protein 74.16 mg/L (<8.01)
[2023-11-10] MEDS: Furosemide 40 mg/4 ml IV VIAL IV ONE (13:01)
[2023-11-10] MEDS: Sulfamethox/Trimethoprim DS TAB 800/160 mg PO SCH (22:25)
[2023-11-11] MEDS: Furosemide 40 mg/4 ml IV VIAL IV SLOW PU ONE (13:59)
[2023-11-12] MEDS: HYDROmorphone 1 MG/1 ML SYRINGE IV SLOW PU ONE (02:11)
[2023-11-12 09:20] LABS: Calcium 9.5 mg/dL (8.6-10.3); Creatinine, Serum 0.79 mg/dL (0.67-1.17); Potassium 4.6 mmol/L (3.5-5.0); eGFR CKD-EPI 110.3 (>60)
[2023-11-12] MEDS: Furosemide 40 mg/4 ml IV VIAL IV SLOW PU ONE (10:03)
[2023-11-12] MEDS ORDERED: Vancomycin Trough Check NOTE FOLLOW UP ONE (13:30)
[2023-11-13] MEDS: HYDROmorphone 1 MG/1 ML SYRINGE IV SLOW PU ONE (01:47)
[2023-11-13 13:43] VITALS: BP 153/87
== END 2023-11-13 14:35 | disposition home or self-care (01) | DRG 383 ==
LOC: EDHOLD 16:29 → ED 16:29 → SUATTDRO 18:58 → MED 19:00 → SUATTDRO 11-09 08:00
PROVIDERS: ADMIT Internal Medicine; ATTEND Hospitalist